=== PATIENT | female | born 1940 | race Caucasian/White ===

== ENCOUNTER 2022-03-25 07:59 | Emergency (ER) | payer OTHER, SELFPAY ==
--- NOTE | ~2022-03-25 | XR_ITS ---
EXAMINATION: XR chest 2V DATE: 03/25/2022 09:09 INDICATION: Hypertension TECHNIQUE: PA and lateral views of the chest are obtained. COMPARISON: None available FINDINGS: The lungs are free of acute opacities. No pleural effusion or pneumothorax. The cardiomedia stinal silhouette is normal. There is moderate thoracic spondylosis. IMPRESSION: 1. No acute cardiopulmonary abnormality. Reviewed, dictated and finalized at location A.
[2022-03-25 08:04] VITALS: BP 228/100; PULSE 61; RESP 18; TEMP 36.8; O2SAT 95
[2022-03-25 08:49] LABS: Basophils Absolute Auto 0.1 K/mm3 (0.0-0.1); Basophils Percent Auto 0.8 % (0.2-1.2); Eosinophils Absolute Auto 0.2 K/mm3 (0-0.3); Eosinophils Percent Auto 1.8 % (0-4.4); Hematocrit 45.3 % (37.0-47.0); Immature Granulocyte Absolute 0.02 K/mm3 (0.00-0.031); Immature Granulocyte Percent A 0.2 % (0-0.5); Lymphocytes Absolute Auto 1.31 K/mm3 (0.9-3.2); Lymphocytes Percent Auto 15.1 % (18.3-44.2); Mean Corpuscular HGB Conc 33.1 g/dl (32-36); Mean Corpuscular Hemoglobin 30.8 pg (26-34); Mean Platelet Volume 10.3 fl (7.4-10.4); Monocytes Absolute Auto 0.6 K/mm3 (0.1-0.6); Monocytes Percent Auto 6.7 % (2.6-8.5); Neutrophils Absolute Auto 6.5 K/mm3 (1.3-6.7); Neutrophils Percent Auto 75.4 % (45.5-73.1); Platelet Count Result 210 k/mm3 (150-375); Red Blood Count 4.87 M/mm3 (4.2-5.4); Red Cell Distribution Width 14.1 % (11.5-14.5); White Blood Count 8.7 K/mm3 (4.5-10.0)
[2022-03-25 09:00] LABS: INR 1.1; Prothrombin Time 13.7 Seconds (11.1-14.7)
[2022-03-25 09:01] LABS: Partial Thromboplastin Time 25.9 SECONDS (22.3-36.8)
[2022-03-25 09:12] LABS: Alanine Aminotransferase 19 U/L (6-35); Albumin Level 4.5 g/dL (3.5-5.1); Alkaline Phosphatase 89 U/L (38-126); Anion Gap 9 mmol/L (8-16); Aspartate Amino Transferase 18 U/L (14-36); Bilirubin,Total 1.5 mg/dL (0.2-1.3); Blood Urea Nitrogen 14 mg/dL (7-17); Calcium 10.1 mg/dL (8.4-10.2); Carbon Dioxide 26 mmol/L (22-30); Chloride 103 mmol/L (98-107); Estimated CRCL calculation 48 ml/min; Estimated Glomerular Filt Rate 60; Glucose 139 mg/dL (65-110); Potassium 3.8 mmol/L (3.4-5.0); Sodium 138 mmol/L (137-145)
[2022-03-25 09:24] LABS: Troponin I 0.014 ng/mL (0.000-0.034)
--- NOTE | 2022-03-25 09:27 | ED.GENADULT ---
HPI - General Adult General Chief complaint: Recheck/Abnormal Lab/Rx Stated complaint: high bp Time Seen by Provider: 03/25/22 08:17 History of Present Illness HPI narrative: Patient is an 81-year-old female who presents ER with hypertension. She had recently had her hypertensive medications modified. There is then found that her blood pressure was at in the 170s systolic at her doctor's office yesterday and then started going up in the 200s. He readjusted her medication. This morning her blood pressure was still significantly elevated so she opted to come to the ER. No fevers or chills or sweats. No chest pain or chest pressure. No abdominal discomfort. No dyspnea on exertion. Patient does report increased stress recently as both of her sisters are currently hospitalized 1 is in the ICU and 1 is having her heart evaluated. Patient reports that she is taking amlodipine and HCTZ today. She is also taking propanolol. Review of Systems Review of Systems: All systems reviewed & are unremarkable except as noted in HPI and below Constitutional: Constitutional: Denies chills and Denies fever(s) ENT: Denies nasal congestion and Denies sore throat Cardiovascular: Cardiovascular: Denies chest pain, Denies rapid heart rate and Denies radiating jaw, neck or arm pain Respiratory: Respiratory: Denies cough and Denies dyspnea Gastrointestinal: Gastrointestinal: Denies abdominal pain, Denies nausea and Denies vomiting Neurologic: Reports headache(s) (Tension, improved with Tylenol.), Denies focal weakness and Denies numbness PMFSH Past Medical History Medical History (Updated 03/25/22 @ 10:07 by Pablo Neal MD) Hypertension Resting tremor Surgical History Surgical History (Updated 03/25/22 @ 10:04 by Pablo Neal MD) No pertinent past surgical history Social History Social History (Updated 03/25/22 @ 10:04 by Pablo Neal MD) Smoking status: Never smoker Exam Narrative: GENERAL: Well-appearing, well-nourished, and in no acute distress. HEAD: Normocephalic, atraumatic. EYES: PERRL and EOMI. CHEST: Clear to auscultation. No respiratory distress. HEART: Regular rate and rhythm. Normal peripheral pulses. ABDOMEN: Soft, nontender, nondistended. EXTREMITIES: Normal range of motion. No edema. SKIN: Warm, dry, no rash. NEURO: Alert and oriented x3. PSYCH: Normal mood and affect. Course Course Emergency Course: Patient resting comfortably. Blood pressure coming down nicely on its own without intervention. She has been on the phone with her primary care doctor who called her to check up on her. Patient be discharged home. No medication modifications at this time. Vital Signs Vital signs: Vital Signs Temperature 98.3 F 03/25/22 08:04 Pulse Rate 61 03/25/22 08:04 Respiratory Rate 18 03/25/22 08:04 Blood Pressure 228/100 H 03/25/22 08:04 Pulse Oximetry 95 03/25/22 08:04 Oxygen Delivery Room Air 03/25/22 08:04 Temperature 98.3 F 03/25/22 08:04 Pulse Rate 61 03/25/22 08:04 Respiratory Rate 18 03/25/22 08:04 Blood Pressure 228/100 H 03/25/22 08:04 Pulse Oximetry 95 03/25/22 08:04 Oxygen Delivery Room Air 03/25/22 08:04 Medical Decision Making Vital Signs Vital Signs: Vital Signs Temperature 98.3 F 03/25/22 08:04 Pulse Rate 61 03/25/22 08:04 Respiratory Rate 18 03/25/22 08:04 Blood Pressure 228/100 H 03/25/22 08:04 Pulse Oximetry 95 03/25/22 08:04 Oxygen Delivery Room Air 03/25/22 08:04 Temperature 98.3 F 03/25/22 08:04 Pulse Rate 61 03/25/22 08:04 Respiratory Rate 18 03/25/22 08:04 Blood Pressure 228/100 H 03/25/22 08:04 Pulse Oximetry 95 03/25/22 08:04 Oxygen Delivery Room Air 03/25/22 08:04 Lab Data Result diagrams: 03/25/22 08:44 03/25/22 08:44 Labs: Lab Results 03/25/22 03/25/22 03/25/22 Range/Units 08:44 08:44 08:44 WBC 8.7 (4.5-10.0) K/mm3 RBC 4
[2022-03-25 10:37] VITALS: BP 171/84; PULSE 52; RESP 16
== END 2022-03-25 10:39 | disposition home or self-care (01) ==
PROVIDERS: Emergency Provider Emergency Medicine; PCP Internal Medicine
DX: I10 Essential (primary) hypertension (principal)
CPT/HCPCS: 36415; 71046; 80053; 84484; 85025; 85610; 85730; 99284

== ENCOUNTER 2022-12-11 09:51 | Inpatient (IN) | payer OTHER, SELFPAY ==
--- NOTE | ~2022-12-11 | XR_ITS ---
AP view of the pelvis and AP and lateral views of the left hip Clinical history: Pain Findings: There is a traumatic, displaced fracture through the intertrochanteric portion of the proxi mal left femur, probable comminution at the lesser trochanteric region. Bilateral hip joint spaces ar e preserved. Soft tissues are unremarkable. Impression: Traumatic, comminuted, displaced intertrochanteric fracture of the proximal left femur. Reviewed, dictated and finalized at location M. Impression: Traumatic, comminuted, displaced intertrochanteric fracture of the proximal lef t femur.
--- NOTE | ~2022-12-11 | XR_ITS ---
XR surgery orthopedic Left hip gamma nail placement TECHNIQUE: Fluoroscopy used during left hip gamma nail placement performed by [Isaac friedman MD] on 12/13/2022. 2 minutes 21 seconds of fluoroscopy time with 8 images captured. FINDINGS: Correlate with procedure note. IMPRESSION: Fluoroscopy used during left hip gamma nail placement transfixing left femoral intertroch anteric fracture.. Reviewed, dictated and finalized at location B. IMPRESSION: Fluoroscopy used during left hip gamma nail placement transfixing l eft femoral intertrochanteric fracture..
--- NOTE | ~2022-12-11 | XR_ITS ---
Portable chest x-ray Comparison: 03/25/2022 Clinical History: Preoperative evaluation, status post fall Findings: Lungs are clear, without focal consolidation or pleural effusion. Cardiomediastinal silho uette is stable. Bones and soft tissues are unremarkable. Impression: Clear lungs. Reviewed, dictated and finalized at location . Impression: Clear lungs.
[2022-12-11 09:51] VITALS: BP 156/112; PULSE 96; RESP 16; TEMP 36.2; O2SAT 96
--- NOTE | 2022-12-11 10:14 | ED.FALL ---
HPI - Fall General Chief Complaint: Fall Stated Complaint: fall - hip injury History of Present Illness HPI Narrative: 82-year-old female presenting to the ED for evaluation of left hip pain. Patient reports she was attempting to open the trunk to her car when she lost her balance and fell landing on her left hip. Patient denies striking her head denies any loss of consciousness. Patient was unable to move after the fall due to the left hip pain. Patient states he does have a prior fracture of her right ankle but denies any previous fractures of the left leg. Patient does have history of hypertension and takes a diuretic. Patient does not take any blood thinners. Related Data Home Medications Medication Instructions Recorded Confirmed naproxen sodium 220 mg PO BID 12/11/22 12/11/22 propranolol 20 mg tablet 20 mg PO BID 12/11/22 12/11/22 triamterene 37.5 37.5 tablet PO DAILY 12/11/22 12/11/22 mg-hydrochlorothiazide 25 mg tablet Allergies Allergy/AdvReac Type Severity Reaction Status Date / Time Sulfa (Sulfonamide Allergy Nausea Verified 12/11/22 09:56 Antibiotics) Review of Systems Review of Systems: All systems reviewed & are unremarkable except as noted in HPI and below PMFSH Past Medical History Medical History (Updated 12/11/22 @ 18:44 by Dwayne Smith MD) Ankle fracture, right Hypertension Intertrochanteric fracture of left hip Osteoarthritis Resting tremor Surgical History Surgical History (Updated 12/11/22 @ 16:55 by Reema Ray PA-C) History of ankle surgery (~2007) Secondary to fracture Hx of appendectomy Hx of cholecystectomy No pertinent past surgical history Family History Family History (Updated 12/11/22 @ 16:55 by Reema Ray PA-C) Father Cerebrovascular accident Essential tremor Mother AAA (abdominal aortic aneurysm) Social History Social History (Updated 12/11/22 @ 16:57 by Reema Ray PA-C) Social History: Patient lives at home independently. 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 She designates her son, Lionel, as her surrogate decision maker. Smoking packs per day: 0.5 Smoking cigarettes per day: 10.0 Years smoked: 20 Smoking pack-years: 10.00 Smoking status: Former smoker Tobacco type: cigarettes Second hand tobacco smoke exposure: No Alcohol intake: current Drinks per week: 7 Alcohol use details: One 4-6 oz glass of wine nightly Substance use: never Lack of Transportation: No Lack of Food: Never True Current Housing: I Have Housing Concerned About Future Housing: No Difficulty Paying Gas/Electric Bills: No Difficulty Paying for Meds: No Currently Unemployed: No Education: Master's Degree or Higher Difficulty w/ Childcare or Family Care: No Spiritual care concerns: No Exam Narrative: APPEARANCE: Well appearing, no pain, no distress, well-nourished. HEAD: normocephalic, atraumatic. EYES: PERRLA/EOMI, conjunctivae clear. NOSE: Normal no drainage NECK: Supple. No adenopathy, no masses. RESPIRATORY: Airway patent, respirations nonlabored. Clear to auscultation bilaterally, no rales, rhonchi, wheezing. CARDIOVASCULAR: Regular rate and rhythm without murmurs rubs or gallops. ABDOMINAL: Soft, nontender, nondistended, normal bowel sounds MUSCULOSKELETAL: Moves all extremities. Left hip tenderness to palpation. Neurovascular intact NEURO: Alert. Cranial nerves II through XII intact. Grossly intact SKIN: Warm, dry. Normal Color Course Course Emergency Course: 82-year-old female with left hip pain. Patient was provided IV medications for pain control along with p.o. Flexeril. Patient denies any other pain or injury. Patient family were updated on the plan for treatment and work-up Patient x-ray does show a fracture of her left hip. Patient is afebrile with no leukocytosis. Patient's CMP is within normal limits. Chest x-ray shows no acute cardiopulmonary abno
[2022-12-11 10:28] LABS: Basophils Absolute Auto 0.1 K/mm3 (0.0-0.1); Basophils Percent Auto 1.4 % (0.2-1.2); Eosinophils Absolute Auto 0.2 K/mm3 (0-0.3); Eosinophils Percent Auto 3.5 % (0-4.4); Hematocrit 41.3 % (37.0-47.0); Hemoglobin 13.8 g/dL (12.0-15.0); Immature Granulocyte Absolute 0.02 K/mm3 (0.00-0.031); Immature Granulocyte Percent A 0.4 % (0-0.5); Lymphocytes Absolute Auto 1.51 K/mm3 (0.9-3.2); Lymphocytes Percent Auto 29.7 % (18.3-44.2); Mean Corpuscular HGB Conc 33.4 g/dl (32-36); Mean Corpuscular Hemoglobin 31.7 pg (26-34); Mean Corpuscular Volume 94.7 fl (80-100); Monocytes Absolute Auto 0.5 K/mm3 (0.1-0.6); Monocytes Percent Auto 10.4 % (2.6-8.5); Neutrophils Absolute Auto 2.8 K/mm3 (1.3-6.7); Neutrophils Percent Auto 54.6 % (45.5-73.1); Platelet Count Result 197 k/mm3 (150-375); Red Blood Count 4.36 M/mm3 (4.2-5.4); Red Cell Distribution Width 13.8 % (11.5-14.5); White Blood Count 5.1 K/mm3 (4.5-10.0)
[2022-12-11] MEDS: fentaNYL CITRATE INJ (*CRX) 100 MCG/2 ML VIAL 25 MCG IV PUSH ×2 (10:34→14:50)
[2022-12-11] MEDS: CYCLOBENZAPRINE HCL 10 MG TABLET PO (10:36)
[2022-12-11 10:38] LABS: Partial Thromboplastin Time 22.7 SECONDS (22.3-36.8); Prothrombin Time 13.4 Seconds (11.1-14.7)
[2022-12-11 10:39] LABS: Alanine Aminotransferase 23 U/L (6-35); Albumin Level 3.9 g/dL (3.5-5.1); Alkaline Phosphatase 70 U/L (38-126); Anion Gap 6 mmol/L (8-16); Aspartate Amino Transferase 20 U/L (14-36); Bilirubin,Total 0.8 mg/dL (0.2-1.3); Blood Urea Nitrogen 21 mg/dL (7-17); Calcium 9.5 mg/dL (8.4-10.2); Carbon Dioxide 27 mmol/L (22-30); Chloride 100 mmol/L (98-107); Estimated CRCL calculation 55 ml/min; Estimated Glomerular Filt Rate > 60; Glucose 145 mg/dL (65-110); Potassium 3.6 mmol/L (3.4-5.0); Sodium 133 mmol/L (137-145)
[2022-12-11 12:00] VITALS: O2SAT 95
[2022-12-11] MEDS: fentaNYL CITRATE INJ (*CRX) 100 MCG/2 ML VIAL 50 MCG IV PUSH (12:02)
[2022-12-11 12:19] VITALS: BP 136/69; PULSE 77; O2SAT 95
[2022-12-11 12:35] VITALS: BMI 32.6
[2022-12-11 12:45] VITALS: BP 154/67; PULSE 57; RESP 18; TEMP 36.2; O2SAT 97
--- NOTE | 2022-12-11 14:03 | ADMGEN ---
This patient, Marisel Ambrocio, was admitted to [facility] Surg Room 303-01. Patient/family oriented to hospital policies and general routines including ID bracelet, bed and alarms, visiting hours, pain management, procedures, bathroom and other care routines, personal items, smoking policy, room service/diet, and visiting hours. Information on how to activate the Rapid Response Team has been discussed. Patient/Family are encouraged to report perceived risks to care and to ask questions if they do not understand what they are told or what they should do.
[2022-12-11 14:11] VITALS: BMI 32.6
--- NOTE | 2022-12-11 14:21 | ADMGEN ---
This patient, Marisel Ambrocio, was admitted to [facility] Surg Room 303-01. Patient/family oriented to hospital policies and general routines including ID bracelet, bed and alarms, visiting hours, pain management, procedures, bathroom and other care routines, personal items, smoking policy, room service/diet, and visiting hours. Information on how to activate the Rapid Response Team has been discussed. Patient/Family are encouraged to report perceived risks to care and to ask questions if they do not understand what they are told or what they should do.
[2022-12-11] MEDS: SODIUM CHLORIDE 0.9% IV 1,000 ML 100 ML IV CONT ×2 (14:51→21:47)
--- NOTE | 2022-12-11 14:52 | PM.CNOR ---
Assessment and Plan Assessment and plan (1) Intertrochanteric fracture of left hip: Qualifiers: Encounter type: initial encounter Fracture type: closed Fracture alignment: displaced Qualified Code(s): S72.142A - Displaced intertrochanteric fracture of left femur, initial encounter for closed fracture Code(s): S72.142A - Displaced intertrochanteric fracture of left femur, initial encounter for closed fracture Status: Acute Assessment and Plan: Displaced intertrochanteric fracture. I reviewed the proposed procedure. Risks, benefits, and alternatives discussed. Proceed with ORIF left hip with IM nail. Anticipate 4-6weeks of rehab. Good recovery expected. May WBAT after surgery. History of Present Illness HPI Consult date: 12/11/22 Chief complaint: Intertrochanteric Left Hip Narrative: Patient complains of acute hip pain. Fell from standing height. Admitted through the emergency room for definitive management. No previous hip pain. Comfortable at rest. No numbness, tingling, or other associated symptoms. Review of Systems Review of Systems: Denies loss of consciousness. All systems reviewed & are unremarkable except as noted in HPI and below PMFSH Past Medical History Medical History (Updated 12/11/22 @ 14:55 by Isaac Parikh MD) Hypertension Intertrochanteric fracture of left hip Resting tremor Surgical History Surgical History No pertinent past surgical history Family History Family History Father Cerebrovascular accident Mother AAA (abdominal aortic aneurysm) Social History Social History Smoking packs per day: 0.5 Smoking cigarettes per day: 10.0 Years smoked: 20 Smoking pack-years: 10.00 Smoking status: Former smoker Tobacco type: cigarettes Second hand tobacco smoke exposure: No Alcohol intake: current Drinks per week: 5 Substance use: never Lack of Transportation: No Lack of Food: Never True Current Housing: I Have Housing Concerned About Future Housing: No Difficulty Paying Gas/Electric Bills: No Difficulty Paying for Meds: No Currently Unemployed: No Education: Master's Degree or Higher Difficulty w/ Childcare or Family Care: No Spiritual care concerns: No Meds Home Medications and Allergies Home Medications Medication Instructions Recorded Confirmed Type naproxen sodium 220 mg PO BID 12/11/22 12/11/22 History propranolol 20 mg tablet 20 mg PO BID 12/11/22 12/11/22 History triamterene 37.5 37.5 tablet PO DAILY 12/11/22 12/11/22 History mg-hydrochlorothiazide 25 mg tablet Allergies Allergy/AdvReac Type Severity Reaction Status Date / Time Sulfa (Sulfonamide Allergy Nausea Verified 12/11/22 09:56 Antibiotics) Vital Signs Vital Signs - 24 hr 12/11/22 09:51 12/11/22 12:00 12/11/22 12:19 Temperature 36.2 C L Pulse Rate 96 77 Respiratory Rate 16 Blood Pressure 156/112 H 136/69 Pulse Oximetry 96 95 95 12/11/22 12:45 Temperature 36.2 C L Pulse Rate 57 L Respiratory Rate 18 Blood Pressure 154/67 H Pulse Oximetry 97 Exam Narrative: Lower extremity shortened and externally rotated. Const: General: no acute distress Eyes: General: appearance normal, both eyes and all related structures Resp: Effort & Inspection: normal respiratory effort GI: GI Palp: Yes Soft to palpation and No Guarding due to palpation present (GI) Urinary Catheter: Urinary Catheter: patent and draining and urine clear Skin: General skin exam: no rashes or lesions noted Neuro: Speech: normal speech Other: Wiggles toes well. Capillary refill brisk. Distal light touch sensation intact. Dorsalis pedis pulse palpable. Extrem: Other: No edema. Psych: Mental Status: mental status grossly normal
--- NOTE | 2022-12-11 15:34 | PM.IMHP ---
H&P: HPI History of Present Illness Date/Time: 12/11/22 15:34 Chief Complaint: Fall Narrative: Date of service: 12/11/2022 Marisel Ambrocio is an 82-year-old female with history of hypertension and resting tremor who presented to the emergency department on 12/11/2022 complaints of left hip pain after suffering a fall, landing on her left hip. The patient was carrying a package, attempting to open the trunk of her car. She waved her foot underneath the vehicle in order to open the trunk and unfortunately lost her balance and fell back onto her left hip. She did not hit her head or lose consciousness. She did not have any precipitating symptoms including dizziness or lightheadedness. She had immediate left hip pain and ?knew it was broken.? On presentation to the ED, her vital signs are stable, she was afebrile, CBC and BMP unremarkable, and hip/pelvis x-ray showed traumatic comminuted displaced intertrochanteric fracture of the proximal left femur. At the time of my evaluation, she rates her pain as 5/10. States some improvement with analgesics. She denies any urinary symptoms. Denies shortness of breath or chest pain. No nausea or vomiting. Review of Systems Review of Systems: All systems reviewed & are unremarkable except as noted in HPI and below PMFSH Past Medical History Medical History (Updated 12/11/22 @ 16:55 by Reema Ray PA-C) Ankle fracture, right Hypertension Intertrochanteric fracture of left hip Osteoarthritis Resting tremor Surgical History Surgical History (Updated 12/11/22 @ 16:55 by Reema Ray PA-C) History of ankle surgery (~2007) Secondary to fracture Hx of appendectomy Hx of cholecystectomy No pertinent past surgical history Family History Family History (Updated 12/11/22 @ 16:55 by Reema Ray PA-C) Father Cerebrovascular accident Essential tremor Mother AAA (abdominal aortic aneurysm) Social History Social History (Updated 12/11/22 @ 16:57 by Reema Ray PA-C) Social History: Patient lives at home independently. 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 She designates her son, Lionel, as her surrogate decision maker. Smoking packs per day: 0.5 Smoking cigarettes per day: 10.0 Years smoked: 20 Smoking pack-years: 10.00 Smoking status: Former smoker Tobacco type: cigarettes Second hand tobacco smoke exposure: No Alcohol intake: current Drinks per week: 7 Alcohol use details: One 4-6 oz glass of wine nightly Substance use: never Lack of Transportation: No Lack of Food: Never True Current Housing: I Have Housing Concerned About Future Housing: No Difficulty Paying Gas/Electric Bills: No Difficulty Paying for Meds: No Currently Unemployed: No Education: Master's Degree or Higher Difficulty w/ Childcare or Family Care: No Spiritual care concerns: No Meds Home Medications and Allergies Home Medications Medication Instructions Recorded Confirmed Type naproxen sodium 220 mg PO BID 12/11/22 12/11/22 History propranolol 20 mg tablet 20 mg PO BID 12/11/22 12/11/22 History triamterene 37.5 37.5 tablet PO DAILY 12/11/22 12/11/22 History mg-hydrochlorothiazide 25 mg tablet Allergies Allergy/AdvReac Type Severity Reaction Status Date / Time Sulfa (Sulfonamide Allergy Nausea Verified 12/11/22 09:56 Antibiotics) Vital Signs Vital Signs - 24 hr 12/11/22 09:51 12/11/22 12:00 12/11/22 12:19 Temperature 97.1 F L Pulse Rate 96 77 Respiratory Rate 16 Blood Pressure 156/112 H 136/69 Pulse Oximetry 96 95 95 Oxygen Delivery 12/11/22 12:45 12/11/22 15:00 Temperature 97.2 F L Pulse Rate 57 L Respiratory Rate 18 Blood Pressure 154/67 H Pulse Oximetry 97 Oxygen Delivery Room Air Exam Narrative: General: Well-nourished, well-appearing 82-year-old female, sitting up in bed, comfortable, NARD Neuro: awake, alert and oriented x4, spe
[2022-12-11] MEDS: ACETAMINOPHEN 325 MG TABLET 650 MG PO ×2 (17:55→21:44)
[2022-12-11] MEDS: PROPRANOLOL HCL 20 MG TABLET PO (18:01)
--- NOTE | 2022-12-11 18:38 | PC.NURSE ---
Pt is A&O4 female who participated and contributed in plan of care. Pt had ground level fall at home fracturing left hip. Pt has had reports of pain that was treated with medication. Pt started on IV fluids, admission done, and home medications reviewed. Pt was seen by Dr. Parikh. Surgery planned for Sunday at 0930. Will continue to monitor pt.
[2022-12-11 21:27] VITALS: BP 125/57; PULSE 65; RESP 16; TEMP 36.4; O2SAT 96
[2022-12-12 05:50] VITALS: BP 167/63; PULSE 64; RESP 14; TEMP 36.2; O2SAT 94
[2022-12-12 06:19] LABS: Hemoglobin 13.1 g/dL (12.0-15.0); Mean Corpuscular HGB Conc 32.8 g/dl (32-36); Mean Corpuscular Hemoglobin 31.3 pg (26-34); Mean Corpuscular Volume 95.7 fl (80-100); Mean Platelet Volume 10.2 fl (7.4-10.4); Platelet Count Result 157 k/mm3 (150-375); Red Blood Count 4.18 M/mm3 (4.2-5.4); Red Cell Distribution Width 13.6 % (11.5-14.5); White Blood Count 6.7 K/mm3 (4.5-10.0)
[2022-12-12 06:42] LABS: Anion Gap 4 mmol/L (8-16); Blood Urea Nitrogen 15 mg/dL (7-17); Calcium 8.7 mg/dL (8.4-10.2); Carbon Dioxide 28 mmol/L (22-30); Chloride 102 mmol/L (98-107); Estimated CRCL calculation 65 ml/min; Estimated Glomerular Filt Rate > 60; Glucose 123 mg/dL (65-110); Potassium 3.5 mmol/L (3.4-5.0); Sodium 134 mmol/L (137-145)
[2022-12-12] MEDS: ACETAMINOPHEN 325 MG TABLET 650 MG PO ×3 (09:15→20:39)
[2022-12-12 09:16] VITALS: PULSE 68
[2022-12-12] MEDS: PROPRANOLOL HCL 20 MG TABLET PO ×2 (09:16→18:15)
[2022-12-12] MEDS: TRIAMTERENE 37.5 MG/HCTZ 25 MG (MAXZIDE) TABLET 1 TAB PO (09:16)
[2022-12-12 11:35] LABS: Appearance Urine Cloudy (Clear); Bacteria Urine 4+ /hpf; Bilirubin Urine Negative (Negative); Blood Urine 3+ (Negative); Color Urine Yellow (Yellow); Glucose Urine UA Negative (Negative); Ketones Urine Negative (Negative); Leukocyte Esterase Ur Trace LEU/UL (Negative); Nitrate Urine Positive (Negative); Non Pathogenic Casts 0-2; Protein Urine 1+ mg/dL (Negative); Specific Grav Ur 1.008 (1.001-1.035); Squamous Epithelial Cell Urine Occasional /hpf (Few); Urobilinogen Urine 0.2 mg/dL (<2.0)
[2022-12-12 12:12] LABS: Add Urine Microscopic? YES
[2022-12-12 13:43] VITALS: BP 122/48; PULSE 81; RESP 21; TEMP 36.8; O2SAT 98
--- NOTE | 2022-12-12 14:06 | WPDANESEPPF ---
Anes - Initial Pre Proc Eval Procedure: Operation Date: 12/13/22 10:00 Proposed Procedures p Left Gamma Nail - Isaac Parikh MD Date/Time: 12/12/22 14:06 Surgeon: Reema Ray PA-C Pre Op Diagnosis: Intertrochanteric Hip Patient Data Age: 82 Gender: F Height: 1.73 m Weight: 97.5 kg Last Vital Signs Temp 36.2 C L 12/12/22 05:50 Pulse 68 12/12/22 09:16 Resp 14 12/12/22 05:50 BP 167/63 H 12/12/22 05:50 Pulse Ox 94 12/12/22 05:50 O2 Del Method Room Air 12/11/22 15:00 Allergies Allergy/AdvReac Type Severity Reaction Status Date / Time Sulfa (Sulfonamide Allergy Nausea Verified 12/11/22 09:56 Antibiotics) Home Medications Medication Instructions Recorded Confirmed Type naproxen sodium 220 mg PO BID 12/11/22 12/11/22 History propranolol 20 mg tablet 20 mg PO BID 12/11/22 12/11/22 History triamterene 37.5 37.5 tablet PO DAILY 12/11/22 12/11/22 History mg-hydrochlorothiazide 25 mg tablet Laboratory Tests 12/12/22 12/12/22 12/12/22 05:49 08:16 10:54 WBC 6.7 K/mm3 (4.5-10.0) RBC 4.18 L M/mm3 (4.2-5.4) Hgb 13.1 g/dL (12.0-15.0) Hct 40.0 % (37.0-47.0) MCV 95.7 fl (80-100) MCH 31.3 pg (26-34) MCHC 32.8 g/dl (32-36) RDW 13.6 % (11.5-14.5) Plt Count 157 k/mm3 (150-375) MPV 10.2 fl (7.4-10.4) Sodium 134 L mmol/L (137-145) Potassium 3.5 mmol/L (3.4-5.0) Chloride 102 mmol/L (98-107) Carbon Dioxide 28 mmol/L (22-30) Anion Gap 4 L mmol/L (8-16) BUN 15 D mg/dL (7-17) Creatinine 0.70 mg/dL (0.7-1.0) Estim Creat Clear Calc 65 ml/min Estimated GFR > 60 (59 - ) Glucose 123 H mg/dL (65-110) Calcium 8.7 mg/dL (8.4-10.2) Urine Color Yellow (Yellow) Urine Appearance Cloudy H (Clear) Urine pH 6.0 (5.0-9.0) Ur Specific Barrett 1.008 (1.001-1.035) Urine Protein 1+ H mg/dL (Negative) Urine Glucose (UA) Negative mg/dL (Negative) Urine Ketones Negative mg/dL (Negative) Ur Blood (Man) 3+ H (Negative) Urine Nitrate Positive H (Negative) Urine Bilirubin Negative (Negative) Urine Urobilinogen 0.2 mg/dL (<2.0) Leukocyte Esterase Rfl Trace H JOSE MANUEL/UL (Negative) Urine RBC 3-5 H /hpf (0-2) Urine WBC 6-10 H /hpf Ur Squamous Epith Cells Occasional /hpf (Few) Urine Bacteria 4+ H /hpf Urine Casts 0-2 Blood Type A Positive Antibody Screen Negative Patient hx anesthesia problems: none Family hx anesthesia problems: none Results Review: All pre-operative results and documents have been reviewed as part of the pre-operative evaluation. [facility] Past Medical History Medical History (Updated 12/12/22 @ 16:32 by Reema Ray PA-C) Ankle fracture, right Hypertension Intertrochanteric fracture of left hip Obesity Osteoarthritis Resting tremor Surgical History Surgical History (Updated 12/11/22 @ 16:55 by Reema Ray PA-C) History of ankle surgery (~2007) Secondary to fracture Hx of appendectomy Hx of cholecystectomy No pertinent past surgical history Family History Family History (Updated 12/11/22 @ 16:55 by Reema Ray PA-C) Father Cerebrovascular accident Essential tremor Mother AAA (abdominal aortic aneurysm) Social History Social History (Updated 12/11/22 @ 16:57 by Reema Ray PA-C) Social History: Patient lives at home independently. 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 She designates her son, Lionel, as her surrogate decision maker. Smoking packs per day: 0.5 Smoking cigarettes per day: 10.0 Years smoked: 20 Smoking pack-years:
--- NOTE | 2022-12-12 15:08 | PC.NURSE ---
Pt is A&O4 female who has participated and contributed in plan of care. Pt has had some reports of pain today, but has only required tylenol for pain control. Pt expresses no other needs at this time. Pt having surgery tomorrow. Will continue to monitor pt.
--- NOTE | 2022-12-12 16:28 | PM.IMPN ---
Progress Note: A&P Assessment and Plan (1) Intertrochanteric fracture of left hip: Code(s): S72.142A - Displaced intertrochanteric fracture of left femur, initial encounter for closed fracture Status: Acute Assessment and Plan: Secondary to mechanical fall. Appreciate orthopedic surgery consultation. Planning for surgical repair on 12/13/2022. Continue with supportive care, analgesics as needed. Will need PT/OT postoperatively. Considering [facility] versus SNF following discharge (2) Fall: Code(s): W19.XXXA - Unspecified fall, initial encounter Status: Acute Assessment and Plan: Mechanical fall. Patient did not hit her head. No loss of consciousness. Fortunately, no other injuries sustained. Implement fall precautions. (3) Hypertension: Code(s): I10 - Essential (primary) hypertension Status: Chronic Assessment and Plan: Blood pressures are stable. Continue home triamterene-hydrochlorothiazide. Monitor BP trends (4) Resting tremor: Code(s): G25.2 - Other specified forms of tremor Status: Chronic Assessment and Plan: Chronic, no acute issues. Continue home propranolol (5) Abnormal urinalysis: Code(s): R82.90 - Unspecified abnormal findings in urine Status: Acute Assessment and Plan: UA is abnormal with positive nitrates, trace leuk esterase, 6-10 WBC, and 4+ bacteria. Patient endorses dysuria and hesitancy. Will begin IV ceftriaxone while awaiting urine culture results Subjective Date/time seen: 12/12/22 16:28 Interval history: Date of admission: 12/12/2022 Marisel Ambrocio is an 82-year-old female with history of hypertension and resting tremor who is seen in follow-up for left hip fracture. She is doing well today. Left hip pain is well controlled with Tylenol and ice, currently rates it as 5/10. She does endorse urinary frequency and hesitancy. She does have some pain with getting on the bedpan but is tolerating this okay. She is tolerating her diet. She denies shortness of breath, cough, or chest pain. Review of Systems Review of Systems: All systems reviewed & are unremarkable except as noted in HPI and below Exam Narrative: General: Well-nourished, well-appearing 82-year-old female, sitting up in bed, comfortable, NARD Neuro: awake, alert and oriented x4, speech clear, no focal neuro deficits noted HEENMT: normocephalic, atraumatic, EOMI, sclerae anicteric Respiratory: clear to auscultation bilaterally, nonlabored breathing Cardio: regular rate, regular rhythm with S1-S2 Abdomen: nondistended, normoactive bowel sounds, soft, nontender to palpation Extremities: bilateral lower extremities without edema, erythema, or tenderness to palpation Skin: no rashes or lesions, warm and dry Psych: appropriate mood and affect, judgment and insight intact Objective Data Vital Signs Vital Signs: Vital Signs - 24 hr 12/11/22 21:27 12/12/22 05:50 12/12/22 09:16 Temperature 97.6 F 97.1 F L Pulse Rate 65 64 68 Respiratory Rate 16 14 Blood Pressure 125/57 L 167/63 H Pulse Oximetry 96 94 Oxygen Delivery 12/12/22 09:16 Temperature Pulse Rate Respiratory Rate Blood Pressure Pulse Oximetry Oxygen Delivery Room Air Intake/Output Intake/Output: Intake & Output 12/09/22 12/10/22 12/11/22 12/12/22 23:59 23:59 23:59 23:59 Intake Total 1490 2590 Output Total 450 900 Balance 1040 1690 Meds/Results Medications: Active Medications Generic Name Dose Route Start Last Admin Trade Name Freq PRN Reason Stop Dose Admin Acetaminophen 650 mg 12/11/22 15:31 12/12/22 14:50 Acetaminophen 325 Mg Tablet PO 650 mg Q4H PRN Administration Pain 1-3 Hydrocodone Bitart/Acetaminophen 1 tab 12/11/22 15:31 Hydrocodone/Acetaminophen (*Crx) 5-325 Mg Tablet PO Q6H PRN Pain Rated 4-6 Fentanyl Citrate 25 mcg 12/12/22 13:43 Fentanyl Citra
[2022-12-12 17:31] VITALS: O2SAT 95
[2022-12-12 18:15] VITALS: PULSE 68
[2022-12-12 19:00] VITALS: BP 152/90; PULSE 73; RESP 14; TEMP 36.9; O2SAT 95
[2022-12-13] VITALS (17 sets, daily range): BP systolic 123–178; BP diastolic 49–75; PULSE 53–68; RESP 12–18; TEMP 35.5–36.7; O2SAT 91–100
[2022-12-13] MEDS: ACETAMINOPHEN 325 MG TABLET 650 MG PO (03:52)
[2022-12-13 06:31] LABS: Hematocrit 39.4 % (37.0-47.0); Mean Corpuscular Hemoglobin 31.3 pg (26-34); Mean Corpuscular Volume 94.7 fl (80-100); Mean Platelet Volume 10.2 fl (7.4-10.4); Platelet Count Result 158 k/mm3 (150-375); Red Blood Count 4.16 M/mm3 (4.2-5.4); Red Cell Distribution Width 13.7 % (11.5-14.5); White Blood Count 8.3 K/mm3 (4.5-10.0)
[2022-12-13 06:43] LABS: Anion Gap 4 mmol/L (8-16); Blood Urea Nitrogen 11 mg/dL (7-17); Calcium 8.9 mg/dL (8.4-10.2); Carbon Dioxide 29 mmol/L (22-30); Chloride 100 mmol/L (98-107); Estimated CRCL calculation 75 ml/min; Estimated Glomerular Filt Rate > 60; Glucose 133 mg/dL (65-110); Potassium 3.7 mmol/L (3.4-5.0); Sodium 133 mmol/L (137-145)
[2022-12-13] MEDS: PROPRANOLOL HCL 20 MG TABLET PO ×2 (08:13→16:36)
--- NOTE | 2022-12-13 09:07 | ECG_ITS ---
Measurements Intervals [place] Rate: 62 P: -47 DE: 161 QRS: -25 QRSD: 88 T: 78 QT: 410 QTc: 418 Interpretive Statements SINUS OR ECTOPIC ATRIAL RHYTHM LEFT VENTRICULAR HYPERTROPHY AND ST-T CHANGE BASELINE WANDER- I, AVR, AVL, V6 BORDERLINE ECG NO PREVIOUS ECG AVAILABLE FOR COMPARISON Electronically Signed On 12-13-2022 10:28:23 CDT by Duy Sy D.O.
[2022-12-13] MEDS: TRANEXAMIC ACID 1,000MG/ISO100 1,000 MG/100 ML BAG 200 MG IVPB (09:09)
[2022-12-13] MEDS: LACTATED RINGERS 1,000 ML 30 ML IV CONT ×2 (09:09→11:57)
--- NOTE | 2022-12-13 09:16 | WPDHPUPDATE1 ---
History and Physical Update Update Date/Time: 12/13/22 09:16 History and Physical has been reviewed, including an updated exam of the patient. There are NO changes in the patient's condition. Risks, benefits, and alternatives have been discussed and questions answered. Patient agrees to proceed with procedure.
--- NOTE | 2022-12-13 09:23 | PM.IMPN ---
Progress Note: A&P Assessment and Plan (1) Intertrochanteric fracture of left hip: Qualifiers: Encounter type: initial encounter Fracture type: closed Fracture alignment: displaced Qualified Code(s): S72.142A - Displaced intertrochanteric fracture of left femur, initial encounter for closed fracture Code(s): S72.142A - Displaced intertrochanteric fracture of left femur, initial encounter for closed fracture Status: Acute Assessment and Plan: Secondary to mechanical fall. Appreciate orthopedic surgery consultation. 12/13/2022 POD0 ORIF intertrochanteric left hip fracture. EBL 100 mL. General anesthesia. Continue with supportive care, analgesics as needed. PT/OT postoperatively and weight bearing status per Ortho. Considering [facility] versus SNF following discharge (2) Fall: Qualifiers: Encounter type: initial encounter Qualified Code(s): W19.XXXA - Unspecified fall, initial encounter Code(s): W19.XXXA - Unspecified fall, initial encounter Status: Acute Assessment and Plan: Mechanical fall. No loss of consciousness. s/p left hip fracture. Implement fall precautions. PT/OT as above. (3) Hypertension: Qualifiers: Hypertension type: primary hypertension Qualified Code(s): I10 - Essential (primary) hypertension Code(s): I10 - Essential (primary) hypertension Status: Chronic Assessment and Plan: Blood pressures reviewed and are stable. Continue home triamterene-hydrochlorothiazide. (4) Resting tremor: Code(s): G25.2 - Other specified forms of tremor Status: Chronic Assessment and Plan: Chronic, no acute issues. Continue home propranolol (5) Abnormal urinalysis: Code(s): R82.90 - Unspecified abnormal findings in urine Status: Acute Assessment and Plan: UA positive nitrates, trace leuk esterase, 6-10 WBC, and 4+ bacteria. Patient endorses dysuria and hesitancy. Continue ceftriaxone 1 gram IV Q24 hours, first dose 12/12/22. Ancef IV x3 doses postop today 12/13/22, then resume Rocephin and adjust per urine culture continue antibiotics x5-7 days Plan CODE STATUS: DNR Discharge disposition: from home. She will need rehab postop. Antibiotic day: day 2 IV Rocephin Estimated LOS: discharge pending stable postop course and discharge arrangements. Time Spent With Patient Time with patient: 15 - 25 minutes Subjective Date/time seen: 12/13/22 09:23 Interval history: She c/o severe pain to her left hip. Patient just arrived to the floor following surgery. She denies chest pain, SOB, palpitations, abd pain, N/V, or paresthesia. Review of Systems Review of Systems: All systems reviewed & are unremarkable except as noted in HPI and below Exam Narrative: General: Well-nourished, non-toxic appearing. Lying in bed. Grimacing with minimal movement. No acute respiratory distress. Neuro: awake, alert and oriented x4, speech clear, no focal neuro deficits noted. Sensation intact BLE. HEENT: normocephalic, atraumatic, pupils equal and round, sclerae anicteric, mucous membranes moist. Respiratory: clear to auscultation bilaterally, nonlabored breathing Cardio: regular rate, regular rhythm with S1-S2, no murmurs, gallops or rubs. Abdomen: nondistended, normoactive bowel sounds, soft, nontender to palpation Extremities: Left hip surgical dressing x2 clean, dry and intact. Radial and dorsalis pedis pulses +2 bilaterally. Bilateral lower extremities without edema or erythema. Skin: no rashes or lesions, warm and dry. Psych: appropriate mood and affect Objective Data Vital Signs Vital Signs: Vital Signs - 24 hr 12/12/22 17:31 12/12/22 18:15 12/12/22 13:43 Temperature 98.2 F Pulse Rate 68 81 Respiratory Rate 21 H Blood Pressure 122/48 L Pulse Oximetry 95 98 Oxygen Delivery Room Air 12/12/22 19:00 12/13/22 05:01 12/13/22 08:13 Tem
[2022-12-13] MEDS: ceFAZolin 2 GM/D5W 50 ML 2 GM/50 ML BAG IVPB ×2 (09:32→16:39)
[2022-12-13] MEDS: fentaNYL CITRATE INJ (*CRX) 100 MCG/2 ML VIAL 25 MCG IV PUSH ×4 (11:32→12:03)
--- NOTE | 2022-12-13 11:34 | W.PM.PROC2 ---
Procedure Note - Detailed Date of Procedure 12/13/22 Pre-op Diagnosis Displaced intertrochanteric hip fracture, left. Post-op Diagnosis Same Procedure Performed ORIF intertrochanteric fracture, left hip (cephalomedullary nail) Surgeon Isaac Parikh MD Anesthesia General Findings Unstable comminuted fracture. Excellent bone quality. Description of Procedure The patient was given a general anesthetic, then carefully placed in fracture table. Sterile prep and drape performed in the usual fashion. Sterile curtain was used. Gentle traction was utilized to reduce the fracture. Fluoroscopy was used to confirm anatomic reduction and a proper placement of the implants. A longitudinal incision was created at the tip of the trochanter. The deep fascia was incised. The cannulated awl was used to open the proximal femur. The guidewire was placed across the fracture. The reamer was used to open the canal. The gamma nail was placed across the fracture site. A separate incision was made for placement of the cannulated guide sleeve. The guide pin was placed in the center of the femoral head. Appropriate measurement was taken. The pin was over reamed. The screw was placed with excellent purchase. The set screw was placed proximally and backed out a quater turn. [The distal locking screw was placed through the static distal jig. ]The jig was removed. The wound was irrigated. The deep fascia was closed with #1 Vicryl suture followed by 2-0 Vicryl suture and estella. Sterile dressing was applied. The patient was transferred to the recovery room in stable condition. There were no complications. Short gamma nail 11x 180, 125 degree. 100mm lag screw. 35mm distal locking screw. Estimated Blood Loss -100.0 Urine Output -400.0 Drains No Pathology None sent Complications None Condition Stable Disposition PACU [facility] Billing Surgery - Charge Forward: Surgery Billing
[2022-12-13] MEDS: MORPHINE SULFATE (*CRX) 2 MG/ML INJ IV PUSH (13:05)
[2022-12-13] MEDS: HYDROcodone/acetaminophen (*CRX) 5-325 MG TABLET 1 TAB PO (16:34)
[2022-12-13] MEDS: SENNA/DOCUSATE SODIUM TABLET 2 TAB PO (16:35)
--- NOTE | 2022-12-13 18:08 | PC.NURSE ---
Pt went for surgery today. Pt tolerated well. Pt has reported pain since returning. Pt did work with therapy and was up in the chair. Pt was able to ambulate back to bed safely and with minimal pain. Pt has pillow under knee with heels floated off bed. Pt resting now. Will continue to monitor.
[2022-12-13] MEDS: ACETAMINOPHEN 500 MG TABLET 1000 MG PO (23:45)
[2022-12-14] VITALS (8 sets, daily range): BP systolic 101–158; BP diastolic 53–65; PULSE 55–64; RESP 16–20; TEMP 35.8–36.1; O2SAT 92–94
[2022-12-14] MEDS: ceFAZolin 2 GM/D5W 50 ML 2 GM/50 ML BAG IVPB ×2 (00:39→08:37)
[2022-12-14] MEDS: ACETAMINOPHEN 500 MG TABLET 1000 MG PO ×3 (05:13→18:14)
[2022-12-14 06:28] LABS: Hematocrit 35.8 % (37.0-47.0); Hemoglobin 11.7 g/dL (12.0-15.0); Mean Corpuscular HGB Conc 32.7 g/dl (32-36); Mean Corpuscular Hemoglobin 31.5 pg (26-34); Mean Corpuscular Volume 96.2 fl (80-100); Mean Platelet Volume 10.1 fl (7.4-10.4); Platelet Count Result 158 k/mm3 (150-375); Red Blood Count 3.72 M/mm3 (4.2-5.4); Red Cell Distribution Width 13.8 % (11.5-14.5); White Blood Count 9.5 K/mm3 (4.5-10.0)
[2022-12-14 06:50] LABS: Anion Gap 2 mmol/L (8-16); Blood Urea Nitrogen 16 mg/dL (7-17); Carbon Dioxide 32 mmol/L (22-30); Chloride 98 mmol/L (98-107); Estimated CRCL calculation 58 ml/min; Estimated Glomerular Filt Rate > 60; Glucose 127 mg/dL (65-110); Sodium 132 mmol/L (137-145)
[2022-12-14] MEDS: PROPRANOLOL HCL 20 MG TABLET PO ×2 (08:33→16:12)
[2022-12-14] MEDS: TRIAMTERENE 37.5 MG/HCTZ 25 MG (MAXZIDE) TABLET 1 TAB PO (08:36)
[2022-12-14] MEDS: SENNA/DOCUSATE SODIUM TABLET 2 TAB PO ×2 (08:36→16:18)
[2022-12-14] MEDS: ENOXAPARIN 30 MG/0.3 ML SYRINGE SUB-Q (08:36)
[2022-12-14] MEDS: polyethylene glycoL 3350 17 GM POWD.PACK PO (08:50)
[2022-12-14] MEDS: HYDROcodone/acetaminophen (*CRX) 5-325 MG TABLET 1 TAB PO (09:23)
--- NOTE | 2022-12-14 09:37 | PM.IMPN ---
Progress Note: A&P Assessment and Plan (1) Intertrochanteric fracture of left hip: Qualifiers: Encounter type: initial encounter Fracture alignment: displaced Fracture type: closed Qualified Code(s): S72.142A - Displaced intertrochanteric fracture of left femur, initial encounter for closed fracture Code(s): S72.142A - Displaced intertrochanteric fracture of left femur, initial encounter for closed fracture Status: Acute Assessment and Plan: Secondary to mechanical fall. Appreciate orthopedic surgery consultation. 12/13 ORIF intertrochanteric left hip fracture. EBL 100 mL. General anesthesia. Continue with supportive care, analgesics as needed. PT/OT postoperatively and weight bearing status per Ortho. Considering [facility] versus SNF following discharge 12/14/22 POD1. Continues to have pain. patient is on scheduled acetaminophen 1000 mg Q6 hours. Will change PRN narcotic to oxycodone IR 5 mg Q6 hours to avoid acetaminophen toxicity or >4 grams/day. Possible [facility] at discharge. Care coordination assisting with arrangement. (2) Fall: Qualifiers: Encounter type: initial encounter Qualified Code(s): W19.XXXA - Unspecified fall, initial encounter Code(s): W19.XXXA - Unspecified fall, initial encounter Status: Acute Assessment and Plan: Mechanical fall. No loss of consciousness. s/p left hip fracture. Implement fall precautions. PT/OT as above. (3) Hypertension: Qualifiers: Hypertension type: primary hypertension Qualified Code(s): I10 - Essential (primary) hypertension Code(s): I10 - Essential (primary) hypertension Status: Chronic Assessment and Plan: Blood pressures reviewed and are stable. Continue home triamterene-hydrochlorothiazide. (4) Resting tremor: Code(s): G25.2 - Other specified forms of tremor Status: Chronic Assessment and Plan: Chronic, no acute issues. Continue home propranolol (5) Abnormal urinalysis: Code(s): R82.90 - Unspecified abnormal findings in urine Status: Acute Assessment and Plan: UA positive nitrates, trace leuk esterase, 6-10 WBC, and 4+ bacteria. Patient endorses dysuria and hesitancy. Continue ceftriaxone 1 gram IV Q24 hours, first dose 12/12/22. Ancef IV x3 doses postop today 12/13/22, then resume Rocephin and adjust per urine culture 12/14/22 Urine culture with mixed [place], however, patient c/o symptoms consistent with UTI. Will continue antibiotics given recent surgery. Transitioned to oral cefdinir 300 mg PO BID x5 more days, total 7-day course. rodriguez catheter removed POD1 Plan CODE STATUS: DNR Discharge disposition: from home. She will need rehab postop. Antibiotic day: IV Rocephin 12/12-12/13; cefdinir 12/14- current. Estimated LOS: discharge pending stable postop course and discharge arrangements. Time Spent With Patient Time with patient: 15 - 25 minutes Subjective Date/time seen: 12/14/22 09:37 Interval history: She c/o left hip pain that is worse after physical therapy today. Therapy today was very difficult, she states. No chest pain, SOB, abd pain, N/V/D, or paresthesia. Review of Systems Review of Systems: All systems reviewed & are unremarkable except as noted in HPI and below Exam Narrative: General: Well-nourished, non-toxic appearing. sitting up in the chair. No acute respiratory distress. Neuro: awake, alert and oriented x4, speech clear, no focal neuro deficits noted. Sensation intact BLE. HEENT: normocephalic, sclerae anicteric, mucous membranes moist. Respiratory: clear to auscultation bilaterally, nonlabored breathing Cardio: regular rate, regular rhythm with S1-S2, no murmurs, gallops or rubs. Abdomen: nondistended, normoactive bowel sounds, soft, nontender to palpation Extremities: Left hip surgical dressing not assessed. dorsalis pedis pulses +2 bilaterally. Bilateral lower extremiti
--- NOTE | 2022-12-14 10:23 | PM.PNORT ---
Progress Note: A&P Assessment and Plan (1) Intertrochanteric fracture of left hip: Qualifiers: Encounter type: initial encounter Fracture alignment: displaced Fracture type: closed Qualified Code(s): S72.142A - Displaced intertrochanteric fracture of left femur, initial encounter for closed fracture Code(s): S72.142A - Displaced intertrochanteric fracture of left femur, initial encounter for closed fracture Status: Acute Assessment and Plan: Postop day 1: ORIF intertrochanteric fracture, left hip (cephalomedullary nail) Patient tolerated procedure well. May be weight bearing as tolerated and begin physical therapy. Anticipate 4-6 weeks at a rehab or SNF facility. She is very motivated to recover and return home. She is an excellent candidate for rehab. Ortho instructions: ORIF intertrochanteric fracture left hip with cephalomedullary nail. DOS: 12/13/22 D/C to SNF/rehab Xray in 2 weeks at facility to be sent to our office for review. Follow up in office in 4-6 weeks with xrays. Please call [facility] for your next apointment. Wound Care: Remove estella at 2 weeks post op. Daily dressing changes until healed. May shower. No soaking. PT: Weight bearing as tolerated with walker. DVT prophylaxis: continue Lovenox for 30 days total. If discharged from rehab sooner then 30 days, she may be discharged on 81 mg ASA twice a day for the remainder of the 30 days. Pain medication: Tylenol. Oxycodone. Subjective Subjective Date/Time Seen: 12/14/22 10:23 Interval history: Patient sitting up in a chair at the time of my visit. Notes that she has surgical pain but overall the hip feels better than it did yesterday. She has been taking Tylenol and Oxycodone for pain control. She has been working well with formal physical therapy and is very optimistic about her recovery. She is eager to recover and get back home. Review of Systems Review of Systems: Pain left hip and leg with movement. Denied pain elsewhere. All systems reviewed & are unremarkable except as noted in HPI and below Exam Narrative: Normal weight 82 y/o Female. Resting comfortably in bed. Dressing dry and intact with no drainage. Moderate swelling. No edema. No ecchymosis. No erythema. No hematoma. Range of motion limited due to pain. Calf nontender. Thigh nontender. No varicosities. Distal pulses palpable. Objective Data Vital Signs Vital Signs: Vital Signs - 24 hr 12/13/22 11:23 12/13/22 11:35 12/13/22 11:50 Temperature 97.2 F L Pulse Rate 66 53 L 55 L Respiratory Rate 18 12 16 Blood Pressure 136/75 144/63 H 152/64 H Pulse Oximetry 98 100 100 Oxygen Delivery Simple Face Mask Simple Face Mask Simple Face Mask Oxygen Flow Rate 10 10 10 12/13/22 12:05 12/13/22 12:15 12/13/22 12:30 Temperature Pulse Rate 58 L 62 53 L Respiratory Rate 12 18 14 Blood Pressure 178/72 H 143/61 H 152/67 H Pulse Oximetry 97 98 100 Oxygen Delivery Nasal Cannula Nasal Cannula Nasal Cannula Oxygen Flow Rate 2 2 2 12/13/22 12:45 12/13/22 15:18 12/13/22 12:48 Temperature 97.6 F Pulse Rate 55 L 57 L Respiratory Rate 18 14 Blood Pressure 145/72 H 165/73 H Pulse Oximetry 100 91 Oxygen Delivery Nasal Cannula Room Air Oxygen Flow Rate 2 12/13/22 13:03 12/13/22 13:33 12/13/22 14:33 Temperature 97.7 F 96.1 F L 98.1 F Pulse Rate 57 L 57 L 62 Respiratory Rate 16 14 14 Blood Pressure 146/61 H 150/66 H 135/62 Pulse Oximetry 91 93 94 Oxygen Delivery Oxygen Flow Rate 12/13/22 16:36 12/13/22 21:00 12/13/22 20:00 Temperature 96 F L Pulse Rate 64 68 68 Respiratory Rate 18 18 Blood Pressure 123/49 L Pulse Oximetry 94 94 Oxygen Delivery Room Air Oxygen Flow Rate 12/14/22 01:25 12/14/22 05:07 12/14/22 08:00 Temperature 96.8 F L 96.5 F L 97 F L Pulse Rate 63 62 62 Respiratory Rate 20 16 18 Blood Pressure 115/55 L 142/56 H 125/57 L Pulse Oximetry 92 94 93 Oxygen Deliv
--- NOTE | 2022-12-14 10:24 | WPDANESPN ---
Anes - Prog Note Post-Op Date/Time: 12/14/22 10:24 Cardiovascular status: normal Respiratory status: normal Airway patency: baseline Mental status: baseline Post-Op hydration status: normal Vital Signs: Last Vital Signs Temp 36.1 C L 12/14/22 08:00 Pulse 61 12/14/22 08:33 Resp 18 12/14/22 08:00 BP 125/57 L 12/14/22 08:00 Pulse Ox 93 12/14/22 08:00 O2 Del Method Room Air 12/13/22 20:00 O2 Flow Rate 2 12/13/22 12:45 Pain Score (VAS): 0 till working with therapy. I/O: Intake & Output 12/13/22 12/14/22 12/14/22 23:59 07:59 15:59 Intake Total 460 600 Output Total 300 700 Balance 160 -100 Laboratory Tests 12/14/22 05:44 12/14/22 05:44 12/14/22 05:44 WBC 9.5 RBC 3.72 L Hgb 11.7 L Hct 35.8 L MCV 96.2 MCH 31.5 MCHC 32.7 RDW 13.8 Plt Count 158 MPV 10.1 Sodium 132 L Potassium 4.0 Chloride 98 Carbon Dioxide 32 H Anion Gap 2 L BUN 16 Creatinine 0.80 Estim Creat Clear Calc 58 Estimated GFR > 60 Glucose 127 H Calcium 9.0 Microbiology 12/12/22 10:54 Clean Catch Midstream Urine Culture - Final Post-procedural complaints: none Patient Feedback: Patient satisfied with anesthetic care.
[2022-12-14] MEDS: CEFDINIR 300 MG CAPSULE PO ×2 (12:18→20:45)
--- NOTE | 2022-12-14 19:06 | PC.NURSE ---
On 12/14/22, Amanda Thomas, provided care and completed [employer] documentation on this patient. I have reviewed her documentation and agree with the findings.
[2022-12-14] MEDS: oxyCODONE HCL (*CRX) 5 MG TAB IR PO (20:58)
[2022-12-15] MEDS: ACETAMINOPHEN 500 MG TABLET 1000 MG PO ×4 (00:20→17:42)
[2022-12-15 05:45] VITALS: BP 161/68; PULSE 66; RESP 18; TEMP 36.6; O2SAT 93
[2022-12-15] MEDS: oxyCODONE HCL (*CRX) 5 MG TAB IR PO ×3 (05:48→17:42)
[2022-12-15 09:18] VITALS: PULSE 68
[2022-12-15] MEDS: CEFDINIR 300 MG CAPSULE PO ×2 (09:18→20:35)
[2022-12-15] MEDS: SENNA/DOCUSATE SODIUM TABLET 2 TAB PO ×2 (09:18→16:32)
[2022-12-15] MEDS: TRIAMTERENE 37.5 MG/HCTZ 25 MG (MAXZIDE) TABLET 1 TAB PO (09:18)
[2022-12-15] MEDS: PROPRANOLOL HCL 20 MG TABLET PO ×2 (09:18→16:32)
[2022-12-15] MEDS: ENOXAPARIN 30 MG/0.3 ML SYRINGE SUB-Q (09:21)
[2022-12-15 16:00] VITALS: BP 122/46; PULSE 64; RESP 18; TEMP 36.6; O2SAT 95
[2022-12-15 16:32] VITALS: PULSE 64
--- NOTE | 2022-12-15 18:50 | PM.IMPN ---
Progress Note: A&P Assessment and Plan (1) Intertrochanteric fracture of left hip: Qualifiers: Encounter type: initial encounter Fracture type: closed Fracture alignment: displaced Qualified Code(s): S72.142A - Displaced intertrochanteric fracture of left femur, initial encounter for closed fracture Code(s): S72.142A - Displaced intertrochanteric fracture of left femur, initial encounter for closed fracture Status: Acute Assessment and Plan: Secondary to mechanical fall. Appreciate orthopedic surgery consultation. 12/13 ORIF intertrochanteric left hip fracture. EBL 100 mL. General anesthesia. Continue with supportive care, analgesics as needed. PT/OT postoperatively and weight bearing status per Ortho. Considering [facility] versus SNF following discharge 12/14/22 POD1. Continues to have pain. patient is on scheduled acetaminophen 1000 mg Q6 hours. Will change PRN narcotic to oxycodone IR 5 mg Q6 hours to avoid acetaminophen toxicity or >4 grams/day. Acute rehab at discharge. Care coordination assisting with arrangement. (2) Fall: Qualifiers: Encounter type: initial encounter Qualified Code(s): W19.XXXA - Unspecified fall, initial encounter Code(s): W19.XXXA - Unspecified fall, initial encounter Status: Acute Assessment and Plan: Mechanical fall. No loss of consciousness. s/p left hip fracture. Implement fall precautions. PT/OT as above. (3) Hypertension: Qualifiers: Hypertension type: primary hypertension Qualified Code(s): I10 - Essential (primary) hypertension Code(s): I10 - Essential (primary) hypertension Status: Chronic Assessment and Plan: Blood pressures reviewed and are stable. Continue home triamterene-hydrochlorothiazide. (4) Resting tremor: Code(s): G25.2 - Other specified forms of tremor Status: Chronic Assessment and Plan: Chronic, no acute issues. Continue home propranolol (5) Abnormal urinalysis: Code(s): R82.90 - Unspecified abnormal findings in urine Status: Acute Assessment and Plan: UA positive nitrates, trace leuk esterase, 6-10 WBC, and 4+ bacteria. Patient endorses dysuria and hesitancy. Continue ceftriaxone 1 gram IV Q24 hours, first dose 12/12/22. Ancef IV x3 doses postop today 12/13/22, then resume Rocephin and adjust per urine culture 12/14/22 Urine culture with mixed [place], however, patient c/o symptoms consistent with UTI. Will continue antibiotics given recent surgery. Transitioned to oral cefdinir 300 mg PO BID x5 more days, total 7-day course. rodriguez catheter removed POD1 Plan CODE STATUS: DNR Discharge disposition: from home. She will need rehab postop. Antibiotic day: Day 4 of 7; IV Rocephin 12/12-12/13; cefdinir 12/14- current. Estimated LOS: discharge in am if acute rehab arrangements finalized. Time Spent With Patient Time with patient: 15 - 25 minutes Subjective Date/time seen: 12/15/22 18:50 Interval history: No new complaints. Her pain is a little better today and she has been taking PRN oxycodone for pain, which seems to help. Review of Systems Review of Systems: All systems reviewed & are unremarkable except as noted in HPI and below Exam Narrative: General: Well-nourished, non-toxic appearing. sitting up in the chair. No acute respiratory distress. Neuro: awake, alert and oriented x4, speech clear, no focal neuro deficits noted. Sensation intact BLE. HEENT: normocephalic, sclerae anicteric, mucous membranes moist. Respiratory: clear to auscultation bilaterally, nonlabored breathing Cardio: regular rate, regular rhythm with S1-S2, no murmurs, gallops or rubs. Abdomen: nondistended, normoactive bowel sounds, soft, nontender to palpation Extremities: Left hip surgical dressing not assessed. dorsalis pedis pulses +2 bilaterally. Bilateral lower extremities NUSRAT hose Skin: no rashes or lesions, wa
[2022-12-15 22:00] VITALS: BP 119/58; PULSE 64; RESP 18; TEMP 36.8; O2SAT 94
[2022-12-16] MEDS: oxyCODONE HCL (*CRX) 5 MG TAB IR PO ×3 (00:04→11:28)
[2022-12-16] MEDS: ACETAMINOPHEN 500 MG TABLET 1000 MG PO ×3 (00:04→11:28)
[2022-12-16 06:00] VITALS: BP 140/68; PULSE 66; RESP 18; TEMP 37.2; O2SAT 98
[2022-12-16 08:07] VITALS: PULSE 70
[2022-12-16] MEDS: TRIAMTERENE 37.5 MG/HCTZ 25 MG (MAXZIDE) TABLET 1 TAB PO (08:07)
[2022-12-16] MEDS: PROPRANOLOL HCL 20 MG TABLET PO (08:07)
[2022-12-16] MEDS: ENOXAPARIN 30 MG/0.3 ML SYRINGE SUB-Q (08:07)
[2022-12-16] MEDS: CEFDINIR 300 MG CAPSULE PO (08:07)
[2022-12-16] MEDS: SENNA/DOCUSATE SODIUM TABLET 2 TAB PO (08:08)
--- NOTE | 2022-12-16 12:19 | PM.DS ---
DS: Admitting Diagnosis Discharge Date 12/16/2022 Admitting Diagnosis Intertrochanteric fracture of left hip Unspecified fall, initial encounter Essential (primary) hypertension DS: Discharge Diagnosis Discharge Diagnosis (1) Intertrochanteric fracture of left hip: Qualifiers: Encounter type: initial encounter Fracture alignment: displaced Fracture type: closed Qualified Code(s): S72.142A - Displaced intertrochanteric fracture of left femur, initial encounter for closed fracture Code(s): S72.142A - Displaced intertrochanteric fracture of left femur, initial encounter for closed fracture Status: Acute Assessment and Plan: Secondary to mechanical fall. Appreciate orthopedic surgery consultation. 12/13 ORIF intertrochanteric left hip fracture. EBL 100 mL. General anesthesia. Continue with supportive care, analgesics as needed. PT/OT postoperatively and weight bearing status per Ortho. Considering [facility] versus SNF following discharge 12/14/22 POD1. Continues to have pain. patient is on scheduled acetaminophen 1000 mg Q6 hours. Will change PRN narcotic to oxycodone IR 5 mg Q6 hours to avoid acetaminophen toxicity or >4 grams/day. 12/16/22 POD3 Pain improved on current medications. Continue Lovenox 30 mg SQ daily x 30 days following surgery. (2) Fall: Qualifiers: Encounter type: initial encounter Qualified Code(s): W19.XXXA - Unspecified fall, initial encounter Code(s): W19.XXXA - Unspecified fall, initial encounter Status: Acute Assessment and Plan: Mechanical fall. No loss of consciousness. s/p left hip fracture. Implement fall precautions. PT/OT as above. (3) Hypertension: Qualifiers: Hypertension type: primary hypertension Qualified Code(s): I10 - Essential (primary) hypertension Code(s): I10 - Essential (primary) hypertension Status: Chronic Assessment and Plan: Blood pressures reviewed and are stable. Continue home triamterene-hydrochlorothiazide. (4) Resting tremor: Code(s): G25.2 - Other specified forms of tremor Status: Chronic Assessment and Plan: Chronic, no acute issues. Continue home propranolol (5) Abnormal urinalysis: Code(s): R82.90 - Unspecified abnormal findings in urine Status: Acute Assessment and Plan: UA positive nitrates, trace leuk esterase, 6-10 WBC, and 4+ bacteria. Patient endorses dysuria and hesitancy. Continue ceftriaxone 1 gram IV Q24 hours, first dose 12/12/22. Ancef IV x3 doses postop today 12/13/22, then resumed Rocephin and adjust per urine culture 12/14/22 Urine culture with mixed [place], however, patient c/o symptoms consistent with UTI. Will continue antibiotics given recent surgery. 12/14/22 Transitioned to oral cefdinir 300 mg PO BID x5 more days, total 7-day course. rodriguez catheter removed POD1 12/16/22 Antibiotic day 5 DS: Summary Hospital Course Reason for hospitalization: Fall Hospital Course: Patient is an 82-year-old female with hypertension and resting tremor who presented to the emergency department on 12/11/2022 with complaint of left hip pain after suffering a fall, landing on her left hip. The patient was carrying a package, attempting to open the trunk of her car.? She waved her foot underneath the vehicle in order to open the trunk and unfortunately lost her balance and fell back onto her left hip.? She did not hit her head or lose consciousness.? She did not have any precipitating symptoms including dizziness or lightheadedness.? She had immediate left hip pain and ?knew it was broken.?? On presentation to the ED, her vital signs are stable, she was afebrile, CBC and BMP unremarkable, and hip/pelvis x-ray showed traumatic comminuted displaced intertrochanteric fracture of the proximal left femur.? The patient was admitted to the medical floor. Orthopedics was consulted and she underwent ORIF of the left
[2022-12-16 14:00] VITALS: BP 124/57; PULSE 67; RESP 16; TEMP 35.8; O2SAT 98
== END 2022-12-16 15:30 | DRG 482 ==
LOC: ANHED 10:34 → ANH3MEDSUR 12:29
PROVIDERS: Orthopaedic Surgery; Physician Assistant; Admitting Provider Family Medicine; Emergency Provider Emergency Medicine; PCP Internal Medicine; Visit Provider Nurse Practitioner Family
PROC: 0QS734Z Reposition Left Upper Femur with Internal Fixation Device, Percutaneous Approach (ICD-10-PCS; CPT 27245; principal; 2022-12-13 10:00)
DX: S72.142A Displaced intertrochanteric fracture of left femur, initial encounter for closed fracture (principal); I10 Essential (primary) hypertension; M19.90 Unspecified osteoarthritis, unspecified site; R82.90 Unspecified abnormal findings in urine; G25.2 Other specified forms of tremor; W19.XXXA Unspecified fall, initial encounter; Z87.891 Personal history of nicotine dependence
CPT/HCPCS: 36415; 71045; 73502; 80048; 80053; 81001; 85025; 85027; 85610; 85730; 86850; 86900; 86901; 87086; 87088; 93005; 96374; 97110; 97116; 97161; 97165; 97530; 97535; 99199; 99285; A9270; C1713; C1769; J0690; J0696; J1100; J1650; J2270; J2370; J2405; J2704; J3010; J7030; J7120

== ENCOUNTER 2023-02-12 10:20 | Observation (INO) | payer OTHER, SELFPAY ==
[2023-02-12] VITALS (34 sets, daily range): BP systolic 75–157; BP diastolic 46–77; PULSE 60–85; RESP 9–38; TEMP 36.1–36.6; O2SAT 91–100
--- NOTE | ~2023-02-12 | US_ITS ---
EXAMINATION: US venous doppler [facility] DATE: 02/12/2023 13:41 INDICATION: Left lower limb pain. TECHNIQUE: Grayscale ultrasound images without and with compression and Doppler ultrasound images of the left lower extremity veins were obtained. COMPARISON: None. FINDINGS: The visualized portions of left common femoral vein, profunda (deep) femoral vein, femoral vein, popl iteal vein, peroneal veins, posterior tibial veins, and greater saphenous vein outflow are patent. IMPRESSION: 1. No deep venous thrombosis. Reviewed, dictated and finalized at location A.
--- NOTE | ~2023-02-12 | CT_ITS ---
EXAMINATION: CT hip LT wo con DATE: 02/12/2023 13:04 INDICATION: Left hip pain. TECHNIQUE: Computed tomography (CT) of the left hip was performed without intravenous contrast. Autom ated exposure control and iterative reconstruction technique were employed. The dose-length product w as 366.03 mGy-cm. COMPARISON: Left hip radiographs 02/12/2023 FINDINGS: Bone alignment is normal. There is a comminuted intertrochanteric fracture of proximal left femur. Internal fixation is seen with antegrade intramedullary cherise, femoral head/neck screw, and dis donal interlocking screw. There is mild left hip osteoarthritis. There is hyperdense hematoma involving the left gluteus medius muscle, perirectal fat, and posterior compartment of left thigh. IMPRESSION: 1. Acute hematoma involving the left gluteus medius muscle, perirectal fat, and posterior compartment of left thigh. 2. Comminuted intertrochanteric fracture of proximal left femur status post open reduction internal f ixation. 3. Mild left hip osteoarthritis. Reviewed, dictated and finalized at location A. IMPRESSION: 1. Acute hematoma involving the left gluteus medius muscle, perirectal fat, and posterior compartment of left thigh. 2. Comminuted intertrochanteric fracture of proximal left femur status post ope n reduction internal fixation. 3. Mild left hip osteoarthritis.
--- NOTE | ~2023-02-12 | XR_ITS ---
XR hip LT min 3V w AP pelvis DATE: 02/12/2023 11:30 INDICATION: Left hip pain TECHNIQUE: AP pelvis. AP, lateral and crosstable lateral views of left hip. COMPARISON: 01/24/2023 left hip FINDINGS: Compression screw and nail of proximal left femur providing internal fixation for previousl y reported intertrochanteric left hip fracture, without significant interval change in position or al ignment since 01/24/2023. Normal alignment at the pubic symphysis and sacroiliac joints. No pelvic fracture or bone destruction . Normal alignment and relative preservation of joint spaces in each hip. Multilevel degenerative disc disease of the lumbar spine. IMPRESSION: Internally fixated left intertrochanteric hip fracture; distally it change in position or alignment since 01/16/2023 Reviewed, dictated and finalized at location B.
--- NOTE | 2023-02-12 10:40 | ECG_ITS ---
Measurements Intervals [place] Rate: 65 P: -58 TX: 154 QRS: -25 QRSD: 85 T: 55 QT: 416 QTc: 435 Interpretive Statements SINUS OR ECTOPIC ATRIAL RHYTHM LEFT VENTRICULAR HYPERTROPHY AND ST-T CHANGE BASELINE WANDER- I, II, V5 BORDERLINE ECG COMPARED TO ECG 12/13/2022 09:22:08 NO SIGNIFICANT CHANGES Electronically Signed On 02-12-2023 11:00:35 CDT by Duy Sy D.O.
--- NOTE | 2023-02-12 10:44 | PC.NURSE ---
Pt is wheeled into ER via EMS, pt states 2 months prior she broke her left hip and had pins applied to the left hip. Pt states that her pain had been under control until last night around 0030. Pt states the pain became very severe to the point she had trouble ambulating which is not normal for pt. Pt states that she took one of her oxycodone around 0530 hoping to relief the pain. States she does not normally take pain medication like that. Pt states around 0930 the pain was still in the left hip, but she started to become dizzy and woozy. Pt states that had a near syncopal episode. Pt states that she was able to control her fall into the floor. Pt states that she still is still in pain in her left hip.
[2023-02-12] MEDS: SODIUM CHLORIDE 0.9% IV 1,000 ML 999 ML IV CONT ×2 (11:09→14:26)
[2023-02-12 11:23] LABS: Basophils Absolute Auto 0.1 K/mm3 (0.0-0.1); Basophils Percent Auto 0.7 % (0.2-1.2); Eosinophils Absolute Auto 0.1 K/mm3 (0-0.3); Eosinophils Percent Auto 1.2 % (0-4.4); Hematocrit 37.1 % (37.0-47.0); Hemoglobin 11.9 g/dL (12.0-15.0); Immature Granulocyte Absolute 0.04 K/mm3 (0.00-0.031); Immature Granulocyte Percent A 0.5 % (0-0.5); Lymphocytes Absolute Auto 1.63 K/mm3 (0.9-3.2); Lymphocytes Percent Auto 19.8 % (18.3-44.2); Mean Corpuscular HGB Conc 32.1 g/dl (32-36); Mean Corpuscular Hemoglobin 31.1 pg (26-34); Mean Corpuscular Volume 96.9 fl (80-100); Mean Platelet Volume 10.5 fl (7.4-10.4); Monocytes Absolute Auto 0.4 K/mm3 (0.1-0.6); Monocytes Percent Auto 4.9 % (2.6-8.5); Neutrophils Percent Auto 72.9 % (45.5-73.1); Platelet Count Result 226 k/mm3 (150-375); Red Blood Count 3.83 M/mm3 (4.2-5.4); Red Cell Distribution Width 13.6 % (11.5-14.5); White Blood Count 8.2 K/mm3 (4.5-10.0)
[2023-02-12 11:26] LABS: Magnesium 1.9 mg/dL (1.6-2.3)
[2023-02-12 11:27] LABS: INR 1.1; Prothrombin Time 14.2 Seconds (11.1-14.7)
[2023-02-12 11:27] LABS: Anion Gap 5 mmol/L (8-16); Carbon Dioxide 27 mmol/L (22-30); Chloride 101 mmol/L (98-107); Potassium 4.7 mmol/L (3.4-5.0); Sodium 133 mmol/L (137-145)
[2023-02-12 11:28] LABS: Partial Thromboplastin Time 23.7 SECONDS (22.3-36.8)
[2023-02-12 11:28] LABS: Alanine Aminotransferase 19 U/L (6-35); Albumin Level 3.5 g/dL (3.5-5.1); Alkaline Phosphatase 81 U/L (38-126); Aspartate Amino Transferase 16 U/L (14-36); Bilirubin,Total 0.9 mg/dL (0.2-1.3); Blood Urea Nitrogen 33 mg/dL (7-17); Calcium 9.6 mg/dL (8.4-10.2); Estimated Glomerular Filt Rate 53; Glucose 190 mg/dL (65-110)
[2023-02-12 11:39] LABS: Troponin I < 0.012 ng/mL (0.000-0.034)
--- NOTE | 2023-02-12 11:43 | ED.DIZZY ---
HPI - Dizziness General Chief Complaint: Dizziness Stated Complaint: hip pain Time Seen by Provider: 02/12/23 10:42 Source: patient, EMS, RN notes reviewed and old records reviewed Mode of arrival: EMS Limitations: no limitations History of Present Illness HPI Narrative: This is an 82 year old female with history of left hip fracture s/p ORIF in november 2022 who presents for evaluation of dizziness and left hip pain. Patient states last night she developed left lateral hip pain. She has been get physical therapy and she states she was working hard yesterday. Yesterday she developed sharp left lateral hip pain that is worse with movement. She took hydrocodone this morning for her pain and she went to sleep. She noticed that when she woke up she was dizzy when she stood up. She reports she was able to sit herself down on the ground . She denies LOC or hitting her head. She is concerned with her left hip pain because she had been doing fine and not had to take pain medication. She denies chest pain, shortness of breath, fever, chills, vomiting or diarrhea. She had nausea at onset of dizziness. She was found to be hypotensive in triage so placed in a room. She denies any recent trauma. Related Data Home Medications Medication Instructions Recorded Confirmed propranolol 20 mg tablet 20 mg PO BID 12/11/22 02/12/23 triamterene 37.5 37.5 tablet PO DAILY 12/11/22 02/12/23 mg-hydrochlorothiazide 25 mg tablet Adult Low Dose Aspirin 80 mg PO BID 02/12/23 02/12/23 Allergies Allergy/AdvReac Type Severity Reaction Status Date / Time Sulfa (Sulfonamide Allergy Nausea Verified 01/24/23 11:28 Antibiotics) Review of Systems Constitutional: Constitutional: Denies weakness ENT: Reports dizziness Cardiovascular: Cardiovascular: Denies syncope, Denies rapid heart rate, Denies irregular heart rhythm, Denies leg edema and Denies dyspnea Respiratory: Respiratory: Denies chest congestion, Denies hemoptysis, Denies excessive phlegm production and Denies dyspnea Gastrointestinal: Gastrointestinal: Denies abdominal pain, Denies hematochezia, Denies diarrhea, Reports nausea and Denies vomiting Genitourinary: Genitourinary: Denies hematuria and Denies dysuria Musculoskeletal: Musculoskeletal: Reports arthralgias (left hip), Denies joint swelling, Denies loss of height and Denies muscle weakness Neurologic: Denies syncope, Denies focal weakness and Denies weakness PMFSH Past Medical History Medical History (Updated 02/12/23 @ 18:03 by Latasha Cazares PA-C) Ankle fracture, right (2007) Essential tremor Hypertension Intertrochanteric fracture of left hip (11/2022) Obesity Osteoarthritis Surgical History Surgical History (Updated 02/12/23 @ 18:03 by Latasha Cazares PA-C) History of appendectomy History of cholecystectomy History of orthopedic surgery Repair of ankle fracture in 2007 and left hip fracture in November 2022. Family History Family History Father Cerebrovascular accident Essential tremor Mother AAA (abdominal aortic aneurysm) Social History Social History Social History: Patient lives at home independently. 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 She designates her son, Lionel, as her surrogate decision maker. Smoking packs per day: 0.5 Smoking cigarettes per day: 10.0 Years smoked: 20 Smoking pack-years: 10.00 Smoking status: Former smoker Tobacco type: cigarettes Second hand tobacco smoke exposure: No Alcohol intake: current Drinks per week: 2 Alcohol use details: One 4-6 oz glass of wine nightly Substance use: never Other substance usage details: 4 oz glass of wine sometimes Lack of Transportation: No Lack of Food: Never True Current Housing: I Have Housing Concerned About Future Housing: No Difficulty Paying Gas/Electric Bills: No Diffic
[2023-02-12 15:34] LABS: Hematocrit 34.8 % (37.0-47.0); Hemoglobin 11.3 g/dL (12.0-15.0)
[2023-02-12] MEDS: SODIUM CHLORIDE 0.9% IV 1,000 ML 125 ML IV CONT ×2 (15:55→23:53)
--- NOTE | 2023-02-12 16:02 | ADMGEN ---
This patient, Marisel Ambrocio, was admitted to [facility] Surg Room 316-01. Patient/family oriented to hospital policies and general routines including ID bracelet, bed and alarms, visiting hours, pain management, procedures, bathroom and other care routines, personal items, smoking policy, room service/diet, and visiting hours. Information on how to activate the Rapid Response Team has been discussed. Patient/Family are encouraged to report perceived risks to care and to ask questions if they do not understand what they are told or what they should do.
--- NOTE | 2023-02-12 17:51 | PM.IMHP ---
H&P: HPI History of Present Illness Date/Time: 02/12/23 18:00 Chief Complaint: Lightheadedness, dizziness, hip pain. Narrative: This is an 82-year-old female with hypertension and resting tremor who presented to the emergency department via EMS from home for evaluation of lightheadedness, dizziness, and hip pain. The patient provides the following history. She is known to the hospitalist service from an admission on 12/11/2022 at which time she was admitted with and intertrochanteric fracture of the proximal left femur following a fall. The hip was repaired on 12/13/[address] Parikh with a cephalomedullary nail and she was discharged to [facility] on Lovenox for 30 days for DVT prophylaxis. Thereafter she completed 5 days of therapy at [facility]. She has been doing okay at home and she has been participating in therapy. She felt as though she had a plateau at therapy and she was given some new exercises to do on Sunday. She seemed to do well with that and she had not been having much discomfort in that left hip at all up until last night when she went to bed. Around midnight she got up to use the bathroom and she reports that she had a hard time getting there due to pain. When she went to sit on the toilet she slipped a little bit and reports that she landed on the toilet rather hard on her left buttock. She went back to bed and at about 05:00 she was awakened with pretty significant pain in the left hip so she took 1 hydrocodone, which she had not taken for many weeks, and she was able to fall back asleep. When she finally got up for the day she reports feeling lightheaded and dizzy upon standing and she thought as though she was going to lose consciousness. She was able to sit herself down on the ground and she phoned her sister to bring her into the hospital. She was hypotensive in triage with a blood pressure of 87/53. Labs were significant for a WBC count of 8.2, hemoglobin 11.3, sodium 133, BUN 33, creatinine 1.00. CT of the left hip showed an acute hematoma involving the left gluteus medius muscle, perirectal fat, and posterior compartment of the left thigh. She received 2 L normal saline in the ED with improvement her blood pressures. She is being admitted in this setting as she is still orthostatic and for closer monitoring of the gluteal hematoma. She is no longer on Lovenox for DVT prophylaxis after surgery but she continues to take aspirin 81 mg b.i.d.. Review of Systems Review of Systems: Twelve systems were reviewed. Near syncope as above, she never lost consciousness. No fever, chills, or sweats. She denies chest pain shortness a breath. No nausea or vomiting. She denies paresthesias of the left leg. Except as documented, all other systems were reviewed and are negative. [facility] Past Medical History Medical History (Updated 02/12/23 @ 18:03 by Latasha Cazares PA-C) Ankle fracture, right (2007) Essential tremor Hypertension Intertrochanteric fracture of left hip (11/2022) Obesity Osteoarthritis Surgical History Surgical History (Updated 02/12/23 @ 18:03 by Latasha Cazares PA-C) History of appendectomy History of cholecystectomy History of orthopedic surgery Repair of ankle fracture in 2007 and left hip fracture in November 2022. Family History Family History Father Cerebrovascular accident Essential tremor Mother AAA (abdominal aortic aneurysm) Social History Social History Social History: Patient lives at home independently. 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 She designates her son, Lionel, as her surrogate decision maker. Smoking packs per day: 0.5 Smoking cigarettes per day: 10.0 Years smoked: 20 Smoking pack-years: 10.00 Smoking status: Former smoker Tobacco type: cigarettes Second hand tobacco smoke exposure: No Alcohol intake: current D
[2023-02-12] MEDS: ACETAMINOPHEN 325 MG TABLET 650 MG PO (20:30)
[2023-02-12 21:02] LABS: Hematocrit 32.5 % (37.0-47.0); Hemoglobin 10.3 g/dL (12.0-15.0)
[2023-02-13] VITALS: PULSE 67
[2023-02-13 03:42] LABS: Hematocrit 31.2 % (37.0-47.0); Mean Corpuscular HGB Conc 32.1 g/dl (32-36); Mean Corpuscular Hemoglobin 31.4 pg (26-34); Mean Corpuscular Volume 98.1 fl (80-100); Mean Platelet Volume 10.3 fl (7.4-10.4); Platelet Count Result 161 k/mm3 (150-375); Red Blood Count 3.18 M/mm3 (4.2-5.4); Red Cell Distribution Width 13.7 % (11.5-14.5)
[2023-02-13 04:00] VITALS: PULSE 67
[2023-02-13 04:12] LABS: Anion Gap 6 mmol/L (8-16); Blood Urea Nitrogen 23 mg/dL (7-17); Carbon Dioxide 23 mmol/L (22-30); Chloride 107 mmol/L (98-107); Estimated Glomerular Filt Rate > 60; Glucose 116 mg/dL (65-110); Magnesium 1.9 mg/dL (1.6-2.3); Potassium 3.7 mmol/L (3.4-5.0); Sodium 136 mmol/L (137-145)
[2023-02-13 05:38] VITALS: BP 128/78; PULSE 75; RESP 16; TEMP 36.2; O2SAT 98
--- NOTE | 2023-02-13 05:46 | PC.NURSE ---
called MD Teran exchange [phone] for consult this am.
--- NOTE | 2023-02-13 05:50 | PC.NURSE ---
exchanged called for Md Teran [phone]
[2023-02-13 08:00] VITALS: BP 124/48; PULSE 80; PULSE 86; O2SAT 97; O2SAT 98
--- NOTE | 2023-02-13 10:10 | PM.DS ---
DS: Admitting Diagnosis Discharge Date 02/13/2023 Admitting Diagnosis Left hip pain Left gluteus hematoma DS: Discharge Diagnosis Discharge Diagnosis (1) Hematoma of left lower extremity: Qualifiers: Encounter type: initial encounter Qualified Code(s): S80.12XA - Contusion of left lower leg, initial encounter Code(s): S80.12XA - Contusion of left lower leg, initial encounter Status: Acute (2) Essential tremor: Code(s): G25.0 - Essential tremor Status: Acute DS: Summary Hospital Course Hospital Course: This is an 82-year-old female with hypertension and resting tremor who presented to the emergency department via EMS from home for evaluation of lightheadedness, dizziness, and hip pain. She is known to the hospitalist service from an admission on 12/11/2022 at which time she was admitted with and intertrochanteric fracture of the proximal left femur following a fall. She was hypotensive in triage with a blood pressure of 87/53. Labs were significant for a WBC count of 8.2, hemoglobin 11.3, sodium 133, BUN 33, creatinine 1.00. CT of the left hip showed an acute hematoma involving the left gluteus medius muscle, perirectal fat, and posterior compartment of the left thigh. She received 2 L normal saline in the ED with improvement her blood pressures. She is no longer on Lovenox for DVT prophylaxis after surgery but she continues to take aspirin 81 mg b.i.d.. Patient states she has no hip pain at this time. Hemoglobin is stable. Patient is clinically stable and is being discharged home. We will stop her aspirin. Patient also has hyponatremia. We will stop her triamterene hydrochlorothiazide. If need be patient can follow up with PCP for starting on antihypertensives Time Spent with Patient Time attestation: Total time spent providing and/or coordinating discharge services: DS: Data Data Completed and Pending Labs on day of discharge: Labs from last 24 hours 02/13/23 02/12/23 02/12/23 03:35 20:43 15:29 WBC 7.0 RBC 3.18 L Hgb 10.0 L 10.3 L 11.3 L Hct 31.2 L 32.5 L 34.8 L MCV 98.1 MCH 31.4 MCHC 32.1 RDW 13.7 Plt Count 161 MPV 10.3 Immature Gran % (Auto) Neut % (Auto) Lymph % (Auto) Bartholomew % (Auto) Eos % (Auto) Baso % (Auto) Lymph # (Auto) Bartholomew # (Auto) Eos # (Auto) Baso # (Auto) Abs Immat Gran (auto) Absolute Neuts (auto) Absolute Nucleated RBC Nucleated RBC % PT INR APTT Sodium 136 L Potassium 3.7 Chloride 107 Carbon Dioxide 23 Anion Gap 6 L BUN 23 H D Creatinine 0.70 Estim Creat Clear Calc Not Reportable Estimated GFR > 60 Glucose 116 H Calcium 9.0 Magnesium 1.9 Total Bilirubin AST ALT Alkaline Phosphatase Troponin I Total Protein Albumin 02/12/23 02/12/23 11:04 11:03 WBC 8.2 RBC 3.83 L Hgb 11.9 L Hct 37.1 MCV 96.9 MCH 31.1 MCHC 32.1 RDW 13.6 Plt Count 226 MPV 10.5 H Immature Gran % (Auto) 0.5 Neut % (Auto) 72.9 Lymph % (Auto) 19.8 Bartholomew % (Auto) 4.9 Eos % (Auto) 1.2 Baso % (Auto) 0.7 Lymph # (Auto) 1.63 Bartholomew # (Auto) 0.4 Eos # (Auto) 0.1 Baso # (Auto) 0.1 Abs Immat Gran (auto) 0.04 H Absolute Neuts (auto) 6.0 Absolute Nucleated RBC 0.0 Nucleated RBC % 0.0 PT 14.2 INR 1.1 APTT 23.7 Sodium 133 L Potassium 4.7 Chloride 101 Carbon Dioxide 27 Anion Gap 5 L BUN 33 H Creatinine 1.00 Estim Creat Clear Calc Not Reportable Estimated GFR 53 L Glucose 190 H Calcium 9.6 Magnesium 1.9 Total Bilirubin 0.9 AST 16 ALT 19 Alkaline Phosphatase 81 Troponin I < 0.012 Total Protein 6.0 L Albumin 3.5 Discharge Plan Discharge Consulting providers: Dimitri Euceda Discharging Clinician: Alonso Bauman Anticipated Discharge Date/Time: 02/13/23 10:08 Patient Disposition: Home, Self-Care Activity: no prefere
[2023-02-13 10:47] VITALS: BP 129/55; BP 130/64; PULSE 83; PULSE 86; O2SAT 100
[2023-02-13 13:30] VITALS: BP 124/49; PULSE 79; RESP 20; TEMP 36.6; O2SAT 100
== END 2023-02-13 14:09 | disposition home or self-care (01) ==
LOC: ANHED 12:00 → ANH3MEDSUR 15:22
PROVIDERS: Physician Assistant; Admitting Provider Internal Medicine; Emergency Provider General Practice; PCP Internal Medicine; Visit Provider Hospitalist
DX: I95.1 Orthostatic hypotension (principal); S80.12XA Contusion of left lower leg, initial encounter; I10 Essential (primary) hypertension; G25.0 Essential tremor; D64.9 Anemia, unspecified; E87.1 Hypo-osmolality and hyponatremia; R79.89 Other specified abnormal findings of blood chemistry; M16.12 Unilateral primary osteoarthritis, left hip; E66.9 Obesity, unspecified; Z68.30 Body mass index [BMI] 30.0-30.9, adult; F10.90 Alcohol use, unspecified, uncomplicated; Z66 Do not resuscitate; Z87.891 Personal history of nicotine dependence; Z79.82 Long term (current) use of aspirin; Z79.899 Other long term (current) drug therapy; Z98.890 Other specified postprocedural states
CPT/HCPCS: 36415; 73502; 73700; 80048; 80053; 83735; 84484; 85014; 85018; 85025; 85027; 85610; 85730; 93005; 93971; 96360; 96361; 99285; A9270; G0378; J7030

== ENCOUNTER 2024-05-27 08:55 | Emergency (ER) | payer OTHER, SELFPAY ==
--- NOTE | 2024-05-27 09:08 | ED_ITS ---
HPI - Abdominal Pain General Chief Complaint: Urogenital-Female Stated Complaint: UTI Time Seen by Provider: 05/27/24 09:09 Source: patient, RN notes reviewed and old records reviewed Mode of arrival: ambulatory Limitations: no limitations History of Present Illness HPI narrative: Patient presents with complaints of urinary frequency and burning for 2 days. She reports subjective fever yesterday, none today.. She denies any abdominal pain or back pain. She denies any jessica hematuria. She has not been taking anything for her symptoms. She voices no other concerns or complaints today. Related Data Home Medications Medication Instructions Recorded Confirmed propranolol 20 mg tablet 20 mg PO BID 12/11/22 05/27/24 triamterene 37.5 1 tablet PO DAILY 05/27/24 05/27/24 mg-hydrochlorothiazide 25 mg tablet Allergies Allergy/AdvReac Type Severity Reaction Status Date / Time Sulfa (Sulfonamide AdvReac Intermediate Nausea Verified 05/27/24 09:16 Antibiotics) Review of Systems Review of Systems: All systems reviewed & are unremarkable except as noted in HPI and below Constitutional: Constitutional: Reports no additional constitutional complaints ENT: Reports system reviewed and no additional complaints, except as documented Cardiovascular: Cardiovascular: Reports no additional cardiovascular complaints Respiratory: Respiratory: Reports no additional respiratory complaints Gastrointestinal: Gastrointestinal: Reports no additional gastrointestinal complaints Genitourinary: Genitourinary: Reports dysuria, Denies flank pain and Reports urinary urgency PMFSH Past Medical History Medical History Ankle fracture, right (2007) Essential tremor Hypertension Intertrochanteric fracture of left hip (11/2022) Obesity Osteoarthritis Surgical History Surgical History History of appendectomy History of cholecystectomy History of orthopedic surgery Repair of ankle fracture in 2007 and left hip fracture in November 2022. Family History Family History Father Cerebrovascular accident Essential tremor Mother AAA (abdominal aortic aneurysm) Social History Social History Social History: Patient lives at home independently. 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 She designates her son, Lionel, as her surrogate decision maker. Smoking packs per day: 0.5 Smoking cigarettes per day: 10.0 Years smoked: 20 Smoking pack-years: 10.00 Smoking status: Former smoker Tobacco type: cigarettes Second hand tobacco smoke exposure: No Alcohol intake: current Drinks per week: 2 Alcohol use details: One 4-6 oz glass of wine nightly Substance use: never Other substance usage details: 4 oz glass of wine sometimes Lack of Transportation: No Lack of Food: Never True Current Housing: I Have Housing Concerned About Future Housing: No Difficulty Paying Gas/Electric Bills: No Difficulty Paying for Meds: No Currently Unemployed: No Education: Decline to Answer Difficulty w/ Childcare or Family Care: No Spiritual care concerns: No Comments At the time of my signature, I reviewed and agree with the nursing past medical, surgical, social, and family history. There is no relevant family history pertinent to the patient complaint. Exam Const: General: cooperative, no acute distress, alert and awake Orientation/consciousness: oriented to person, oriented to place and oriented to time HENMT: Head: normal to inspection Resp: Effort & Inspection: normal respiratory effort and able to speak in complete sentences Auscultation: clear to auscultation bilaterally, no crackles, no rales, no rhonchi and no wheezes Cardio: Palpation: normal PMI Rate: regular rate Rhythm: regular rhythm Heart sounds: S1 normal heart sound present and S2 normal heart sound present : General: Yes bladder normal to palpation and Yes no CVA tenderness Neuro: General: oriented to person, oriented to place and oriented to time Cranial nerves: Yes CN's II-XII intact bilaterally Psych: Appearance: grossly normal Thought process: Normal thought process present Insight: Good insight present (Psych) Judgement: Good judgement present (Psych) Course Course Level of Care: Express Care Visit Vital Signs Vital signs: Reviewed MDM - Abdominal Pain MDM Narrative Medical decision making narrative: History, exam, labs consistent with UTI. Culture pending. Start Macrobid. Patient nontoxic appearing. Stable for discharge home on p.o. antibiotic therapy. Discharge instructions reviewed with patient, as well as provided in writing per nursing staff. The instructions also include specific and strict return/GO TO THE ER as well as f/u information. All questions have been answered, and the patient deny any further questions with discharge and discharge plan. Some parts of this dictation were generated by voice recognition software and may contain typographical and/or grammatical inaccuracies. Differential Diagnosis Differential diagnosis: Likely calculus of kidney and other (Pyelonephritis, cystitis) Medical Records Attestation: I reviewed the patient's medical records. Lab Data Attestation: I reviewed the patient's lab results. Discharge Plan Discharge Clinical Impression: UTI (urinary tract infection) Qualifiers: Urinary tract infection type: site unspecified Hematuria presence: with hematuria Qualified Code(s): N39.0 - Urinary tract infection, site not specified Patient Disposition: Home, Self-Care Condition: Stable Instructions: Antibiotic Form, Urinary Tract Infection in Women (DC) Additional Instructions: Take medications as prescribed. Follow-up with primary care provider. Emergency department for new or worse symptoms Patient Language: Bulgarian Prescriptions: New nitrofurantoin monohyd/m-cryst [Macrobid] 100 mg capsule 100 mg PO Q12H 5 Days Qty: 10 0RF Rx Instructions: must administer with a meal/food No Action triamterene-hydrochlorothiazid 37.5-25 mg tablet 1 tablet PO DAILY propranolol 20 mg tablet 20 mg PO BID Follow-up/Referrals: Thang,Jayna Ferraro MD [Primary Care Provider] - 2 Weeks Time of Disposition: 09:53
[2024-05-27 09:17] VITALS: BP 171/94; PULSE 71; RESP 14; TEMP 36.4; O2SAT 100
[2024-05-27 09:44] VITALS: BP 151/97
[2024-05-27 09:44] LABS: EDUAAPPEAR Clear; EDUABILI Negative (Negative); EDUABLOOD 1+ (Negative); EDUACOLOR1 Yellow; EDUAGLUCOSE Negative (Negative); EDUAKETONE Negative (Negative); EDUALEUKO 1+ (Negative); EDUANITRATE Positive (Negative); EDUAPROTEIN Trace (Negative); EDUAUROBILI 0.2
[2024-05-27 09:45] VITALS: BP 151/97
== END 2024-05-27 10:00 | disposition home or self-care (01) ==
PROVIDERS: Emergency Provider Nurse Practitioner Family; PCP Internal Medicine
DX: N39.0 Urinary tract infection, site not specified (principal); B96.20 Unspecified Escherichia coli [E. coli] as the cause of diseases classified elsewhere; I10 Essential (primary) hypertension; M19.90 Unspecified osteoarthritis, unspecified site; E66.9 Obesity, unspecified; Z68.28 Body mass index [BMI] 28.0-28.9, adult
CPT/HCPCS: 81003; 87077; 87086; 87186; 99213; G0463

== ENCOUNTER 2024-05-28 17:14 | Emergency (ER) | payer OTHER, SELFPAY ==
[2024-05-28] VITALS (7 sets, daily range): BP systolic 167–191; BP diastolic 87–102; PULSE 75–104; RESP 16–19; TEMP 36.5; O2SAT 96–100
--- NOTE | ~2024-05-28 | CT_ITS ---
EXAMINATION: CT abdomen pelvis w con DATE: 05/28/2024 22:50 INDICATION: recent UTI, abdominal pain TECHNIQUE: Computed tomography (CT) of the abdomen and pelvis was performed with 100 mL Omnipaque-350 intravenous contrast. Automated exposure control and iterative reconstruction technique were employe d. The dose-length product was 1148.50 mGy-cm. COMPARISON: None. FINDINGS: Exam limited by moderate motion artifact and beam hardening from arm down positioning and left hip ferrer rdware. Lower thorax: Mild cardiomegaly. Coronary artery calcification. Dependent atelectasis. Liver: Normal. Biliary/Gallbladder: Gallbladder is absent. Mild common bile duct dilation, likely secondary to cindy cystectomy. Pancreas: No mass or duct dilation. Spleen: Normal. Adrenals:No mass. Kidneys: Ectopic right kidney. Subcentimeter left upper pole hypodensity, too small to characterize b ut most likely represents a cyst. No hydronephrosis or suspicious mass. GI tract: No small or large bowel dilation. Appendix not confidently visualized. Diverticulosis witho ut diverticulitis. Mesentery/Peritoneum: No ascites, mass, or free air. Retroperitoneum: No mass. Atherosclerotic abdominal aortic and/or arterial calcifications. Pelvis: The urinary bladder is decompressed. Normal uterus. Bilateral ovaries not confidently identif ied. Soft Tissues: Soft tissues and body wall unremarkable. Bones: No acute osseous finding. Chronic appearing moderate compression deformity at T12. Uncomplica fabián appearing left proximal femoral hardware. IMPRESSION: No acute abdominal pelvic process detected, within the limitations noted above. Reviewed, dictated and finalized at location K.
--- NOTE | ~2024-05-28 | CT_ITS ---
EXAMINATION: CT brain wo con DATE: 05/28/2024 22:46 INDICATION: acute headache, weakness . TECHNIQUE: Computed tomography (CT) of the head was performed without intravenous contrast. The mA wa s adjusted according to patient size. Iterative reconstruction technique was employed. The dose-lengt h product was 756.67 mGy-cm. COMPARISON: None. FINDINGS: Acute hemorrhage tracking along the right side of the interhemispheric fissure measuring up to 14 mm in thickness, which tracks inferiorly along the right tentorium. Extra-axial hemorrhage adjacent to t he right frontal lobe measuring up to 7 mm in thickness.. No hydrocephalus or mass. Mild mass effect on adjacent parenchyma from the hemorrhage along the inter hemispheric fissure. No overt herniation. No acute ischemic infarct. Unremarkable dural venous sinus attenuation. No acute osseous abnormality. High posterior scalp laceration/contusion. Ethmoid mucosal thickening, opacification of the sphenoid sinuses with surrounding sclerosis, the rem aining aerated spaces are clear. Moderate atrophy and chronic white matter change. Atherosclerotic intracranial calcification. Bilater al lens replacements. Bilateral basal ganglia calcification. IMPRESSION: Moderate volume subdural hemorrhage along the interhemispheric and right tentorium. Small volume righ t frontal extra-axial hemorrhage. Chronic sphenoid sinusitis. Results reported telephonically to Dr. Mcnulty by Dr. Bahena at 10:53 PM on 05/28/2024. Reviewed, dictated and finalized at location K. IMPRESSION: Moderate volume subdural hemorrhage along the interhemispheric and right tentor ium. Small volume right frontal extra-axial hemorrhage. Chronic sphenoid sinusitis. Results reported telephonically to Dr. Mcnulty by Dr. Bahena at 10:53 PM on .
--- NOTE | 2024-05-28 19:05 | ECG_ITS ---
Test Date: 2024-05-28 21:57:14 Measurements Intervals [place] Rate: 87 P: 0 MD: 0 QRS: -19 QRSD: 89 T: 152 QT: 335 QTc: 404 Interpretive Statements ATRIAL FIBRILLATION MODERATE VOLTAGE CRITERIA FOR LVH, CONSIDER NORMAL VARIANT [MEETS CRITERIA IN ONE OF: R(aVL), S(V1), R(V5), R(V5/V6)+S(V1)] ST DEVIATION AND MODERATE T-WAVE ABNORMALITY, CONSIDER LATERAL ISCHEMIA [-0.1+ mV T WAVE IN I/aVL/V5/V6] No previous ECG available for comparison Electronically Signed On 05-29-2024 11:41:52 CDT by Gilberto Tovar M.D.
--- NOTE | 2024-05-28 19:07 | ED.WEAKNESS ---
HPI - Weakness General Chief complaint: Weakness <Portia Haley APRN - Last Filed: 05/28/24 19:10> Stated complaint: weakness <Portia Haley APRN - Last Filed: 05/28/24 19:10> Time Seen by Provider: 05/28/24 18:45 <Portia Haley APRN - Last Filed: 05/28/24 19:10> Focused HPI: Patient is a 83-year-old female who presents to the ER with generalized weakness and abdominal pain. She reports her symptoms started on Sunday. Patient called her primary care provider who ordered a UA, which patient gave on Sunday. She reports primary care provider started her on Macrobid and pt is due to take her fourth dose this evening. Upon exam patient endorses significant weakness that is presenting her from being able to stand. Patient endorses a significant headache and nausea. She denies chest pain, shortness of breath, or recent fevers. GENERAL: Well-appearing, well-nourished, and in no acute distress. HEAD: Normocephalic, atraumatic. CHEST: Clear to auscultation. ?No respiratory distress. HEART: Regular rate and rhythm.? NEURO: ?Alert and oriented x3. Patient screened in triage and initial orders placed.? ?Additional care and disposition to be based upon?diagnostic testing and treatment. <Portia Haley APRN - Last Filed: 05/28/24 19:10> History of Present Illness HPI Narrative: Patient is a 83-year-old female presents emergency department chief complaint of generalized weakness the patient states she was having the of recent urinary tract infection and today got weak to the point that she fell to the ground did bump her head but mostly lowered herself to the ground the patient reports since then she has had a headache the patient reports that nothing has improved the headache denies weakness in her arms or legs <Norman Mcnulty MD - Last Filed: 05/28/24 23:18> Related Data Home medications: Home Medications Medication Instructions Recorded Confirmed propranolol 20 mg tablet 20 mg PO BID 12/11/22 05/27/24 triamterene 37.5 1 tablet PO DAILY 05/27/24 05/27/24 mg-hydrochlorothiazide 25 mg tablet <Portia Haley APRN - Last Filed: 05/28/24 19:10> Allergies/Adverse reactions: Allergies Allergy/AdvReac Type Severity Reaction Status Date / Time Sulfa (Sulfonamide AdvReac Intermediate Nausea Verified 05/27/24 09:16 Antibiotics) <Portia Haley APRN - Last Filed: 05/28/24 19:10> Review of Systems Review of Systems: A 10 system review of systems was completed on the patient and is negative except for what is stated in the HPI. Nursing and ancillary documentation was reviewed. <Norman Mcnulty MD - Last Filed: 05/28/24 23:18> [facility] Past Medical History Medical History: Medical History Ankle fracture, right (2007) Essential tremor Hypertension Intertrochanteric fracture of left hip (11/2022) Obesity Osteoarthritis <Portia Haley APRN - Last Filed: 05/28/24 19:10> Surgical History Surgical History: Surgical History History of appendectomy History of cholecystectomy History of orthopedic surgery Repair of ankle fracture in 2007 and left hip fracture in November 2022. <Portia Haley APRN - Last Filed: 05/28/24 19:10> Family History Family History: Family History Father Cerebrovascular accident Essential tremor Mother AAA (abdominal aortic aneurysm) <Portia Haley APRN - Last Filed: 05/28/24 19:10> Social History Social History: Social History Social History: Patient lives at home independently. 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 She designates her son, Lionel, as her surrogate decision maker. Smoking packs per day: 0.5 Smoking cigarettes per day: 10.0 Years smoked: 20 Smoking pack-years: 10.00 Smoking status: Former smoker Tobacco type: cigarettes Second hand tobacco smoke exposure: No Alcohol intake: current Drinks per week: 2 Alcohol use details: One 4-6 oz glass of wine nightly Substance use: never Other substance usage details: 4 oz glass of wine sometimes Lack of Transportation: No Lack of Food: Never True Current Housing: I Have Housing Concerned About Future Housing: No Difficulty Paying Gas/Electric Bills: No Difficulty Paying for Meds: No Currently Unemployed: No Education: Decline to Answer Difficulty w/ Childcare or Family Care: No Spiritual care concerns: No <Portia Haley APRN - Last Filed: 05/28/24 19:10> Exam Narrative: GENERAL: Well-appearing, well-nourished, and in no acute distress. HEAD: Normocephalic, atraumatic. EYES: PERRLA and EOMI. ENT: Nares clear, no rhinorrhea or epistaxis. Mucous membranes moist. NECK: Supple. CHEST: Clear to auscultation. No respiratory distress. HEART: Regular rate and rhythm. No murmur heard. Normal peripheral pulses. ABDOMEN: Soft, nontender, nondistended, normal active bowel sounds. EXTREMITIES: Normal range of motion. No edema. SKIN: Warm, dry, no rash. NEURO: No focal deficits. Alert and oriented x3. PSYCH: Normal mood and affect. <Norman Mcnulty MD - Last Filed: 05/28/24 23:18> Course Vital Signs Vital signs: Vital Signs Temperature 36.5 C 05/28/24 17:19 Pulse Rate 75 05/28/24 17:19 Respiratory Rate 16 05/28/24 17:19 Blood Pressure 167/102 H 05/28/24 17:19 Pulse Oximetry 98 05/28/24 17:19 Temperature 36.5 C 05/28/24 17:19 Pulse Rate 87 05/28/24 21:47 Respiratory Rate 18 05/28/24 21:47 Blood Pressure 176/93 H 05/28/24 21:47 Pulse Oximetry 98 05/28/24 17:19 <Portia Haley APRN - Last Filed: 05/28/24 19:10> Vital Signs Temperature 36.5 C 05/28/24 17:19 Pulse Rate 75 05/28/24 17:19 Respiratory Rate 16 05/28/24 17:19 Blood Pressure 167/102 H 05/28/24 17:19 Pulse Oximetry 98 05/28/24 17:19 Temperature 36.5 C 05/28/24 17:19 Pulse Rate 87 05/28/24 21:47 Respiratory Rate 18 05/28/24 21:47 Blood Pressure 176/93 H 05/28/24 21:47 Pulse Oximetry 98 05/28/24 17:19 <Norman Mcnulty MD - Last Filed: 05/28/24 23:18> MDM - Weakness MDM Narrative Medical decision making narrative: Differential diagnosis includes head injury, intracranial hemorrhage, UTI, electrolyte abnormality CT head showed Moderate volume subdural hemorrhage along the interhemispheric and right tentorium. Small volume right frontal extra-axial hemorrhage. Chronic sphenoid sinusitis. Laboratory studies were obtained that showed white count of 7.2 electrolytes are within normal limits bilirubin was 1.7 troponin was negative urinalysis shows 21-50 white blood cells COVID flu and RSV are negative The patient is not on blood thinners. CT chest abdomen pelvis was obtained showed no acute abnormality <Norman Mcnulty MD - Last Filed: 05/28/24 23:18> Lab Data Result diagrams: 05/28/24 21:34 05/28/24 21:34 <Portia Haley APRN - Last Filed: 05/28/24 19:10> Labs: Lab Results 05/28/24 05/28/24 Range/Units 21:34 22:35 WBC 7.2 (4.5-10.0) K/mm3 RBC 4.63 (4.2-5.4) M/mm3 Hgb 14.9 D (12.0-15.0) g/dL Hct 42.5 (37.0-47.0) % MCV 91.8 (80-100) fl MCH 32.2 (26-34) pg MCHC 35.1 (32-36) g/dl RDW 14.0 (11.5-14.5) % Plt Count 224 (150-375) k/mm3 MPV 9.8 (7.4-10.4) fl Immature Gran % (Auto) 0.3 (0-0.5) % Neut % (Auto) 72.5 (45.5-73.1) % Lymph % (Auto) 18.1 L (18.3-44.2) % [place] % (Auto) 8.2 (2.6-8.5) % Eos % (Auto) 0.3 (0-4.4) % Baso % (Auto) 0.6 (0.2-1.2) % Lymph # (Auto) 1.30 (0.9-3.2) K/mm3 [place] # (Auto) 0.6 (0.1-0.6) K/mm3 Eos # (Auto) 0.0 (0-0.3) K/mm3 Baso # (Auto) 0.0 (0.0-0.1) K/mm3 Abs Immat Gran (auto) 0.02 (0.00-0.031) K/mm3 Absolute Neuts (auto) 5.2 (1.3-6.7) K/mm3 Absolute Nucleated RBC 0.000 (0.0-0.012) K/mm3 Nucleated RBC % 0.0 (0.0-0.2) % PT 13.7 (11.1-14.7) Seconds INR 1.0 APTT 25.4 (22.3-36.8) Seconds Sodium 129 L (137-145) mmol/L Potassium 4.0 (3.4-5.0) mmol/L Chloride 93 L (98-107) mmol/L Carbon Dioxide 26 (22-30) mmol/L Anion Gap 10 (4-12) mmol/L BUN 15 D (7-17) mg/dL Creatinine 0.70 (0.7-1.0) mg/dL Estim Creat Clear Calc 58 ml/min Estimated GFR > 60 (59 - ) Glucose 147 H (65-110) mg/dL Lactic Acid 1.4 (0.7-2.0) mmol/L Calcium 10.3 H (8.4-10.2) mg/dL Total Bilirubin 1.7 H (0.2-1.3) mg/dL AST 16 (14-36) U/L ALT 17 (6-35) U/L Alkaline Phosphatase 85 (38-126) U/L Troponin I < 0.012 (0.000-0.034) ng/mL Total Protein 8.0 (6.3-8.2) g/dL Albumin 4.5 (3.5-5.1) g/dL Lipase 68 (23-300) U/L Urine Color Yellow (Yellow) Urine Appearance Clear (Clear) Urine pH 6.5 (5.0-9.0) Ur Specific [place] 1.017 (1.001-1.035) Urine Protein Trace (Negative) mg/dL Urine Glucose (UA) Negative (Negative) mg/dL Urine Ketones 1+ H (Negative) mg/dL Ur Blood (Man) Negative (Negative) Urine Nitrate Negative (Negative) Urine Bilirubin Negative (Negative) Urine Urobilinogen 0.2 (<2.0) mg/dL Leukocyte Esterase Rfl 1+ H (Negative) JOSE MANUEL/UL Urine RBC 0-2 (0-2) /hpf Urine WBC 21-50 H (0-3) /hpf Ur Squamous Epith Cells None seen (Few) /hpf Urine Bacteria None seen /hpf Urine Casts 0-2 Influenza A (RT-PCR) Negative (Negative) Influenza B (RT-PCR) Negative (Negative) RSV (RT-PCR) Negative (Negative) SARS-CoV-2 RNA (RT-PCR) Negative (Negative) <Portia Haley, ALUMINUM CONTAINER TESTER - Last Filed: 05/28/24 19:10> Lab Results 05/28/24 05/28/24 Range/Units 21:34 22:35 WBC 7.2 (4.5-10.0) K/mm3 RBC 4.63 (4.2-5.4) M/mm3 Hgb 14.9 D (12.0-15.0) g/dL Hct 42.5 (37.0-47.0) % MCV 91.8 (80-100) fl MCH 32.2 (26-34) pg MCHC 35.1 (32-36) g/dl RDW 14.0 (11.5-14.5) % Plt Count 224 (150-375) k/mm3 MPV 9.8 (7.4-10.4) fl Immature Gran % (Auto) 0.3 (0-0.5) % Neut % (Auto) 72.5 (45.5-73.1) % Lymph % (Auto) 18.1 L (18.3-44.2) % [place] % (Auto) 8.2 (2.6-8.5) % Eos % (Auto) 0.3 (0-4.4) % Baso % (Auto) 0.6 (0.2-1.2) % Lymph # (Auto) 1.30 (0.9-3.2) K/mm3 [place] # (Auto) 0.6 (0.1-0.6) K/mm3 Eos # (Auto) 0.0 (0-0.3) K/mm3 Baso # (Auto) 0.0 (0.0-0.1) K/mm3 Abs Immat Gran (auto) 0.02 (0.00-0.031) K/mm3 Absolute Neuts (auto) 5.2 (1.3-6.7) K/mm3 Absolute Nucleated RBC 0.000 (0.0-0.012) K/mm3 Nucleated RBC % 0.0 (0.0-0.2) % PT 13.7 (11.1-14.7) Seconds INR 1.0 APTT 25.4 (22.3-36.8) Seconds Sodium 129 L (137-145) mmol/L Potassium 4.0 (3.4-5.0) mmol/L Chloride 93 L (98-107) mmol/L Carbon Dioxide 26 (22-30) mmol/L Anion Gap 10 (4-12) mmol/L BUN 15 D (7-17) mg/dL Creatinine 0.70 (0.7-1.0) mg/dL Estim Creat Clear Calc 58 ml/min Estimated GFR > 60 (59 - ) Glucose 147 H (65-110) mg/dL Lactic Acid 1.4 (0.7-2.0) mmol/L Calcium 10.3 H (8.4-10.2) mg/dL Total Bilirubin 1.7 H (0.2-1.3) mg/dL AST 16 (14-36) U/L ALT 17 (6-35) U/L Alkaline Phosphatase 85 (38-126) U/L Troponin I < 0.012 (0.000-0.034) ng/mL Total Protein 8.0 (6.3-8.2) g/dL Albumin 4.5 (3.5-5.1) g/dL Lipase 68 (23-300) U/L Urine Color Yellow (Yellow) Urine Appearance Clear (Clear) Urine pH 6.5 (5.0-9.0) Ur Specific [place] 1.017 (1.001-1.035) Urine Protein Trace (Negative) mg/dL Urine Glucose (UA) Negative (Negative) mg/dL Urine Ketones 1+ H (Negative) mg/dL Ur Blood (Man) Negative (Negative) Urine Nitrate Negative (Negative) Urine Bilirubin Negative (Negative) Urine Urobilinogen 0.2 (<2.0) mg/dL Leukocyte Esterase Rfl 1+ H (Negative) JOSE MANUEL/UL Urine RBC 0-2 (0-2) /hpf Urine WBC 21-50 H (0-3) /hpf Ur Squamous Epith Cells None seen (Few) /hpf Urine Bacteria None seen /hpf Urine Casts 0-2 Influenza A (RT-PCR) Negative (Negative) Influenza B (RT-PCR) Negative (Negative) RSV (RT-PCR) Negative (Negative) SARS-CoV-2 RNA (RT-PCR) Negative (Negative) <Norman Mcnulty MD - Last Filed: 05/28/24 23:18> Critical Care Time Critical Care Time Critical Care Time: Yes <Norman Mcnulty MD - Last Filed: 05/28/24 23:18> Total Critical Care Time: 75 <Norman Mcnulty MD - Last Filed: 05/28/24 23:18> Discharge Plan Discharge Clinical Impression: Subdural hemorrhage, Fall from ground level, Generalized weakness <Portia Haley APRN - Last Filed: 05/28/24 19:10> Patient Disposition: Acute Care Hospital <Portia Haley APRN - Last Filed: 05/28/24 19:10> Condition: Stable <Portia Haley APRN - Last Filed: 05/28/24 19:10> Prescriptions: No Action triamterene-hydrochlorothiazid 37.5-25 mg tablet 1 tablet PO DAILY nitrofurantoin monohyd/m-cryst [Macrobid] 100 mg capsule 100 mg PO Q12H 5 Days Qty: 10 0RF Rx Instructions: must administer with a meal/food propranolol 20 mg tablet 20 mg PO BID <Portia Haley APRN - Last Filed: 05/28/24 19:10> Follow-up/Referrals: Thang,Jayna Ferraro MD [Primary Care Provider] - <Portia Haley APRN - Last Filed: 05/28/24 19:10> Time of Disposition: 23:07 <Portia Haley APRN - Last Filed: 05/28/24 19:10> 23:07 <Norman Mcnulty MD - Last Filed: 05/28/24 23:18>
[2024-05-28] MEDS: ONDANSETRON HCL ODT 4 MG TABLET PO (21:15)
[2024-05-28] MEDS: HYDROcodone/acetaminophen (*CRX) 5-325 MG TABLET 1 TAB PO (21:15)
[2024-05-28] MEDS: SODIUM CHLORIDE 0.9% IV 1,000 ML 999 ML IV CONT (21:25)
[2024-05-28] MEDS: MORPHINE SULFATE (*CRX) 4 MG/ML INJ 2 MG IV PUSH (21:26)
[2024-05-28] MEDS: ONDANSETRON INJ 4 MG/2 ML VIAL IV PUSH (21:26)
[2024-05-28 21:48] LABS: Basophils Percent Auto 0.6 % (0.2-1.2); Eosinophils Percent Auto 0.3 % (0-4.4); Hematocrit 42.5 % (37.0-47.0); Hemoglobin 14.9 g/dL (12.0-15.0); Immature Granulocyte Absolute 0.02 K/mm3 (0.00-0.031); Immature Granulocyte Percent A 0.3 % (0-0.5); Lymphocytes Percent Auto 18.1 % (18.3-44.2); Mean Corpuscular HGB Conc 35.1 g/dl (32-36); Mean Corpuscular Hemoglobin 32.2 pg (26-34); Mean Corpuscular Volume 91.8 fl (80-100); Mean Platelet Volume 9.8 fl (7.4-10.4); Monocytes Absolute Auto 0.6 K/mm3 (0.1-0.6); Monocytes Percent Auto 8.2 % (2.6-8.5); Neutrophils Absolute Auto 5.2 K/mm3 (1.3-6.7); Neutrophils Percent Auto 72.5 % (45.5-73.1); Platelet Count Result 224 k/mm3 (150-375); Red Blood Count 4.63 M/mm3 (4.2-5.4); White Blood Count 7.2 K/mm3 (4.5-10.0)
[2024-05-28 21:58] LABS: Alanine Aminotransferase 17 U/L (6-35); Albumin Level 4.5 g/dL (3.5-5.1); Alkaline Phosphatase 85 U/L (38-126); Anion Gap 10 mmol/L (4-12); Aspartate Amino Transferase 16 U/L (14-36); Bilirubin,Total 1.7 mg/dL (0.2-1.3); Blood Urea Nitrogen 15 mg/dL (7-17); Calcium 10.3 mg/dL (8.4-10.2); Carbon Dioxide 26 mmol/L (22-30); Chloride 93 mmol/L (98-107); Estimated CRCL calculation 58 ml/min; Estimated Glomerular Filt Rate > 60; Glucose 147 mg/dL (65-110); Lipase 68 U/L (23-300); Sodium 129 mmol/L (137-145)
[2024-05-28 21:59] LABS: Lactic Acid Reflex 1.4 mmol/L (0.7-2.0)
[2024-05-28 22:00] LABS: Partial Thromboplastin Time 25.4 Seconds (22.3-36.8); Prothrombin Time 13.7 Seconds (11.1-14.7)
[2024-05-28 22:10] LABS: Troponin I < 0.012 ng/mL (0.000-0.034)
--- NOTE | 2024-05-28 22:15 | ECG_ITS ---
Test Date: 2024-05-28 22:16:10 Measurements Intervals [place] Rate: 86 P: -56 [place]: 162 QRS: -18 QRSD: 89 T: 96 QT: 342 QTc: 410 Interpretive Statements ECTOPIC ATRIAL RHYTHM LEFT VENTRICULAR HYPERTROPHY AND ST-T CHANGE [VOLTAGE CRITERIA PLUS ST/T ABNORMALITY] Compared to ECG 05/28/2024 21:57:14 Ectopic atrial rhythm now present ST (T wave) deviation now present Atrial fibrillation no longer present T-wave abnormality no longer present Possible ischemia no longer present Electronically Signed On 05-29-2024 11:42:06 CDT by Gilberto Tovar M.D.
[2024-05-28 22:25] LABS: Influenza A QL RT-PCR Negative (Negative); Influenza B QL RT-PCR Negative (Negative); RSV RNA, RT-PCR Negative (Negative); SARS-CoV-2 RNA PCR Negative (Negative)
[2024-05-28 22:46] LABS: Add Urine Microscopic? YES; Appearance Urine Clear (Clear); Bacteria Urine None Seen /hpf; Bilirubin Urine Negative (Negative); Blood Urine Negative (Negative); Color Urine Yellow (Yellow); Glucose Urine UA Negative (Negative); Ketones Urine 1+ mg/dL (Negative); Leukocyte Esterase Ur 1+ LEU/UL (Negative); Nitrate Urine Negative (Negative); Non Pathogenic Casts 0-2; Protein Urine Trace mg/dL (Negative); RBC Urine 0-2 /hpf (0-2); Specific Grav Ur 1.017 (1.001-1.035); Squamous Epithelial Cell Urine None Seen /hpf (Few); Urobilinogen Urine 0.2 mg/dL (<2.0); WBC Urine 21-50 /hpf (0-3); pH Urine 6.5 (5.0-9.0)
[2024-05-28] MEDS: niCARdipine 20 MG/200 ML 20 MG/200 ML BAG 50 MG IV CONT (23:12)
--- NOTE | 2024-05-28 23:23 | PC.NURSE ---
Per patient request patient had sister sign transfer form
[2024-05-28] MEDS: MORPHINE SULFATE (*CRX) 2 MG/ML INJ IV PUSH (23:36)
[2024-05-29 00:02] VITALS: BP 159/71; PULSE 92; RESP 18
[2024-05-29 00:03] VITALS: BP 159/71; PULSE 91
[2024-05-29 00:41] VITALS: BP 147/70; PULSE 96
[2024-05-29 01:10] VITALS: BP 146/67; PULSE 94
[2024-05-29 01:11] VITALS: BP 143/67; PULSE 94
[2024-05-29] MEDS: niCARdipine 20 MG/200 ML 20 MG/200 ML BAG 125 MG IV CONT (01:11)
[2024-05-29 01:20] VITALS: BP 144/68; PULSE 93; RESP 18; O2SAT 94
== END 2024-05-29 01:22 | disposition short-term general hospital (02) ==
PROVIDERS: Registered Nurse; Emergency Provider Emergency Medicine; PCP Internal Medicine
DX: S06.5X0A Traumatic subdural hemorrhage without loss of consciousness, initial encounter (principal); R53.1 Weakness; Z20.822 Contact with and (suspected) exposure to COVID-19; I10 Essential (primary) hypertension; E66.9 Obesity, unspecified; Z68.29 Body mass index [BMI] 29.0-29.9, adult; M19.90 Unspecified osteoarthritis, unspecified site; Z66 Do not resuscitate; Z90.49 Acquired absence of other specified parts of digestive tract; J32.3 Chronic sphenoidal sinusitis; I51.7 Cardiomegaly; W18.39XA Other fall on same level, initial encounter
CPT/HCPCS: 36415; 70450; 74177; 80053; 81001; 83605; 83690; 84484; 85025; 85610; 85730; 87086; 87637; 93005; 96361; 96365; 96366; 96375; 96376; 99291; A9270; J2270; J2404; J2405; J7030; Q9967

== ENCOUNTER 2024-11-07 12:39 | Inpatient (IN) | payer MEDICARE, SELFPAY ==
[2024-11-07] VITALS (12 sets, daily range): BP systolic 114–217; BP diastolic 68–91; PULSE 58–112; RESP 12–20; TEMP 36.4–36.7; O2SAT 89–97; BMI 29.5
--- NOTE | ~2024-11-07 | XR_ITS ---
XR hip RT min 2V Ordering provider: Isaac Parikh MD History: . POST-OP, RIGHT HIP BIPOLAR . Comparison: November 07, 2024 FINDINGS: BONES: No acute fracture or dislocation. HIP JOINT SPACES: Right hip arthroplasty. PUBIC SYMPHYSIS: Normal. SOFT TISSUES: Normal. IMPRESSION: No acute osseous abnormality pelvis and right hip. Right hip arthroplasty. Reviewed, dictated and finalized at location A.
--- NOTE | ~2024-11-07 | US_ITS ---
EXAM: US abdomen limited - 11/08/2024 11:16 CDT History: 83 years old Female with elevated bilirubin TECHNIQUE: Ultrasound of the abdomen was performed. COMPARISON: None available. FINDINGS: LIVER: Increased echogenicity, compatible with mild hepatic steatosis. The liver is normal in size. N o discrete liver masses are noted. INTRAHEPATIC BILE DUCTS: Nondilated. COMMON BILE DUCT: 5 mm. Normal caliber. GALLBLADDER: The gallbladder is surgically absent. PANCREAS: Head and tail are obscured by overlying bowel gas. The visualized portions are normal. ASCITES: None. OTHER: Patient IVC IMPRESSION: Hepatic steatosis. Cholecystectomy. Reviewed, dictated and finalized at location A.
--- NOTE | ~2024-11-07 | XR_ITS ---
XR chest 1V portable Ordering provider: Darrell Vigil MD History: 83 years Female with . Pre op . Comparison: December 11, 2022 FINDINGS: MEDIASTINUM: The cardiac silhouette is slightly enlarged. Congestive garcia. LUNGS: No effusions or pneumothorax. Bilateral interstitial changes which may indicate underlying fibrotic changes. Pneumonitis and pulmon eliza edema is not excluded. Clinical correlation advised. OTHER: No free air under the diaphragm. IMPRESSION: Highly suggestive cardiomegaly with cardiac decompensation and pulmonary edema. Pneumonitis cannot be excluded. Clinical correlation advised. Reviewed, dictated and finalized at location A.
--- NOTE | ~2024-11-07 | XR_ITS ---
AP view of the pelvis and AP and lateral views of the right hip Clinical history: Pain Findings: There is acute displaced, varus angulated subcapital fracture of the proximal right femoral neck. Prior ORIF the proximal left femur noted.. Bilateral hip and SI joint spaces are preserved. So ft tissues are unremarkable. Impression: Acute fracture in the subcapital region of the right femoral neck, as detailed above. Reviewed, dictated and finalized at location M. Impression: Acute fracture in the subcapital region of the right femoral neck, as detailed above.
--- NOTE | 2024-11-07 13:05 | ECG_ITS ---
Test Date: 2024-11-07 13:24:18 Measurements Intervals [place] Rate: 57 P: -85 RI: 162 QRS: -23 QRSD: 93 T: 66 QT: 438 QTc: 430 Interpretive Statements SINUS OR ECTOPIC ATRIAL BRADYCARDIA LEFT VENTRICULAR HYPERTROPHY AND ST-T CHANGE BASELINE ARTIFACT- I, AVR, AVL, AVF, V1-V6 ABNORMAL ECG Compared to ECG 05/28/2024 22:16:10 HEART RATE HAS DECREAED Electronically Signed On 11-07-2024 13:27:36 CDT by Duy Sy D.O.
--- OUTSIDE RECORDS SUMMARY | 2024-11-07 13:19 | XMS_ITS | Encounter Summary ---
Author Organization [facility] Address [address] [place] [address] Care Team Providers Care Furnace Charging Machine Operator Name Role Phone Milvia Terrazas MD Primary Care Provider [phone] Thao Wright RN Unavailable [phone] Clarissa Puente RN Unavailable Unavailab Kenny Kurtz MD Unavailable Encounter Details Date Type Department Care Team (Late st Contact Info) Description 03/05/2023 MyChart Message Enc [facility] Medical Group Family & Internal Medicine [facility] [id number] [place] [phone] Miliva Terrazas MD [address] [place] [address]. [address] [place] [address] [phone] Resuming PT Social History Tobacco Use Types Packs/Day Years Used Date Smoking Tobacco: Former Cigarettes 0.3 10 0 07/30/1964 - 07/30/1974 Smokeless Tobacco: Never Alcohol Use Standard Drinks/Week Comments Yes 6.7 (1 standard drink = 0.6 oz p ure alcohol) Occasionally PHQ-2 Answer Date Recorded Patient Health Questionnaire-2 Score 1 02/15/2023 Education Answer Date Recorded What is the highest level of school you have completed or the highest degree you have received? Master's degree (e.g., MA, MS, Ritesh, MEd, EDITOR SCHOOL PHOTOGRAPH, LUZ) 10/25/2018 Comments No Sex and Gender Information Value Date Recorded Sex Assigned at Female 08/24/2024 7:24 AM FAMILY PSYCHOLOGIST Legal Sex Female 10:44 PM CDT Gender Identity Not on file Sexual Orientation Not on file documented as of this encounter Progress Notes * Cher Enamorado RN - 03/05/2023 10:10 AM CDT Please advise documented in this encounter Plan of Treatment Upcoming Encounters Date Type Department Care Team (Late st Contact Info) Description 11/06/2024 11:59 PM CDT Anesthesia Event [facility] [place] [address] Betty Mac, LABOR ECONOMIST [address] [place] [address] 11/11/2024 11:00 AM CDT Office Visit [facility] Physical [facility] [address] [facility] [address] [place] [address] Lisa Fuller, FIRST COAT OPERATOR 11/14/2024 1:00 PM CDT Appointment [facility] [place] [address] Edson Garland MD Three [facility] [facility]. [address] [place] [phone] 01/16/2025 8:45 AM CDT Office Visit [facility] [phone] Binh Zacarias MD 3 [facility] [place] [address] [place] [phone] 02/04/2025 1:40 PM CDT Office Visit [facility] Medical Group Family & Internal Medicine - [place] [address] [place] [address] [place] [address] [facility]. [address] [place] [address] [phone] documented as of this encounter Visit Diagnoses Not on filedocumented in this encounter Additional Health Concerns Assessment Noted Time PHQ-9 Depression Total Score: 2 02/16/20 23 11:34 AM CDT documented as of this encounter Care Teams Furnace Charging Machine Operator Relationship Specialty [place] [address] [facility]. [address] [place] [address] [phone] PCP - General FAMILY PRACTICE 09/15/22 Thao Wright, RN [address] [place] [address] Life Enrichment Manager (Ambulatory) REGISTERED NURSE 05/30/24 Clarissa Puente RN Registered Nurse REGISTERED NURSE 07/14/24 Kenny Tai MD 3 [place] [address] Consulting Physician UROLOGY 08/25/24 08/25/25 documented as of this encounter
--- OUTSIDE RECORDS SUMMARY | 2024-11-07 13:19 | XMS_ITS | Encounter Summary ---
Author Organization [facility] Address [address] [place] [address] Care Team Providers Care Instrument Setter Name Role Phone Milvia Terrazas MD Primary Care Provider [phone] Thao Wright RN Unavailable [phone] Clarissa Puente RN Unavailable Unavailab Kenny Kurtz MD Unavailable Encounter Details Date Type Department Care Team (Late st Contact Info) Description 02/25/2023 MyChart Message Enc [facility] Medical Group Family & Internal Medicine [facility] [phone] [place] [phone] Milvia Terrazas MD [address] [place] [address]. [address] [place], [place] [phone] Diuretics Social History Tobacco Use Types Packs/Day Years [...] Master's degree (e.g., MA, MS, Ritesh, MEd, OLERICULTURIST, LUZ) 10/25/2018 Comments No Sex and Gender Information Value Date Recorded Sex Assigned at Female 08/24/2024 7:24 AM MAT WORKER Legal Sex Female 10:44 PM CDT Gender Identity Not on file Sexual Orientation Not on file documented as of this encounter Progress Notes * Evangelina Patterson RN - 02/26/2023 4:00 PM CDT Please advise documented in this encounter Plan of Treatment Upcoming Encounters Date Type Department Care Team (Late st Contact Info) Description 11/06/2024 11:59 PM CDT Anesthesia Event [facility] [place] [address] Betty Mac, HEALTHCARE ACCOUNT MANAGER [address] [place] [address] 11/11/2024 11:00 AM CDT Office [facility] Physical Therapy [address] [address] [place] [address] Lisa Fuller, FORESTRY LABORER 11/14/2024 1:[address] [facility] [place] [address] Edson Garland MD Three [facility]. [address] [place] [address] 01/16/2025 8:45 AM CDT Office Visit [facility] [phone] Binh Zacarias MD 3 [facility] [place] [address] [place] [phone] 02/04/2025 1:40 PM CDT Office Visit [facility] Medical Group Family & Internal Medicine - [place] [address] [place] [address] [place] [address] [facility]. [address] [place] [address] [phone] documented as of this encounter Visit Diagnoses Not on filedocumented in this encounter Additional Health Concerns Assessment Noted Time PHQ-9 Depression Total Score: 2 02/16/20 11:34 AM CDT documented as of this encounter Care Teams Instrument Setter Relationship Specialty Start Date [place] [id number] [place] [address]. [address] [place] [address] [phone] PCP - General FAMILY PRACTICE 09/15/22 Thao Wright, RN [address] [place] [address] Parts Counterperson (Ambulatory) REGISTERED NURSE 05/30/24 Clarissa Puente RN Registered Nurse REGISTERED NURSE 07/14/24 Kenny Tai MD 3 [place] [address] Consulting Physician UROLOGY 08/25/24 08/25/25 documented as of this encounter
--- OUTSIDE RECORDS SUMMARY | 2024-11-07 13:19 | XMS_ITS | Encounter Summary ---
Author Organization [facility] Address [address] [place] [address] Care Team Providers Care Critical Care Physician Name Role Phone Milvia Terrazas MD Primary Care Provider [phone] Thao Wright RN Unavailable [phone] Clarissa Puente RN Unavailable Unavailab Kenny Kurtz MD Unavailable Encounter Details Date Type Department Care Team (Late st Contact Info) Description 03/02/2023 MyChart Message Enc [facility] Medical Group Family & Internal Medicine [facility] [address] [place] [phone] Milvia Terrazas MD [address] [place] [address]. [address] [place], [place] [phone] Follow up Social History Tobacco Use Types Packs/Day Years [...] Master's degree (e.g., MA, MS, Ritesh, MEd, BUMPER AND PAINTER, LUZ) 10/25/2018 Comments No Sex and Gender Information Value Date Recorded Sex Assigned at Female 08/24/2024 7:24 AM REPEATER CHIEF Legal Sex Female 10:44 PM CDT Gender Identity Not on file Sexual Orientation Not on file documented as of this encounter Progress Notes * Cher Enamorado RN - 03/02/2023 10:40 AM CDT Please advise documented in this encounter Plan of Treatment Upcoming Encounters Date Type Department Care Team (Late st Contact Info) Description 11/06/2024 11:59 PM CDT Anesthesia Event [facility] [place] [address] Betty Mac, COTTON FARMER [address] [place] [address] 11/11/2024 11:00 AM CDT Office Visit [facility] Physical Therapy [address] [facility] [address] [place] [address] Lisa Fuller, OFFICE SERVICES SPECIALIST 11/14/2024 1:00 PM CDT Appointment [facility] [place] [address] Edson Garland MD Three [facility]. [address] [place] [address] [phone] 01/16/2025 8:45 AM CDT Office Visit [facility]-[address] [phone] Binh Zacarias MD 3 [facility] [place] [address] [place] [phone] 02/04/2025 1:40 PM CDT Office Visit [facility] Medical Group Family & Internal Medicine - [place] [address] [place] [address] [place] [address] [facility]. [address] [place] [address] [phone] documented as of this encounter Visit Diagnoses Not on filedocumented in this encounter Additional Health Concerns Assessment Noted Time PHQ-9 Depression Total Score: 2 02/16/20 23 11:34 AM CDT documented as of this encounter Care Teams Critical Care Physician Relationship Specialty [place] [address] [facility]. [address] [place] [address] PCP - General FAMILY PRACTICE 09/15/22 Thao Wright, RN [address] [place] [address] Asp Net Developer (Ambulatory) REGISTERED NURSE 05/30/24 Clarissa Puente RN Registered Nurse REGISTERED NURSE 07/14/24 Kenny Tai MD 3 [place] [address] Consulting Physician UROLOGY 08/25/24 08/25/25 documented as of this encounter
--- OUTSIDE RECORDS SUMMARY | 2024-11-07 13:20 | XMS_ITS | Encounter Summary ---
Author Organization [facility] Address [address] [place] [address] Care Team Providers Care Workplace Rehabilitation Officer Name Role Phone Milvia Terrazas MD Primary Care Provider [phone] Clarissa Puente RN Unavailable Unavailab Kenny Kurtz MD Unavailable Reason for Visit * Reason Onset Date Comments Called To Cancel Office Appt. 11/07/2024 Encounter Details Date Type Department Care Team (Late st Contact Info) Description 11/07/2024 Telephone [facility] Physical Therapy [address] [facility] [address] [place] [address] Lisa Fuller, MARIANA Called To Cancel Office Appt. Social History Tobacco Use Types Packs/Day Years Used Date Smoking Tobacco: Former Cigarettes 0.3 10 0 07/30/1964 - 07/30/1974 Smokeless Tobacco: Never Alcohol Use Standard Drinks/Week Comments Yes 6.7 (1 standard drink = 0.6 oz p ure alcohol) Occasionally OASIS D0700: Social Isolation Answer Da te Recorded Frequency of experiencing loneliness or isolatio n Never 10/30/2024 OASIS A1250: Transportation Answer Date Recorded Lack of Transportation (Medical) No 10/30/2024 Lack of Transportation (Non-Medical) No 10/30/2024 Patient Unable or Declines to Respond No 10/30/2024 OASIS B1300: Health Literacy Answer Baron e Recorded Frequency of needing help to read materials from doctor or pharmacy Never 10/30/2024 [facility] Utilities Answer Date Recorded In the past 12 months has th e Al[employer], gas, oil, or water company threatened to shut off services in your home? No 08/24/2024 Humiliation, Afraid, Rape, and Kick questionnair e Answer Date Recorded Within the last year, have y ou been afraid of your partner or ex-partner? No 08/24/2024 Within the last year, have y ou been humiliated or emotionally abused in other ways by your partner or ex-partner? No Within the last year, have y ou been kicked, hit, slapped, or otherwise physically hurt by your partner or ex-partner? No 08/24/2024 Within the last year, have y ou been raped or forced to have any kind of sexual activity by your partner or ex-partner? No 08/24/2024 Overall Financial Resource Strain (CARDIA) Answe r Date Recorded How hard is it for you to pa y for the very basics like food, housing, medical care, and heating? Not hard at all 08/24/2024 PHQ-2 Answer Date Recorded Patient Health Questionnaire-2 Score 0 10/13/2024 Hunger Vital Sign Answer Date Recorded Within the past 12 months, y ou worried that your food would run out before you got the money to buy more. Never true 08/24/19 25 Within the past 12 months, t he food you bought just didn't last and you didn't have money to get more. Never true 08/24/2024 PRAPARE - Transportation Answer Date Re corded In the past 12 months, has l ack of transportation kept you from medical appointments or from getting medications? No 07/31 In the past 12 months, has l ack of transportation kept you from meetings, work, or from getting things needed for daily living? No 08/24/2024 Housing Stability Vital Sign Answer Baron e Recorded In the last 12 months, was t here a time when you were not able to pay the mortgage or rent on time? No 08/24/2024 In the past 12 months, how m any times have you moved where you were living? 0 08/24/2024 At any time in the past 12 m [facility], were you homeless or living in a senior care (including now)? No 08/24/2024 Education Answer Date Recorded What is the highest level of school you have completed or the highest degree you have received? Master's degree (e.g., MA, MS, Ritesh, MEd, MEDICAL TECHNOLOGIST GENERALIST, LUZ) 10/25/2018 Comments No Sex and Gender Information Value Date Recorded Sex Assigned at Female 08/24/2024 7:24 AM DAIRY FROZEN MANAGER Legal Sex Female 10:44 PM CDT Gender Identity Not on file Sexual Orientation Not on file documented as of this encounter Functional Status * Are you deaf or do you have serious difficulty hearing Answer Date of Assessment Author Status No 08/25/2024 2:52 AM Tamara Rock RN Active * Are you blind or do you have serious difficulty seeing, even when wearing glasses? Answer Date of Assessment Author Status No 08/25/2024 2:52 AM Tamara Rock RN Active * Do you have serious difficulty walking or climbing stairs? Answer Date of Assessment Author Status Yes 08/25/2024 2:52 AM Tamara Rock RN Active * Do you have difficulty dressing or bathing? Answer Date of Assessment Author Status No 08/25/2024 2:52 AM Tamara Rock RN Active * Because of a physical, mental, or emotional condition, do you have difficulty doing errands alone such as visiting a doctor's office or shopping? Answer Date of Assessment Author Status No 08/25/2024 2:52 AM aTmara Rock RN Active documented as of this encounter Mental Status * Because of a physical, mental, or emotional condition, do you have serious difficulty concentrating, remembering, or making decisions? Answer Entry Date Author Status No 08/25/2024 2:52 AM Tamara Rock RN Active documented in this encounter Plan of Treatment Upcoming Encounters Date Type Department Care Team (Late st Contact Info) Description 11/06/2024 11:59 PM CDT Anesthesia Event [facility] [place] [address] Betty Mac, FIXING MACHINE OPERATOR [address] [place] [address] 11/11/2024 11:00 AM CDT Office Visit [facility] Physical Therapy [address] [place] [address] Lisa Fuller, WILDLIFE AND GAME PROTECTOR 11/14/2024 1:00 PM CDT Appointment [facility] [place] [address] Edson Garland MD Three [facility]. [place] [place] [address] 01/16/2025 8:45 AM CDT Office Visit [facility]-[address] [phone] Binh Zacarias MD 3 [facility] [place] [address] [place] [phone] 02/04/2025 1:40 PM CDT Office Visit [facility] Medical Group Family & Internal Medicine - [address] [address] Milvia Terrazas MD [address] [place] [address]. [address] [place] [address] [phone] documented as of this encounter Goals Goal Patient Goal Type Associated Problems Recent Progress Patient-Stated? Author Therapy - wears compression stockings Lifestyle Not on track(2023 9:01 AM DAIRY FROZEN MANAGER) Yes Clarissa Puente, RN Note: Patient reports that she is experiencing some edema in both legs and is needing PT to fit her for compression stockings. She will ask when PT is at her home on 07/09/24. Health - patient able to perform ADLs independently Lifestyle No Jackie Avila, RN documented as of this encounter Visit Diagnoses Not on filedocumented in this encounter Additional Health Concerns Assessment Noted Time PHQ-9 Depression Total Score: 0 10/14/19 25 9:15 AM CDT documented as of this encounter Care Teams Workplace Rehabilitation Officer Relationship Specialty [place] [address] [address] [place] [address] PCP - General FAMILY PRACTICE 09/15/22 Clarissa Puente RN Registered Nurse REGISTERED NURSE 07/14/24 Kenny Tai MD 3 [place] [address] Consulting Physician UROLOGY 08/25/24 08/25/25 documented as of this encounter
--- OUTSIDE RECORDS SUMMARY | 2024-11-07 13:20 | XMS_ITS | Encounter Summary ---
Author Organization [facility] Address [address] [place] [address] Care Team Providers Care Film Projector Operator Name Role Phone Murray Granger MD Primary Care Provider Milvia Rodríguez MD Primary Care Provider [phone] Thao Wright RN Unavailable [phone] Clarissa Puente RN Unavailable Unavailab Kenny Kurtz MD Unavailable Encounter Details Date Type Department Care Team (Late st Contact Info) Description 09/13/2022 MyChart Message Enc [facility] Medical Group Family & Internal Medicine [address] [address] Murray Granger MD Orthopedic Physician referral Social History Tobacco Use Types Packs/Day Years Used Date Smoking Tobacco: Former Cigarettes 0.3 10 0 07/30/1964 - 07/30/1974 Smokeless Tobacco: Never Alcohol Use Standard Drinks/Week Comments Yes 6.7 (1 standard drink = 0.6 oz p ure alcohol) Occasionally PHQ-2 Answer Date Recorded PHQ-2 Score - If the patient scores above 3, please move on to questions 3-9 1 03/24/2022 Education Answer Date Recorded What is the highest level of school you have completed or the highest degree you have received? Master's degree (e.g., [employer] MS, Ritesh, MEd, BARGAIN TABLE CLERK, LUZ) 10/25/2018 Comments No Sex and Gender Information Value Date Recorded Sex Assigned at Female 08/24/2024 7:24 AM DANCE STUDIO MANAGER Legal Sex Female 10:44 PM CDT Gender Identity Not on file Sexual Orientation Not on file COVID-19 Exposure Response Date Recorded In the last 10 days, have yo u been in contact with someone who was confirmed or suspected to have Coronavirus/COVID-19? No / Unsure 08/18/2022 7:45 AM DANCE STUDIO MANAGER documented as of this encounter Progress Notes * Evangelina Patterson RN - 09/14/2022 9:55 AM CST Please advise. E STUDIO MANAGER documented in this encounter Plan of Treatment Upcoming Encounters Date Type Department Care Team (Late st Contact Info) Description 11/06/2024 11:59 PM CDT Anesthesia Event [facility] [place] [address] Betty Mac, CHAINSTITCH HEMMER [address] [place] [address] 11/11/2024 11:00 AM CDT Office Visit [facility] Physical Therapy [address] [place] [address] Lisa Fuller PTA 11/14/2024 1:00 PM CDT Appointment [facility] [place] [address] Edson Garland MD Three [facility]. [address] [place] [place] [address] 01/16/2025 8:45 AM CDT Office Visit [facility] [phone] Binh Zacarias MD 3 [facility] [address] [place] [phone] 02/04/2025 1:40 PM CDT Office Visit [facility] Medical Group Family & Internal Medicine - [place] [address] [place] [phone] [place] [address] [facility] [place] [address] documented as of this encounter Visit Diagnoses Not on filedocumented in this encounter Additional Health Concerns Assessment Noted Time PHQ-9 Depression Total Score: 0 02/02/20 20 11:18 AM CDT documented as of this encounter Care Teams Film Projector Operator Relationship Specialty Start Date End Date Murray Granger MD PCP - General INTERNAL MEDICINE 10/28/18 09/14/22 [place] [address] [facility]. [address] [place] [address] PCP - General FAMILY PRACTICE 09/15/22 Thao Wright, RN [address] [place] [address] Deep Submergence Vehicle Operator (Ambulatory) REGISTERED NURSE 05/30/24 07/16/24 Clarissa Puente RN Registered Nurse REGISTERED NURSE 07/14/24 Kenny Tai MD 3 [place] [address] Consulting Physician UROLOGY 08/25/24 08/25/25 documented as of this encounter
--- OUTSIDE RECORDS SUMMARY | 2024-11-07 13:20 | XMS_ITS | Encounter Summary ---
Author Organization [facility] Address [address] [place] [address] Care Team Providers Care Middle [employer] Director Name Role Phone Milvia Terrazas MD Primary Care Provider [phone] Thao Wright RN Unavailable [phone] Clarissa Puente RN Unavailable Unavailab Kenny Kurtz MD Unavailable Encounter Details Date Type Department Care Team (Late st Contact Info) Description 01/21/2024 MyChart Message Enc [facility] Family & Internal Medicine [facility] [id number] [place] [phone] Milvia Terrazas MD [address] [place] [address]. [address] [place], [place] [phone] Follow up about treatment. Social History Tobacco Use Types Packs/Day Years Used Date Smoking Tobacco: Former Cigarettes 0.3 10 0 07/30/1964 - 07/30/1974 Smokeless Tobacco: Never Alcohol Use Standard Drinks/Week Comments Yes 6.7 (1 standard drink = 0.6 oz p ure alcohol) Occasionally PHQ-2 Answer Date Recorded Patient Health Questionnaire-2 Score 0 01/17/2024 Education Answer Date Recorded What is the highest level of school you have completed or the highest degree you have received? Master's degree (e.g., KALE, MS, Ritesh, MEd, METER INSTALLER, LUZ) 10/25/2018 Comments No Sex and Gender Information Value Date Recorded Sex Assigned at Female 08/24/2024 7:24 AM WOOD PRODUCTS MANUFACTURER Legal Sex Female 10:44 PM CDT Gender Identity Not on file Sexual Orientation Not on file documented as of this encounter Progress Notes * Portia Clements MA - 01/21/2024 8:33 AM CDT A good FYI! documented in this encounter Plan of Treatment Upcoming Encounters Date Type Department Care Team (Late st Contact Info) Description 11/06/2024 11:59 PM CDT Anesthesia Event [facility] [place] [address] Betty Mac, [employer] HEL[employer]TER [employer] [place] [address] 11/11/2024 11:00 AM CDT Office Visit [facility] [address] [place] [address] Lisa Fuller, PANEL BUILDER 11/14/2024 1:00 PM CDT Appointment [facility] [place] [address] Edson Garland MD Three [facility]. [place] [address] [place] [phone] 01/16/2025 8:45 AM CDT Office Visit [facility] [phone] Binh Zacarias MD 3 [facility] [place] [address] [place] [phone] 02/04/2025 1:40 PM CDT Office Visit [facility] Family & Internal Medicine - [place] [address] [place] [phone] [place] [address] [facility]. [address] [place] [address] documented as of this encounter Visit Diagnoses Not on filedocumented in this encounter Additional Health Concerns Assessment Noted Time PHQ-9 Depression Total Score: 2 02/16/20 23 11:34 AM CDT documented as of this encounter Care Teams Middle School Director Relationship Specialty Start [place] [address] [facility]. [address] [place] [address] PCP - General FAMILY PRACTICE 09/15/22 Thao Wright, RN [address] [place] [address] Wall Scraper (Ambulatory) REGISTERED NURSE 05/30/24 Clarissa Puente RN Registered Nurse REGISTERED NURSE 07/14/24 Kenny Tai MD [address] [place] [address] Consulting Physician UROLOGY 08/25/24 08/25/25 documented as of this encounter
--- OUTSIDE RECORDS SUMMARY | 2024-11-07 13:20 | XMS_ITS | Data Portability ---
Author Organization [place] [facility], Main Office Address [address] [place] [address] Assessment Encounter Date Assessment Date Assessment LastModified by Organization Details LastModified Time 09/29/2022 09/29/2022 HPI: 81-year-old female came in today for evaluation of her right knee pain. She has been having pain on and off for over year. In the last couple months has got little bit worse. She has pain with going up and down stairs. She will have pain by the end of the day. She does take Aleve 2 in the morning 2 at night. This does give her some improvement of her symptoms. Most the pain she feels is over the lateral aspect of the knee. She has more pain with stairs or getting up from a seated position. She is a very active 81-year-old female. She is traveling quite a bit. She has a trip planned for [facility] in November and she was concerned about the knee with regard to the trip. She has had no prior injuries trauma or surgeries to the knee. Physical exam: 81-year-old female very alert pleasant. She is 5 ft 6 192 lb. She has mild effusion right knee. Mild valgus alignment in the supine position. Hip range of motion is full without discomfort. Range of motion is from 5-140 degrees. She has rljw-im-whdlklyg tenderness over the lateral joint line to palpation. Mild tenderness over the medial joint line to palpation. Mild pain patellofemoral grind. Has no increased swelling in either lower extremity. 2+ dorsalis pedis pulse. After ChloraPrep was used on the skin 20 mg Kenalog and 3 cc of 0.5% ropivacaine was injected into the right knee. Risk of infection discussed. Impression: 81-year-old female has severe lateral compartment osteoarthritis in the right knee on the PA flexion view and moderately severe on the AP view. I discussed x-ray findings with her. I discussed treatment options which would include anti-inflammatori es, injections and lastly would be total knee arthroplasty. She wishes to avoid surgery If at all possible. We talked about cortisone injection which she would like to try to. She can repeat these every 3 months. She would like to come back in little more than 3 months which would be a week before her trip to [facility] for injection in the knee. If she is doing very well at that point then she can call and cancel. She does have this same pattern osteoarthritis in the left knee, but this 1 at this point is asymptomatic. Certainly we can always give her injections in both knees depending on her symptoms. Modification of activities was also discussed as well as this can help with her symptoms. 30 minutes was spent in treatment patient with more than half of this in [id number] conversation. [email or web address] Not available 09/29/2022 11:57:49 Plan of Treatment Reminders Order Date Submit Date Provider Last Modified By Organization Details Last Modified Time Details Appointments None recorded. Lab None recorded. Referral None recorded. Procedures injection/a spiration joint/bursa (PROC) - in office procedure, administere d by provider 2022 023 [email or web address] Not available 10:49:07 Surgeries None recorded. Imaging XR, knee [address] [place], [facility] [address], [place], [address], 3 16:32:10 Medication Orders Kenalog 10 mg/mL suspension for injection [id number], [address] [place], [address], 3 16:32:10 ropivacaine (PF) 5 mg/mL (0.5 %) injection solution [id number], [address] [place], [address], 3 16:32:10 Patient TargetsNo targets recorded. Patient InstructionsNo instructions recorded. Reason for Referral None Reported. Results Created Date Observation Date Name Description Value Unit Range Abnormal Flag Note LastModifiedBy Organization Detail LastModifiedTime 09/30/19 23 XR, knee No observ ation record ed. [email or web address] [facility] [place] [address], [place], [address], 09/29/2022 11:10:50 Result Notes None recorded. Problems Name Problem SNOMED Code Status Onset Date Resolution Date Notes Provider Name and Address Organization Details Recorded Time Pain of right knee joint [id number] Active 2022 ABBEY Natarajan [place] - [facility] 10:07:35 Problem Notes None recorded. Procedures Surgical History Date Name Laterality Status Provider Name and Address Organization Details Recorded Time Ankle completed ABBEY Natarajan [place] [facility] 09/29/2022 10:06:49 Cholecystectomy completed Ailyn saez Alfie [facility] 09/29/2022 10:06:56 Appendectomy completed Ailyn Dick Alfie [place] - [facility] 09/29/2022 10:07:02 Imaging Results Imaging Date Name Status LastModified by Organiz ation Details LastModified Time 09/29/2022 XR, knee completed [email or web address] [facility] [place] [address], [place], [address], 09/29/2022 11:10:50 Procedure Notes None recorded. Medical Equipment None Reported. Medications Name Sig Start Date Stop Date Status Note LastModified by Organization Details LastModified Time tizanidine 2 mg tablet TAKE 1 TABLET BY MOUTH EVERY 6 HOURS NEEDED. 09/29 completed Not Available Not Available Not Available acetazolami de 125 mg tablet TAKE 1 TABLET BY MOUTH 2 TIMES DAILY. 09/29 completed Not Available Not Available Not Available amlodipine 2.5 mg tablet TAKE 1 TABLET BY MOUTH EVERY EVENING. active Not Available Not Available No t Available amlodipine 5 mg tablet TAKE 1 TABLET (5 MG TOTAL) BY MOUTH DAILY. 09/29 completed Not Available Not Available Not Available Kenalog 10 mg/mL suspension for injection In office injection administe red by the provider 2022 active [facility]: 0003- 0494- 20 Not Available Not Available Not Available triamterene 37.5 mg-hydrochl orothiazide 25 mg tablet TAKE 1 TABLET BY MOUTH EVERY DAY active Not Available Not Available No t Available propranolol 20 mg tablet TAKE 1 TABLET BY MOUTH TWICE A DAY active Not Available Not Available No t Available Hctz/Reserp ine/Hydrala zine active Not Available Not Available Not Available ropivacaine (PF) 5 mg/mL (0.5 %) injection solution In office injection administe red by the provider 2022 active [facility] [address]55 -064- 01 Not Available Not Available Not Available ID NOW COVID-19 Test Kit TEST DIRECTED TODAY 09/29 completed Not Available Not Available Not Available Vitals Date Recorded Body height Body mass index (BMI) Body weight Provider Name and Address Organization Details Last Updated DateTime 09/29/2022 167.64 cm 31 kg/m2 12757.74 g ABBEY Natarajan [employer] 09/29/2022 10:13:45 Social History Question Answer Notes LastModified by Organizat ion Details LastModified Time Tobacco Smoking Status Never Smoker ABBEY Natarajan [facility] [employer] 09/29/2022 10:06:29 What Is Your Level Of Alcohol Consumption? None [email or web address] Information not available 09/29/2022 Sex: Unknown Functional Status None recorded. Mental Status None recorded. Family History Relationship Description Onset Age of this Age Resolved Age Notes LastModified by Organization Details LastModified Time Mother Heart disease [email or web address] Not available 2022 10:05:11 Mother Hypertensive disorder [email or web address] Not available 2022 10:06:17 Father Family history of stroke [email or web address] Not available 2022 10:06:06 Father Hypertensive disorder [email or web address] Not available 2022 10:06:17 Medical History Condition Response ARTHRITIS Y HYPERTENSION Y Gynecological HistoryNo gynecological history recorded. Obstetrics History GPAL:G 0 P 0 0 0 0 Past Encounters Encounter ID Performer Location Encounter Start Date Encounter Closed Date Diagnosis/Indication Diagnosis SNOMED-CT Code Diagnosis ICD10 Code Diagnosis Note [id number] RAMESH Haq [facility] [place] [address] [place] [address] 09/29/2022 09:32:08 09/29/2022 12:05:02 Pain of right knee joint 3282446917 11712 M25.561 Health Concerns Section Related Observation LastModified by Organization Detai ls LastModified Time None Recorded Concern Status LastModified by Organization Details LastModified Time None Recorded Advance Directives Directive None Recorded Payers Encounter Date Sequence Insurance Name Policy Number Policy Godwin Covered Member ID Godwin Member ID Guarantor Name 09/29/2022 1 [facility] (MEDICARE REPLACEMENT/A DVANTAGE - PPO) [id number] Marisel Lopez Scovitch [id number] Marisel Mooreovicaryl OBGyn Episode No OBEpisode recorded.
--- OUTSIDE RECORDS SUMMARY | 2024-11-07 13:20 | XMS_ITS | Clinical Summary ---
Author Organization [facility] Address [address] [place] [address] Phone Care Team Providers Care Drilling Field Operator Name Role Phone Murray Granger MD Primary Care Provider [phone] Allergies Active Allergy Reactions Criticality Noted Date Comments Sulfa Antibiotics 03/19/2019 Medications naproxen sodium (ALEVE) 220 MG tablet One tab two times daily 0 03/27/2017 Active triamterene-hydr oCHLOROthiazide (DYAZIDE) 37.5-25 MG per capsule One tab daily 0 03/27/2017 Active amLODIPine (NORVASC) 5 MG tablet One tab daily 0 03/27/2017 Active Active Problems Problem Noted Date Diagnosed Date 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 kidney 07/13/2017 Family History Medical History Relation Comments Family history unknown Unknown Relation Status Comments Unknown Social History Tobacco Use Types Packs/Day Years Used Date Smoking Tobacco: Never Smokeless Tobacco: Never Alcohol Use Standard Drinks/Week Comments Yes 0 (1 standard drink = 0.6 oz pur e alcohol) social drinker AUDIT-C Answer Date Recorded Frequency of Alcohol Consumption Never 03/19/2019 Average Number of Drinks Not on file 019 Frequency of Binge Drinking Not on file 02/28 Comments Unknown Sex and Gender Information Value Date Recorded Sex Assigned at Not on file Legal Sex Female 7:50 AM MST Gender Identity Not on file Sexual Orientation Not on file Last Filed Vital Signs Vital Sign Reading Time Taken Comments Blood Pressure 130/73 03/26/2019 3:33 PM CDT Pulse 82 03/26/2019 3:33 PM CDT Temperature - - Respiratory Rate - - Oxygen Saturation - - Inhaled Oxygen Concentration - - Weight 88.5 kg (195 lb) 03/26/2019 3:33 PM CDT Height 172.7 cm (5' 8 ) 03/26/2019 3:33 PM CDT Body Mass Index 29.65 03/26/2019 3:33 PM CDT Plan of Treatment Health Maintenance Due Date Last Done Comments Pneumococcal PPSV23/PCV13 65 + Years / Low and Medium Risk (1 of 4 - PCV) 2005 Influenza Vaccine (Season Ended) 2025 Insurance PM [address] INS[address]ANCE [address] [place] [address] Care Teams Drilling Field Operator Relationship Specialty Start Date End Date Murray Granger MD [address] [place] [address] PCP - General 01/09/19
--- OUTSIDE RECORDS SUMMARY | 2024-11-07 13:20 | XMS_ITS | Encounter Summary ---
Author Organization [facility] Address [address] [place] [address] Care Team Providers Care Licensed Chemical Spray Technician Name Role Phone Milvia Terrazas MD Primary Care Provider Clarissa Puente RN Unavailable Unavailab Kenny Kurtz MD Unavailable Encounter Details Date Type Department Care Team (Late st Contact Info) Description 11/06/2024 Pre-Procedure Call [facility] Pre-Admission Testing [address] [place], [place] [id number] Edson Garland MD Three [facility]. [address] [place], [place] [phone] Anesthesia Record Procedure Summary Procedure Name Responsible Anesthesiologist Anesthesia Start Time Anesthesia Stop Time XA A-FIB ABLATION/LEFT ATRIAL APPENDAGE CLOSURE Events No events on file. Meds * Agents No agents on file. * Blood No blood administrations on file. Lines, Drains, and Airways No LDAs on file. documented in this encounter Social History Tobacco Use Types Packs/Day Years [...] materials from doctor or pharmacy Never 10/30/2024 [facility] Utilities Answer Date Recorded In the past 12 months has th e [employer], oil, or water [place] threatened to shut off services in your [...] any time in the past 12 m onths, were you homeless or living in a long term (including now)? No 08/24/2024 Education Answer Date Recorded What is the highest level of school you have completed or the highest degree you have received? Master's degree (e.g., MA, MS, Ritesh, MEd, SUPERVISOR COIL WINDING, LUZ) 10/25/2018 Comments No Sex and Gender Information Value Date Recorded Sex Assigned at Female 08/24/2024 7:24 AM ADMINISTRATIVE SUPPORT TECHNICIAN Legal Sex Female 10:44 PM CDT Gender Identity Not on file Sexual Orientation Not on file documented as of this encounter Last Filed Vital Signs Vital Sign Reading Time Taken Comments Blood Pressure - - Pulse - - Temperature - - Respiratory Rate - - Oxygen Saturation - - Inhaled Oxygen Concentration - - Weight 81.2 kg (179 lb) 11/06/2024 3:31 PM CDT Height 170.2 cm (5' 7 ) 11/06/2024 3:31 PM CDT Body Mass Index 28.04 11/06/2024 3:31 PM CDT documented in this encounter Functional Status * Are you [...] 2:52 AM Tamara Rock RN Active documented as of this encounter Mental Status * Because of a physical, mental, or emotional condition, do you have serious difficulty concentrating, remembering, or making decisions? Answer Entry Date Author Status No 08/25/2024 2:52 AM Tamara Rock RN Active documented in this encounter Progress Notes * Morelia Peñaloza RN - 11/06/2024 3:25 PM CDT Can you climb 2 flights of stairs without CP or extreme SOB? Denies CP but couldn't do the stairs 2/2 arthritis. Are you physically able to do the same things today that you could 6 months ago? Yes, not as stable(core is not as strong). Uses a cane now. Going to PT 2x/week now What is your average blood pressure? Usually runs 120/70 Any recent heart testing? (EKG, stress test, Echo?) 10/17/24 Do you see a director it? Who is it? Deann Arrival 11, sister will drive the patient home. Sister lives next door and will be available. NPO after midnight Christofer discussed/will obtain documented in this encounter OR Notes * OR PreOp - BORIS Andres - 11/07/2024 10:50 AM CDT Chart reviewed. Per phone interview, patient states she couldn't climb stairs 2/2 arthritis but denies any CP. No SOB noted. Denies recent changes to activity tolerance in past 6 months but does use a cane now. Patient sees director it Dr. Zacarias and previous cardiac testing copied. Preop orders to be ordered per surgeon. EKG 10/17/24 ECTOPIC ATRIAL BRADYCARDIA LEFT VENTRICULAR HYPERTROPHY AND ST-T CHANGE Rate 59 Echo 08/24/24 The left ventricular size is normal. The left ventricular systolic function is normal. Mild left ventricular hypertrophy. Left ventricular diastolic function is abnormal (grade 1 - impaired relaxation) with normal LAP. The left ventricular outflow tract size is normal. The right ventricular size is normal. Right ventricular systolic function is normal. No evidence of pericardial effusion. Aortic root is mildly dilated. Inferior vena cava is mildly enlarged at 2.5cm. Inferior vena cava shows >50% collapse with respiration consistent with normal right atrial pressure. Mild aortic regurgitation. Mild mitral regurgitation. Right ventricular systolic pressure is 48 mmHg. EKG 08/24/24 SINUS RHYTHM LEFT VENTRICULAR HYPERTROPHY AND ST-T CHANGE [VOLTAGE CRITERIA PLUS ST/T ABNORMALITY] POSSIBLE SEPTAL MYOCARDIAL INFARCTION [30 ms Q WAVE IN V1/V2], PROBABLY OLD Compared to ECG 08/24/2024 07:18:35 Myocardial infarct finding now present Ectopic atrial rhythm no longer present Left-axis deviation no longer present ST (T wave) deviation still present Rate 64 Echo 06/09/24 SUMMARY: LV size is normal. LVEf 64%. Normal RV size and systolic function. Normal LA. No significant valve disease. Unable to estimate PASP due to lack of adequate TR jet. IVC is not well visualized. Carotid Duplex 06/09/24 CONCLUSIONS: 1. Normal right internal carotid artery, no evidence of significant plaque. 2. Normal left internal carotid artery, no evidence of significant plaque. 3. Normal, antegrade flow is noted in bilateral vertebral arteries. Stress Test 05/18/22 Stress conclusion: 1. Clinically negative. 2. Electrocardiographically negative treadmill test for ischemia. 3. Adequate exercise capacity. 4. Jones Treadmill Score is 5, which indicates low risk. 5. Blood pressure response was normal. 6. Scintigraphic images to follow. Perfusion conclusion: 1. Good study quality. No motion correction was applied to images. Breast attenuation is noted. Prone imaging was performed. 2. Normal myocardial perfusion SPECT imaging. Images show a small area of reversibility present in the inferolateral wall(s).This defect resolved on stress prone image, c/w breast attenuation artifact. No ischemia or infarct. 3. Normal wall motion with an ejection fraction of 77%. 4. Stress test with myocardial perfusion imaging shows overall low risk for a cardiac event. Echo 05/18/22 The left ventricular systolic function is normal. Estimated left ventricular ejection fraction is 65-70%. There is no left ventricular hypertrophy. Left ventricular diastolic function is normal. Wall motion appears normal in all segments. The right ventricular size is normal. The left atrial size is normal. Aortic root is mildly dilated. Ascending aorta is mildly dilated. The sinus of Valsalva measures 3.8cm. The proximal ascending aorta measures 4.1cm. No evidence of aortic valve stenosis. Mild aortic regurgitation. Trace mitral regurgitation. Mildly calcified posterior mitral annulus. A trace of tricuspid regurgitation. Unable to reliably quantitate pulmonary systolic pressure. documented in this encounter Plan of Treatment Upcoming Encounters Date Type Department Care Team (Late st Contact Info) Description 11/06/2024 11:59 PM CDT Anesthesia Event [facility] Recreation [place] [address] Betty Mac, AUTOMATIC QUILLING MACHINE OPERATOR [address] [place] [address] 11/11/2024 11:00 AM CDT Office Visit [facility] Therapy [address] [facility] [address] [place] [address] Lisa Fuller, MARIANA 11/14/2024 1:00 PM CDT Appointment [facility] Recreation [place] [address] Edson Garland MD Three [facility]. [place] [address] [place] [address] 01/16/2025 8:45 AM CDT Office Visit [facility] [phone] Binh Zacarias MD 3 [facility] [place] [address] [place] [phone] 02/04/2025 1:40 PM CDT Office Visit [facility] Family & Internal Medicine - [place] [address] [place] [address] [place] [address] [facility]. [address] [place] [address] documented as of this encounter Goals Goal Patient Goal Type Associated Problems Recent Progress Patient-Stated? Author Therapy - wears compression stockings Lifestyle Not on track(2023 9:01 AM ADMINISTRATIVE SUPPORT TECHNICIAN) Yes Clarissa Puente RN Note: Patient reports that she is experiencing some edema in both legs and is needing PT to fit her for compression stockings. She will ask when PT is at her home on 07/09/24. Health - patient able to perform ADLs independently Lifestyle No Jackie Avila RN documented as of this encounter Visit Diagnoses Not on filedocumented in this encounter Additional Health Concerns Assessment Noted Time PHQ-9 Depression Total Score: 0 10/14/19 25 9:15 AM CDT documented as of this encounter Care Teams Licensed Chemical Spray Technician Relationship Specialty Start [place] [address] [facility]. [address] [place] [address] PCP - General FAMILY PRACTICE 09/15/22 Clarissa Puente RN Registered Nurse REGISTERED NURSE 07/14/24 Kenny Tai MD [address] [place] [address] Consulting Physician UROLOGY 08/25/24 08/25/25 documented as of this encounter
--- OUTSIDE RECORDS SUMMARY | 2024-11-07 13:20 | XMS_ITS | Encounter Summary ---
Author Organization [facility] Address Formerly [facility], later [facility] [place] [address] Care Team Providers Care Service Center Technician Name Role Phone Murray Granger MD Primary Care Provider Milvia Rodríguez MD Primary Care Provider [phone] Thao Wright RN Unavailable [phone] Clarissa Puente RN Unavailable Unavailab Kenny Kurtz MD Unavailable Encounter Details Date Type Department Care Team (Late st Contact Info) Description 01/04/2019 Abstract [facility] CONVERSION [address] [place], [place] [id number] , Jordan Azar MD Social History Tobacco Use Types Packs/Day Years Used Date Smoking Tobacco: Former Cigarettes 0.5 15 1 960 - 1975 Smokeless Tobacco: Never Alcohol Use Standard Drinks/Week Comments Yes 0 (1 standard drink = 0.6 oz pur e alcohol) social Education Answer Date Recorded What is the highest level of school you have completed or the highest degree you have received? Master's degree (e.g., MA, MS, Ritesh, MEd, SEISMIC OBSERVER, ULZ) 10/25/2018 Comments No Sex and Gender Information Value Date Recorded Sex Assigned at Female 08/24/2024 7:24 AM FAST FOOD SERVER Legal Sex Female 10:44 PM CDT Gender Identity Not on file Sexual Orientation Not on file documented as of this encounter Plan of Treatment Upcoming Encounters Date Type Department Care Team (Late st Contact Info) Description 11/06/2024 11:59 PM CDT Anesthesia Event [facility] [place] [address] Betty Mac, NURSERY MANAGER [address] [place] [address] 11/11/2024 11:00 AM CDT Office Visit [facility] Physical Therapy [address] [facility] [address] [place] [address] Lisa Fuller, SHOE REPAIR SUPERVISOR 11/14/2024 1:00 PM CDT Appointment [facility] [place] [address] Edson Garland MD Three [facility]. [address] [place] [address] 01/16/2025 8:45 AM CDT Office Visit [facility] [phone] Binh Zacarias MD [address] [facility] [address] [place] [phone] 02/04/2025 1:40 PM CDT Office Visit [facility] Family & Internal Medicine - [place] [address] [place] [address] [place] [address] [facility]. [address] [place] [address] documented as of this encounter Visit Diagnoses Not on filedocumented in this encounter Care Teams Service Center Technician Relationship Specialty Start Date End Date Murray Granger MD PCP - General INTERNAL MEDICINE 10/28/18 09/14/22 [place] [address] [address] [place] [address] PCP - General FAMILY PRACTICE 09/15/22 Thao Wright, RN [address] [place], [place] [phone] Wire Inserter (Ambulatory) REGISTERED NURSE 05/30/24 07/16/24 Clarissa Puente RN Registered Nurse REGISTERED NURSE 07/14/24 Kenny Tai MD 3 [place], [place] [id number] Consulting Physician UROLOGY 08/25/24 08/25/25 documented as of this encounter
--- OUTSIDE RECORDS SUMMARY | 2024-11-07 13:20 | XMS_ITS | Encounter Summary ---
Author Organization [facility] Address [address] [place] [address] Care Team Providers Care Greaser Operator Name Role Phone Murray Granger MD Primary Care Provider Milvia Rodríguez MD Primary Care Provider [phone] Thao Wright RN Unavailable [phone] Clarissa Puente RN Unavailable Unavailab Kenny Kurtz MD Unavailable Encounter Details Date Type Department Care Team (Late st Contact Info) Description 04/18/2022 Bimb[employer] Message Enc [facility] THREE [facility], [address] [address] [place], [facility] Provider Lab results Social History Tobacco Use Types Packs/Day Years [...] Master's degree (e.g., MA, MS, Ritesh, MEd, BUSINESS EMPLOYMENT SPECIALIST, LUZ) 10/25/2018 Comments No Sex and Gender Information Value Date Recorded Sex Assigned at Female 08/24/2024 7:24 AM MANAGER BUSINESS PLANNING Legal Sex Female 10:44 PM CDT Gender Identity Not on file Sexual Orientation Not on file COVID-19 Exposure Response Date Recorded In the last 10 days, have yo u been in contact with someone who was confirmed or suspected to have Coronavirus/COVID-19? No / Unsure 04/17/2022 10:12 AM CDT documented as of this encounter Plan of Treatment Upcoming Encounters Date Type Department Care Team (Late st Contact Info) Description 11/06/2024 11:59 PM CDT Anesthesia Event [facility] [place] [address] Betty Mac, STATISTICAL GENETICIST [address] [place] [address] 11/11/2024 11:00 AM CDT Office Visit [facility] Physical Therapy [address] [facility] [address] [place] [address] Lisa Fuller, MARIANA 11/14/2024 1:00 PM CDT Appointment [facility] [place] [address] Edson Garland MD Three [facility]. [address] [place] [address] 01/16/2025 8:45 AM CDT Office Visit [facility]-[address] [phone] Binh Zacarias MD 3 [facility] [place] [address] [place] [phone] 02/04/2025 1:40 PM CDT Office Visit [facility] Family & Internal Medicine [facility] [address] [place] [address] [place] [address] [facility]. [address] [place] [address] documented as of this encounter Visit Diagnoses Not on filedocumented in this encounter Additional Health Concerns Assessment Noted Time PHQ-9 Depression Total Score: 0 02/02/20 20 11:18 AM CDT documented as of this encounter Care Teams Greaser Operator Relationship Specialty Start Date End Date Murray Granger MD PCP - General INTERNAL MEDICINE 10/28/18 09/14/22 [place] [address] [facility]. [address] [place] [address] PCP - General FAMILY PRACTICE 09/15/22 Thao Wright, RN [address] [place] [address] Machinist Helper (Ambulatory) REGISTERED NURSE 05/30/24 07/16/24 Clarissa Puente RN Registered Nurse REGISTERED NURSE 07/14/24 Kenny Tai MD 3 [place] [address] Consulting Physician UROLOGY 08/25/24 08/25/25 documented as of this encounter
--- OUTSIDE RECORDS SUMMARY | 2024-11-07 13:20 | XMS_ITS | Encounter Summary ---
Author Organization [facility] Address [facility] [place] [address] Care Team Providers Care Car Deliverer Name Role Phone Murray Granger MD Primary Care Provider Milvia Rodríguez MD Primary Care Provider [phone] Thao Wright RN Unavailable [phone] Clarissa Puente RN Unavailable Unavailab Kenny Kurtz MD Unavailable Encounter Details Date Type Department Care Team (Late st Contact Info) Description 05/14/2019 [place] [employer] Message Enc [facility] Family & Internal Medicine [address] [address] Murray Granger MD RE: Referral Request Social History Tobacco Use Types Packs/Day Years [...] Master's degree (e.g., MA, MS, Ritesh, MEd, INOCULATOR, LUZ) 10/25/2018 Comments No Sex and Gender Information Value Date Recorded Sex Assigned at Female 08/24/2024 7:24 AM ABLE BODIED WATCHMAN Legal Sex Female 10:44 PM CDT Gender Identity Not on file Sexual Orientation Not on file documented as of this encounter Plan of Treatment Upcoming Encounters Date Type Department Care Team (Late st Contact Info) Description 11/06/2024 11:59 PM CDT Anesthesia Event [facility] [place] [address] Betty Mac, SERIALS LIBRARIAN [address] [place] [address] 11/11/2024 11:00 AM CDT Office Visit [facility] Physical Therapy [address] [facility] [facility] [address] [place] [address] Lisa Fuller, MARIANA 11/14/2024 1:00 PM CDT Appointment [facility] [place] [address] Edson Garland MD Three [facility]. [address] [place] [phone] 01/16/2025 8:45 AM CDT Office Visit [facility]-[address] [phone] Binh Zacarias MD 3 [facility] [address] [place] [phone] 02/04/2025 1:40 PM CDT Office Visit [facility] Family & Internal Medicine - [address] [address] Milvia Terrazas MD [address] [place] [address]. [address] [place] [address] documented as of this encounter Visit Diagnoses Not on filedocumented in this encounter Care Teams Car Deliverer Relationship Specialty Start Date End Date Murray Granger MD PCP - General INTERNAL MEDICINE 10/28/18 09/14/22 [place] [address] [address] [place] [address] PCP - General FAMILY PRACTICE 09/15/22 Thao Wright, RN [address] [place], [place] [phone] Guest Request Runner (Ambulatory) REGISTERED NURSE 05/30/24 07/16/24 Clarissa Puente RN Registered Nurse REGISTERED NURSE 07/14/24 Kenny Tai MD 3 [place] [address] Consulting Physician UROLOGY 08/25/24 08/25/25 documented as of this encounter
--- OUTSIDE RECORDS SUMMARY | 2024-11-07 13:20 | XMS_ITS | Clinical Summary ---
Author Organization [facility] Address [address] [place] [address] Care Team Providers Care Territory Sales Manager Name Role Phone Milvia Hairston MD Primary Care Provider [phone] Clarissa Puente RN Unavailable Unavailab Kenny Kurtz MD Unavailable Allergies Active Allergy Reactions Criticality Noted Date Comments Lisinopril Cough 06/30/2024 Sulfa Antibiotics Hives 05/23/2013 Wasp Venom Protein Hives 05/23/2013 Medications propranolol (INDERAL) 20 MG tabletIndicatio ns:Hypertension Take 1 tablet (20 mg total) by mouth 2 (two) times daily. Indications: High Blood Pressure Active furosemide (LASIX) 40 MG tabletIndicatio ns:Diuresis Take 1 tablet (40 mg total) by mouth 3 (three) times a week. Mondays//Fridays 39 tablet 3 024 Active meclizine (ANTIVERT) 25 MG tabletIndicatio ns:Vertigo Take 1 tablet (25 mg total) by mouth 3 (three) times daily as needed for Dizziness (vertigo). 30 tablet 2 025 Active escitalopram (LEXAPRO) 10 MG tabletIndicatio ns:Depression Take 1 tablet (10 mg total) by mouth daily. 30 tablet 11 03/17/2 025 Active hydrALAZINE (APRESOLINE) 25 MG tabletIndicatio ns:Hypertension Take 1 tablet (25 mg total) by mouth 2 (two) times a day. 60 tablet 5 025 Active apixaban (ELIQUIS) 5 MG tabletIndicatio ns:Atrial Fibrillation Take 1 tablet (5 mg total) by mouth 2 (two) times daily. Indications: Atrial Fibrillation 60 tablet 11 025 Active estradiol (ESTRACE) 0.1 MG/GM vaginal creamIndication s:Prophylaxis 1 (ONE) GRAM USE FINGERTIP AMOUNT IN VAGINA 2 NIGHTS PER WEEK 025 Active melatonin 5 MG tablet Take 1 tablet (5 mg total) by mouth nightly as needed. Active calcium carb-cholecalci ferol (CALTRATE 600+D) 600-20 MG-MCG tablet Take 1 tablet by mouth every evening. 2024 Discontinued Vitamin D3 (CHOLECALCIFERO L) 50 mcg tablet Take 1 tablet (50 mcg total) by mouth daily. 2024 Discontinued(T herapy completed) naproxen sodium (ALEVE) 220 MG tablet Take 1 tablet (220 mg total) by mouth 2 (two) times daily with meals. 2024 Discontinued(E rror) escitalopram (LEXAPRO) 10 MG tablet Take 1 tablet (10 mg total) by mouth daily. 30 tablet 025 2024 Discontinued(R eorder) amLODIPine (NORVASC) 10 MG tablet Take 1 tablet (10 mg total) by mouth daily. 30 tablet 025 2024 Discontinued(T herapy completed) hydrALAZINE (APRESOLINE) 25 MG tablet Take 1 tablet (25 mg total) by mouth 3 (three) times daily. 025 2024 Discontinued(R eorder) Active Problems Problem Noted Date Diagnosed Date Paroxysmal atrial fibrillation ([facility]) 10/17/2024 Chronic heart failure with p reserved ejection fraction ([facility]) 10/17/2024 Diastolic dysfunction 09/17/2024 History of subdural hematoma 09/17/2024 Depression, unspecified depression type 09/17/19 25 Orthostatic hypotension 07/04/2024 Weakness 06/09/2024 Retention of urine 06/09/2024 Fall 06/09/2024 Head injury, initial encounter 06/08/2024 Recurrent UTI 05/29/2024 Subdural hemorrhage ([facility]) 05/29/2024 Age-related osteoporosis wit hout current pathological fracture 12/07/2023 Bilateral primary osteoarthritis of knee 023 At risk for complication associated with hypoten manju 07/16/2023 Arthralgia of right knee 09/28/2022 Infrarenal abdominal aortic aneurysm (AAA) witho ut rupture 05/22/2022 Ascending aorta dilatation 05/22/2022 Uncontrolled hypertension 04/13/2022 Altitude sickness prophylaxis 03/09/2022 Coarse tremors 02/14/2022 Left hip pain 03/24/2021 Generalized osteoarthritis 02/03/2020 BMI 29.0-29.9,adult 05/01/2019 Edema of both legs 10/28/2018 Adrenal nodule ([facility]) 05/29/2018 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 [place] [address] Lisa Fuller PTA Called To Cancel Office Appt. 11/06/2024 Travel 11/06/2024 Pre-Procedure Call [facility] Pre-Admission Testing [address] [facility] [place] [address] Edson Garland MD 11/04/2024 12:45 PM CDT Office Visit [facility] Physical Therapy [address] [place] [address] Milvia Hairston MD Meyer, Debra S, OVEREDGER Balance Problem 11/04/2024 Travel 10/31/2024 2:45 PM CDT Office Visit [facility] Physical Therapy [address] [place] [address] Milvia Hairston MD Tolle, Lisa C, PT Balance Problem 10/31/2024 Travel 10/30/2024 9:00 AM CDT Home Care Visit [address] [place] [address] [place] [address] Marcie Hodges RN SN OASIS DISCHARGE/ASSESSMENT 10/30/2024 Home Care Visit [address] [place] [address] [place] [address] Marcie Hodges RN [facility] 10/30/[address] [facility] [place] [address] Edson Garland MD 10/29/2024 Telephone [facility] [place] [address] Pham Mathew RN Schedule Procedure (LAAO/Watchman concomitant w/Dada ) 10/28/2024 2:00 PM CDT Office Visit [facility] [address] [place] [address] Edson Garland MD Atrial Fibrillation (CONSULT) 10/28/2024 Travel 10/24/2024 8:30 AM CDT Home Care Visit [address] [place], [place] [phone] Swati Banks, PT PT INITIAL EVALUATION 10/24/2024 Telephone [facility] Family & Internal Medicine [address] [phone] Milvia Hairston MD Other ([facility] ) 10/21/2024 11:00 AM CDT Home Care Visit [address] [place] [address] [place] [address] Lorrie Ford, OT OT INITIAL EVALUATION 10/20/2024 9:00 AM CDT Home Care Visit [address] [place] [address] Marcie Hodges, RN SN OASIS START OF CARE 10/20/2024 Plan of Care Documentation [address] [address] 10/17/2024 10:45 AM CDT Office Visit [facility] [phone] Patty Oquendo MD Hypertension (2-3mo) 10/17/2024 Travel 10/13/2024 12:12 PM CDT - 10/13/2024 11:59 PM CDT Hospital Encounter [facility] Laboratory [address] [place] [address] Milvia Hairston MD Discharge Disposition: Home or Self Care (Routine Discharge) 10/13/2024 9:30 AM CDT - 10/13/2024 12:11 PM CDT Hospital Encounter [facility] Cardiopulmonary Services [address] [place] [address] Milvia Hairston MD Discharge Disposition: Home or Self Care (Routine Discharge) 10/13/2024 9:10 AM CDT Laboratory Only [facility] Family & Internal Medicine [address] [phone] Milvia Hairston MD 10/13/2024 8:20 AM CDT Office Visit [facility] Family & Internal Medicine [address] [phone] Milvia Hairston MD Follow Up 10/13/[address] [place] [place] [address] [place] [address] Milvia Hairston MD Advise 10/13/2024 Travel 10/10/2024 Telephone [facility] Family & Internal [address] [phone] Milvia Hairston MD Dizziness 10/05/2024 Scan [facility] Scanned, [facility] 09/24/2024 Scan [facility] Scanned, [facility] 09/18/2024 Orders Only [facility] Family Internal [address] [phone] Milvia Hairston MD 09/17/2024 4:00 PM ENVIRONMENTAL QUALITY ANALYST Telemedicine [facility] Family & Internal [address] [phone] Milvia Hairston MD Follow Up 09/17/2024 Scan [facility] Scanned, [facility] 09/17/2024 Travel 09/15/2024 Scan [facility] Scanned, [facility] 09/14/2024 Scan [facility] Scanned, [facility] Lab (SCAN) 09/11/2024 Scan [facility] Scanned, [facility] 09/10/2024 Telephone [facility] Family & Internal [address] [phone] Milvia Hairston MD Medication 09/09/2024 Telephone [facility] Internal [address] [phone] Milvia Hairston MD Record Request 09/08/2024 Telephone [facility] Family & Internal [address] [phone] Milvia Hairston MD Information 08/25/2024 Scan [facility] Scanned, [facility] 08/24/2024 7:01 AM ENVIRONMENTAL QUALITY ANALYST - 08/27/2024 1:27 PM ENVIRONMENTAL QUALITY ANALYST Hospital Encounter [facility] [place] [address] Charlotte Moreno MD Simpson, Stephanie L, DO Doan, Melissa K, PA Conti, John R, [place] Fall; Generalized Weakness Discharge Disposition: Inpatient Rehab Facility 08/24/2024 Travel 08/18/2024 Scan [facility] Scanned, [facility] 08/12/2024 Scan [facility] Scanned, [facility] 08/12/2024 Telephone [facility] Family [facility] Internal Medicine [address] [phone] Milvia Hairston MD Orders; Blood Pressure from Last 3 Months Immunizations Name Administration Dates Next Due FLUAD (IIV, Trivalent, 0.5 M L Pre-filled Syringe) 05/19/2024 Fluad influenza vaccine, Manolo drivalent (aIIV4), Inactivated, adjuvanted, preservative free, 0.5 mL,IM use 05/31/2022 Fluzone High Dose - >Age 65 (Prefilled Syringe) 05/28/2023,05/23/2021,05/14/2020,2018,04/29/2018,04/29/2017 Hepatitis A 07/19/2005,12/02/2004 Hepatitis A (Generic) 07/19/2005,12/02/2004 Hepatitis B (Generic: Adult) 12/30/1991 Influenza (Generic) 05/19/2024, 6,05/10/2015,2012 Influenza Adult (Generic) 04/29/2018,07/2016,05/01/2016,2014 MODERNA COVID-19 (12+) MRNA, LNP-S, PF, 100 MCG/ 0.5 ML DOSE 08/24/2020,07/27/2020 MODERNA COVID-19 ([employer]ATE[employer] COMMUNICATIONS OPERATOR DAREN SAUL), MRNA, LNP-S, PF, 50 MCG/ 0.25 ML DOSE 01/01/2022,05/23/2021 Pneumococcal (Pneumovax 23) 03/08/2011 Pneumococcal (Prevnar 13) 05/01/2019 Td 12/02/2004 Td (Tenivac) preservative free 09/16/2021 Td, Adsorbed, Preservative F ree, Adult Use, Lf Unspecified 09/16/2021 Tdap (Adacel) 03/08/2011 Tdap (Generic) 03/08/2011 Tetanus/Diptheria 12/02/2004 Zoster (Zostavax) [address] Unt/0.65Ml 12/11/2012, Family History Medical History Relation Comments Stroke Father CVA 2000 Aneurysm Mother Aortic aneurysm Mother Heart Attack Mother Heart Disease Mother Posterior ID Alcohol/Drug Son Stroke Son CVA 2023 Breast Cancer Neg Hx Relation Status Comments Father (Age 89) Mother (Age 83) Sister Son Social History Tobacco Use Types Packs/Day Years Used Date Smoking Tobacco: Former Cigarettes 0.3 10 0 07/30/1964 - 07/30/1974 Smokeless Tobacco: Never Tobacco Cessation:Counseling Given: Not Answered Alcohol Use Standard Drinks/Week Comments Yes 6.7 [...] materials from doctor or pharmacy Never 10/30/2024 [facility] Utilities Answer Date Recorded In the past 12 months has th e [employer], gas, oil, or water Medic [employer] threatened to shut off services in your [...] any time in the past 12 m [facility], were you homeless or living in a prison (including now)? No 08/24/2024 Education Answer Date Recorded What is the highest level of school you have completed or the highest degree you have received? Master's degree (e.g., MA, MS, Ritesh, MEd, ENVIRONMENTAL SERVICES LEAD, LUZ) 10/25/2018 Comments No Sex and Gender Information Value Date Recorded Sex Assigned at Female 08/24/2024 7:24 AM ENVIRONMENTAL QUALITY ANALYST Legal Sex Female 10:44 PM CDT Gender Identity Not on file Sexual Orientation Not on file Last Filed Vital Signs Vital Sign Reading Time Taken Comments Blood Pressure 142/58 10/30/2024 9:18 AM CDT Pulse 78 10/30/2024 9:18 AM CDT Temperature 36.1 C (97 F) 10/24/2024 8:58 AM CDT Respiratory Rate 18 10/30/2024 9:18 AM CDT Oxygen Saturation 94% 10/30/2024 9:18 AM CDT Inhaled Oxygen Concentration - - Weight 81.2 kg (179 lb) 11/06/2024 3:31 PM CDT Height 170.2 cm (5' 7 ) 11/06/2024 3:31 PM CDT Body Mass Index 28.04 11/06/2024 3:31 PM CDT Plan of Treatment Upcoming Encounters Date Type Department Care Team (Late st Contact Info) Description 11/06/2024 11:59 PM CDT Anesthesia Event [facility] [place] [address] Betty Mac, SENIOR INTEGRATION DEVELOPER [address] [place] [address] 11/11/2024 11:00 AM CDT Office Visit [facility] Physical Therapy [address] [place] [address] Lisa Fuller, MARIANA 11/14/2024 1:[address] [facility] [place] [address] Edson Garland MD [address] [place]. [address] [place] [address] 01/16/2025 8:45 AM CDT Office Visit [facility] [phone] Patty Oquendo MD [address] [facility] [place] [address] [place] [phone] 02/04/2025 1:40 PM CDT Office Visit [facility] Family & Internal Medicine [facility] [address] [place] [phone] [place] [address] [facility] [place] [address] Health Maintenance Due Date Last Done Comments Annual Medicare Wellness Visit 2005 Zoster Vaccines (2 of 3) 02/05/2013 12/11/2012, 09/27 RSV Immunization or 60+ Years (1 - 1-dose 75+ series) 11/23/2015 COVID-19 Vaccine ( season) 2024 05/19/2024, 05/28/2023, 05/31/2022, Additional history exists DTaP, Tdap and Td Vaccines (5 - Td or Tdap) 09/16/2031 09/16/2021, 09/16/2021, 03/08/2011, Additional history exists Pneumococcal Vaccine: 65+ Years Completed 05/01/2019, 03/08/2011 Dexa Scan (General) Completed 08/09/2023, 8 PHQ-2 (Physician Wilson) Completed 10/13/2024 Meningococcal B Vaccine Aged Out No l onger eligible based on patient's age to complete this topic Meningococcal Vaccine Aged Out No verna araceli eligible based on patient's age to complete this topic RSV Immunizations Under 20 Months Aged Out No longer eligible based on patient's age to complete this topic Goals Goal Patient Goal Type Associated Problems Recent Progress Patient-Stated? Author Therapy - wears compression stockings Lifestyle Not on track(2023 9:01 AM ENVIRONMENTAL QUALITY ANALYST) Yes Clarissa Puente RN Note: Patient reports that she is experiencing some edema in both legs and is needing PT to fit her for compression stockings. She will ask when PT is at her home on 07/09/24. Health - patient able to perform ADLs independently Lifestyle No Jackie Avila director industrial nursing Procedure Name Priority Date/Time Associated Diagnosis Comments ELECTROCARDIOGRAM (NON MIDMARK ACQUIRED) Routine 10/17/2024 10:57 AM CDT Orthostatic hypotension ECG 12-LEAD Routine 10/13/2024 9:48 AM CDT Irregular heart beat COLLECTION VENOUS BLOOD VENIPUNCTURE Routine 10/13/2024 9:10 AM CDT Vertigo CBC W/DIFF AUTOMATED Routine 10/13/2024 9:09 AM CDT Vertigo COMPREHENSIVE METABOLIC PANEL Routine 10/13/2024 9:09 AM CDT Vertigo OUTSIDE LAB (SCAN ORDER) 09/14/2024 CBC W/DIFF AUTOMATED Routine 08/27/2024 7:13 AM ENVIRONMENTAL QUALITY ANALYST BASIC METABOLIC PANEL Routine 08/27/2024 7:13 AM ENVIRONMENTAL QUALITY ANALYST BASIC METABOLIC PANEL Routine 08/26/2024 6:25 AM ENVIRONMENTAL QUALITY ANALYST CBC W/DIFF AUTOMATED Routine 08/26/2024 6:25 AM ENVIRONMENTAL QUALITY ANALYST MAGNESIUM Routine 08/25/2024 6:14 AM ENVIRONMENTAL QUALITY ANALYST BASIC METABOLIC PANEL STAT 08/25/2024 6:14 AM ENVIRONMENTAL QUALITY ANALYST CBC W/DIFF AUTOMATED STAT 08/25/2024 6:14 AM ENVIRONMENTAL QUALITY ANALYST USE ECHOCARDIOGRAM W CON STAT 025 12:54 PM ENVIRONMENTAL QUALITY ANALYST TROPONIN, QUANT STAT 08/24/2024 10:44 AM ENVIRONMENTAL QUALITY ANALYST ECG 12-LEAD Routine 08/24/2024 10:37 [address]IRONMENTAL QUALITY ANALY[address] CT HEAD WO CON STAT 08/24/2024 9:50 AM ENVIRONMENTAL QUALITY ANALYST URINE BACTERIA CULTURE STAT 9:03 AM ENVIRONMENTAL QUALITY ANALYST HC URINALYSIS AUTO W/O MICRO STAT 08/24/2024 9:03 AM ENVIRONMENTAL QUALITY ANALYST XR CHEST PORTABLE STAT 08/24/2024 7:5 5 AM ENVIRONMENTAL QUALITY ANALYST THYROXINE, FREE (FT4) STAT 08/24/2024 7:21 AM ENVIRONMENTAL QUALITY ANALYST THYROID STIM HORMONE TSH STAT 025 7:21 AM ENVIRONMENTAL QUALITY ANALYST TROPONIN, QUANT STAT 08/24/2024 7:21 AM ENVIRONMENTAL QUALITY ANALYST MAGNESIUM STAT 08/24/2024 7:21 AM ENVIRONMENTAL QUALITY ANALYST COMPREHENSIVE METABOLIC PANEL STAT 08/24/2024 7:21 AM ENVIRONMENTAL QUALITY ANALYST CBC W/DIFF AUTOMATED STAT 08/24/2024 7:21 AM ENVIRONMENTAL QUALITY ANALYST ECG 12-LEAD STAT 08/24/2024 7:18 AM ENVIRONMENTAL QUALITY ANALYST BONE DENSITY/DEXA Routine 08/09/2023 2:1 5 PM ENVIRONMENTAL QUALITY ANALYST Osteopenia, unspecified location Screening for osteoporosis Asymptomatic menopausal state from Last 3 Months or Most Recently Relevant to Health Maintenance Results * ELECTROCARDIOGRAM (10/17/2024 10:57 AM CDT) 10/17/2024 10:5 7 AM CDT [facility] CARDIOVASCULAR - 10/20/2024 4:10 PM CDT [address] [address] Test Date: 2024-10-17 Pat Name: FLEXAbdias AMBROCIO Department: 177 Room: Gender: Female Water Quality Technician: freddy : 1940 Requested By: PATTY OQUENDO Order Number: [id number] Reading MD: Patty Oquendo Measurements Intervals [place] Rate: 59 P: -70 TX: 168 QRS: -17 QRSD: 92 T: 64 QT: 426 QTc: 423 Interpretive Statements ECTOPIC ATRIAL BRADYCARDIA LEFT VENTRICULAR HYPERTROPHY AND ST-T CHANGE Procedure Note Patty Oquendo MD - 10/20/[address] [address] Test Date: 2024-10-17 Pat Name: FLEX AMBROCIO Department: 177 Room: Gender: Female Water Quality Technician: ag : 1940 Requested By: PATTY OQUENDO Order Number: [id number] Reading MD: Patty Oquendo Measurements Intervals [place] Rate: 59 P: -70 TX: 168 QRS: -17 QRSD: 92 T: 64 QT: 426 QTc: 423 Interpretive Statements ECTOPIC ATRIAL BRADYCARDIA LEFT VENTRICULAR HYPERTROPHY AND ST-T CHANGE Patty Oquendo MD PROCEDURES-ORDERABLE NO CHARG E Final Result [facility] * ECG 12 lead (Hosp Performed) (10/13/2024 9:48 AM CDT) Only the most recent of3 resultswithin the time period is included. 10/13/2024 9:48 AM CDT Narrative [facility] RAD - 10/16/2024 6:40 PM CDT [facility] Test Date: 2024-10-13 Pat Name: FLEX AMBROCIO Department: 85 Room: Gender: Female Water Quality Technician: : 1940 Requested By: MILVIA HAIRSTON Order Number: [id number] Reading MD: Dawson Cruz Measurements Intervals [place] Rate: 86 P: 0 TX: 0 QRS: -14 QRSD: 87 T: 103 QT: 380 QTc: 457 Interpretive Statements ATRIAL FIBRILLATION MODERATE VOLTAGE CRITERIA FOR LVH, CONSIDER NORMAL VARIANT [MEETS CRITERIA IN ONE OF: R(aVL), S(V1), R(V5), R(V5/V6)+S(V1)] NONSPECIFIC ST & T-WAVE ABNORMALITY Compared to ECG 08/24/2024 10:37:21 T-wave abnormality now present Sinus rhythm no longer present ST (T wave) deviation no longer present Myocardial infarct finding no longer present Procedure Note Dawson Cruz MD - 10/16/2024 [facility] Test Date: 2024-10-13 Pat Name: FLEX AMBROCIO Department: 85 Room: Gender: Female Water Quality Technician: : 1940 Requested By: MILVIA HAIRSTON Order Number: [id number] Reading MD: Dawson Cruz Measurements Intervals [place] Rate: 86 P: 0 TX: 0 QRS: -14 QRSD: 87 T: 103 QT: 380 QTc: 457 Interpretive Statements ATRIAL FIBRILLATION MODERATE VOLTAGE CRITERIA FOR LVH, CONSIDER NORMAL VARIANT [MEETSCRITERIA IN ONE OF: R(aVL), S(V1), R(V5), R(V5/V6)+S(V1)] NONSPECIFIC ST & T-WAVE ABNORMALITY Compared to ECG 08/24/2024 10:37:21 T-wave abnormality now present Sinus rhythm no longer present ST (T wave) deviation no longer present Myocardial infarct finding no longer present us Milvia Hairston MD ECG ORDERABLES Final Result [facility] ([facility]) RAD * (ABNORMAL) COMPREHENSIVE METABOLIC PANEL (10/13/2024 9:09 AM CDT) Only the most recent of2 resultswithin the time period is included. [facility] GLUCOSE 106(H) 70 - 99 MG/DL 10/13/2024 12:51 PM CDT [facility] BUN 18 7 - 18 MG/DL 10/13/2024 12:51 PM CDT [facility] CREATININE S/P/B 0.86 0.55 - 1.02 MG/DL 10/13/2024 12:51 PM T [facility] SODIUM S/P/B 140 136 - 145 MMOL/L 10/13/2024 12:51 PM [facility] POTASSIUM S/P/B 4.2 3.5 - 5.1 MMOL/L 10/13/2024 12:51 PM T [facility] CHLORIDE S/P/B 103 100 - 108 MMOL/L 10/13/2024 12:51 PM [facility] CO2 28.6 21 - 32 MMOL/L 10/13/2024 12:51 PM [facility] CALCIUM S/P/B 10.7(H) 8.5 - 10.1 MG/DL 10/13/2024 12:51 PM [facility] BILIRUBIN TOTAL S/P/B 1.0 0.2 - 1.2 MG/DL 10/13/2024 12:51 PM [facility] TOTAL PROTEIN S/P/B 7.3 6.4 - 8.2 G/DL 10/13/2024 12:51 PM [facility] ALBUMIN S/P/B 4.1 3.4 - 5.0 G/DL 10/13/2024 12:51 PM [facility] AST 10(L) 15 - 37 U/L 10/13/2024 12:51 PM [facility] ALT 22 14 - 55 U/L 10/13/2024 12:51 PM [facility] ALKALINE PHOSPHATASE S/P/B 104 50 - 136 U/L 10/13/2024 12:51 PM [facility] ANION GAP 8.4 5 - 15 MMOL/L 10/13/2024 12:51 PM T [facility] BUN CREATININE RATIO 20.9 6 - 26 10/13/2024 12:51 PM CDT [facility] A/G RATIO 1.3 1.0 - 2.0 RATIO 10/13/2024 12:51 PM CDT [facility] GFR ESTIMATE 67(L) >90 ML/MIN/1.7 3 M2 10/13/2024 12:51 PM CDT [facility] Comment: NOTE: eGFR is not calculated for patients <18 years of age. This is an estimated GFR calculation using the new CKD EPI creatinine equation without race and so does not require a correction factor for race. This estimated GFR should not be used for calculating drug doses. 10/13/2024 9:09 AM CDT Milvia Hairston MD LABORATORY Final Result [facility] [address] [place] [address], * (ABNORMAL) CBC W/DIFF AUTOMATED (10/13/2024 9:09 AM CDT) Only the most recent of5 resultswithin the time period is included. WBC 6.44 4.4 - 11.0 x10'3/uL 10/13/2024 12:48 PM CDT [facility] RBC 4.25(L) 4.50 - 5.10 x10'6/uL 10/13/2024 12:48 PM CDT [facility] HGB 13.3 12.3 - 15.3 G/DL 10/13/2024 12:48 PM CDT [facility] HCT 42.0 35.9 - 44.6 % 10/13/2024 12:48 PM CDT [facility] MCV 98.8(H) 80.0 - 96.0 FL 10/13/2024 12:48 PM CDT [facility] MCH 31.3(H) 25.3 - 30.9 PG 10/13/2024 12:48 PM CDT [facility] MCHC 31.7 31.0 - 34.1 G/DL 10/13/2024 12:48 PM CDT [facility] RDW 14.7 12.4 - 15.1 % 10/13/2024 12:48 PM CDT [facility] PLT 241 151 - 353 x10'3/uL 10/13/2024 12:48 PM CDT [facility] MPV 10.4 9.6 - 12.0 FL 10/13/2024 12:48 PM CDT [facility] RBC MORPHOLOGY NORMAL 10/13/2024 12:48 PM CDT [facility] PLT MORPH. NORMAL 10/13/2024 12:48 PM CDT [facility] WBC MORPHOLOGY NORMAL 10/13/2024 12:48 PM CDT [facility] LYMPHOCYTES % 23.9 15.8 - 45.0 % 10/13/2024 12:48 PM CDT [facility] NEUTROPHILS % 61.0 42.1 - 71.9 % 10/13/2024 12:48 PM CDT [facility] MONOCYTES % 9.9 5.7 - 12.5 % 10/13/2024 12:48 PM CDT [facility] EOSINOPHILS 3.7 0.0 - 5.6 % 10/13/2024 12:48 PM CDT [facility] BASOPHILS 1.2 0.0 - 1.3 % 10/13/2024 12:48 PM CDT [facility] ABS. NEUTROPHILS 3.92 1.40 - 6.00 x10'3/uL 10/13/2024 12:48 PM CDT [facility] IMMATURE GRANS % 0.3 0.0 - 0.5 % 10/13/2024 12:48 PM CDT [facility] ABS. LYMPHOCYTES 1.54 0.80 - 4.70 x10'3/uL 10/13/2024 12:48 PM CDT [facility] [facility] 10/13/2024 9:09 AM CDT Milvia Hairston MD LABORATORY Final Result [facility] [address] [place] [address], [place] [phone] * OUTSIDE LAB (SCAN ORDER) (09/14/2024) 09/14/2024 [facility] Scanned SCANNING Final Resu lt * (ABNORMAL) BASIC METABOLIC PANEL (08/27/2024 7:13 AM ENVIRONMENTAL QUALITY ANALYST) Only the most recent of3 resultswithin the time period is included. GLUCOSE 110(H) 70 - 99 MG/DL 08/27/2024 8:08 AM [facility] BUN 20(H) 7 - 18 MG/DL 08/27/2024 8:08 AM [facility] CREATININE S/P/B 0.76 0.55 - 1.02 MG/DL 08/27/2024 8:08 AM [facility] SODIUM S/P/B 137 136 - 145 MMOL/L 08/27/2024 8:08 AM [facility] POTASSIUM S/P/B 4.3 3.5 - 5.1 MMOL/L 08/27/2024 8:08 AM [facility] Comment:SLIGHT HEMOLYSIS, RE SULT MAY BE AFFECTED. CHLORIDE S/P/B 110 97 - 115 MMOL/L 08/27/2024 8:08 AM [facility] CO2 24.0 21 - 32 MMOL/L 08/27/2024 8:08 AM [facility] CALCIUM S/P/B 9.7 8.5 - 10.1 MG/DL 08/27/2024 8:08 AM [facility] ANION GAP 3.0 2 - 10 MMOL/L 08/27/2024 8:08 AM [facility] BUN CREATININE RATIO 26.2(H) 6 - 26 08/27/2024 8:08 AM [facility] GFR ESTIMATE 78(L) >90 ML/MIN/1.7 3 M2 08/27/2024 8:08 AM [facility] Comment: NOTE: eGFR is not calculated for patients <18 years of age or gender unknown. This is an estimated GFR calculation using the new CKD EPI creatinine equation without race and so does not require a correction factor for race. This estimated GFR should not be used for calculating drug doses. 08/27/2024 7:13 AM ENVIRONMENTAL QUALITY ANALYST Reji Villegas PA-C LABORATORY Final Result Performing Organization Address [facility] de Phone Number [facility] [address] [place] [address], [place] [phone] * MAGNESIUM (08/25/2024 6:14 AM ENVIRONMENTAL QUALITY ANALYST) Only the most recent of2 resultswithin the time period is included. MAGNESIUM 2.3 1.8 - 2.4 MG/DL 08/25/2024 9:07 AM ENVIRONMENTAL QUALITY ANALYST [facility] 08/25/2024 6:14 AM ENVIRONMENTAL QUALITY ANALYST Joan CHANDLER LABORATORY Final Result [facility] [address] [place] [address], * USE ECHOCARDIOGRAM W CON (08/24/2024 12:54 PM ENVIRONMENTAL QUALITY ANALYST) Anatomical Region Laterality Modality NA Echocardiogram 08/24/2024 12:0 1 PM ENVIRONMENTAL QUALITY ANALYST Narrative 08/24/2024 4:07 PM ENVIRONMENTAL QUALITY ANALYST Echocardiography Report Pat.Name: FLEX AMBROCIO Pat.ID: [id number] .Date: 08/24/2024 Exam Time: 12:01:00 PM Study Type:ECHO WITH CARDIAC DOPPLER COMP Height: 67 in Weight: 177 lb BSA: 1.92 m2 Age: 4 1940,83Y Sex: F BP: 203/106 Sonogrphr: Elisha Kolb RDCS Pat. Stat.:Inpatient Room: ER8 Reason for Study:Elevated trop History / Clinical:Hypertension, Family history CAD, Ex-Smoker Procedures: 2D, M-mode, Doppler, Color Flow, Definity was used to enhance endocardial definition. Portable Race: W ++++++++++++++++++++++++++++++++++++ SUMMARY: ++++++++++++++++++++++++++++++++++++ The left ventricular size is normal. The [...] Right ventricular systolic pressure is 48 mmHg. ++++++++++++++++++++++++++++++++++++ FINDINGS: ++++++++++++++++++++++++++++++++++++ LV: The left ventricular size is normal. The left ventricular systolic function is normal. Mild left ventricular hypertrophy. Left ventricular diastolic function is abnormal (grade 1 - impaired relaxation) with normal LAP. LVOT: The left ventricular outflow tract size is normal. RV: The right ventricular size is normal. Right ventricular systolic function is normal. IVS: Intraventricular septum is normal. LA: The left atrial size is mildly enlarged. RA: Right atrial size is mildly enlarged. IAS: Atrial septum appears intact. SABA: No evidence of pericardial effusion. AO: Aortic root is mildly dilated. SVn: Inferior vena cava is mildly enlarged at 2.5cm. Inferior vena cava shows >50% collapse with respiration consistent with normal right atrial pressure. AV: No evidence of aortic valve stenosis. Mild aortic regurgitation. The aortic valve not well visualized. MV: Structurally normal mitral valve. Mild mitral regurgitation. No evidence of mitral stenosis. PV: No evidence of pulmonic valve stenosis. No evidence of pulmonic regurgitation. Pulmonic valve not well visualized. TV: Structurally normal tricuspid valve. Right ventricular systolic pressure is 48 mmHg. Right ventricular systolic pressure is 40-50 mmHg suggestive of moderate pulmonary hypertension. No evidence of tricuspid valve stenosis. ++++++++++++++++++++++++++++++++++++ MEASUREMENTS: ++++++++++++++++++++++++++++++++++++ DOPPLER LVOT LVOTpkPG 6 mmHg LVOTmnPG 3 mmHg LVOTpkVel 126 cm/s (70-110)* LVOT SV 94 ml LVOT TVI 30 cm AV Forward Flow AV TVI 37.9 cm AV pkPG 13 mmHg AV pkVel 183 cm/s (100-170)* Area (TVI) 2.49 cm2 (3-5)* AV mnPG 7 mmHg Area (Giovanni) 2.16 cm2 (3-5)* MV Forward Flow MV DeTm 525 msec MV pkPG 6 mmHg MVA P1/2t 1.43 cm2 (4-6)* MV E/A 0.7 MV P1/2t 154 msec (30-60)+* MV pkE 76 cm/s (60-130) MV mnPG 2 mmHg MV pkA 106 cm/s PV Forward Flow PV TVI 23.6 cm PV mnVel 82.4 cm/s PV pkVel 118 cm/s (60-90)+* PV mnPG 3 mmHg PV pkPG 6 mmHg PV AC 79 msec TV Forward Flow TV pkPG 45 mmHg TV pkE 66.1 cm/s Lat E' Lat e 4.97 cm/s Lat E/E' Lat E/e 15.3 Med E' Med e 4.47 cm/s Med E/E' Med E/e 17 Aortic Valve Aortic Valve Ar 1.3 Aortic Valve Ve 0.69 Lat MA LV Peak Castillo Ti 10.9 cm/s Left Ventricle 0.5 LV Pk Sys Tissu 11 cm/s Med MA LV Peak Castillo Ti 7.1 cm/s Left Ventricle 0.6 LV Pk Sys Tissu 7.8 cm/s PV Antegrade Flow Acceleration Sl 1138 cm/s2 TV Antegrade Flow Peak Velocity 337 cm/s 2D Left Ventricle LVIDd 4.4 cm (3.6-5.2) LV ESV 14.2 ml LVIDs 3.1 cm (2.3-3.9) LV ESV 26.7 ml LngAxd 7.06 cm LVESV BP 21.5 ml LngAxd 7.5 cm LV EF 77.3 % LV EDV 62.6 ml LV EF 71.7 % LV EDV 94.4 ml LV EF BP 72.7 % LVEDV BP 78.7 ml LV SV 48.4 ml LngAxs 5.05 cm LV SV 67.8 ml LngAxs 6.22 cm LV SV BP 57.2 ml LVPW LVPWd 1.1 cm Right Ventricle RVIDd 2.9 cm (2.6-4.3) Right Ventricle 34 mm Right Ventricle 33 mm Right and Left 0.659 Major [place] 61 mm Ventricular Septum IVSd 1.3 cm Left Atrium LA a-p 4.6 cm (2.8-3.4)* LA VOLBP 80.9 ml Aorta Ao Rtd 3.6 cm LVOT LVOT 2 cm LVOTArea 3.14 cm2 Ratios IVS LA Biplane LAVol I BP 42.1 ml/m2 Right Atrium Major [place] 54 mm Minor [place] 39 mm MMODE Aortic Valve AV sep 1.7 cm (1.5-2.6) TA Tricuspid Annul 20.8 mm <Electronic Signature> 08/24/2024 04:07 PM Reji Sutton M.D. Procedure Note Reji Sutton MD - 08/24/2024 Echocardiography Report Pat.Name: FLEX AMBROCIO Pat.ID: [id number] .Date: 08/24/2024 Exam Time: 12:01:00 PM Study Type:ECHO WITH CARDIAC DOPPLER COMP Height: 67 in Weight: 177 lb BSA: 1.92 m2 Age: 4 1940,83Y Sex: F BP: 203/106 Sonogrphr: Elisha Kolb RDCS Pat. Stat.:Inpatient Room: ER8 Reason for Study:Elevated trop History / Clinical:Hypertension, Family history CAD, Ex-Smoker Procedures: 2D, M-mode, Doppler, Color Flow, Definity was used to enhance endocardial definition. Portable Race: W ++++++++++++++++++++++++++++++++++++ SUMMARY: ++++++++++++++++++++++++++++++++++++ The left ventricular size is normal. The [...] Right ventricular systolic pressure is 48 mmHg. ++++++++++++++++++++++++++++++++++++ FINDINGS: ++++++++++++++++++++++++++++++++++++ LV: The left ventricular size is normal. The left ventricular systolic function is normal. Mild left ventricular hypertrophy. Left ventricular diastolic function is abnormal (grade 1 - impaired relaxation) with normal LAP. LVOT: The left ventricular outflow tract size is normal. RV: The right ventricular size is normal. Right ventricular systolic function is normal. IVS: Intraventricular septum is normal. LA: The left atrial size is mildly enlarged. RA: Right atrial size is mildly enlarged. IAS: Atrial septum appears intact. SABA: No evidence of pericardial effusion. AO: Aortic root is mildly dilated. SVn: Inferior vena cava is mildly enlarged at 2.5cm. Inferior vena cava shows >50% collapse with respiration consistent with normal right atrial pressure. AV: No evidence of aortic valve stenosis. Mild aortic regurgitation. The aortic valve not well visualized. MV: Structurally normal mitral valve. Mild mitral regurgitation. No evidence of mitral stenosis. PV: No evidence of pulmonic valve stenosis. No evidence of pulmonic regurgitation. Pulmonic valve not well visualized. TV: Structurally normal tricuspid valve. Right ventricular systolic pressure is 48 mmHg. Right ventricular systolic pressure is 40-50 mmHg suggestive of moderate pulmonary hypertension. No evidence of tricuspid valve stenosis. ++++++++++++++++++++++++++++++++++++ MEASUREMENTS: ++++++++++++++++++++++++++++++++++++ DOPPLER LVOT LVOTpkPG 6 mmHg LVOTmnPG 3 mmHg LVOTpkVel 126 cm/s (70-110)* LVOT SV 94 ml LVOT TVI 30 cm AV Forward Flow AV TVI 37.9 cm AV pkPG 13 mmHg AV pkVel 183 cm/s (100-170)* Area (TVI) 2.49 cm2 (3-5)* AV mnPG 7 mmHg Area (Giovanni) 2.16 cm2 (3-5)* MV Forward Flow MV DeTm 525 msec MV pkPG 6 mmHg MVA P1/2t 1.43 cm2 (4-6)* MV E/A 0.7 MV P1/2t 154 msec (30-60)+* MV pkE 76 cm/s (60-130) MV mnPG 2 mmHg MV pkA 106 cm/s PV Forward Flow PV TVI 23.6 cm PV mnVel 82.4 cm/s PV pkVel 118 cm/s (60-90)+* PV mnPG 3 mmHg PV pkPG 6 mmHg PV AC 79 msec TV Forward Flow TV pkPG 45 mmHg TV pkE 66.1 cm/s Lat E' Lat e 4.97 cm/s Lat E/E' Lat E/e 15.3 Med E' Med e 4.47 cm/s Med E/E' Med E/e 17 Aortic Valve Aortic Valve Ar 1.3 Aortic Valve Ve 0.69 Lat MA LV Peak Castillo Ti 10.9 cm/s Left Ventricle 0.5 LV Pk Sys Tissu 11 cm/s Med MA LV Peak Castillo Ti 7.1 cm/s Left Ventricle 0.6 LV Pk Sys Tissu 7.8 cm/s PV Antegrade Flow Acceleration Sl 1138 cm/s2 TV Antegrade Flow Peak Velocity 337 cm/s 2D Left Ventricle LVIDd 4.4 cm (3.6-5.2) LV ESV 14.2 ml LVIDs 3.1 cm (2.3-3.9) LV ESV 26.7 ml LngAxd 7.06 cm LVESV BP 21.5 ml LngAxd 7.5 cm LV EF 77.3 % LV EDV 62.6 ml LV EF 71.7 % LV EDV 94.4 ml LV EF BP 72.7 % LVEDV BP 78.7 ml LV SV 48.4 ml LngAxs 5.05 cm LV SV 67.8 ml LngAxs 6.22 cm LV SV BP 57.2 ml LVPW LVPWd 1.1 cm Right Ventricle RVIDd 2.9 cm (2.6-4.3) Right Ventricle 34 mm Right Ventricle 33 mm Right and Left 0.659 Major [place] 61 mm Ventricular Septum IVSd 1.3 cm Left Atrium LA a-p 4.6 cm (2.8-3.4)* LA VOLBP 80.9 ml Aorta Ao Rtd 3.6 cm LVOT LVOT 2 cm LVOTArea 3.14 cm2 Ratios IVS LA Biplane LAVol I BP 42.1 ml/m2 Right Atrium Major [place] 54 mm Minor [place] 39 mm MMODE Aortic Valve AV sep 1.7 cm (1.5-2.6) TA Tricuspid Annul 20.8 mm <Electronic Signature> 08/24/2024 04:07 PM Reji Sutton M.D. Reji Sutton MD ECHO Final Result * (ABNORMAL) TROPONIN, QUANT (08/24/2024 10:44 AM ENVIRONMENTAL QUALITY ANALYST) Only the most recent of2 resultswithin the time period is included. TROPONIN I HIGH SENSITIVITY 187(HH) <54 ng/L 08/24/2024 11:33 AM ENVIRONMENTAL QUALITY ANALYST [facility] Comment: NOT CALLED PER CRITICAL VALUE POLICY HIGH DOSES OF BIOTIN, TROPONIN-SPECIFIC AUTOANTIBODIES, AND ANTIBODY THERAPY CONTAINING HAMA MAY INTERFERE WITH THIS TEST RESULT. CORRELATION TO CLINICAL HISTORY AND PRESENTATION RECOMMENDED. 08/24/2024 10:4 4 AM ENVIRONMENTAL QUALITY ANALYST Charlotte Moreno MD LABORATORY Final Result [facility] [address] [place] [address], [place] [phone] * CT HEAD WO CON (08/24/2024 9:50 AM ENVIRONMENTAL QUALITY ANALYST) Anatomical Region Laterality Modality Head Computed Tomogra phy 08/24/2024 9:54 AM ENVIRONMENTAL QUALITY ANALYST Impressions 08/24/2024 9:55 AM ENVIRONMENTAL QUALITY ANALYST IMPRESSION: 1. No CT evidence of an acute intracranial abnormality. 2. Mild to moderate global cerebral volume loss. 3. Moderate mucosal thickening involving the left sphenoid sinus. Referred By: Interpreted By: Baldo Henning MD, 08/24/2024 9:54 AM Narrative 08/24/2024 9:55 AM ENVIRONMENTAL QUALITY ANALYST [facility] [address] [place], [place] [address] EXAMINATION: CT HEAD WO CON, 08/24/2024 9:54 AM TECHNIQUE: Computed tomographic images of the head were obtained without intravenous contrast. Additional coronal and sagittal reformatted images were generated. A dose lowering technique was used for this procedure, which may include, but is not limited to, dose reduction technique, automated exposure control, the use of iterative reconstruction, and ALARA (As Low As Reasonably Achievable) / Image Gently techniques. HISTORY: Generalized weakness, 3 falls COMPARISON: CT head 07/22/2024 FINDINGS: There is no acute intracranial hemorrhage. There is no extra-axial fluid collection. Mild to moderate global cerebral volume loss with ex vacuo dilatation of ventricles and cerebral sulci. The basal cisterns appear normal. Moderate arteriosclerotic calcification or cavernous segments of the internal carotid arteries bilaterally. Prior bilateral ocular lens extractions with prosthetic lens implantation. Large mucosal thickening involving the left sphenoid sinus. Paranasal sinuses and mastoid air cells are well-aerated. No acute fracture nor destructive process of the visualized osseous structures. Procedure Note Baldo Henning MD - 08/24/[address] [address] EXAMINATION: CT HEAD WO [facility], 08/24/2024 9:54 AM TECHNIQUE: Computed tomographic images of the head were obtained withoutintravenous contrast. Additional coronal and sagittal reformatted imageswere generated. A dose lowering technique was used for this procedure,which may include, but is not limited to, dose reduction technique,automated exposure control, the use of iterative reconstruction, and ALARA(As Low As Reasonably Achievable) / Image Gently techniques. HISTORY: Generalized weakness, 3 falls COMPARISON: CT head 07/22/2024 FINDINGS: There is no acute intracranial hemorrhage. There is noextra-axial fluid collection. Mild to moderate global cerebral volumeloss with ex vacuo dilatation of ventricles and cerebral sulci. The basalcisterns appear normal. Moderate arteriosclerotic calcification orcavernous segments of the internal carotid arteries bilaterally. Priorbilateral ocular lens extractions with prosthetic lens implantation.Large mucosal thickening involving the left sphenoid sinus. Paranasalsinuses and mastoid air cells are well-aerated. No acute fracture nordestructive process of the visualized osseous structures. IMPRESSION: 1. No CT evidence of an acute intracranial abnormality. 2. Mild to moderate global cerebral volume loss. 3. Moderate mucosal thickening involving the left sphenoid sinus. Referred By: Interpreted By: Baldo Henning MD, 08/24/2024 9:54 AM Charlotte Moreno MD CT Final Result * (ABNORMAL) URINALYSIS (08/24/2024 9:03 AM ENVIRONMENTAL QUALITY ANALYST) SPECIMEN TYPE URINE CLEAN CATCH 08/24/2024 9:03 AM ENVIRONMENTAL QUALITY ANALYST [facility] COLOR (U) YELLOW 08/24/2024 9:44 AM [facility] TRANSPARENCY TURBID 08/24/2024 9:44 AM [facility] SPECIFIC GRAVITY (U) 1.015 1.001 - 1.030 08/24/2024 9:44 AM [facility] U PH 6.5 5.0 - 9.0 08/24/2024 9:44 AM [facility] LEUKOCYTES (U) 500(A) NEGATIVE 08/24/2024 9:44 AM [facility] NITRITES 2+(A) NEGATIVE 08/24/2024 9:44 AM [facility] PROTEIN RANDOM (U) 20 <30 MG/DL 08/24/2024 9:44 AM [facility] GLUCOSE (U) NORMAL NORMAL MG/DL 08/24/2024 9:44 AM [facility] KETONES MG/DL (U) NEGATIVE NEGATIVE MG/DL 08/24/2024 9:44 AM [facility] UROBILINOGEN NORMAL NORMAL MG/DL 08/24/2024 9:44 AM [facility] BILIRUBIN (U) NEGATIVE NEGATIVE MG/DL 08/24/2024 9:44 AM [facility] BLOOD (U) 1+(A) NEGATIVE 08/24/2024 9:44 AM ENVIRONMENTAL QUALITY ANALYST [facility] MUCUS RARE /LPF 08/24/2024 9:44 AM ENVIRONMENTAL QUALITY ANALYST [facility] WBC/HPF >100(H) <6 /HPF 08/24/2024 9:44 AM ENVIRONMENTAL QUALITY ANALYST [facility] RBC/HPF 16(H) <6 /HPF 08/24/2024 9:44 AM ENVIRONMENTAL QUALITY ANALYST [facility] BUDDING YEAST MANY(A) NONE /HPF 08/24/2024 9:44 AM ENVIRONMENTAL QUALITY ANALYST [facility] SQUAMOUS EPITHELIALS FEW /HPF 08/24/2024 9:44 AM [facility] URINE SPECIMEN OBTAINED BY CLEAN CATCH PROCEDURE / Unknown 08/24/2024 9:03 AM ENVIRONMENTAL QUALITY ANALYST Ebenezer Thomas MD,PHD URINE ORDERABLES Final Res ult [facility] [address] [place] [address], * (ABNORMAL) CULTURE URINE (08/24/2024 9:03 AM ENVIRONMENTAL QUALITY ANALYST) SPEC DESCRIPTION URINE CLEAN CATCH 08/24/2024 10:03 AM [facility] SPECIAL REQUESTS NO SPECIAL REQUEST 08/24/2024 10:03 AM [facility] CULTURE RESULT >100,000 COL/ML ESCHERICHIA COLI (A) 08/26/2024 8:19 AM ENVIRONMENTAL QUALITY ANALYST [facility] URINE SPECIMEN OBTAINED BY CLEAN CATCH PROCEDURE / Unknown 08/24/2024 9:03 AM ENVIRONMENTAL QUALITY ANALYST 08/24/2024 10:38 AM ENVIRONMENTAL QUALITY ANALYST Narrative Organism Antibiotic Method Susceptibility Escherichia coli AMPICILLIN KENDY (VITEK) 4: Sensitive Escherichia coli AMPICILLIN/SULBACTAM KENDY (VITEK) <=2: Sensitive Escherichia coli CEFTRIAXONE KENDY (VITEK) <=1: Sensitive Escherichia coli CEFTAZIDIME KENDY (VITEK) <=1: Sensitive Escherichia coli CEFAZOLIN KENDY (VITEK) <=4: Sensitive Escherichia coli ESBL KENDY (VITEK) NEG: Sensitive Escherichia coli NITROFURANTOIN KENDY (VITEK) <=16: Sensitive Escherichia coli GENTAMICIN KENDY (VITEK) <=1: Sensitive Escherichia coli LEVOFLOXACIN KENDY (VITEK) <=0.12: Sensitive Escherichia coli PIPRACIL/TAZO KENDY (VITEK) <=4: Sensitive Escherichia coli TRIMETH-SULFAMETH. KENDY (VITEK) <=20: Sensitive us Basenaeem Moreno MD MICROBIOLOGY - GENERAL ORDERABL ES Final Result [facility] [address] [place] [address], * XR CHEST PORTABLE (08/24/2024 7:55 AM ENVIRONMENTAL QUALITY ANALYST) Anatomical Region Laterality Modality Chest Radiographic Olivia ging 08/24/2024 7:59 AM ENVIRONMENTAL QUALITY ANALYST Impressions 08/24/2024 8:01 AM ENVIRONMENTAL QUALITY ANALYST IMPRESSION: No acute cardiopulmonary process. Referred By: Interpreted By: Pj Osborn MD, 08/24/2024 7:59 AM Narrative 08/24/2024 8:01 AM ENVIRONMENTAL QUALITY ANALYST [address] [address] EXAM: AP CHEST CLINICAL STATEMENT: To ED via [facility] from home for c/o generalized weakness causing 3 falls since last night. Reports she was walking with her walker when her right knee gave out. Denies hitting head, LOC, blood thinners, or any injuries from the falls. Endorses concern for UTI; reports dark orange urine since yesterday. A&Ox4 BP 225/97 in triage COMPARISON: 05/26/2024. TIME:08/24/2024 7:48 AM FINDINGS: One upright portable AP view of the chest. There are no focal pulmonary opacities, pneumothoraces or pleural effusions. Ectatic tortuous aorta, and vascular calcifications. Mild cardiomegaly. Degenerative changes in the bony structures. No acute fracture. Procedure Note Pj Osborn MD - 08/24/2024 [facility] [address] [place], [place] [address] EXAM: AP CHEST CLINICAL STATEMENT: To ED via [facility] from home for c/ogeneralized weakness causing 3 falls since last night. Reports she waswalking with her walker when her right knee gave out. Denies hitting head,LOC, blood thinners, or any injuries from the falls. Endorses concern forUTI; reports dark orange urine since yesterday. A&Ox4 BP 225/97 intriage COMPARISON: 05/26/2024. TIME:08/24/2024 7:48 AM FINDINGS: One upright portable AP view of the chest. There are no focal pulmonary opacities, pneumothoraces or pleuraleffusions. Ectatic tortuous aorta, and vascular calcifications. Mild cardiomegaly. Degenerative changes in the bony structures. No acute fracture. IMPRESSION: No acute cardiopulmonary process. Referred By: Interpreted By: Pj Osborn MD, 08/24/2024 7:59 AM Charlotte Moreno MD GENERAL IMAGING Final Result * (ABNORMAL) THYROXINE, FREE (FT4) (08/24/2024 7:21 AM ENVIRONMENTAL QUALITY ANALYST) FREE T4 1.49(H) 0.76 - 1.46 NG/DL 08/24/2024 9:11 AM ENVIRONMENTAL QUALITY ANALYST [facility] 08/24/2024 7:21 AM ENVIRONMENTAL QUALITY ANALYST us Charlotte Moreno MD LABORATORY Final Result [facility] [address] [place] [address], * THYROID STIM HORMONE TSH (08/24/2024 7:21 AM ENVIRONMENTAL QUALITY ANALYST) TSH 1.460 0.358 - 3.74 uIU/ML 08/24/2024 9:11 AM ENVIRONMENTAL QUALITY ANALYST [facility] Comment: HIGH DOSES OF BIOTIN MAY INTERFERE WITH THIS TEST RESULT. CORRELATION TO CLINICAL HISTORY AND PRESENTATION RECOMMENDED. 08/24/2024 7:21 AM ENVIRONMENTAL QUALITY ANALYST Charlotte Moreno MD LABORATORY Final Result Performing Organization Address City/State/[facility] Co de Phone Number [facility] [address] [place] [address], * BONE DENSITY/DEXA (08/09/2023 2:15 PM ENVIRONMENTAL QUALITY ANALYST) Anatomical Region Laterality Modality Bone Bone Density 08/10/2023 5:28 AM ENVIRONMENTAL QUALITY ANALYST Impressions 08/10/2023 5:29 AM ENVIRONMENTAL QUALITY ANALYST IMPRESSION: WHO Classification: osteoporosis. FRAX: No score calculated as one or more T scores are at or below -2.5.. Referred By: MILVIA HAIRSTON Interpreted By: Jeremy Van MD, 08/10/2023 5:28 AM Narrative 08/10/2023 5:29 AM ENVIRONMENTAL QUALITY ANALYST Examination: Bone Density Axial Exam Date/Time: 08/09/2023 1:48 PM Reason For Exam: Osteopenia, unspecified location. Asymptomatic menopausal state Comparison: None Findings: DEXA bone densitometry The bone mineral density (BMD) was determined by dual-energy x-ray absorptiometry, the results are as follows: AP Lumbar Spine L1 through L4 BMD Patient (GM/SQCM): 0.919 T-Score (Standard deviations from young adult peak bone density): -1.2 Right femoral neck: BMD Patient (GM/SQCM): 0.292 T-Score (Standard deviations from young adult peak bone density): -5.0 distal third Left forearm: BMD Patient (GM/SQCM): 0.543 T-Score (Standard deviations from young adult peak bone density): -2.4 Recommendations: All patients should ensure an adequate intake of dietary calcium and vitamin D. The NOF recommend adults under the age of 50 need 1000 mg of calcium and 400-800 IU of vitamin D daily. Effective therapy for the prevention and treatment of osteoporosis include biphosphonates. Follow-up: People with diagnosed cases of osteoporosis or at high risk for fracture should have regular bone mineral density test. For patients eligible for Medicare, routine testing is allowed once every 2 years. Testing frequency can be increased to one year for patients who have rapidly progressing disease, those who are receiving or discontinuing medical therapy to restore bone mass, or have additional risk factors. Procedure Note Jeremy Van MD - 08/10/2023 Examination: Bone Density Axial Exam Date/Time: 08/09/2023 1:48 PM Reason For Exam: Osteopenia, unspecified location. Asymptomatic menopausal state Comparison: None Findings: DEXA bone densitometry The bone mineral density (BMD) was determined bydual-energy x-ray absorptiometry, the results are as follows: AP Lumbar Spine L1 through L4 BMD Patient (GM/SQCM): 0.919 T-Score (Standard deviations from young adult peak bonedensity): -1.2 Right femoral neck: BMD Patient (GM/SQCM): 0.292 T-Score (Standard deviations from young adult peak bonedensity): -5.0 distal third Left forearm: BMD Patient (GM/SQCM): 0.543 T-Score (Standard deviations from young adult peak bonedensity): -2.4 Recommendations: All patients should ensure an adequate intake of dietary calcium andvitamin D. The NOF recommend adults under the age of 50 need 1000 mg ofcalcium and 400-800 IU of vitamin D daily. Effective therapy for theprevention and treatment of osteoporosis include biphosphonates. Follow-up: People with diagnosed cases of osteoporosis or at high risk for fractureshould have regular bone mineral density test. For patients eligible forMedicare, routine testing is allowed once every 2 years. Testing frequencycan be increased to one year for patients who have rapidly progressingdisease, those who are receiving or discontinuing medical therapy torestore bone mass, or have additional risk factors. IMPRESSION: WHO Classification: osteoporosis. FRAX: No score calculated as one or more T scores are at or below -2.5.. Referred By: MILVIA HAIRSTON Interpreted By: Jeremy Van MD, 08/10/2023 5:28 AM Milvia Hairston MD DEXA Final Result from Last 3 Months or Most Recently Relevant to Health Maintenance Insurance MEDICARE [facility] Advance Directives * DNR (Latest Code Status on File) Date Activated Date Inactivated Comments 10/20/2024 1:32 PM * DNR Date Activated Date Inactivated Comments 08/24/2024 2:39 PM 08/27/2024 3:32 PM Care Teams Territory Sales Manager Relationship Specialty Start [place] [address] [facility] [address] [place] [address] [phone] PCP - General FAMILY PRACTICE 09/15/22 Clarissa Puente RN Registered Nurse REGISTERED NURSE 07/14/24 Kenny Tai MD [address] [place] [address] Consulting Physician UROLOGY 08/25/24 08/25/25
--- OUTSIDE RECORDS SUMMARY | 2024-11-07 13:20 | XMS_ITS | Patient Health Record ---
Author Organization [facility] Address [address] [place], [place] [id number] Care Team Providers Care Hand Roller Engraver Name Role Phone Murray Granger Unavailable Unavailable Reason For Referral No Information Plan Of Treatment No Information Insurance Providers Payer Name Payer Address Payer Phone Subscriber Number Group Number Insured Name Patient Relationship to Insured Coverage Start Date Coverage End Date [employer] [address] [place] [address] [id number] FLEX BLACKWOOD Self - patient is the insured
--- OUTSIDE RECORDS SUMMARY | 2024-11-07 13:20 | XMS_ITS | Clinical Summary ---
Author Organization [facility] Care Team Providers Care Professional Builder Name Role Phone Unavailable Primary Care Provider Unavailabl e Social History Tobacco Use Types Packs/Day Years Used Date Smoking Tobacco: Never Assessed Comments Unknown Sex and Gender Information Value Date Recorded Sex Assigned at Not on file Legal Sex Female 10:08 AM CDT Gender Identity Not on file Sexual Orientation Not on file Plan of Treatment Health Maintenance Due Date Last Done Comments DEXA Bone Density 1940 Hepatitis C Virus (HCV) Screening 1940 Zoster Immunization (2 of 3) 02/05/2013 12/11/2012 Respiratory Syncytial Virus (RSV) Immunization (Adult) (1 - 1-dose 75+ series) 11/23/2015 Influenza Immunization (#1) 03/30/202404/30, 05/14/2020, 05/01/2019, Additional history exists SARS-COV-2 Immunization ( season) 2024 05/23/2021, 08/24/2020, 07/27/2020 DTaP/Tdap/Td Immunization Discontinued 03/08/2011, 12/2004 TdaP Immunization Completed 03/08/2011 Pneumococcal Immunization (50+ years) Completed 05/01/2019, 03/08/2011 Hepatitis B Immunization Aged Out No longer eligible based on patient's age to complete this topic Meningococcal Immunization (ACWY) Aged Out No longer eligible based on patient's age to complete this topic Rotavirus Immunization Aged Out No lo nger eligible based on patient's age to complete this topic
--- OUTSIDE RECORDS SUMMARY | 2024-11-07 13:20 | XMS_ITS | Referral Summary ---
Author Organization [facility] Address [address] [place] [address] Care Team Providers Care Retail Team Leader Name Role Phone Milvia Terrazas MD Primary Care Provider [phone] Encounters Date Type Department Care Team Description 10/17/2024 Orders Only [facility] [address] [place] [address] Kyle Paredes MD PhD Polyneuropathy 10/16/2024 2:50 PM CDT Lab [facility] Advanced Medicine (CAM) [address] [place] [address] 10/16/2024 1:00 PM CDT Office Visit [facility] Neuro Muscle [address] [facility] Medicine 6th [place] [address] [place] [address] Lisa Diaz PA Polyneuropathy (Primary Dx) from Last 3 Months Allergies Active Allergy Reactions Criticality Noted Date Comments Sulfa (Sulfonamide Antibiotics) Unknown 05/01 Medications cholecalciferol 400 unit capsule Take 10 mcg by mouth daily Active senna-docusate (PERICOLACE) 8.6-50 mg Take 1 tablet by mouth 2 (two) times a day for 10 days 20 tablet Active propranoloL (INDERAL) 10 mg tablet Take 1 tablet (10 mg total) by mouth 2 (two) times a day 60 tablet 4 Active acetaminophen (TYLENOL) 325 mg tablet Take 2 tablets (650 mg total) by mouth every 6 (six) hours 4 Active Additional Information Patient not taking.Reported on 10/16/2024 levETIRAcetam (KEPPRA) 1,000 mg tablet Take 1 tablet (1,000 mg total) by mouth 2 (two) times a day for 9 doses 4 Active hydrALAZINE (APRESOLINE) 25 mg tablet Take 1 tablet (25 mg total) by mouth 3 (three) times a day as needed 4 Active furosemide (LASIX) 40 mg tablet Take 1 tablet (40 mg total) by mouth 3 (three) times a week 4 Active lisinopriL (PRINIVIL,ZESTR IL) 20 mg tablet Take 1 tablet (20 mg total) by mouth 4 Active triamterene-hyd roCHLOROthiazid e 37.5-25 mg per tablet 4 Active escitalopram (LEXAPRO) 10 mg tablet Take 1 tablet (10 mg total) by mouth daily 5 Active meclizine (ANTIVERT) 25 mg tablet Take 1 tablet (25 mg total) by mouth 3 (three) times a day as needed 5 Active Active Problems Problem Noted Date Diagnosed Date Weakness 06/09/2024 Assessment & Plan (06/12/2024 7:52 AM OUTSIDE EVENT SALES SPECIALIST): Patient reports increased frequency of falls since hospital discharge 05/31, denies prodrome, reports L-sided weakness contributing - discussed with NSGY, suspect SDH non-contributory - syncopal workup ordered --- echo: LV size is normal. LVEf 64%. Normal RV size and systolic function. Normal LA. No significant valve disease. Unable to estimate PASP due to lack of adequate TR jet. IVC is not well visualized. --- carotid duplex: 06/09 negative --- EK/10 NSR --- orthostatic BPs: 06/09 negative --- neurology consulted: 06/10 neuropathy screening labs (HIV, RPR, Gammopathy testing: Serum immunofixation, urine immunofixation, serum free light chain ratios, B12, MMA, ESR, CRP, B6, Copper, Vitamin E, Hepatitis panel) --> all sent Follow up orthostatic vitals to rule out syncopal etiology - goal SBP <140 with gradual decrease to normotension to minimize risk of SDH expansion - neuro checks q4h with sleep hygiene - recommend repeat CTH prior to discharge to ensure SDH stability - please send - EMG/NCS outpatient (referral sent) - outpatient follow up with neuromusculular clinic at [facility] 06/10 Medicine called for consult or tx of service --they will follow as consult for medication recs and state she is stable for dc. 06/11 appreciate Neurology and medicine recommendations : -Hypertension - H/o leg swelling with amlodipine. H/o hypotension/hyponatremia with HCTZ. I would recommend stopping hypertension treatment and allowing permissive hypertension. When ready to start an agent, I would start lisinopril 10mg qdaily. -Tremors - ok for reduced doses of propranolol 10mg bid - Prevention of polypharmacy - given urinary retention, I would not prescribe oxycodone or anticholinergics (benadryl for sleep or allergy medicines) - Pain - would use acetaminophen only Encounter for medication review 06/09/2024 Assessment & Plan (06/09/2024 12:58 PM OUTSIDE EVENT SALES SPECIALIST): 06/09 medication report reviewed and updated in ADMISSIONS tab Fall 06/09/2024 Assessment & Plan (06/10/2024 11:56 AM OUTSIDE EVENT SALES SPECIALIST): Suspect repeat mechanical fall iso L sided weakness, however will obtain syncopal workup given frequency and severity Recent admission for GLMF 05/29-05/31 06/09 f/u echo: LV size is normal. LVEf 64%. Normal RV size and systolic function. Normal LA. No significant valve disease. Unable to estimate PASP due to lack of adequate TR jet. IVC is not well visualized. -06/09 carotid duplex 1. Normal right internal carotid artery, no evidence of significant plaque. 2. Normal left internal carotid artery, no evidence of significant plaque. - 06/09 orthostatics negative Urinary retention 06/09/2024 Assessment & Plan (06/09/2024 1:07 PM OUTSIDE EVENT SALES SPECIALIST): 06/09 PVR 450cc, rodriguez inserted, re-attempt when mobility improves and after bowel function Abnormal finding of diagnostic imaging Assessment & Plan (06/10/2024 11:37 AM OUTSIDE EVENT SALES SPECIALIST): Thyroid and pulmonary nodules noted on CT imagin mm pulmonary nodule in the right upper lobe. Recommend follow up of the Incidental lung nodule. Additional Imaging In [address] chest, per Fleischner's criteria is recommended. --- will discuss with patient and plan for Follow Up with PCP Head injury, initial encounter 06/08/2024 Acute traumatic pain 05/30/2024 Assessment & Plan (05/30/2024 3:07 PM CDT): - Tylenol 1g q6h PRN Discharge planning issues 05/30/2024 Assessment & Plan (06/10/2024 11:57 AM OUTSIDE EVENT SALES SPECIALIST): 06/09 will require placement iso frequent falls, patient aware, CM to make referrals pending PT/OT evaluation findings; barrier to discharge - neurology evaluation and syncopal workup, ADD end of week 06/10 Neurology work up Patient is medically stable for discharge, SW/CM updated. Discharge pending facility bed availability Treatment note done Assessment & Plan (05/30/2024 3:10 PM CDT): - 05/30: awaiting BI consult Subdural hemorrhage 05/29/2024 Assessment & Plan (06/11/2024 11:27 AM OUTSIDE EVENT SALES SPECIALIST): Multiple frequent falls, recent h/o SLMF with GTS admission 05/29-05/31 05/29 CT: Subdural blood products along the hemispheric falx, right tentorial leaflet, and the right frontal convexity NSGY consulted last admission, discharged home to complete 7d keppra 06/08 1730 HCT: Redemonstrated subdural blood products noted along the right falx and right cerebral convexity, now mixed density. There is minimal interval in increase in the degree of blood products noted along the right frontal cerebral convexity and slight interval decrease in the size of blood products noted along the right falx. There is interval resolution of the subdural blood products seen extending over the right tentorial leaflet 06/09 HCT 0015: Possible slight interval increase in the size of the mixed density right frontoparietal convexity subdural hematoma which is now more conspicuous and measuring 6-7 mm, previously 5 mm. Unchanged mixed density subdural hematoma noted along the posterior falx. 06/[address] repeated yesterday per NSGY recs, keppra continued, TTF from SICU yesterday, NSGY reviewed head CT today suspect not much change in size and rec neurology consult for evaluation of weakness Get CTH prior to DC- per Neurology-->06/11 Assessment & Plan (05/30/2024 3:09 PM CDT): - Neurosurgery consult - 500 Keppra BID x7d - Repeat CT head (103): subdural blood products along the hemispheric falx, right tentorial leaflet, and the right frontal convexity are grossly unchanged without worsening midline shift, indeterminate hyperdensity within the foramen of Monro, possibly focal hemorrhage, with unchanged mildly prominent ventricles, most predominantly the left lateral ventricle. - Replete to Na goal of 135 - Liberalized to q2h neurochecks yesterday and then q4h overnight - BI consult - PM&R consult - Na (05/30): 133mmol/L UTI (urinary tract infection) 05/29/2024 Assessment & Plan (06/11/2024 6:31 AM OUTSIDE EVENT SALES SPECIALIST): 05/29 UA+, no culture sent, discharged with macrobid 06/08 UA+, reflex to culture in process, macrobid resumed on admission, f/u culture and sensitivities, wbc 7 and afebrile, exam unclear for LUTS 06/11: IV ceftriaxone today and tomorrow 06/11, and then completing a total 7 day course with cefdinir 300mg bid (06/12-). Assessment & Plan (05/29/2024 8:28 AM CDT): - recently diagnosed with UTI outpatient and prescribed macrobid - Admission UA with 11-20 WBC, white count normal - Continue nitrofurantoin x5d (05/27 - 06/01) Hypertension 05/29/2024 Assessment & Plan (06/12/2024 7:52 AM OUTSIDE EVENT SALES SPECIALIST): Home regimen: triamterene/hctz resumed 06/10, propranolol iso tremors (continued) 06/11 Allowing permissive hypertension. When ready to start an agent, I would start lisinopril 10mg qdaily. Follow up with PCP Assessment & Plan (05/29/2024 8:32 AM CDT): Home med: triamterene/HCTZ 37.5/25mg per dispense report - Restart as able Tremor 05/29/2024 Assessment & Plan (06/09/2024 1:00 PM OUTSIDE EVENT SALES SPECIALIST): Home regimen: propranolol (continued) Assessment & Plan (05/29/2024 8:34 AM CDT): Home med: propranolol 10mg BID - restarted with hold parameters Immunizations Immunization Administration Dates Next Due COVID-19 mRNA ([employer]) 0.3 m L (30 mcg) vaccine (12 years and up) 05/19/2024 Influenza, Unspecified 05/19/2024 Social History Tobacco Use Types Packs/Day Years Used Date Smoking Tobacco: Former Cigarettes 0.2 40 1 960 - 2000 Smokeless Tobacco: Never Tobacco Cessation:Counseling Given: Not Answered [facility] Utilities Answer Date Recorded In the past 12 months has [facility] [employer], [employer], oil, or water [employer] threatened to shut off services in your home? No 06/09/2024 Humiliation, Afraid, Rape, and Kick questionnair e Answer Date Recorded Within the last year, have y ou been afraid of your partner or ex-partner? No 06/08/2024 Within the last year, have y ou been humiliated or emotionally abused in other ways by your partner or ex-partner? No Within the last year, have y ou been kicked, hit, slapped, or otherwise physically hurt by your partner or ex-partner? No 06/08/2024 Within the last year, have y ou been raped or forced to have any kind of sexual activity by your partner or ex-partner? No 06/08/2024 Social Connection and Isolat ion Panel [NHANES] Answer Date Recorded In a typical week, how many times do you talk on the phone with family, friends, or neighbors? Twice a week 06/09/2024 How often do you get togethe r with friends or relatives? Twice a week 06/09/2024 How often do you attend chur ch or baptism services? Never 06/09/2024 Do you belong to any clubs o r organizations such as zoroastrian groups, unions, fraternal or athletic groups, or school groups? Yes 06/09/2024 How often do you attend meet ings of the clubs or organizations you belong to? More than 4 times per year 06/09/2024 Are you , , di vorced, , never , or living with a partner? 06/09/2024 AUDIT-C Answer Date Recorded Q1: How often do you have a drink containing alc ohol? 2-4 times a month 06/08/2024 Q2: How many drinks containi ng alcohol do you have on a typical day when you are drinking? 1 or 2 06/08/2024 Q3: How often do you have si x or more drinks on one occasion? Less than monthly 06/08/2024 Overall Financial Resource Strain (CARDIA) Answe r Date Recorded How hard is it for you to pa y for the very basics like food, housing, medical care, and heating? Not hard at all 06/09/2024 PHQ-2 Answer Date Recorded PHQ-2 Total Score 0 06/09/2024 [facility]ational Stress Questionnaire Answer Date Recorded Do you feel stress - tense, restless, nervous, or anxious, or unable to sleep at night because your mind is troubled all the time - these days? Only a little 06/08/2024 Exercise Vital Sign Answer Date Recorde d On average, how many days pe r week do you engage in moderate to strenuous exercise (like a brisk walk)? 6 days 06/08/2024 On average, how many minutes do you engage in exercise at this level? 30 min 06/08/2024 Hunger Vital Sign Answer Date Recorded Within the past 12 months, y ou worried that your food would run out before you got the money to buy more. Never true 06/09/20 24 Within the past 12 months, t he food you bought just didn't last and you didn't have money to get more. Never true 06/09/2024 PRAPARE - Transportation Answer Date Re corded In the past 12 months, has l ack of transportation kept you from medical appointments or from getting medications? Yes 05/30 In the past 12 months, has l ack of transportation kept you from meetings, work, or from getting things needed for daily living? No 06/09/2024 Housing Stability Vital Sign Answer Baron e Recorded In the last 12 months, was t here a time when you were not able to pay the mortgage or rent on time? No 06/09/2024 In the past 12 months, how m any times have you moved where you were living? 0 06/09/2024 At any time in the past 12 m [facility], were you homeless or living in a jail (including now)? No 06/09/2024 Personal Safety Answer Date Recorded Have you ever been in or are you currently in a harmful physical or emotional relationship or is someone making you feel afraid or unsafe? Denies 06/08/2024 Comments Unknown Sex and Gender Information Value Date Recorded Sex Assigned at Not on file Legal Sex Female 11:08 PM CDT Gender Identity Not on file Sexual Orientation Not on file Last Filed Vital Signs Vital Sign Reading Time Taken Comments Blood Pressure 160/72 10/16/2024 12:54 PM CDT manual reading Pulse 59 10/16/2024 12:48 PM CDT Temperature 36.9 C (98.4 F) 06/12/2024 5:00 AM OUTSIDE EVENT SALES SPECIALIST Respiratory Rate 18 07/01/2024 11:2 5 AM OUTSIDE EVENT SALES SPECIALIST Oxygen Saturation 97% 07/01/2024 11: 25 AM OUTSIDE EVENT SALES SPECIALIST Inhaled Oxygen Concentration - - Weight 82.1 kg (181 lb) 10/16/2024 12:3 9 PM CDT Height 170.2 cm (5' 7 ) 10/16/2024 12:3 9 PM CDT Body Mass Index 28.35 10/16/2024 12:39 PM CDT Plan of Treatment Not on file Procedures Procedure Name Priority Date/Time Associated Diagnosis Comments NEUROMUSCULAR TESTING Routine 10/16/2024 12:00 AM CDT Polyneuropathy from Last 3 Months Results * Neuromuscular Testing Blood (10/16/2024 12:00 AM CDT) Blood (Serum) 10/16/2024 10/17/2024 10:29 AM CDT Narrative NEUROMUSCULAR CLINICAL LABORATORY - 10/26/2024 3:19 PM CDT Please click on the PDF link to view the report containing this result us Kyle Paredes MD PhD LAB PATHOLOGY ORDERABLES Agatha leone Result NEUROMUSCULAR CLINICAL LABORATORY Room [address] [place] [address] from Last 3 Months Insurance MEDICARE MEDICARE [facility] MEDICARE SUPPLEMENT Advance Directives For more information, please contact: [phone] * Full Code (Latest Code Status on File) Date Activated Date Inactivated Comments 06/08/2024 11:09 PM 06/12/2024 3:49 PM * Full Code Date Activated Date Inactivated Comments 05/29/2024 5:33 AM 05/31/2024 10:16 PM Care Teams Retail Team Leader Relationship Specialty Start [place] [address] [facility] [address] [place] [id number] PCP - General Family Medicine 05/29/24
--- OUTSIDE RECORDS SUMMARY | 2024-11-07 13:20 | XMS_ITS | Encounter Summary ---
Author Organization [facility] Address [address] [place] [address] Care Team Providers Care Bandsaw Operator Name Role Phone Murray Granger MD Primary Care Provider Milvia Rodríguez MD Primary Care Provider [phone] Thao Wright RN Unavailable [phone] Clarissa Puente RN Unavailable Unavailab Kenny Kurtz MD Unavailable Encounter Details Date Type Department Care Team (Late st Contact Info) Description 11/29/2020 [facility] Patient Accounts [address] [place] [address] Pablo [facility] Provider RE:Date of Service 09/30/20 Social History Tobacco Use Types Packs/Day Years Used Date Smoking Tobacco: Former Cigarettes 0.5 15 1 960 - 1974 Smokeless Tobacco: Never Alcohol Use Standard Drinks/Week Comments Yes 0 (1 standard drink = 0.6 oz pur e alcohol) social PHQ-2 Answer Date Recorded PHQ-2 Score - If the patient scores above 3, please move on to questions 3-9 0 09/30/2020 Education Answer Date Recorded What is the highest level of school you have completed or the highest degree you have received? 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 Legal Sex Female 10:44 PM CDT Gender Identity Not on file Sexual Orientation Not on file documented as of this encounter Plan of Treatment Upcoming Encounters Date Type Department Care Team (Late st Contact Info) Description 11/06/2024 11:59 PM CDT Anesthesia Event [facility] [place] [address] [place] [address] Betty Mac, TRACTOR TRAILER TRUCK DRIVER [address] [place] [address] 11/11/2024 11:00 AM CDT Office Visit [facility] [address] [facility] [address] [place] [address] Lisa Fuller, CHIMNEY BUILDER HELPER 11/14/2024 1:00 PM CDT Appointment [facility] [address] [place], [place] [address] Edson Garland MD [address] [facility]. [address] [place] [phone] 01/16/2025 8:45 AM CDT Office Visit [facility] [phone] Binh Zacarias MD [address] [facility] [address] [place] [phone] 02/04/2025 1:40 PM CDT Office Visit [facility] Medical Group Family & Internal Medicine [address] [address] Milvia Terrazas MD [address] [place] [address]. [address] [place] [phone] documented as of this encounter Visit Diagnoses Not on filedocumented in this encounter Additional Health Concerns Assessment Noted Time PHQ-9 Depression Total Score: 0 02/02/20 20 11:18 AM CDT documented as of this encounter Care Teams Bandsaw Operator Relationship Specialty Start Date End Date Murray Granger MD PCP - General INTERNAL MEDICINE 10/28/18 09/14/22 [place] [address] [place] [address] PCP - General FAMILY PRACTICE 09/15/22 Thao Wright, RN [address] [place], [place] [phone] Carbon Lamp Cleaner (Ambulatory) REGISTERED NURSE 05/30/24 07/16/24 Clarissa Puente RN Registered Nurse REGISTERED NURSE 07/14/24 Kenny Tai MD [address] [place], [place] [phone] Consulting Physician UROLOGY 08/25/24 08/25/25 documented as of this encounter
--- OUTSIDE RECORDS SUMMARY | 2024-11-07 13:20 | XMS_ITS | Clinical Summary ---
Author Organization [facility] Address [address] [place] [address] Care Team Providers Care Assembler Hydraulic Backhoe Name Role Phone Milvia Terrazas MD Primary Care Provider [phone] Allergies Active Allergy Reactions Criticality Noted Date Comments Sulfa (Sulfonamide Antibiotics) Unknown 05/01 Medications cholecalciferol 400 unit capsule Take 10 mcg by mouth daily Active senna-docusate (PERICOLACE) 8.6-50 mg Take 1 tablet by mouth 2 (two) times a day for 10 days 20 tablet 4 Active propranoloL (INDERAL) 10 mg tablet Take [...] 06/09/2024 Assessment & Plan (06/12/2024 7:52 AM EMS EDUCATOR): Patient reports increased frequency of falls since [...] outpatient follow up with neuromusculular clinic at [facility] 06/10 Medicine called for consult or [...] 06/09/2024 Assessment & Plan (06/09/2024 12:58 PM EMS EDUCATOR): 06/09 medication report reviewed and updated in ADMISSIONS tab Fall 06/09/2024 Assessment & Plan (06/10/2024 11:56 AM EMS EDUCATOR): Suspect repeat mechanical fall iso L sided [...] 06/09/2024 Assessment & Plan (06/09/2024 1:07 PM EMS EDUCATOR): 06/09 PVR 450cc, rodriguez inserted, re-attempt when mobility improves and after bowel function Abnormal finding of diagnostic imaging Assessment & Plan (06/10/2024 11:37 AM EMS EDUCATOR): Thyroid and pulmonary nodules noted on CT [...] 05/30/2024 Assessment & Plan (06/10/2024 11:57 AM EMS EDUCATOR): 06/09 will require placement iso frequent falls, [...] 05/29/2024 Assessment & Plan (06/11/2024 11:27 AM EMS EDUCATOR): Multiple frequent falls, recent h/o SLMF with [...] head CT repeated yesterday per NSGY recs, katy continued, TTF from SICU yesterday, NSGY reviewed head CT today suspect not much change in size and rec neurology consult for evaluation of weakness Get CTH prior to DC- per Neurology-->06/11 Assessment & Plan (05/30/2024 3:09 PM CDT): - Neurosurgery consult - 500 Keppra BID x7d - Repeat CT head (1030): subdural blood products along the hemispheric falx, [...] 05/29/2024 Assessment & Plan (06/11/2024 6:31 AM EMS EDUCATOR): 05/29 UA+, no culture sent, discharged with [...] 05/29/2024 Assessment & Plan (06/12/2024 7:52 AM EMS EDUCATOR): Home regimen: triamterene/hctz resumed 06/10, propranolol iso tremors (continued) 06/11 Allowing permissive hypertension. When ready to start an agent, I would start lisinopril 10mg qdaily. Follow up with PCP Assessment & Plan (05/29/2024 8:32 AM CDT): Home med: triamterene/HCTZ 37.5/25mg per dispense report - Restart as able Tremor 05/29/2024 Assessment & Plan (06/09/2024 1:00 PM EMS EDUCATOR): Home regimen: propranolol (continued) Assessment & Plan (05/29/2024 8:34 AM CDT): Home med: propranolol 10mg BID - restarted with hold parameters Encounters Date Type Department Care Team Description 10/17/2024 Orders Only [facility] [address] [place] [address] Kyle Paredes MD PhD Polyneuropathy 10/16/2024 2:50 PM CDT Lab [facility] Advanced [facility] Advanced Medicine ([facility]) [address] [place] [address] 10/16/2024 1:00 PM CDT Office Visit [facility] Neuro Muscle [address] [facility] 6th [place] [address] [place] [address] Lisa Diaz PA Polyneuropathy (Primary Dx) from Last 3 Months Immunizations Immunization Administration Dates Next Due COVID-19 mRNA (T[employer]iance) 0.3 m L (30 mcg) vaccine (12 years and up) 05/19/2024 Influenza, Unspecified 05/19/2024 Social History Tobacco Use Types Packs/Day Years Used Date Smoking Tobacco: Former Cigarettes 0.2 40 1 960 - 2000 Smokeless Tobacco: Never Tobacco Cessation:Counseling Given: Not Answered [facility] Utilities Answer Date Recorded In the past 12 months has [facility] [employer], gas, oil, or water We threatened to shut off services in your [...] often do you attend chur ch or sabianism services? Never 06/09/2024 Do you belong to any clubs o r organizations such as taoist groups, unions, fraternal or athletic groups, or [...] Date Recorded PHQ-2 Total Score 0 06/09/2024 [facility] Questionnaire Answer Date [...] any time in the past 12 m [facility], were you homeless or living in a fci (including now)? No 06/09/2024 Personal Safety Answer [...] on file Sexual Orientation Not on file Obstetrics History Last Filed Vital Signs Vital Sign Reading Time Taken Comments Blood Pressure 160/72 10/16/2024 12:54 PM CDT manual reading Pulse 59 10/16/2024 12:48 PM CDT Temperature 36.9 C (98.4 F) 06/12/2024 5:00 AM EMS EDUCATOR Respiratory Rate 18 07/01/2024 11:2 5 AM EMS EDUCATOR Oxygen Saturation 97% 07/01/2024 11: 25 AM EMS EDUCATOR Inhaled Oxygen Concentration - - Weight 82.1 kg (181 lb) 10/16/2024 12:3 9 PM CDT Height 170.2 cm (5' 7 ) 10/16/2024 12:3 9 PM CDT Body Mass Index 28.35 10/16/2024 12:39 PM CDT Plan of Treatment Health Maintenance Due Date Last Done Comments Well Visit 65+ 2005 Zoster Vaccine (2 of 3) 02/05/2013 12/11/2012, 10/11 Covid-19 Vaccine (8 2023-2 5 season) 2024 05/19/2024, 05/19/2024, 05/19/2024, Additional history exists Depression Screening 06/08/2025 06/08/2024 Fall Risk Assessment 06/12/2025 06/12/2024 Osteoporosis Screening-Bone Density Scan 08/09/2025 08/09/2023 DTaP/Tdap/Td Vaccine (3 - Td or Tdap) 09/16/2031 09/16/2021, 03/08/2011, 12/02/2004 Hepatitis B Screening Completed 12/30/1991 Pneumococcal vaccine 65+ Completed 023, 05/01/2019, 03/08/2011 Influenza Vaccine Completed 05/19/2024, , 05/28/2023, Additional history exists Procedures Procedure Name Priority Date/Time Associated Diagnosis [...] Agatha leone Result NEUROMUSCULAR CLINICAL LABORATORY Room [address] [place] [address] from Last 3 Months Insurance MEDICARE MEDICARE BLUE CROSS MEDICARE SUPPLEMENT Advance Directives For more information, please contact: [phone] * Full Code (Latest Code Status on File) Date Activated Date Inactivated Comments 06/08/2024 11:09 PM 06/12/2024 3:49 PM * Full Code Date Activated Date Inactivated Comments 05/29/2024 5:33 AM 05/31/2024 10:16 PM Care Teams Assembler Hydraulic Backhoe Relationship Specialty [place] [address] [address] [place] [address] PCP - General Family Medicine 05/29/24
--- OUTSIDE RECORDS SUMMARY | 2024-11-07 13:20 | XMS_ITS | Encounter Summary ---
Author Organization [facility] Address [facility] [place] [address] Care Team Providers Care Stem Roller Or Crusher Operator Name Role Phone Murray Granger MD Primary Care Provider Milvia Rodríguez MD Primary Care Provider [phone] Thao Wright RN Unavailable [phone] Clarissa Puente RN Unavailable Unavailab Kenny Kurtz MD Unavailable Encounter Details Date Type Department Care Team (Late st Contact Info) Description 08/03/2021 MyChart Message Enc [facility] Medical Group Family & Internal Medicine [address] [address] Murray Granger MD Cancel appointment Social History Tobacco Use Types Packs/Day Years Used Date Smoking Tobacco: Former Cigarettes 0.5 15 1 960 - 1974 Smokeless Tobacco: Never Alcohol Use Standard Drinks/Week Comments Yes 1.7 (1 standard drink = 0.6 oz p ure alcohol) Occasionally PHQ-2 Answer Date Recorded PHQ-2 Score - If the patient scores above 3, please move on to questions 3-9 0 09/30/2020 Education Answer Date Recorded What is the highest level of school you have completed or the highest degree you have received? Master's degree (e.g., MA, MS, Ritesh, MEd, PLAIN CLOTHES POLICE OFFICER, LUZ) 10/25/2018 Comments No Sex and Gender Information Value Date Recorded Sex Assigned at Female 08/24/2024 7:24 AM NURSING SPECIALIST Legal Sex Female 10:44 PM CDT Gender Identity Not on file Sexual Orientation Not on file COVID-19 Exposure Response Date Recorded In the last month, have you been in contact with someone who was confirmed or suspected to have Coronavirus / COVID-19? No / Unsure 07/31/2021 8:18 AM NURSING SPECIALIST documented as of this encounter Plan of Treatment Upcoming Encounters Date Type Department Care Team (Late st Contact Info) Description 11/06/2024 11:59 PM CDT Anesthesia Event [facility] [place] [address] Betty Mac, CIVIL TRANSPORTATION ENGINEER [address] [place] [address] 11/11/2024 11:00 AM CDT Office Visit [facility] Physical Therapy [address] [place], [place] [phone] Lisa Fuller, MARIANA 11/14/2024 1:00 PM CDT Appointment [facility] [place] [address] Edson Garland MD Three [facility] Ch[address] [place] [address] 01/16/2025 8:45 AM CDT Office Visit [facility] [phone] Binh Zacarias MD 3 [facility] [place] [address] [place] [phone] 02/04/2025 1:40 PM CDT Office Visit [facility] Medical Group Family & Internal Medicine - [place] [address] [place] [phone] [place] [address] [facility] [place] [address] documented as of this encounter Visit Diagnoses Not on filedocumented in this encounter Additional Health Concerns Assessment Noted Time PHQ-9 Depression Total Score: 0 02/02/20 20 11:18 AM CDT documented as of this encounter Care Teams Stem Roller Or Crusher Operator Relationship Specialty Start Date End Date Murray Gragner MD PCP - General INTERNAL MEDICINE 10/28/18 09/14/22 [place] [address] [facility]. [address] [place] [address] PCP - General FAMILY PRACTICE 09/15/22 Thao Wright, RN [address] [place] [address] Grocery Bagger (Ambulatory) REGISTERED NURSE 05/30/24 07/16/24 Clarissa Puente RN Registered Nurse REGISTERED NURSE 07/14/24 Kenny Tai MD [address] [place], [place] [phone] Consulting Physician UROLOGY 08/25/24 08/25/25 documented as of this encounter
--- OUTSIDE RECORDS SUMMARY | 2024-11-07 13:20 | XMS_ITS | Encounter Summary ---
Author Organization [facility] Address [address] [place] [address] Care Team Providers Care Iron Carrier Name Role Phone Murray Granger MD Primary Care Provider Milvia Rodríguez MD Primary Care Provider [phone] Thao Wright RN Unavailable [phone] Clarissa Puente RN Unavailable Unavailab Kenny Kurtz MD Unavailable Encounter Details Date Type Department Care Team (Late st Contact Info) Description 06/28/2017 Abstract [facility] CONVERSION [address] [place], [place] [phone] , Jordan Azar MD Social History Tobacco Use Types Packs/Day Years Used Date Smoking Tobacco: Never Assessed Comments Unknown Sex and Gender Information Value Date Recorded Sex Assigned at Female 08/24/2024 7:24 AM RETAIL SEASONAL SPECIALIST Legal Sex Female 10:44 PM CDT Gender Identity Not on file Sexual Orientation Not on file documented as of this encounter Plan of Treatment Upcoming Encounters Date Type Department Care Team (Late st Contact Info) Description 11/06/2024 11:59 PM CDT Anesthesia Event [facility] Oil Distributor Tender [address] [place] [address] Betty Mac, GRAB JACK WORKER [address] [place] [address] 11/11/2024 11:00 AM CDT Office Visit [facility] Physical Therapy [address] [place] [address] Lisa Fuller PTA 11/14/2024 1:00 PM CDT Appointment [facility] Oil [place] [address] Edson Garland MD Three [facility]. [address] [place] [address] 01/16/2025 8:45 AM CDT Office Visit [facility] [phone] Binh Zacarias MD 3 [facility] [place] [address] [place] [phone] 02/04/2025 1:40 PM CDT Office Visit [facility] Medical Group Family & Internal Medicine - [address] [address] Milvia Terrazas MD [address] [place], [place] [address]. [address] [place] [phone] documented as of this encounter Visit Diagnoses Not on filedocumented in this encounter Care Teams Iron Carrier Relationship Specialty Start Date End Date Murray Granger MD PCP - General INTERNAL MEDICINE 10/28/18 09/14/22 Milvia Terrazas MD [address] [place], [place] [address]. [address] [place] [phone] PCP - General FAMILY PRACTICE 09/15/22 Thao Wright, RN [address] [place] [address] Press Operator Printing (Ambulatory) REGISTERED NURSE 05/30/24 07/16/24 Clarissa Puente RN Registered Nurse REGISTERED NURSE 07/14/24 Kenny Tai MD [address] [place] [address] Consulting Physician UROLOGY 08/25/24 08/25/25 documented as of this encounter
--- OUTSIDE RECORDS SUMMARY | 2024-11-07 13:20 | XMS_ITS | Encounter Summary ---
Author Organization [facility] Address [facility] [place] [address] Care Team Providers Care Manager Part Name Role Phone Milvia Terrazas MD Primary Care Provider [phone] Clarissa Puente RN Unavailable Unavailab Kenny Kurtz MD Unavailable Encounter Details Date Type Department Care Team (Latest Contact Info) Description 11/06/2024 Travel Social History Tobacco Use Types Packs/Day Years [...] materials from doctor or pharmacy Never 10/30/2024 [facility] Utilities Answer Date Recorded In the past 12 months has e electric, gas, oil, or water company threatened to [...] any time in the past 12 m [facility], were you homeless or living in a long-term (including now)? No 08/24/2024 Education Answer Date Recorded What is the highest level of school you have completed or the highest degree you have received? Master's degree (e.g., MA, MS, Ritesh, MEd, EMBOSSING CALENDER OPERATOR, LUZ) 10/25/2018 Comments No Sex and Gender Information Value Date Recorded Sex Assigned at Female 08/24/2024 7:24 AM REMNANT SORTER Legal Sex Female 10:44 PM CDT Gender [...] Description 11/06/2024 11:59 PM CDT Anesthesia Event [facility] [place] [address] Betty Mac CNP [address] [place] [address] 11/11/2024 11:00 AM CDT Office Visit [facility] Physical Therapy [address] [facility] [address] [place] [address] Jonny Lisa Niraj, MARIANA 11/14/2024 1:00 PM CDT Appointment [facility] Stator Connector [address] [facility] [place] [address] Edson Garland MD Three [facility]. [address] [place] [address] 01/16/2025 8:45 AM CDT Office Visit [facility] [phone] Binh Zacarias MD 3 [facility] [place] [address] [place] [phone] 02/04/2025 1:40 PM CDT Office Visit [facility] Medical Group Family & Internal Medicine - [place] [id number] [place] [phone] [place] [address] [facility] [place] [address] documented as of this encounter Goals Goal Patient Goal Type Associated Problems Recent Progress Patient-Stated? Author Therapy - wears compression stockings Lifestyle Not on track(2023 9:01 AM REMNANT SORTER) Yes Clarissa Puente RN Note: Patient reports [...] documented as of this encounter Care Teams Manager Part Relationship Specialty [place] [address] [address] [place] [address] PCP - General FAMILY PRACTICE 09/15/22 Clarissa Puente RN Registered Nurse REGISTERED NURSE 07/14/24 Kenny Tai MD [address] [place] [address] Consulting Physician UROLOGY 08/25/24 08/25/25 documented as of this encounter
--- OUTSIDE RECORDS SUMMARY | 2024-11-07 13:21 | XMS_ITS | Encounter Summary ---
Author Organization [facility] Address [address] [place] [address] Care Team Providers Care Surveying Technician Name Role Phone Milvia Terrazas MD Primary Care Provider [phone] Thao Wright RN Unavailable [phone] Clarissa Puente RN Unavailable Unavailab Kenny Kurtz MD Unavailable Encounter Details Date Type Department Care Team (Late st Contact Info) Description 03/05/2024 MyChart Message Enc [facility] Medical Group Family & Internal Medicine [facility] [id number] [place] [phone] Milvia Terrazas MD [address] [place] [address]. [address] [place] [phone] Elevated glucose level Social History Tobacco Use Types Packs/Day Years [...] Master's degree (e.g., MA, MS, Ritesh, MEd, HANG GLIDING INSTRUCTOR, LUZ) 10/25/2018 Comments No Sex and Gender Information Value Date Recorded Sex Assigned at Female 08/24/2024 7:24 AM SURVEYING TECHNICIAN Legal Sex Female 10:44 PM CDT Gender Identity Not on file Sexual Orientation Not on file documented as of this encounter Plan of Treatment Upcoming Encounters Date Type Department Care Team (Late st Contact Info) Description 11/06/2024 11:59 PM CDT Anesthesia Event [facility] [place] [address] Betty Mac, WATCH GUARD GATE [address] [place] [address] 11/11/2024 11:00 AM CDT Office Visit [facility] Physical Therapy [address] [place] [address] [address] [place] [address] Lisa Fuller, MARIANA 11/14/2024 1:00 PM CDT Appointment [facility] [address] [place], [place] [phone] Edson Garland MD Three [facility]. [address] [place] [phone] 01/16/2025 8:45 AM CDT Office Visit [facility]-[address] [phone] Binh Zacarias MD 3 [facility] [place] [address] [place] [phone] 02/04/2025 1:40 PM CDT Office Visit [facility] Medical Group Family & Internal Medicine [address] [phone] [place] [address] [place] [address] documented as of this encounter Visit Diagnoses Not on filedocumented in this encounter Additional Health Concerns Assessment Noted Time PHQ-9 Depression Total Score: 2 02/16/20 23 11:34 AM CDT documented as of this encounter Care Teams Surveying Technician Relationship Specialty Start [place] [address] [place] [address] PCP - General FAMILY PRACTICE 09/15/22 Thao Wright, RN [facility] [place] [address] It Professional (Ambulatory) REGISTERED NURSE 05/30/24 Clarissa Puente RN Registered Nurse REGISTERED NURSE 07/14/24 Kenny Tai MD [address] [place], [place] [phone] Consulting Physician UROLOGY 08/25/24 08/25/25 documented as of this encounter
[2024-11-07] MEDS: HYDROmorphone HCL INJ (*CRX) 1 MG/ML SYR 0.5 MG IV PUSH ×2 (13:32→15:03)
[2024-11-07 14:23] LABS: Add Urine Microscopic? NO; Appearance Urine Clear (Clear); Bilirubin Urine Negative (Negative); Blood Urine Negative (Negative); Color Urine Yellow (Yellow); Glucose Urine UA Negative (Negative); Ketones Urine Negative (Negative); Leukocyte Esterase Ur Negative LEU/UL (Negative); Nitrate Urine Negative (Negative); Protein Urine Negative (Negative); Specific Grav Ur 1.006 (1.001-1.035); Urobilinogen Urine 0.2 mg/dL (<2.0)
[2024-11-07 14:41] LABS: Basophils Percent Auto 0.4 % (0.2-1.2); Eosinophils Absolute Auto 0.1 K/mm3 (0-0.3); Eosinophils Percent Auto 0.8 % (0-4.4); Hemoglobin 13.1 g/dL (12.0-15.0); Immature Granulocyte Absolute 0.04 K/mm3 (0.00-0.031); Immature Granulocyte Percent A 0.5 % (0-0.5); Lymphocytes Absolute Auto 0.92 K/mm3 (0.9-3.2); Lymphocytes Percent Auto 11.6 % (18.3-44.2); Mean Corpuscular Hemoglobin 31.3 pg (26-34); Mean Corpuscular Volume 97.9 fl (80-100); Monocytes Absolute Auto 0.5 K/mm3 (0.1-0.6); Monocytes Percent Auto 6.5 % (2.6-8.5); Neutrophils Absolute Auto 6.4 K/mm3 (1.3-6.7); Neutrophils Percent Auto 80.2 % (45.5-73.1); Platelet Count Result 195 k/mm3 (150-375); Red Blood Count 4.19 M/mm3 (4.2-5.4); Red Cell Distribution Width 15.2 % (11.5-14.5)
[2024-11-07 14:51] LABS: Alanine Aminotransferase 20 U/L (6-35); Albumin Level 4.1 g/dL (3.5-5.1); Alkaline Phosphatase 89 U/L (38-126); Anion Gap 6 mmol/L (4-12); Aspartate Amino Transferase 22 U/L (14-36); Bilirubin,Total 1.4 mg/dL (0.2-1.3); Blood Urea Nitrogen 15 mg/dL (7-17); Calcium 9.7 mg/dL (8.4-10.2); Carbon Dioxide 30 mmol/L (22-30); Chloride 100 mmol/L (98-107); Estimated CRCL calculation 47 ml/min; Estimated Glomerular Filt Rate > 60; Glucose 113 mg/dL (65-110); Potassium 3.7 mmol/L (3.4-5.0); Sodium 136 mmol/L (137-145)
[2024-11-07 14:56] LABS: INR 1.2
[2024-11-07 14:57] LABS: Partial Thromboplastin Time 29.8 Seconds (22.3-36.8)
[2024-11-07] MEDS: hydrALAZINE HCL 20 MG/ML VIAL 10 MG IV PUSH (15:01)
--- NOTE | 2024-11-07 16:21 | ED_ITS ---
HPI - General Adult General Chief complaint: Fall Stated complaint: glf, RLE pain Time Seen by Provider: 11/07/24 12:55 History of Present Illness HPI narrative: This is an 83-year-old female presenting after mechanical fall. She tripped over the carpet and landed on her right hip. She was unable to bear weight after that. She was then brought to the hospital for evaluation. Related Data Home Medications ?Medication ?Instructions ?Recorded ?Confirmed ?Last Taken ?Type calcium 600 mg (as carbonate)-vit 1 tablet PO HS 08/27/24 08/27/24 Unknown History D3 20 mcg (800 unit) chewable tablet cholecalciferol (vitamin D3) 50 50 mcg PO DAILY 08/27/24 08/27/24 Unknown History mcg (2,000 unit) tablet naproxen sodium 220 mg tablet 220 mg PO BIDWMEAL 08/27/24 08/27/24 Unknown History (Aleve) Allergies Allergy/AdvReac Type Severity Reaction Status Date / Time Sulfa (Sulfonamide AdvReac Intermediate Nausea Verified 11/07/24 13:15 Antibiotics) lisinopril AdvReac Cough Verified 11/07/24 13:15 PMFSH Past Medical History Medical History Diastolic dysfunction Memory deficit Depressed Recurrent UTI Recurrent falls Impairment of balance Bilateral primary osteoarthritis of knee Essential tremor Obesity Osteoarthritis Ankle fracture, right (2007) Intertrochanteric fracture of left hip (11/2022) SP cephalomedullary nailing dr ramirez Hypertension Surgical History Surgical History History of orthopedic surgery Repair of ankle fracture in 2007 and left hip fracture in November 2022. History of cholecystectomy History of appendectomy Family History Family History Father Cerebrovascular accident Essential tremor Mother AAA (abdominal aortic aneurysm) Social History Social History Social History: Patient lives at home independently. 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 She designates her son, Lionel, as her surrogate decision maker. Smoking packs per day: 1 Smoking cigarettes per day: 20.0 Years smoked: 10 Smoking pack-years: 10.00 Smoking status: Former smoker Tobacco type: cigarettes Second hand tobacco smoke exposure: No Smoking end date: 03/30/79 Alcohol intake: current Drinks per week: 4 Alcohol use details: One 4-6 oz glass of wine nightly Substance use: never Substance use type: does not use Other substance usage details: 4 oz glass of wine sometimes Do You Feel Safe in your Home?: Yes Lack of Transportation: No Lack of Food: Never True Current Housing: I Have Housing Concerned About Future Housing: No Difficulty Paying Gas/Electric Bills: No Difficulty Paying for Meds: No Currently Unemployed: No Education: Master's Degree or Higher Difficulty w/ Childcare or Family Care: No Gender identity (if verbalized by the patient): Female Sexual Orientation (if Verbalized by the Patient): Straight or Heterosexual Spiritual care concerns: No Agree to blood products: Yes Exam 2 Narrative: APPEARANCE: No apparent distress. Head: atraumatic. EYES: EOMI, NOSE: Atraumatic NECK: Trachea midline RESPIRATORY: No increased rate of breathing CTAB CARDIOVASCULAR: RRR, no peripheral edema ABDOMINAL: Non-distended soft nontender MUSCULOSKELETAl right leg is shortened laterally rotated, PT and DP pulses intact. Sensation and motor function intact. NEURO: Alert. Moving 4/4 extremities SKIN:: Warm, dry. Normal color PSYCHIATRIC: Normal affect Course Vital Signs Vital signs: Vital Signs Temperature 97.5 F L 11/07/24 12:41 Pulse Rate 59 L 11/07/24 12:41 Respiratory Rate 15 11/07/24 12:41 Blood Pressure 200/86 H 11/07/24 12:41 Pulse Oximetry 89 L 11/07/24 12:41 Oxygen Delivery Room Air 11/07/24 12:41 Temperature 97.5 F L 11/07/24 12:41 Pulse Rate 59 L 11/07/24 14:56 Respiratory Rate 15 11/07/24 14:56 Blood Pressure 217/87 H 11/07/24 14:56 Pulse Oximetry 95 11/07/24 14:56 Oxygen Delivery Nasal Cannula 11/07/24 13:16 Oxygen Flow Rate 2 11/07/24 13:16 Medical Decision Making MDM Narrative Medical decision making narrative: -Course: 83-year-old female presenting after ground level fall. Found to have a right hip fracture. patient given pain control. Preoperative lab work obtained. Patient be admitted hospital for further management -DDX includes but is not limited to: Hip fracture, dislocation Vital Signs Vital Signs: Vital Signs Temperature 97.5 F L 11/07/24 12:41 Pulse Rate 59 L 11/07/24 12:41 Respiratory Rate 15 11/07/24 12:41 Blood Pressure 200/86 H 11/07/24 12:41 Pulse Oximetry 89 L 11/07/24 12:41 Oxygen Delivery Room Air 11/07/24 12:41 Temperature 97.5 F L 11/07/24 12:41 Pulse Rate 59 L 11/07/24 14:56 Respiratory Rate 15 11/07/24 14:56 Blood Pressure 217/87 H 11/07/24 14:56 Pulse Oximetry 95 11/07/24 14:56 Oxygen Delivery Nasal Cannula 11/07/24 13:16 Oxygen Flow Rate 2 11/07/24 13:16 Lab Data 11/07/24 14:30 11/07/24 14:30 Labs: Lab Results 11/07/24 11/07/24 Range/Units 14:15 14:30 WBC 8.0 (4.5-10.0) K/mm3 RBC 4.19 L (4.2-5.4) M/mm3 Hgb 13.1 (12.0-15.0) g/dL Hct 41.0 (37.0-47.0) % MCV 97.9 (80-100) fl MCH 31.3 (26-34) pg MCHC 32.0 (32-36) g/dl RDW 15.2 H (11.5-14.5) % Plt Count 195 (150-375) k/mm3 MPV 10.0 (7.4-10.4) fl Immature Gran % (Auto) 0.5 (0-0.5) % Neut % (Auto) 80.2 H (45.5-73.1) % Lymph % (Auto) 11.6 L (18.3-44.2) % [place] % (Auto) 6.5 (2.6-8.5) % Eos % (Auto) 0.8 (0-4.4) % Baso % (Auto) 0.4 (0.2-1.2) % Lymph # (Auto) 0.92 (0.9-3.2) K/mm3 [place] # (Auto) 0.5 (0.1-0.6) K/mm3 Eos # (Auto) 0.1 (0-0.3) K/mm3 Baso # (Auto) 0.0 (0.0-0.1) K/mm3 Abs Immat Gran (auto) 0.04 H (0.00-0.031) K/mm3 Absolute Neuts (auto) 6.4 (1.3-6.7) K/mm3 Absolute Nucleated RBC 0.000 (0.0-0.012) K/mm3 Nucleated RBC % 0.0 (0.0-0.2) % PT 16.0 H (11.1-14.7) Seconds INR 1.2 APTT 29.8 (22.3-36.8) Seconds Sodium 136 L (137-145) mmol/L Potassium 3.7 (3.4-5.0) mmol/L Chloride 100 (98-107) mmol/L Carbon Dioxide 30 (22-30) mmol/L Anion Gap 6 (4-12) mmol/L BUN 15 (7-17) mg/dL Creatinine 0.76 (0.7-1.0) mg/dL Estim Creat Clear Calc 47 ml/min Estimated GFR > 60 (59 - ) Glucose 113 H (65-110) mg/dL Calcium 9.7 (8.4-10.2) mg/dL Total Bilirubin 1.4 H (0.2-1.3) mg/dL AST 22 (14-36) U/L ALT 20 (6-35) U/L Alkaline Phosphatase 89 (38-126) U/L Total Protein 7.0 (6.3-8.2) g/dL Albumin 4.1 (3.5-5.1) g/dL Urine Color Yellow (Yellow) Urine Appearance Clear (Clear) Urine pH 7.0 (5.0-9.0) Ur Specific [place] 1.006 (1.001-1.035) Urine Protein Negative (Negative) mg/dL Urine Glucose (UA) Negative (Negative) mg/dL Urine Ketones Negative (Negative) mg/dL Ur Blood (Man) Negative (Negative) Urine Nitrate Negative (Negative) Urine Bilirubin Negative (Negative) Urine Urobilinogen 0.2 (<2.0) mg/dL Leukocyte Esterase Rfl Negative (Negative) JOSE MANUEL/UL Discharge Plan Discharge Clinical Impression: Hip fracture Patient Disposition: Still a Patient Condition: Stable Patient Language: Syriac Prescriptions: No Action naproxen sodium [Aleve] 220 mg tablet 220 mg PO BIDWMEAL calcium carbonate-vitamin D3 600 mg-20 mcg (800 unit) tablet,chewable 1 tablet PO HS cholecalciferol (vitamin D3) 50 mcg (2,000 unit) tablet 50 mcg PO DAILY hydralazine 25 mg Tablet 25 mg PO TID Qty: 90 0RF furosemide 40 mg tablet 40 mg PO QMWF Qty: 12 0RF amlodipine [Norvasc] 10 mg tablet 10 mg PO DAILY Qty: 30 0RF propranolol 20 mg tablet 20 mg PO BID Qty: 60 0RF escitalopram oxalate 10 mg tablet 10 mg PO DAILY Qty: 30 0RF Follow-up/Referrals: Mk,MD Milvia [Primary Care Provider] -
[2024-11-07] MEDS: FUROSEMIDE INJ 40 MG/4 ML VIAL IV PUSH (17:10)
--- NOTE | 2024-11-07 17:12 | PM.IMHP ---
H&P: HPI History of Present Illness Date/Time: 11/07/24 17:12 Chief Complaint: Fall Narrative: 83 y/o F with PMH of SDH r/t fall with residual memory issues, resting tremor, diastolic dysfunction, HTN, orthostatic hypotension, and polyneuropathy presents here with a ground level fall. The patient presents here from home via EMS on 11/07 for further evaluation of right groin/hip pain s/p ground level fall. She reports this morning she tripped walking on the carpet and fell onto her right side. She denies head strike or loss of consciousness. Post fall she reports pain to her in her right groin/hip region. She was unable to bear weight on the affected extremity. She denies neck pain, back pain, dizziness, chest pain, nausea, vomiting, diarrhea, fever, chills, or shortness of breath. She is on Eliquis. She currently lives at home alone. She does not have home health or family that helps with her care. Ambulates with a cane at baseline. Initial VS at presentation: 97.5? F, HR 59, RR 15, 200/86, and 89% on room air. Now 95% on 2L NC. ED workup showed: No leukocytosis, no anemia, INR 1.2, sodium 136, creatinine 0.76 and normal GFR, glucose 113, UA unremarkable. Hip/pelvic XR showed acute fracture in the subcapital region of the right femoral neck. CXR is highly suggestive of cardiomegaly with cardiac decompensation and pulmonary edema, pneumonitis cannot be excluded. Initial EKG showed sinus or ectopic atrial bradycardia, rate 57, LVH and ST-T change, baseline artifact. When compared to previous, heart rate has now decreased. Review of Systems Review of Systems: All systems reviewed & are unremarkable except as noted in HPI and below [facility] Past Medical History Medical History History of subdural hematoma Diastolic dysfunction Memory deficit Depressed Recurrent UTI Recurrent falls Impairment of balance Bilateral primary osteoarthritis of knee Essential tremor Obesity Osteoarthritis Ankle fracture, right (2007) Intertrochanteric fracture of left hip (11/2022) SP cephalomedullary nailing dr ramirez Hypertension Surgical History Surgical History History of orthopedic surgery Repair of ankle fracture in 2007 and left hip fracture in November 2022. History of cholecystectomy History of appendectomy Family History Family History Father Cerebrovascular accident Essential tremor Mother AAA (abdominal aortic aneurysm) Social History Social History Social History: Patient lives at home independently. 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 She designates her son, Lionel, as her surrogate decision maker. Smoking packs per day: 1 Smoking cigarettes per day: 20.0 Years smoked: 10 Smoking pack-years: 10.00 Smoking status: Former smoker Tobacco type: cigarettes Second hand tobacco smoke exposure: No Smoking end date: 03/30/79 Alcohol intake: current Drinks per week: 1 Alcohol use details: One 4-6 oz glass of wine nightly Substance use: never Substance use type: does not use Other substance usage details: 4 oz glass of wine sometimes Do You Feel Safe in your Home?: Yes Lack of Transportation: No Lack of Food: Never True Current Housing: I Have Housing Concerned About Future Housing: No Difficulty Paying Gas/Electric Bills: No Difficulty Paying for Meds: No Currently Unemployed: No Education: Master's Degree or Higher Difficulty w/ Childcare or Family Care: No Gender identity (if verbalized by the patient): Female Sexual Orientation (if Verbalized by the Patient): Straight or Heterosexual Spiritual care concerns: No Agree to blood products: Yes Meds Home Medications and Allergies Home Medications ?Medication ?Instructions ?Recorded ?Confirmed ?Type escitalopram oxalate 10 mg tablet 10 mg PO DAILY #30 tabs 09/02/24 11/07/24 Rx furosemide 40 mg tablet 40 mg PO QMWF #12 tabs 09/02/24 11/07/24 Rx propranolol 20 mg tablet 20 mg PO BID #60 tabs 09/02/24 11/07/24 Rx apixaban 5 mg tablet (Eliquis) 5 mg PO Q12H 11/07/24 11/07/24 History hydralazine 25 mg tablet 25 mg PO BID 11/07/24 11/07/24 History Allergies Allergy/AdvReac Type Severity Reaction Status Date / Time Sulfa (Sulfonamide AdvReac Intermediate Nausea Verified 11/07/24 13:15 Antibiotics) lisinopril AdvReac Cough Verified 11/07/24 13:15 Vital Signs Vital Signs - 24 hr 11/07/24 12:41 11/07/24 13:16 11/07/24 14:01 Temperature 97.5 F L Pulse Rate 59 L 58 L Respiratory Rate 15 17 Blood Pressure 200/86 H 201/91 H Pulse Oximetry 89 L 95 95 Oxygen Delivery Room Air Nasal Cannula Oxygen Flow Rate 2 11/07/24 14:56 11/07/24 14:56 11/07/24 16:01 Temperature Pulse Rate 59 L 59 L 65 Respiratory Rate 15 12 Blood Pressure 217/87 H 199/83 H Pulse Oximetry 95 97 Oxygen Delivery Oxygen Flow Rate Exam Const: General: comfortable and no acute distress Other: , female, elderly, nontoxic appearance. HENMT: Face/Nose/Sinus: Normal nares present Mouth: Yes moist mucous membranes Eyes: General: appearance normal, both eyes and all related structures Sclera: sclerae normal Pupils: Equal, round and reactive pupils present EOM: EOMs intact bilaterally Resp: Effort & Inspection: normal respiratory effort Auscultation: clear to auscultation bilaterally Cardio: Rate: regular rate Rhythm: regular rhythm Other: S1-S2 present without murmur, rub, ectopy GI: Other: Abdomen soft, nondistended, nontender. Normoactive bowel sounds in all quadrants. Skin: General skin exam: normal color and no rashes or lesions noted Wounds: no wounds Neuro: Speech: normal speech Motor exam (neuro): 5/5 motor strength present throughout (Somewhat reduced in the right lower extremity secondary to pain.) Sensory Exam: normal sensation Other: A&O x4. Mild somnolence. Extrem: Other: Pain with palpation over right hip. DP pulses intact bilaterally. 1+ pitting edema to bilateral lower extremities, symmetric. Psych: Mental Status: mental status grossly normal Affect: normal affect Other: Good insight and judgment, pleasant. H&P: Results Labs Labs: Short CBC 11/07/24 Range/Units 14:30 WBC 8.0 (4.5-10.0) K/mm3 Hgb 13.1 (12.0-15.0) g/dL Hct 41.0 (37.0-47.0) % Plt Count 195 (150-375) k/mm3 BMP 11/07/24 14:30 Sodium 136 L Potassium 3.7 Chloride 100 Carbon Dioxide 30 BUN 15 Creatinine 0.76 Glucose 113 H Calcium 9.7 Liver Function 11/07/24 Range/Units 14:30 Total Bilirubin 1.4 H (0.2-1.3) mg/dL AST 22 (14-36) U/L ALT 20 (6-35) U/L Alkaline Phosphatase 89 (38-126) U/L Albumin 4.1 (3.5-5.1) g/dL Urine 11/07/24 Range/Units 14:15 Urine Color Yellow (Yellow) Urine Appearance Clear (Clear) Urine pH 7.0 (5.0-9.0) Ur Specific [place] 1.006 (1.001-1.035) Urine Protein Negative (Negative) mg/dL Urine Glucose (UA) Negative (Negative) mg/dL Assessment and Plan Assessment and plan (1) Fracture of femoral neck, right, closed: Qualifiers: Encounter type: initial encounter Qualified Code(s): S72.001A - Fracture of unspecified part of neck of right femur, initial encounter for closed fracture Code(s): S72.001A - Fracture of unspecified part of neck of right femur, initial encounter for closed fracture Status: Acute Assessment and Plan: Hip/pelvic XR showed an acute fracture in the subcapital region of the right femoral neck (displaced), prior ORIF of the proximal left femur noted. Orthopedics consulted. Analgesics p.r.n.. PT/OT evaluation and treatment postop. Care coordination consulted for acute rehab services. On esther Gomez. NPO after midnight on 11/09. (2) Diastolic dysfunction: Code(s): I51.89 - Other ill-defined heart diseases Status: Acute Assessment and Plan: Reported history of diastolic dysfunction. No echo on file. BNP 1680. Check echo. CXR showing findings highly suggestive of cardiomegaly with cardiac decompensation and pulmonary edema, pneumonitis cannot be excluded. Given Lasix 40 mg IV in the ED, tolerated well. 1+ lower extremity peripheral edema bilaterally on exam, otherwise appears euvolemic. Continue home Lasix: 40 mg QMWF. Monitor I&Os daily weights. (3) Recurrent falls: Code(s): R29.6 - Repeated falls Status: Acute Assessment and Plan: History of recurrent falls. Per chart review, patient had 3 falls in July of 2024 and a fall in April of 2024 leading to a subdural hematoma. Fall in 2022 leading to a left displaced intratrochanteric fracture. Recent admission to [facility] from 08/28/2024 to 09/08/2024 for debility in the setting of SDH, UTI, memory impairments. Care coordination consulted for DC planning, suspect patient will need rehab postop. Fall precautions. (4) Hypertension: Qualifiers: Hypertension type: primary hypertension Qualified Code(s): I10 - Essential (primary) hypertension Code(s): I10 - Essential (primary) hypertension Status: Chronic Assessment and Plan: Chronic, currently hypertensive at 216/90. Brief response to hydralazine IV. Reportedly took her morning dose of antihypertensive medications. Given Lasix for possible cardiac decompensation and volume overload. Will assess response to Lasix, if no response will repeat hydralazine and give evening dose of medications. -> 169/69. Continue home medications: Plan Diet: Heart healthy, NPO at midnight on 11/08 GI Prophylaxis: Not currently indicated DVT Prophylaxis: SCDs Lines: Peripheral Code Status: DNR Quality VTE Prophylaxis VTE prophylaxis: mechanical ordered Hospitalist MIPS Advance Care Plan I have confirmed that the patient's Advanced Care Plan is present, code status is documented, or surrogate decision maker is listed in patient medical record.: Yes Medication Reconciliation I have utilized all available resources to obtain, update and review the patients current medications (includes all prescriptions, OTC, herbals, cannabis, and nutritional supplements).: Yes
--- NOTE | 2024-11-07 18:29 | ADMGEN ---
This patient, Marisel Ambrocio, was admitted to 2 Medical Room 242-. Patient/family oriented to hospital policies and general routines including ID bracelet, bed and alarms, visiting hours, pain management, procedures, bathroom and other care routines, personal items, smoking policy, room service/diet, and visiting hours. Information on how to activate the Rapid Response Team has been discussed. Patient/Family are encouraged to report perceived risks to care and to ask questions if they do not understand what they are told or what they should do.
[2024-11-07] MEDS: HYDROcodone/acetaminophen (*CRX) 5-325 MG TABLET 1 TAB PO (18:54)
[2024-11-07 19:14] LABS: NT Pro B Type Natriuretic Pept 1680 pg/mL (19.9-100)
[2024-11-08] VITALS (12 sets, daily range): BP systolic 102–154; BP diastolic 47–76; PULSE 91–120; RESP 16–18; TEMP 36.8–36.9; O2SAT 92–97
--- NOTE | 2024-11-08 | ECHO_ITS ---
Patient Info Name: Marisel Ambrocio Age: 83 years : 1940 Gender: Female Ht: 67 in Wt: 175 lbs BSA: 1.95 m2 HR: 115 bpm BP: 114 / 69 mmHg Heart Rhythm: Atrial Fibrillation Technical Quality: Fair Exam Date: 11/08/2024 10:00 AM Exam Location: Echo Lab Patient Status: Inpatient Admit Date: 11/07/2024 Staff Ordering Physician: Savita Hitchcock APRN Hydraulic Modeling Engineer: Nicci Augustine RDCS Attending Provider: Kellie Paula APRN Referring Physician: Naldo BELLE; Exam Type: CA echo doppler color flow Study Info Indications - Cardiac decompensation/ pulmonary edema Complete two-dimensional, color flow and Doppler transthoracic echocardiogram is performed. Summary 1. Complete two-dimensional, color flow and Doppler transthoracic echocardiogram is performed. 2. The left ventricle is normal in size with hyperdynamic systolic function. There is severe concentric left ventricular hypertrophy. Left ventricular ejection fraction is visually estimated to be >70%. 3. The aortic root is dilated measuring 4.3 cm in diameter at the level of the sinus of Valsalva. Left Ventricle The left ventricle is normal in size with hyperdynamic systolic function. There is severe concentric left ventricular hypertrophy. Left ventricular ejection fraction is visually estimated to be >70%. Right Ventricle The right ventricle is normal in size and systolic function. Left Atria The left atrium is moderately dilated. Right Atria The right atrium is dilated. Atrial Septum The atrial septum appears intact. Aortic Valve The aortic valve is probably trileaflet and opens well. There is no aortic regurgitation. Pulmonic Valve The pulmonic valve is not well visualized. There is no color Doppler evidence of pulmonic valve regurgitation. Mitral Valve The mitral valve is opening well. There is no mitral regurgitation. Tricuspid Valve The tricuspid valve is normal. There is trace tricuspid regurgitation. Pericardium/Pleural There is trivial pericardial effusion. Inferior Vena Cava Dilated inferior vena cava with <50% collapse upon inspiration consistent with significantly elevated right atrial pressure, 15 mmHg. Aorta The aortic root is dilated measuring 4.3 cm in diameter at the level of the sinus of Valsalva. Left Ventricular Outflow Tract Name Value Normal LVOT 2D LVOT Diameter 2.0 cm LVOT Doppler LVOT Peak Gradient 7 mmHg LVOT Mean Gradient 4 mmHg LVOT VTI 21 cm LVOT VTI/AV VTI Ratio 0.8 LVOT Stroke Volume 61 ml LVOT CO 5.3 l/min LVOT CI 2.7 l/min/m2 Pulmonic Valve Name Value Normal RVOT Doppler RVOT Peak Gradient 2 mmHg PV Doppler PV Peak Gradient 6 mmHg Mitral Valve Name Value Normal MV Doppler MV Decel Rolette 653 cm/s2 MV PHT 44 ms MV Area (PHT) 5.0 cm2 4.0-5.0 MV Diastolic Function MV E Peak Velocity 98 cm/s MV A Peak Velocity 2 cm/s MV E/A 62.3 MV Decel Time 151 ms MV Annular TDI MV E/e' (Septal) 12.0 <=8.0 Tricuspid Valve Name Value Normal TV Regurgitation Doppler TR Peak Velocity 275 cm/s TR Peak Gradient 23 mmHg Estimated PAP/RSVP RA Pressure 15 mmHg <=5 PA Systolic Pressure 45 mmHg <36 RV Systolic Pressure 45 mmHg <36 Aortic Valve Name Value Normal AV Doppler AV Peak Velocity 176 cm/s AV Peak Gradient 0 mmHg AV Mean Gradient 0 mmHg AV VTI 27 cm AV Area (Cont Eq VTI) 2.3 cm2 >=3.0 AV Area (Cont Eq Giovanni) 2.5 cm2 AV Regurgitation 2D LVOT Area 3.0 cm2 Ventricles Name Value Normal LV Dimensions 2D/MM IVS Diastolic Thickness (2D) 1.6 cm 0.6-1.0 LVID Diastole (2D) 4.6 cm 3.8-5.2 LVIW Diastolic Thickness (2D) 1.6 cm 0.6-0.9 LVID Systole (2D) 3.1 cm 2.2-3.5 LVOT Diameter 2.0 cm LV Mass (2D Cubed) 314.16 g 67.00-162.00 LV Mass Index (2D Cubed) 161 g/m2 43-95 Relative Wall Thickness (2D) 0.68 LV Fractional Shortening/Ejection Fraction 2D/MM LV Fractional Shortening (2D) 32 % 27-45 LV EF (2D Teicholz) 61 % 54-74 LV Diastolic Volume (4C MOD) 94 ml LV EF (4C MOD) 76 % LV Diastolic Volume (2C MOD) 70 ml LV EF (2C MOD) 62 % LV Diastolic Volume (BP MOD) 87 ml 46-106 LV Diastolic Volume Index (BP MOD) 44 ml/m2 29-61 LV Systolic Volume (BP MOD) 25 ml 14-42 LV Systolic Volume Index (BP MOD) 13 ml/m2 8-24 LV EF (BP MOD) 71 % 54-74 LV Diastolic Length (4C) 8.7 cm LV Systolic Length (4C) 6.4 cm LV Stroke Volume (4C MOD) 72 ml Atria Name Value Normal LA Dimensions LA Volume (4C A-L) 100 ml LA Volume (BP A-L) 89 ml RA Dimensions RA Area (4C) 20.9 cm2 <=18.0 Report Signatures
[2024-11-08] MEDS: HYDROcodone/acetaminophen (*CRX) 5-325 MG TABLET 1 TAB PO ×3 (05:36→22:54)
[2024-11-08 05:52] LABS: Basophils Percent Auto 0.4 % (0.2-1.2); Eosinophils Absolute Auto 0.3 K/mm3 (0-0.3); Eosinophils Percent Auto 3.8 % (0-4.4); Hematocrit 38.4 % (37.0-47.0); Hemoglobin 12.6 g/dL (12.0-15.0); Immature Granulocyte Absolute 0.02 K/mm3 (0.00-0.031); Immature Granulocyte Percent A 0.3 % (0-0.5); Lymphocytes Absolute Auto 1.48 K/mm3 (0.9-3.2); Lymphocytes Percent Auto 20.2 % (18.3-44.2); Mean Corpuscular HGB Conc 32.8 g/dl (32-36); Mean Corpuscular Hemoglobin 31.4 pg (26-34); Mean Corpuscular Volume 95.8 fl (80-100); Mean Platelet Volume 10.4 fl (7.4-10.4); Monocytes Absolute Auto 0.6 K/mm3 (0.1-0.6); Monocytes Percent Auto 7.9 % (2.6-8.5); Neutrophils Absolute Auto 4.9 K/mm3 (1.3-6.7); Neutrophils Percent Auto 67.4 % (45.5-73.1); Platelet Count Result 179 k/mm3 (150-375); Red Blood Count 4.01 M/mm3 (4.2-5.4); Red Cell Distribution Width 15.1 % (11.5-14.5); White Blood Count 7.3 K/mm3 (4.5-10.0)
[2024-11-08 06:05] LABS: Alanine Aminotransferase 23 U/L (6-35); Albumin Level 3.7 g/dL (3.5-5.1); Alkaline Phosphatase 85 U/L (38-126); Anion Gap 7 mmol/L (4-12); Aspartate Amino Transferase 19 U/L (14-36); Bilirubin,Total 1.7 mg/dL (0.2-1.3); Blood Urea Nitrogen 15 mg/dL (7-17); Calcium 9.6 mg/dL (8.4-10.2); Carbon Dioxide 28 mmol/L (22-30); Chloride 98 mmol/L (98-107); Estimated CRCL calculation 53 ml/min; Estimated Glomerular Filt Rate > 60; Glucose 114 mg/dL (65-110); Potassium 3.4 mmol/L (3.4-5.0); Sodium 133 mmol/L (137-145)
[2024-11-08] MEDS: HYDROmorphone HCL INJ (*CRX) 1 MG/ML SYR 0.5 MG IV PUSH ×3 (06:47→17:51)
--- NOTE | 2024-11-08 07:14 | P.PNIM_ITS ---
Progress Note: A&P Assessment and Plan (1) Fracture of femoral neck, right, closed: Qualifiers: Encounter type: initial encounter Qualified Code(s): S72.001A - Fracture of unspecified part of neck of right femur, initial encounter for c losed fracture Code(s): S72.001A - Fracture of unspecified part of neck of right femur, initial encounter for closed fracture Status: Acute Assessment and Plan: * Hip and pelvis x-ray shown acute fracture in the subcapital region of the right femoral neck * Orthopedic surgery consulted * Hold Eliquis, SCD's for now * Continue NPO status * Continue pain control * Case management consulted for outpatient rehab needs (2) CHF (congestive heart failure): Code(s): I50.9 - Heart failure, unspecified Status: Acute Assessment and Plan: * Likely diastolic dysfunction * CXR shown cardiomegaly with cardiac decompensation and pulmonary edema * Patient given a dose of IV push Lasix while in the ER * EKG shown sinus or ectopic atrial bradycardia with a rat of 57, QTc 430, left ventricular hypertrophy * ProBNP 1680 on admission * Echo results pending * Continue to monitor I and O * Obtain daily weight * Continue home dose of Lasix 40 mg -, for now * Continue to hold Eliquis, INR 1.2 (3) Diastolic dysfunction: Code(s): I51.89 - Other ill-defined heart diseases Status: Acute Assessment and Plan: see above plan of care (4) Recurrent falls: Code(s): R29.6 - Repeated falls Status: Acute Assessment and Plan: * History of recurrent falls. Sustained a subdural hematoma and left displaced intratrochanteric fracture leading to ORIF in the past. * Case coordination following for potential rehab needs * PT and OT when appropriate * Continue fall precautions (5) Elevated bilirubin: Code(s): R17 - Unspecified jaundice Status: Acute Assessment and Plan: * Total bilirubin initially 1.4>1.7 * Will obtain Hepatitis panel * US of liver ordered * S/P cholecystectomy (6) Hypertension: Qualifiers: Hypertension type: primary hypertension Qualified Code(s): I10 - Essential (primary) hypertension Code(s): I10 - Essential (primary) hypertension Status: Chronic Assessment and Plan: * blood pressure ranging 114/68-205/91 * continue hydralazine (7) Atrial fibrillation: Code(s): I48.91 - Unspecified atrial fibrillation Status: Acute Assessment and Plan: * Hold eliquis * Continue Propranolol (8) Depressed: Code(s): F32.A - Depression, unspecified Status: Acute Assessment and Plan: * Continue Lexapro Time Spent With Patient Time with patient: 25 - 35 minutes Subjective Date/time seen: 11/08/24 07:14 Interval history: Interval summary: This is an 83 year old female with significant past medical history of Memory deficit, essential tremor, osteoarthritis, hypertension, depression, frequent falls, former smoker who presented to the hospital for evaluation after sustaining a ground level fall. Work up in the hospital included a hip/pelvis x- ray which shown an acute fracture in the subcapital region of the right femoral neck. Chest x-ray shown cardiomegaly with cardiac decompensation and pulmonary edema. Initial labs shown a normal WBC count 8.0, Na+ 136, total bili 1.4, BG ranging 113-114, proBNP 1680. UA was obtained and was negative.EKG shown sinus bradycardia with left ventricular hypertrophy with rate of 57, QTc 430. Patient was given 40 mg IV push Lasix and pain medication while in the ER. Orthopedic surgery has been consulted. Echo ordered. Subjective: Patient reporting 6/10 pain in right hip. She denies any other complaints today. Labs reviewed. Review of Systems Review of Systems: All systems reviewed & are unremarkable except as noted in HPI and below Exam Narrative: General: In no acute distress, well nourished Head: atraumatic, no encephalopathy Eyes: PERRLA, sclera clear ENT: moist mucous membranes, nasal passages clear Neck: supple, no JVD, no adenopathy, trachea midline Cardiac: Normal S1 and S2. RRR, No murmur, gallops or friction rubs, peripheral pulses intact. Respiratory: Lungs clear to auscultation, no adventitious lung sounds, currently on 2L NC Gastrointestinal: soft, non-distended, non-tender, normoactive bowel sounds. : rodriguez catheter in place draining clear yellow urine Extremities:Limited ROM of right leg, moves all other extremities without difficulty Skin: clean, dry, intact. No wounds or lesions. Neuro: Alert and oriented x4, cranial nerves intact, no neuro deficits. Psych: normal mood, normal affect, interactive Objective Data Vital Signs Vital Signs: Vital Signs - 24 hr 11/07/24 12:41 11/07/24 13:16 11/07/24 14:01 Temperature 97.5 F L Pulse Rate 59 L 58 L Respiratory Rate 15 17 Blood Pressure 200/86 H 201/91 H Pulse Oximetry 89 L 95 95 Oxygen Delivery Room Air Nasal Cannula Oxygen Flow Rate 2 11/07/24 14:56 11/07/24 14:56 11/07/24 16:01 Temperature Pulse Rate 59 L 59 L 65 Respiratory Rate 15 12 Blood Pressure 217/87 H 199/83 H Pulse Oximetry 95 97 Oxygen Delivery Oxygen Flow Rate 11/07/24 16:01 11/07/24 17:11 11/07/24 17:49 Temperature Pulse Rate 65 65 68 Respiratory Rate 13 15 Blood Pressure 216/90 H 197/87 H Pulse Oximetry 95 95 Oxygen Delivery Oxygen Flow Rate 11/07/24 18:18 11/07/24 18:57 11/07/24 20:00 Temperature 98.1 F Pulse Rate 68 65 105 H Respiratory Rate 20 18 Blood Pressure 205/91 H 169/69 H Pulse Oximetry 95 95 Oxygen Delivery Oxygen Flow Rate 11/07/24 20:05 11/07/24 22:02 11/08/24 00:00 Temperature 97.6 F Pulse Rate 112 H 104 H Respiratory Rate 16 Blood Pressure 114/68 Pulse Oximetry 95 95 Oxygen Delivery Nasal Cannula Oxygen Flow Rate 2 11/08/24 04:00 Temperature Pulse Rate 103 H Respiratory Rate Blood Pressure Pulse Oximetry Oxygen Delivery Oxygen Flow Rate Intake/Output Intake/Output: Intake & Output 11/05/24 11/06/24 11/07/24 11/08/24 23:59 23:59 23:59 23:59 Output Total 1360 Balance -1360 Meds/Results Medications: Active Medications Generic Name Dose Route Start Last Admin Trade Name Freq PRN Reason Stop Dose Admin Acetaminophen 650 mg 11/07/24 17:37 Acetaminophen 325 Mg Tablet PO Q6H PRN Mild Pain (1-3) or Fever Hydrocodone Bitart/Acetaminophen 1 tab 11/07/24 17:37 11/08/24 05:36 Hydrocodone/Acetaminophen (*Crx) 5-325 Mg Tablet PO 1 tab Q6H PRN Administration Pain Rated 4-6 Escitalopram Oxalate 10 mg 11/08/24 09:00 Escitalopram Oxalate 10 Mg Tablet PO DAILY LULY Furosemide 40 mg 11/10/24 09:00 Furosemide 40 Mg Tablet PO MoWeFr LULY Hydralazine HCl 25 mg 11/08/24 09:00 Hydralazine Hcl 25 Mg Tablet PO BID LULY Hydromorphone HCl 0.5 mg 11/07/24 16:58 11/08/24 06:47 Hydromorphone Hcl Inj (*Crx) 1 Mg/Ml Syr IV PUSH 0.5 mg Q4H PRN Administration Pain Rated 7-10 Naloxone HCl 0.1 mg 11/07/24 17:37 Naloxone Hcl 0.4 Mg/Ml Vial IV PUSH Q5MIN PRN Sedation Perflutren Lipid Microsphere 0 ml 11/07/24 17:35 Perflutren Lipid Microspheres 1.5 Ml Vial Diluted To 10 Ml Total Volume IV PUSH 11/10/24 17:35 ONCE PRN adequate visualization Protocol Propranolol HCl 20 mg 11/08/24 09:00 Propranolol Hcl 20 Mg Tablet PO Q12HR LULY Senna/Docusate Sodium 1 tab 11/07/24 17:37 Senna/Docusate Sodium Tablet PO HS PRN Constipation Radiology Results: ITS Impressions Hip/Pelvis X-Ray 11/07/24 14:00 Impression: Acute fracture in the subcapital region of the right femoral neck, as detailed above. Chest X-Ray 11/07/24 16:37 IMPRESSION: Highly suggestive cardiomegaly with cardiac decompensation and pulmonary edema. Pneumonitis cannot be excluded. Clinical correlation advised. Labs Labs: Laboratory Results - last 24 hr 11/07/24 11/07/24 11/07/24 14:15 14:29 14:30 WBC 8.0 RBC 4.19 L Hgb 13.1 Hct 41.0 MCV 97.9 MCH 31.3 MCHC 32.0 RDW 15.2 H Plt Count 195 MPV 10.0 Immature Gran % (Auto) 0.5 Neut % (Auto) 80.2 H Lymph % (Auto) 11.6 L [place] % (Auto) 6.5 Eos % (Auto) 0.8 Baso % (Auto) 0.4 Lymph # (Auto) 0.92 [place] # (Auto) 0.5 Eos # (Auto) 0.1 Baso # (Auto) 0.0 Abs Immat Gran (auto) 0.04 H Absolute Neuts (auto) 6.4 Absolute Nucleated RBC 0.000 Nucleated RBC % 0.0 PT 16.0 H INR 1.2 APTT 29.8 Sodium 136 L Potassium 3.7 Chloride 100 Carbon Dioxide 30 Anion Gap 6 BUN 15 Creatinine 0.76 Estim Creat Clear Calc 47 Estimated GFR > 60 Glucose 113 H Calcium 9.7 Total Bilirubin 1.4 H AST 22 ALT 20 Alkaline Phosphatase 89 NT-Pro-B Natriuret Pep 1680 H Total Protein 7.0 Albumin 4.1 Urine Color Yellow Urine Appearance Clear Urine pH 7.0 Ur Specific [place] 1.006 Urine Protein Negative Urine Glucose (UA) Negative Urine Ketones Negative Ur Blood (Man) Negative Urine Nitrate Negative Urine Bilirubin Negative Urine Urobilinogen 0.2 Leukocyte Esterase Rfl Negative 11/08/24 05:29 WBC 7.3 RBC 4.01 L Hgb 12.6 Hct 38.4 MCV 95.8 MCH 31.4 MCHC 32.8 RDW 15.1 H Plt Count 179 MPV 10.4 Immature Gran % (Auto) 0.3 Neut % (Auto) 67.4 Lymph % (Auto) 20.2 [place] % (Auto) 7.9 Eos % (Auto) 3.8 Baso % (Auto) 0.4 Lymph # (Auto) 1.48 [place] # (Auto) 0.6 Eos # (Auto) 0.3 Baso # (Auto) 0.0 Abs Immat Gran (auto) 0.02 Absolute Neuts (auto) 4.9 Absolute Nucleated RBC 0.000 Nucleated RBC % 0.0 PT INR APTT Sodium 133 L Potassium 3.4 Chloride 98 Carbon Dioxide 28 Anion Gap 7 BUN 15 Creatinine 0.79 Estim Creat Clear Calc 53 Estimated GFR > 60 Glucose 114 H Calcium 9.6 Total Bilirubin 1.7 H AST 19 ALT 23 Alkaline Phosphatase 85 NT-Pro-B Natriuret Pep Total Protein 7.0 Albumin 3.7 Urine Color Urine Appearance Urine pH Ur Specific [place] Urine Protein Urine Glucose (UA) Urine Ketones Ur Blood (Man) Urine Nitrate Urine Bilirubin Urine Urobilinogen Leukocyte Esterase Rfl Quality VTE Prophylaxis VTE prophylaxis: mechanical ordered
[2024-11-08 07:57] LABS: Magnesium 1.8 mg/dL (1.6-2.3)
[2024-11-08 08:13] LABS: Hemoglobin A1C 5.5 % (<5.7)
[2024-11-08 08:42] LABS: Hepatitis B Surface Antigen Negative (Negative)
[2024-11-08 08:48] LABS: HAV RESULT Negative (Negative); Hepatitis B Core IgM Result Negative (Negative)
[2024-11-08 08:59] LABS: Hepatitis C Virus Antibody Negative (Negative)
--- NOTE | 2024-11-08 10:57 | PCPTNOTE ---
Patient has not had her orthopedic consult yet. Will check again in PM.
[2024-11-08] MEDS: hydrALAZINE HCL 25 MG TABLET PO (17:09)
[2024-11-08] MEDS: PROPRANOLOL HCL 20 MG TABLET PO (21:23)
[2024-11-09] VITALS (11 sets, daily range): BP systolic 131–160; BP diastolic 64–83; PULSE 65–111; RESP 15–18; TEMP 36.2–36.8; O2SAT 91–94
[2024-11-09] MEDS: HYDROcodone/acetaminophen (*CRX) 5-325 MG TABLET 1 TAB PO ×3 (04:26→21:29)
[2024-11-09 07:49] LABS: Hematocrit 37.6 % (37.0-47.0); Hemoglobin 12.4 g/dL (12.0-15.0); Mean Corpuscular Hemoglobin 31.6 pg (26-34); Mean Corpuscular Volume 95.7 fl (80-100); Mean Platelet Volume 9.9 fl (7.4-10.4); Platelet Count Result 159 k/mm3 (150-375); Red Blood Count 3.93 M/mm3 (4.2-5.4); Red Cell Distribution Width 14.9 % (11.5-14.5); White Blood Count 7.3 K/mm3 (4.5-10.0)
[2024-11-09 07:56] LABS: Alanine Aminotransferase 19 U/L (6-35); Albumin Level 3.5 g/dL (3.5-5.1); Alkaline Phosphatase 77 U/L (38-126); Anion Gap 6 mmol/L (4-12); Aspartate Amino Transferase 16 U/L (14-36); Bilirubin,Total 1.7 mg/dL (0.2-1.3); Blood Urea Nitrogen 15 mg/dL (7-17); Calcium 9.4 mg/dL (8.4-10.2); Carbon Dioxide 29 mmol/L (22-30); Chloride 98 mmol/L (98-107); Estimated CRCL calculation 62 ml/min; Estimated Glomerular Filt Rate > 60; Glucose 116 mg/dL (65-110); Potassium 3.4 mmol/L (3.4-5.0); Sodium 133 mmol/L (137-145)
[2024-11-09] MEDS: PROPRANOLOL HCL 20 MG TABLET PO ×2 (08:07→21:29)
[2024-11-09] MEDS: hydrALAZINE HCL 25 MG TABLET PO ×2 (08:07→16:09)
[2024-11-09] MEDS: ESCITALOPRAM OXALATE 10 MG TABLET PO (08:07)
[2024-11-09] MEDS: LORATADINE 10 MG TABLET PO ×2 (10:19→10:31)
--- NOTE | 2024-11-09 11:49 | P.PNIM_ITS ---
Progress Note: A&P Assessment and Plan (1) Fracture of femoral neck, right, closed: Qualifiers: Encounter type: initial encounter Qualified Code(s): S72.001A - Fracture of unspecified part of neck of right femur, initial encounter for c losed fracture Code(s): S72.001A - Fracture of unspecified part of neck of right femur, initial encounter for closed fracture Status: Acute Assessment and Plan: Hip/pelvic XR showed an acute fracture in the subcapital region of the right femoral neck (displaced), prior ORIF of the proximal left femur noted. Orthopedics was consulted and plan for surgery on 11/10/2024. * Hold Patricia, ALEXA's for now * Continue NPO status * Continue pain control * PT/OT post-op * Case management consulted for outpatient rehab needs (2) Recurrent falls: Code(s): R29.6 - Repeated falls Status: Acute Assessment and Plan: History of recurrent falls. Per chart review, patient had 3 falls in July of 2024 and a fall in April of 2024 leading to a subdural hematoma. Fall in 2022 leading to a left displaced intratrochanteric fracture. Recent admission to [facility] [place] from 08/28/2024 to 09/08/2024 for debility in the setting of SDH, UTI, memory impairments. Care coordination consulted for DC planning, suspect patient will need rehab postop. * PT and OT when appropriate * Continue fall precautions (3) Hypertension: Qualifiers: Hypertension type: primary hypertension Qualified Code(s): I10 - Essential (primary) hypertension Code(s): I10 - Essential (primary) hypertension Status: Chronic Assessment and Plan: * blood pressure ranging 114/68-205/91 * continue hydralazine * monitor BP per unit protocol (4) Atrial fibrillation: Code(s): I48.91 - Unspecified atrial fibrillation Status: Acute Assessment and Plan: EKG on admission showing sinus atrial bradycardia * Hold eliquis * Continue Propranolol (5) Depressed: Code(s): F32.A - Depression, unspecified Status: Acute Assessment and Plan: * Continue Lexapro (6) Acute on chronic diastolic heart failure: Code(s): I50.33 - Acute on chronic diastolic (congestive) heart failure Status: Acute Assessment and Plan: Diastolic dysfunction. No echo on file. BNP 1680. Check echo. CXR showing findings highly suggestive of cardiomegaly with cardiac decompensation and pulmonary edema, pneumonitis cannot be excluded. Patient given Lasix 40 mg IV in the ED, tolerated well transitioned back to home Lasix: 40 mg QMWF. EKG shown sinus or ectopic atrial bradycardia with a rat of 57, QTc 430, left ventricular hypertrophy. follow-up echocardiogram this admission shows left ventricle is normal size with hyperdynamic systolic function there is severe concentric left ventricular hypertrophy LVEF greater than 70% * Continue to monitor I and O * Obtain daily weight * Continue to hold Eliquis, INR 1.2 Plan Code status: Full code per patient DVT prophylaxis: SCD's/ Eliquis post-op Stress ulcer prophylaxis: Protonix 40 daily PT/OT notes: PT/OT postop Disposition: patient continues admission to the medical unit for right closed femoral fracture plan for surgery 11/10/2024 PT/ OT postop will likely need rehab services for discharge care coordination consulted. Time Spent With Patient Time with patient: 15 - 25 minutes Subjective Date/time seen: 11/09/24 11:49 Interval history: Interval summary: This is an 83 year old female hip/pelvis x-ray which shown an acute fracture in the subcapital region of the right femoral neck. Chest x-ray shown cardiomegaly with cardiac decompensation and pulmonary edema. Plan for surgery 11/10/2024. Subjective: Patient reporting mild pain but controlled. Patient denied CP, SOB, N/V but did have some nasal congestion. Review of Systems Review of Systems: All systems reviewed & are unremarkable except as noted in HPI and below Exam Const: General: comfortable and no acute distress Other: Pleasant female pain controlled HENMT: Face/Nose/Sinus: Normal nares present Mouth: Yes moist mucous membranes Eyes: General: appearance normal, both eyes and all related structures Pupils: Equal, round and reactive pupils present Neck: Neck: supple Resp: Effort & Inspection: normal respiratory effort Auscultation: clear to auscultation bilaterally Cardio: Rate: regular rate Rhythm: regular rhythm Other: S1-S2 present without murmur, rub, ectopy GI: GI Palp: Yes Soft to palpation Auscultation: normal bowel sounds Skin: General skin exam: normal color and no rashes or lesions noted Wounds: no wounds Neuro: Cranial nerves: Yes Equal, round and reactive pupils present Speech: normal speech Sensory Exam: normal sensation Other: A&O x4. Extrem: Other: Pain with palpation over right hip. DP pulses intact bilaterally. 1+ pitting edema to bilateral lower extremities, symmetric. Psych: Mental Status: mental status grossly normal Affect: normal affect Objective Data Vital Signs Vital Signs: Vital Signs - 24 hr 11/08/24 12:00 11/08/24 14:20 11/08/24 16:00 Temperature 98.2 F Pulse Rate 105 H 106 H 107 H Respiratory Rate 16 Blood Pressure 106/47 L Pulse Oximetry 95 Oxygen Delivery Fraction of Inspired Oxygen 11/08/24 17:06 11/08/24 20:00 11/08/24 20:00 Temperature Pulse Rate 120 H 97 97 Respiratory Rate 18 16 Blood Pressure 154/60 H Pulse Oximetry 92 Oxygen Delivery Room Air Fraction of Inspired Oxygen 28 11/08/24 21:33 11/09/24 00:00 11/09/24 04:55 Temperature 98.2 F 97.6 F Pulse Rate 97 111 H 85 Respiratory Rate 16 16 Blood Pressure 133/76 156/76 H Pulse Oximetry 92 91 Oxygen Delivery Fraction of Inspired Oxygen 11/09/24 08:00 11/09/24 08:05 11/09/24 08:07 Temperature 97.2 F L Pulse Rate 103 H 88 90 Respiratory Rate 16 Blood Pressure 131/83 Pulse Oximetry 93 Oxygen Delivery Fraction of Inspired Oxygen 11/09/24 08:07 Temperature Pulse Rate Respiratory Rate Blood Pressure Pulse Oximetry 93 Oxygen Delivery Room Air Fraction of Inspired Oxygen Intake/Output Intake/Output: Intake & Output 11/06/24 11/07/24 11/08/24 11/09/24 23:59 23:59 23:59 23:59 Intake Total 540 787 Output Total 1360 300 650 Balance -1360 240 137 Meds/Results Medications: Active Medications Generic Name Dose Route Start Last Admin Trade Name Freq PRN Reason Stop Dose Admin Acetaminophen 650 mg 11/07/24 17:37 Acetaminophen 325 Mg Tablet PO Q6H PRN Mild Pain (1-3) or Fever Hydrocodone Bitart/Acetaminophen 1 tab 11/07/24 17:37 11/09/24 04:26 Hydrocodone/Acetaminophen (*Crx) 5-325 Mg Tablet PO 1 tab Q6H PRN Administration Pain Rated 4-6 Escitalopram Oxalate 10 mg 11/08/24 09:00 11/09/24 08:07 Escitalopram Oxalate 10 Mg Tablet PO 10 mg DAILY LULY Administration Furosemide 40 mg 11/10/24 09:00 Furosemide 40 Mg Tablet PO MoWeFr [facility] Hydralazine HCl 25 mg 11/08/24 09:00 11/09/24 08:07 Hydralazine Hcl 25 Mg Tablet PO 25 mg BID LULY Administration Hydromorphone HCl 0.5 mg 11/07/24 16:58 11/08/24 17:51 Hydromorphone Hcl Inj (*Crx) 1 Mg/Ml Syr IV PUSH 0.5 mg Q4H PRN Administration Pain Rated 7-10 Loratadine 10 mg 11/09/24 08:40 11/09/24 10:31 Loratadine 10 Mg Tablet PO 10 mg QAM LULY Administration Naloxone HCl 0.1 mg 11/07/24 17:37 Naloxone Hcl 0.4 Mg/Ml Vial IV PUSH Q5MIN PRN Sedation Perflutren Lipid Microsphere 0 ml 11/07/24 17:35 Perflutren Lipid Microspheres 1.5 Ml Vial Diluted To 10 Ml Total Volume IV PUSH 11/10/24 17:35 ONCE PRN adequate visualization Protocol Perflutren Lipid Microsphere 0 ml 11/08/24 07:21 Perflutren Lipid Microspheres 1.5 Ml Vial Diluted To 10 Ml Total Volume IV PUSH 11/11/24 07:21 ONCE PRN adequate visualization Protocol Propranolol HCl 20 mg 11/08/24 09:00 11/09/24 08:07 Propranolol Hcl 20 Mg Tablet PO 20 mg Q12HR LULY Administration Senna/Docusate Sodium 1 tab 11/07/24 17:37 Senna/Docusate Sodium Tablet PO HS PRN Constipation Radiology Results: ITS Impressions Hip/Pelvis X-Ray 11/07/24 14:00 Impression: Acute fracture in the subcapital region of the right femoral neck, as detailed above. Chest X-Ray 11/07/24 16:37 IMPRESSION: Highly suggestive cardiomegaly with cardiac decompensation and pulmonary edema. Pneumonitis cannot be excluded. Clinical correlation advised. Abdomen Ultrasound 11/08/24 12:13 IMPRESSION: Hepatic steatosis. Cholecystectomy. Labs Labs: Laboratory Results - last 24 hr 11/09/24 07:40 WBC 7.3 RBC 3.93 L Hgb 12.4 Hct 37.6 MCV 95.7 MCH 31.6 MCHC 33.0 RDW 14.9 H Plt Count 159 MPV 9.9 Sodium 133 L Potassium 3.4 Chloride 98 Carbon Dioxide 29 Anion Gap 6 BUN 15 Creatinine 0.66 L Estim Creat Clear Calc 62 Estimated GFR > 60 Glucose 116 H Calcium 9.4 Total Bilirubin 1.7 H AST 16 ALT 19 Alkaline Phosphatase 77 Total Protein 7.0 Albumin 3.5 Quality VTE Prophylaxis VTE prophylaxis: mechanical ordered -Patient's previous records reviewed on admission -ER notes reviewed in detail on admission -discussed all findings and current treatment plan with patient/Family/POA -Consultations reviewed for recommendations -Patient's disposition for safe discharge discussed with director of casework department Dictation performed by [employer] direct speech recognition software, therefore technical information specialist variants and typographical errors may occur. Hospitalist MIPS Advance Care Plan I have confirmed that the patient's Advanced Care Plan is present, code status is documented, or surrogate decision maker is listed in patient medical record.: Yes Medication Reconciliation I have utilized all available resources to obtain, update and review the patients current medications (includes all prescriptions, OTC, herbals, cannabis, and nutritional supplements).: Yes The patient is not eligible for med reconciliation; the patient is in a emergent medical situation where delaying treatment would jeopardize the patients health.: No
[2024-11-09] MEDS: PANTOPRAZOLE 40 MG TABLET PO (12:30)
[2024-11-10] VITALS (12 sets, daily range): BP systolic 140–174; BP diastolic 53–85; PULSE 63–75; RESP 16–18; TEMP 36.2–36.6; O2SAT 90–94
[2024-11-10] MEDS: HYDROmorphone HCL INJ (*CRX) 1 MG/ML SYR 0.5 MG IV PUSH (01:07)
[2024-11-10 05:30] LABS: Hematocrit 35.2 % (37.0-47.0); Hemoglobin 11.5 g/dL (12.0-15.0); Mean Corpuscular HGB Conc 32.7 g/dl (32-36); Mean Corpuscular Hemoglobin 31.9 pg (26-34); Mean Corpuscular Volume 97.5 fl (80-100); Mean Platelet Volume 10.3 fl (7.4-10.4); Platelet Count Result 145 k/mm3 (150-375); Red Blood Count 3.61 M/mm3 (4.2-5.4); White Blood Count 7.2 K/mm3 (4.5-10.0)
[2024-11-10 05:51] LABS: Alanine Aminotransferase 15 U/L (6-35); Albumin Level 3.3 g/dL (3.5-5.1); Alkaline Phosphatase 71 U/L (38-126); Anion Gap 8 mmol/L (4-12); Aspartate Amino Transferase 13 U/L (14-36); Bilirubin,Total 1.4 mg/dL (0.2-1.3); Blood Urea Nitrogen 14 mg/dL (7-17); Calcium 9.2 mg/dL (8.4-10.2); Carbon Dioxide 27 mmol/L (22-30); Chloride 96 mmol/L (98-107); Estimated CRCL calculation 64 ml/min; Estimated Glomerular Filt Rate > 60; Glucose 105 mg/dL (65-110); Potassium 3.5 mmol/L (3.4-5.0); Sodium 131 mmol/L (137-145)
--- NOTE | 2024-11-10 09:11 | P.PNIM_ITS ---
Progress Note: A&P Assessment and Plan (1) Fracture of femoral neck, right, closed: Qualifiers: Encounter type: initial encounter Qualified Code(s): S72.001A - Fracture of unspecified part of neck of right femur, initial encounter for c losed fracture Code(s): S72.001A - Fracture of unspecified part of neck of right femur, initial encounter for closed fracture Status: Acute Assessment and Plan: Hip/pelvic XR showed an acute fracture in the subcapital region of the right femoral neck (displaced), prior ORIF of the proximal left femur noted. Orthopedics was consulted and plan for surgery on 11/11/2024. * rodriguez catheter remove per protocol post-op * Hold Patricia, ALEXA's for now will resume post-op * Continue NPO status * Continue pain control * PT/OT post-op * Case management consulted for outpatient rehab needs (2) Recurrent falls: Code(s): R29.6 - Repeated falls Status: Acute Assessment and Plan: History of recurrent falls. Per chart review, patient had 3 falls in July of 2024 and a fall in April of 2024 leading to a subdural hematoma. Fall in 2022 leading to a left displaced intratrochanteric fracture. Recent admission to [facility] from 08/28/2024 to 09/08/2024 for debility in the setting of SDH, UTI, memory impairments. Care coordination consulted for DC planning, suspect patient will need rehab postop. * PT and OT when appropriate * Continue fall precautions (3) Hypertension: Qualifiers: Hypertension type: primary hypertension Qualified Code(s): I10 - Essential (primary) hypertension Code(s): I10 - Essential (primary) hypertension Status: Chronic Assessment and Plan: * blood pressure ranging 114/68-205/91 * continue hydralazine * monitor BP per unit protocol (4) Atrial fibrillation: Code(s): I48.91 - Unspecified atrial fibrillation Status: Acute Assessment and Plan: EKG on admission showing sinus atrial bradycardia * Marianne law * Continue Propranolol (5) Depressed: Code(s): F32.A - Depression, unspecified Status: Acute Assessment and Plan: * Continue Lexapro (6) Acute on chronic diastolic heart failure: Code(s): I50.33 - Acute on chronic diastolic (congestive) heart failure Status: Acute Assessment and Plan: Diastolic dysfunction. No echo on file. BNP 1680. Check echo. CXR showing findings highly suggestive of cardiomegaly with cardiac decompensation and pulmonary edema, pneumonitis cannot be excluded. Patient given Lasix 40 mg IV in the ED, tolerated well transitioned back to home Lasix: 40 mg QMWF. EKG shown sinus or ectopic atrial bradycardia with a rat of 57, QTc 430, left ventricular hypertrophy. follow-up echocardiogram this admission shows left ventricle is normal size with hyperdynamic systolic function there is severe concentric left ventricular hypertrophy LVEF greater than 70% * Continue to monitor I and O * Obtain daily weight * Continue to hold Eliquis, INR 1.2 Plan Code status: Full code per patient DVT prophylaxis: SCD's/ Eliquis post-op Stress ulcer prophylaxis: Protonix 40 daily PT/OT notes: PT/OT postop Disposition: patient continues admission to the medical unit for right closed femoral fracture plan for surgery 11/10/2024 PT/ OT postop will likely need rehab services for discharge care coordination consulted. Time Spent With Patient Time with patient: 15 - 25 minutes Subjective Date/time seen: 11/10/24 09:11 Interval history: Interval summary: This is an 83 year old female hip/pelvis x-ray which shown an acute fracture in the subcapital region of the right femoral neck. Chest x-ray shown cardiomegaly with cardiac decompensation and pulmonary edema. Plan for surgery 11/10/2024. Subjective: 11/10/2024 Patient with no complaints, pain controlled surgery moved to tomorrow 11/11/2024. Review of Systems Review of Systems: All systems reviewed & are unremarkable except as noted in HPI and below Exam Const: General: comfortable and no acute distress Other: Pleasant female pain controlled HENMT: Face/Nose/Sinus: Normal nares present Mouth: Yes moist mucous membranes Eyes: General: appearance normal, both eyes and all related structures Sclera: sclerae normal Pupils: Equal, round and reactive pupils present EOM: EOMs intact bilaterally Neck: Neck: supple Resp: Effort & Inspection: normal respiratory effort Auscultation: clear to auscultation bilaterally Cardio: Rate: regular rate Rhythm: regular rhythm Other: S1-S2 present without murmur, rub, ectopy GI: Auscultation: normal bowel sounds Other: Abdomen soft, nondistended, nontender. Normoactive bowel sounds in all quadrants. Skin: General skin exam: normal color and no rashes or lesions noted Wounds: no wounds Neuro: Cranial nerves: Yes Equal, round and reactive pupils present Speech: normal speech Motor exam (neuro): 5/5 motor strength present throughout (Somewhat reduced in the right lower extremity secondary to pain.) Sensory Exam: normal sensation Other: A&O x4. Extrem: Other: Pain with palpation over right hip. DP pulses intact bilaterally. 1+ pitting edema to bilateral lower extremities, symmetric. Psych: Mental Status: mental status grossly normal Affect: normal affect Other: Good insight and judgment, pleasant. Objective Data Vital Signs Vital Signs: Vital Signs - 24 hr 11/09/24 12:00 11/09/24 15:55 11/09/24 16:00 Temperature 98.2 F Pulse Rate 71 66 65 Respiratory Rate 15 Blood Pressure 141/64 H Pulse Oximetry 94 Oxygen Delivery 11/09/24 20:00 11/09/24 20:00 11/09/24 21:29 Temperature Pulse Rate 71 75 Respiratory Rate Blood Pressure Pulse Oximetry Oxygen Delivery Room Air 11/09/24 22:00 11/10/24 00:00 11/10/24 04:00 Temperature 98.2 F Pulse Rate 75 75 64 Respiratory Rate 18 Blood Pressure 160/70 H Pulse Oximetry 93 Oxygen Delivery 11/10/24 05:18 Temperature 97.9 F Pulse Rate 63 Respiratory Rate 18 Blood Pressure 140/54 L Pulse Oximetry 90 Oxygen Delivery Intake/Output Intake/Output: Intake & Output 11/07/24 11/08/24 11/09/24 11/10/24 23:59 23:59 23:59 23:59 Intake Total 540 1504 300 Output Total 2245 750 0214 350 Balance -1360 240 204 -50 Meds/Results Medications: Active Medications Generic Name Dose Route Start Last Admin Trade Name Freq PRN Reason Stop Dose Admin Acetaminophen 650 mg 11/07/24 17:37 Acetaminophen 325 Mg Tablet PO Q6H PRN Mild Pain (1-3) or Fever Hydrocodone Bitart/Acetaminophen 1 tab 11/07/24 17:37 11/09/24 21:29 Hydrocodone/Acetaminophen (*Crx) 5-325 Mg Tablet PO 1 tab Q6H PRN Administration Pain Rated 4-6 Escitalopram Oxalate 10 mg 11/08/24 09:00 11/09/24 08:07 Escitalopram Oxalate 10 Mg Tablet PO 10 mg DAILY LULY Administration Furosemide 40 mg 11/10/24 09:00 Furosemide 40 Mg Tablet PO MoWeFr LULY Hydralazine HCl 25 mg 11/08/24 09:00 11/09/24 16:09 Hydralazine Hcl 25 Mg Tablet PO 25 mg BID LULY Administration Hydromorphone HCl 0.5 mg 11/07/24 16:58 11/10/24 01:07 Hydromorphone Hcl Inj (*Crx) 1 Mg/Ml Syr IV PUSH 0.5 mg Q4H PRN Administration Pain Rated 7-10 Loratadine 10 mg 11/09/24 08:40 11/09/24 10:31 Loratadine 10 Mg Tablet PO 10 mg QAM LULY Administration Naloxone HCl 0.1 mg 11/07/24 17:37 Naloxone Hcl 0.4 Mg/Ml Vial IV PUSH Q5MIN PRN Sedation Pantoprazole Sodium 40 mg 11/09/24 12:10 11/09/24 12:30 Pantoprazole 40 Mg Tablet PO 40 mg QAM LULY Administration Perflutren Lipid Microsphere 0 ml 11/07/24 17:35 Perflutren Lipid Microspheres 1.5 Ml Vial Diluted To 10 Ml Total Volume IV PUSH 11/10/24 17:35 ONCE PRN adequate visualization Protocol Perflutren Lipid Microsphere 0 ml 11/08/24 07:21 Perflutren Lipid Microspheres 1.5 Ml Vial Diluted To 10 Ml Total Volume IV PUSH 11/11/24 07:21 ONCE PRN adequate visualization Protocol Propranolol HCl 20 mg 11/08/24 09:00 11/09/24 21:29 Propranolol Hcl 20 Mg Tablet PO 20 mg Q12HR LULY Administration Senna/Docusate Sodium 1 tab 11/07/24 17:37 Senna/Docusate Sodium Tablet PO HS PRN Constipation Radiology Results: ITS Impressions Hip/Pelvis X-Ray 11/07/24 14:00 Impression: Acute fracture in the subcapital region of the right femoral neck, as detailed above. Chest X-Ray 11/07/24 16:37 IMPRESSION: Highly suggestive cardiomegaly with cardiac decompensation and pulmonary edema. Pneumonitis cannot be excluded. Clinical correlation advised. Abdomen Ultrasound 11/08/24 12:13 IMPRESSION: Hepatic steatosis. Cholecystectomy. Labs Labs: Laboratory Results - last 24 hr 11/10/24 04:28 WBC 7.2 RBC 3.61 L Hgb 11.5 L Hct 35.2 L MCV 97.5 MCH 31.9 MCHC 32.7 RDW 15.0 H Plt Count 145 L MPV 10.3 Sodium 131 L Potassium 3.5 Chloride 96 L Carbon Dioxide 27 Anion Gap 8 BUN 14 Creatinine 0.62 L Estim Creat Clear Calc 64 Estimated GFR > 60 Glucose 105 Calcium 9.2 Total Bilirubin 1.4 H AST 13 L ALT 15 Alkaline Phosphatase 71 Total Protein 6.0 L Albumin 3.3 L Quality VTE Prophylaxis VTE prophylaxis: mechanical ordered -Patient's previous records reviewed on admission -ER notes reviewed in detail on admission -discussed all findings and current treatment plan with patient/Family/POA -Consultations reviewed for recommendations -Patient's disposition for safe discharge discussed with rn case mgr Dictation performed by [employer] direct speech recognition software, therefore msw variants and typographical errors may occur. Hospitalist MIPS Advance Care Plan I have confirmed that the patient's Advanced Care Plan is present, code status is documented, or surrogate decision maker is listed in patient medical record.: Yes Medication Reconciliation I have utilized all available resources to obtain, update and review the patients current medications (includes all prescriptions, OTC, herbals, cannabis, and nutritional supplements).: Yes The patient is not eligible for med reconciliation; the patient is in a emergent medical situation where delaying treatment would jeopardize the patients health.: No
[2024-11-10] MEDS: HYDROcodone/acetaminophen (*CRX) 5-325 MG TABLET 1 TAB PO ×3 (11:23→23:30)
[2024-11-10] MEDS: PROPRANOLOL HCL 20 MG TABLET PO ×2 (11:25→21:04)
[2024-11-10] MEDS: ESCITALOPRAM OXALATE 10 MG TABLET PO (11:25)
[2024-11-10] MEDS: PANTOPRAZOLE 40 MG TABLET PO (11:25)
[2024-11-10] MEDS: hydrALAZINE HCL 25 MG TABLET PO ×2 (11:25→17:22)
[2024-11-10] MEDS: LORATADINE 10 MG TABLET PO (11:25)
[2024-11-10] MEDS: FUROSEMIDE 40 MG TABLET PO (11:28)
--- NOTE | 2024-11-10 14:15 | P.CONOP_ITS ---
Assessment and Plan Assessment and plan (1) Fracture of femoral neck, right, closed: Qualifiers: Encounter type: initial encounter Qualified Code(s): S72.001A - Fracture of unspecified part of neck of right femur, initial encounter for closed fracture Code(s): S72.001A - Fracture of unspecified part of neck of right femur, initial encounter for closed fracture Status: Acute Plan Displaced right femoral neck fracture. Will benefit from bipolar hemiarthroplasty. Risks benefits and alternatives discussed. Anticipate 2-4 weeks rehab. Proceed with right hip bipolar hemiarthroplasty. History of Present Illness HPI Consult date: 11/10/24 Chief complaint: hip fracture Narrative: Patient complains of acute right hip pain. Fell from standing height while making her bed. She lives at home alone. Typically uses a cane. Admitted through the emergency room for definitive management. No previous hip pain. Comfortable at rest. No numbness, tingling, or other associated symptoms. I fixed the contralateral hip with an intramedullary nail last year. Review of Systems 2 Review of Systems: Denies loss of consciousness. All systems reviewed & are unremarkable except as noted in HPI and below PMFSH Past Medical History Medical History (Updated 11/09/24 @ 12:03 by Argenis Avila APRN) Atrial fibrillation History of subdural hematoma Diastolic dysfunction Memory deficit Depressed Recurrent UTI Recurrent falls Impairment of balance Bilateral primary osteoarthritis of knee Essential tremor Obesity Osteoarthritis Ankle fracture, right (2007) Intertrochanteric fracture of left hip (11/2022) SP cephalomedullary nailing dr ramirez Hypertension Surgical History Surgical History History of orthopedic surgery Repair of ankle fracture in 2007 and left hip fracture in November 2022. History of cholecystectomy History of appendectomy Family History Family History Father Cerebrovascular accident Essential tremor Mother AAA (abdominal aortic aneurysm) Social History Social History Social History: Patient lives at home independently. 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 She designates her son, Lionel, as her surrogate decision maker. Smoking packs per day: 1 Smoking cigarettes per day: 20.0 Years smoked: 10 Smoking pack-years: 10.00 Smoking status: Former smoker Tobacco type: cigarettes Second hand tobacco smoke exposure: No Smoking end date: 03/30/79 Alcohol intake: current Drinks per week: 1 Alcohol use details: One 4-6 oz glass of wine nightly Substance use: never Substance use type: does not use Other substance usage details: 4 oz glass of wine sometimes Do You Feel Safe in your Home?: Yes Lack of Transportation: No Lack of Food: Never True Current Housing: I Have Housing Concerned About Future Housing: No Difficulty Paying Gas/Electric Bills: No Difficulty Paying for Meds: No Currently Unemployed: No Education: Master's Degree or Higher Difficulty w/ Childcare or Family Care: No Gender identity (if verbalized by the patient): Female Sexual Orientation (if Verbalized by the Patient): Straight or Heterosexual Spiritual care concerns: No Agree to blood products: Yes Meds Home Medications and Allergies Home Medications ?Medication ?Instructions ?Recorded ?Confirmed ?Type escitalopram oxalate 10 mg tablet 10 mg PO DAILY #30 tabs 09/02/24 11/07/24 Rx furosemide 40 mg tablet 40 mg PO QMWF #12 tabs 09/02/24 11/07/24 Rx propranolol 20 mg tablet 20 mg PO BID #60 tabs 09/02/24 11/07/24 Rx apixaban 5 mg tablet (Eliquis) 5 mg PO Q12H 11/07/24 11/07/24 History hydralazine 25 mg tablet 25 mg PO BID 11/07/24 11/07/24 History Allergies Allergy/AdvReac Type Severity Reaction Status Date / Time Sulfa (Sulfonamide AdvReac Intermediate Nausea Verified 11/07/24 13:15 Antibiotics) lisinopril AdvReac Cough Verified 11/07/24 13:15 Vital Signs Vital Signs - 24 hr 11/09/24 15:55 11/09/24 16:00 11/09/24 20:00 Temperature 36.8 C Pulse Rate 66 65 Respiratory Rate 15 Blood Pressure 141/64 H Pulse Oximetry 94 Oxygen Delivery Room Air Fraction of Inspired Oxygen 11/09/24 20:00 11/09/24 21:29 11/09/24 22:00 Temperature 36.8 C Pulse Rate 71 75 75 Respiratory Rate 18 Blood Pressure 160/70 H Pulse Oximetry 93 Oxygen Delivery Fraction of Inspired Oxygen 11/10/24 00:00 11/10/24 04:00 11/10/24 05:18 Temperature 36.6 C Pulse Rate 75 64 63 Respiratory Rate 18 Blood Pressure 140/54 L Pulse Oximetry 90 Oxygen Delivery Fraction of Inspired Oxygen 11/10/24 11:23 11/10/24 11:23 11/10/24 11:25 Temperature Pulse Rate 67 65 69 Respiratory Rate 16 Blood Pressure Pulse Oximetry 93 Oxygen Delivery Room Air Fraction of Inspired Oxygen 11/10/24 11:30 11/10/24 12:00 Temperature 36.2 C L Pulse Rate 67 65 Respiratory Rate 16 Blood Pressure 172/85 H Pulse Oximetry 93 Oxygen Delivery Fraction of Inspired Oxygen Exam 2 Narrative: Lower extremity shortened and externally rotated. Const: General: no acute distress Eyes: General: appearance normal, both eyes and all related structures Resp: Effort & Inspection: normal respiratory effort Urinary Catheter: Urinary Catheter: patent and draining and urine clear Skin: General skin exam: no rashes or lesions noted Neuro: Speech: normal speech Other: Wiggles toes well. Capillary refill brisk. Distal light touch sensation intact. Dorsalis pedis pulse palpable. Extrem: Other: No edema. Psych: Mental Status: mental status grossly normal Results Labs 11/10/24 04:28 11/10/24 04:28 Labs: Abnormal lab results 11/10/24 Range/Units 04: RBC 3.61 L (4.2-5.4) M/mm3 Hgb 11.5 L (12.0-15.0) g/dL Hct 35.2 L (37.0-47.0) % RDW 15.0 H (11.5-14.5) % Plt Count 145 L (150-375) k/mm3 Sodium 131 L (137-145) mmol/L Chloride 96 L (98-107) mmol/L Creatinine 0.62 L (0.7-1.0) mg/dL Total Bilirubin 1.4 H (0.2-1.3) mg/dL AST 13 L (14-36) U/L Total Protein 6.0 L (6.3-8.2) g/dL Albumin 3.3 L (3.5-5.1) g/dL H & H 11/07/24 11/08/24 11/09/24 Range/Units 14:30 05:29 07:40 Hgb 13.1 12.6 12.4 (12.0-15.0) g/dL Hct 41.0 38.4 37.6 (37.0-47.0) % 11/10/24 Range/Units 04:28 Hgb 11.5 L (12.0-15.0) g/dL Hct 35.2 L (37.0-47.0) % Coagulation 11/07/24 Range/Units 14:30 INR 1.2 All other labs normal. Quality VTE Prophylaxis VTE prophylaxis: mechanical ordered
[2024-11-10] MEDS: AZELASTINE HCL NASAL 0.1% 137 MCG/SPR 30 ML BTL 1 SPRAY NASAL ×2 (18:28→21:04)
[2024-11-11] VITALS (19 sets, daily range): BP systolic 122–158; BP diastolic 61–89; PULSE 61–99; RESP 16–20; TEMP 36.2–36.9; O2SAT 91–100
[2024-11-11] MEDS: HYDROmorphone HCL INJ (*CRX) 1 MG/ML SYR 0.5 MG IV PUSH (03:35)
[2024-11-11 05:18] LABS: Hematocrit 36.3 % (37.0-47.0); Hemoglobin 12.1 g/dL (12.0-15.0); Mean Corpuscular HGB Conc 33.3 g/dl (32-36); Mean Corpuscular Hemoglobin 31.3 pg (26-34); Mean Platelet Volume 10.2 fl (7.4-10.4); Platelet Count Result 178 k/mm3 (150-375); Red Blood Count 3.86 M/mm3 (4.2-5.4); White Blood Count 6.6 K/mm3 (4.5-10.0)
[2024-11-11 05:37] LABS: Alanine Aminotransferase 15 U/L (6-35); Albumin Level 3.4 g/dL (3.5-5.1); Alkaline Phosphatase 76 U/L (38-126); Anion Gap 6 mmol/L (4-12); Aspartate Amino Transferase 13 U/L (14-36); Bilirubin,Total 1.4 mg/dL (0.2-1.3); Blood Urea Nitrogen 16 mg/dL (7-17); Calcium 9.6 mg/dL (8.4-10.2); Carbon Dioxide 29 mmol/L (22-30); Chloride 98 mmol/L (98-107); Estimated CRCL calculation 58 ml/min; Estimated Glomerular Filt Rate > 60; Glucose 108 mg/dL (65-110); Potassium 3.6 mmol/L (3.4-5.0); Sodium 133 mmol/L (137-145)
--- NOTE | 2024-11-11 07:21 | WPDHPUPDATE1 ---
History and Physical Update Update Date/Time: 11/11/24 07:21 History and Physical has been reviewed, including an updated exam of the patient. There are NO changes in the patient's condition. Risks, benefits, and alternatives have been discussed and questions answered. Patient agrees to proceed with procedure.
[2024-11-11] MEDS: HYDROcodone/acetaminophen (*CRX) 5-325 MG TABLET 1 TAB PO (07:27)
[2024-11-11] MEDS: AZELASTINE HCL NASAL 0.1% 137 MCG/SPR 30 ML BTL 1 SPRAY NASAL ×2 (09:07→20:35)
[2024-11-11] MEDS: hydrALAZINE HCL 25 MG TABLET PO (09:08)
[2024-11-11] MEDS: ESCITALOPRAM OXALATE 10 MG TABLET PO (09:08)
[2024-11-11] MEDS: PROPRANOLOL HCL 20 MG TABLET PO ×2 (09:08→20:36)
--- NOTE | 2024-11-11 10:11 | P.PNIM_ITS ---
Progress Note: A&P Assessment and Plan (1) Fracture of femoral neck, right, closed: Qualifiers: Encounter type: initial encounter Qualified Code(s): S72.001A - Fracture of unspecified part of neck of right femur, initial encounter for c losed fracture Code(s): S72.001A - Fracture of unspecified part of neck of right femur, initial encounter for closed fracture Status: Acute Assessment and Plan: Hip/pelvic XR showed an acute fracture in the subcapital region of the right femoral neck (displaced), prior ORIF of the proximal left femur noted. Orthopedics was consulted and plan for surgery on 11/11/2024. * rodriguez catheter remove per protocol post-op * Hold Patricia, ALEXA's for now will resume post-op * Continue NPO status * Continue pain control * PT/OT post-op * Case management consulted for outpatient rehab needs (2) Recurrent falls: Code(s): R29.6 - Repeated falls Status: Acute Assessment and Plan: History of recurrent falls. Per chart review, patient had 3 falls in July of 2024 and a fall in April of 2024 leading to a subdural hematoma. Fall in 2022 leading to a left displaced intratrochanteric fracture. Recent admission to [facility] from 08/28/2024 to 09/08/2024 for debility in the setting of SDH, UTI, memory impairments. Care coordination consulted for DC planning, suspect patient will need rehab postop. * PT and OT when appropriate * Continue fall precautions (3) Hypertension: Qualifiers: Hypertension type: primary hypertension Qualified Code(s): I10 - Essential (primary) hypertension Code(s): I10 - Essential (primary) hypertension Status: Chronic Assessment and Plan: * blood pressure ranging 114/68-205/91 * continue hydralazine * monitor BP per unit protocol (4) Atrial fibrillation: Code(s): I48.91 - Unspecified atrial fibrillation Status: Acute Assessment and Plan: EKG on admission showing sinus atrial bradycardia * Marianne law * Continue Propranolol (5) Depressed: Code(s): F32.A - Depression, unspecified Status: Acute Assessment and Plan: * Continue Lexapro (6) Acute on chronic diastolic heart failure: Code(s): I50.33 - Acute on chronic diastolic (congestive) heart failure Status: Acute Assessment and Plan: Diastolic dysfunction. No echo on file. BNP 1680. Check echo. CXR showing findings highly suggestive of cardiomegaly with cardiac decompensation and pulmonary edema, pneumonitis cannot be excluded. Patient given Lasix 40 mg IV in the ED, tolerated well transitioned back to home Lasix: 40 mg QMWF. EKG shown sinus or ectopic atrial bradycardia with a rat of 57, QTc 430, left ventricular hypertrophy. follow-up echocardiogram this admission shows left ventricle is normal size with hyperdynamic systolic function there is severe concentric left ventricular hypertrophy LVEF greater than 70% * Continue to monitor I and O * Obtain daily weight * Continue to hold Eliquis, INR 1.2 Plan Code status: Full code per patient DVT prophylaxis: SCD's/ Eliquis post-op Stress ulcer prophylaxis: Protonix 40 daily PT/OT notes: PT/OT postop Disposition: patient continues admission to the medical unit for right closed femoral fracture plan for surgery 11/10/2024 PT/ OT postop will likely need rehab services for discharge care coordination consulted. Time Spent With Patient Time with patient: 15 - 25 minutes Subjective Date/time seen: 11/11/24 10:11 Interval history: Interval summary: This is an 83 year old female hip/pelvis x-ray which shown an acute fracture in the subcapital region of the right femoral neck. Chest x-ray shown cardiomegaly with cardiac decompensation and pulmonary edema. Plan for surgery 11/10/2024. Subjective: 11/10/2024 Patient in no acute distress no complaints and pain controlled. Surgery at 3 today Review of Systems Review of Systems: All systems reviewed & are unremarkable except as noted in HPI and below Exam Const: General: comfortable and no acute distress Other: Pleasant female pain controlled HENMT: Face/Nose/Sinus: Normal nares present Mouth: Yes moist mucous membranes Eyes: General: appearance normal, both eyes and all related structures Sclera: sclerae normal Pupils: Equal, round and reactive pupils present EOM: EOMs intact bilaterally Neck: Neck: supple Resp: Effort & Inspection: normal respiratory effort Auscultation: clear to auscultation bilaterally Cardio: Rate: regular rate Rhythm: regular rhythm Other: S1-S2 present without murmur, rub, ectopy GI: Auscultation: normal bowel sounds Other: Abdomen soft, nondistended, nontender. Normoactive bowel sounds in all quadrants. Skin: General skin exam: normal color and no rashes or lesions noted Wounds: no wounds Neuro: Cranial nerves: Yes Equal, round and reactive pupils present Speech: normal speech Motor exam (neuro): 5/5 motor strength present throughout (Somewhat reduced in the right lower extremity secondary to pain.) Sensory Exam: normal sensation Other: A&O x4. Extrem: Other: Pain with palpation over right hip. DP pulses intact bilaterally. 1+ pitting edema to bilateral lower extremities, symmetric. Psych: Mental Status: mental status grossly normal Affect: normal affect Other: Good insight and judgment, pleasant. Objective Data Vital Signs Vital Signs: Vital Signs - 24 hr 11/10/24 11:23 11/10/24 11:23 11/10/24 11:25 Temperature Pulse Rate 67 65 69 Respiratory Rate 16 Blood Pressure Pulse Oximetry 93 Oxygen Delivery Room Air Fraction of Inspired Oxygen 28 11/10/24 11:30 11/10/24 12:00 11/10/24 16:00 Temperature 97.2 F L Pulse Rate 67 65 65 Respiratory Rate 16 Blood Pressure 172/85 H Pulse Oximetry 93 Oxygen Delivery Fraction of Inspired Oxygen 11/10/24 17:15 11/10/24 20:00 11/10/24 20:00 Temperature 97.4 F L Pulse Rate 70 65 Respiratory Rate 16 Blood Pressure 174/53 H Pulse Oximetry 94 Oxygen Delivery Room Air Fraction of Inspired Oxygen 11/10/24 21:04 11/10/24 21:22 11/11/24 00:00 Temperature 98 F Pulse Rate 70 70 64 Respiratory Rate 18 Blood Pressure 155/58 H Pulse Oximetry 94 Oxygen Delivery Fraction of Inspired Oxygen 11/11/24 04:00 11/11/24 06:33 11/11/24 09:06 Temperature 97.4 F L 97.1 F L Pulse Rate 61 62 91 Respiratory Rate 18 16 Blood Pressure 145/61 H 140/80 Pulse Oximetry 94 92 Oxygen Delivery Fraction of Inspired Oxygen 11/11/24 09:08 Temperature Pulse Rate 91 Respiratory Rate Blood Pressure Pulse Oximetry Oxygen Delivery Fraction of Inspired Oxygen Intake/Output Intake/Output: Intake & Output 11/08/24 11/09/24 11/10/24 11/11/24 23:59 23:59 23:59 23:59 Intake Total 540 1504 1130 250 Output Total 300 1300 1450 750 Balance 240 204 320 -500 Meds/Results Medications: Active Medications Generic Name Dose Route Start Last Admin Trade Name Freq PRN Reason Stop Dose Admin Acetaminophen 650 mg 11/07/24 17:37 Acetaminophen 325 Mg Tablet PO Q6H PRN Mild Pain (1-3) or Fever Hydrocodone Bitart/Acetaminophen 1 tab 11/07/24 17:37 11/11/24 07:27 Hydrocodone/Acetaminophen (*Crx) 5-325 Mg Tablet PO 1 tab Q6H PRN Administration Pain Rated 4-6 Azelastine HCl 1 spray 11/10/24 17:30 11/11/24 09:07 Azelastine Hcl Nasal 0.1% 137 Mcg/Spr 30 Ml Btl NASAL 1 spray Q12HR LULY Administration Sodium Chloride 38 ml/ 0 ml 11/11/24 12:00 Morphine Sulfate 2 mg/ INFILTRATE 11/11/24 12:01 Ropivacaine 200 mg/ Ketorolac ONCE ONE Tromethamine 15 mg Escitalopram Oxalate 10 mg 11/08/24 09:00 11/11/24 09:08 Escitalopram Oxalate 10 Mg Tablet PO 10 mg DAILY LULY Administration Furosemide 40 mg 11/10/24 09:00 11/10/24 11:28 Furosemide 40 Mg Tablet PO 40 mg MoWeFr LULY Administration Hydralazine HCl 25 mg 11/08/24 09:00 11/11/24 09:08 Hydralazine Hcl 25 Mg Tablet PO 25 mg BID LULY Administration Hydromorphone HCl 0.5 mg 11/07/24 16:58 11/11/24 03:35 Hydromorphone Hcl Inj (*Crx) 1 Mg/Ml Syr IV PUSH 0.5 mg Q4H PRN Administration Pain Rated 7-10 Loratadine 10 mg 11/09/24 08:40 11/11/24 09:09 Loratadine 10 Mg Tablet PO Not Given QAM LULY Naloxone HCl 0.1 mg 11/07/24 17:37 Naloxone Hcl 0.4 Mg/Ml Vial IV PUSH Q5MIN PRN Sedation Pantoprazole Sodium 40 mg 11/09/24 12:10 11/11/24 09:09 Pantoprazole 40 Mg Tablet PO Not Given QAM LULY Propranolol HCl 20 mg 11/08/24 09:00 11/11/24 09:08 Propranolol Hcl 20 Mg Tablet PO 20 mg Q12HR LULY Administration Senna/Docusate Sodium 1 tab 11/07/24 17:37 Senna/Docusate Sodium Tablet PO HS PRN Constipation Radiology Results: ITS Impressions Hip/Pelvis X-Ray 11/07/24 14:00 Impression: Acute fracture in the subcapital region of the right femoral neck, as detailed above. Chest X-Ray 11/07/24 16:37 IMPRESSION: Highly suggestive cardiomegaly with cardiac decompensation and pulmonary edema. Pneumonitis cannot be excluded. Clinical correlation advised. Abdomen Ultrasound 11/08/24 12:13 IMPRESSION: Hepatic steatosis. Cholecystectomy. Labs Labs: Laboratory Results - last 24 hr 11/10/24 11/11/24 14:20 04:54 WBC 6.6 RBC 3.86 L Hgb 12.1 Hct 36.3 L MCV 94.0 MCH 31.3 MCHC 33.3 RDW 15.0 H Plt Count 178 MPV 10.2 Sodium 133 L Potassium 3.6 Chloride 98 Carbon Dioxide 29 Anion Gap 6 BUN 16 Creatinine 0.69 L Estim Creat Clear Calc 58 Estimated GFR > 60 Glucose 108 Calcium 9.6 Total Bilirubin 1.4 H AST 13 L ALT 15 Alkaline Phosphatase 76 Total Protein 7.0 Albumin 3.4 L Blood Type A Positive Antibody Screen Negative Quality VTE Prophylaxis VTE prophylaxis: mechanical ordered -Patient's previous records reviewed on admission -ER notes reviewed in detail on admission -discussed all findings and current treatment plan with patient/Family/POA -Consultations reviewed for recommendations -Patient's disposition for safe discharge discussed with pillowcase maker Dictation performed by [employer] direct speech recognition software, therefore manager channel variants and typographical errors may occur. Hospitalist MIPS Advance Care Plan I have confirmed that the patient's Advanced Care Plan is present, code status is documented, or surrogate decision maker is listed in patient medical record.: Yes Medication Reconciliation I have utilized all available resources to obtain, update and review the patients current medications (includes all prescriptions, OTC, herbals, canna bis, and nutritional supplements).: Yes The patient is not eligible for med reconciliation; the patient is in a emergent medical situation where delaying treatment would jeopardize the patients health.: No
--- NOTE | 2024-11-11 13:33 | P.PNAN_ITS ---
Anes - Initial Pre Proc Eval Procedure: Operation Date: 11/11/24 15:00 Proposed Procedures p Right Bipolar - Isaac Parikh MD Date/Time: 11/11/24 13:33 Surgeon: Kellie Paula APRN Pre Op Diagnosis: hip fracture Patient Data Age: 83 Gender: F Height: 1.7 m Weight: 80.1 kg Last Vital Signs Temp 36.2 C L 11/11/24 09:06 Pulse 91 11/11/24 09:08 Resp 16 11/11/24 09:06 BP 140/80 11/11/24 09:06 Pulse Ox 92 11/11/24 09:06 O2 Del Method Room Air 11/11/24 08:27 O2 Flow Rate 2 11/08/24 08:28 FiO2 28 11/10/24 11:23 Allergies Allergy/AdvReac Type Severity Reaction Status Date / Time Sulfa (Sulfonamide AdvReac Intermediate Nausea Verified 11/07/24 13:15 Antibiotics) lisinopril AdvReac Cough Verified 11/07/24 13:15 Home Medications ?Medication ?Instructions ?Recorded ?Confirmed ?Type escitalopram oxalate 10 mg tablet 10 mg PO DAILY #30 tabs 09/02/24 11/07/24 Rx furosemide 40 mg tablet 40 mg PO QMWF #12 tabs 09/02/24 11/07/24 Rx propranolol 20 mg tablet 20 mg PO BID #60 tabs 09/02/24 11/07/24 Rx apixaban 5 mg tablet (Eliquis) 5 mg PO Q12H 11/07/24 11/07/24 History hydralazine 25 mg tablet 25 mg PO BID 11/07/24 11/07/24 History Laboratory Tests 11/10/24 11/11/24 14:20 04:54 WBC 6.6 K/mm3 (4.5-10.0) RBC 3.86 L M/mm3 (4.2-5.4) Hgb 12.1 g/dL (12.0-15.0) Hct 36.3 L % (37.0-47.0) MCV 94.0 fl (80-100) MCH 31.3 pg (26-34) MCHC 33.3 g/dl (32-36) RDW 15.0 H % (11.5-14.5) Plt Count 178 k/mm3 (150-375) MPV 10.2 fl (7.4-10.4) Sodium 133 L mmol/L (137-145) Potassium 3.6 mmol/L (3.4-5.0) Chloride 98 mmol/L (98-107) Carbon Dioxide 29 mmol/L (22-30) Anion Gap 6 mmol/L (4-12) BUN 16 mg/dL (7-17) Creatinine 0.69 L mg/dL (0.7-1.0) Estim Creat Clear Calc 58 ml/min Estimated GFR > 60 (59 - ) Glucose 108 mg/dL (65-110) Calcium 9.6 mg/dL (8.4-10.2) Total Bilirubin 1.4 H mg/dL (0.2-1.3) AST 13 L U/L (14-36) ALT 15 U/L (6-35) Alkaline Phosphatase 76 U/L (38-126) Total Protein 7.0 g/dL (6.3-8.2) Albumin 3.4 L g/dL (3.5-5.1) Blood Type A Positive Antibody Screen Negative Patient hx anesthesia problems: none Family hx anesthesia problems: none Results Review: All pre-operative results and documents have been reviewed as part of the pre- operative evaluation. [facility] Past Medical History Medical History Atrial fibrillation History of subdural hematoma Diastolic dysfunction Memory deficit Depressed Recurrent UTI Recurrent falls Impairment of balance Bilateral primary osteoarthritis of knee Essential tremor Obesity Osteoarthritis Ankle fracture, right (2007) Intertrochanteric fracture of left hip (11/2022) SP cephalomedullary nailing dr parikh Hypertension Surgical History Surgical History History of orthopedic surgery Repair of ankle fracture in 2007 and left hip fracture in November 2022. History of cholecystectomy History of appendectomy Family History Family History Father Cerebrovascular accident Essential tremor Mother AAA (abdominal aortic aneurysm) Social History Social History Social History: Patient lives at home independently. 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 She designates her son, Lionel, as her surrogate decision maker. Smoking packs per day: 1 Smoking cigarettes per day: 20.0 Years smoked: 10 Smoking pack-years: 10.00 Smoking status: Former smoker Tobacco type: cigarettes Second hand tobacco smoke exposure: No Smoking end date: 03/30/79 Alcohol intake: current Drinks per week: 1 Alcohol use details: One 4-6 oz glass of wine nightly Substance use: never Substance use type: does not use Other substance usage details: 4 oz glass of wine sometimes Do You Feel Safe in your Home?: Yes Lack of Transportation: No Lack of Food: Never True Current Housing: I Have Housing Concerned About Future Housing: No Difficulty Paying Gas/Electric Bills: No Difficulty Paying for Meds: No Currently Unemployed: No Education: Master's Degree or Higher Difficulty w/ Childcare or Family Care: No Gender identity (if verbalized by the patient): Female Sexual Orientation (if Verbalized by the Patient): Straight or Heterosexual Spiritual care concerns: No Agree to blood products: Yes Anes - Eval Final PreProcedure Day of Procedure 11/11/24 13:33 Patient weight: overweight Heart: regular rate and rhythm Lungs: clear to auscultation Airway: Mallampati scale class II Neurological: alert and oriented Last oral intake: >/= 8 hours ASA classification: III Emergent: no Anesthetic plan: proceed Anesthesia type and monitoring: general ETT and standard monitoring Results Review: All pre-operative results and documents have been reviewed as part of the pre- operative evaluation. Informed Consent: The patient's anesthetic plan and its attendant risks and benefits were discussed with the patient/family/POA. Questions were solicited and answers provided to the satisfaction of the patient/family/POA.
[2024-11-11] MEDS: LACTATED RINGERS 1,000 ML 30 ML IV CONT (14:02)
[2024-11-11] MEDS: TRANEXAMIC ACID 1,000MG/ISO100 1,000 MG/100 ML BAG 200 MG IVPB (14:39)
[2024-11-11] MEDS: ceFAZolin 2 GM/D5W 50 ML 2 GM/50 ML BAG IVPB ×2 (14:49→23:31)
[2024-11-11] MEDS: MORPHINE SULFATE INFILTRATE (15:18)
[2024-11-11] MEDS: [UNRECOGNIZED DRUG - OTHER] INFILTRATE (15:18)
[2024-11-11] MEDS: SODIUM CHLORIDE INFILTRATE (15:18)
[2024-11-11] MEDS: TRANEXAMIC ACID 1,000 MG/10 ML AMPUL 1000 MG IV PUSH (15:51)
--- NOTE | 2024-11-11 16:37 | P.OP_ITS ---
Procedure Note - Detailed Date of Procedure 11/11/24 Pre-op Diagnosis Displaced right hip femoral neck fracture. Post-op Diagnosis Same Procedure Performed Right hip bipolar hemiarthroplasty. Surgeon Isaac Parikh MD Anesthesia General Findings Satisfactory bone quality. Uncemented hemiarthroplasty. Description of Procedure A general anesthetic was administered. The patient was carefully placed in the lateral decubitus position on the peg board positioner. An axillary roll was placed. The hip was prepped and draped in the usual sterile fashion. A minimally invasive optimized posterior approach to the hip was performed. An L shaped capsulotomy was created along the upper border of the piriformis. The short external rotators were tagged with number 2 high strength suture for later repair. The labrum was preserved. The femoral neck cut was performed. The femoral head was removed and sized. The acetabular floor was cleared of debris and loose tissue. The femur was sequentially reamed and broached. Trial was assessed for leg length and stability. The real component was impacted into position, trialed again, and the final head and bipolar component were assembled. The hip was reduced after copious irrigation. The short external rotators and capsule were repaired through drill holes in the posterior trochanter. The wound was closed in layers with 1 vicryl, 2,0, and 2-0 running barbed suture. Adhesive tapes were placed on the skin, followed by a sterile gauze dressing. The patient was extubated and brought to the recovery room. Implants [place] Accolate 2 hip stem size 4 high offset. +0, 28 mm diameter metal head. 48 mm diameter bipolar component. Estimated Blood Loss 300 Urine Output 800 Drains No Packing No Pathology None sent Complications No immediate complications Condition Stable Disposition PACU [facility] Billing Surgery - Charge Forward: Surgery Billing
[2024-11-11] MEDS: SENNA/DOCUSATE SODIUM TABLET 2 TAB PO (17:48)
[2024-11-11] MEDS: ASPIRIN 325 MG ENTERIC TABLET PO (20:36)
[2024-11-12] VITALS (14 sets, daily range): BP systolic 101–122; BP diastolic 43–67; PULSE 73–96; RESP 15–20; TEMP 36.4–37.1; O2SAT 93–96
[2024-11-12 05:30] LABS: Basophils Percent Auto 0.2 % (0.2-1.2); Hemoglobin 11.6 g/dL (12.0-15.0); Immature Granulocyte Absolute 0.06 K/mm3 (0.00-0.031); Immature Granulocyte Percent A 0.6 % (0-0.5); Lymphocytes Absolute Auto 0.84 K/mm3 (0.9-3.2); Lymphocytes Percent Auto 8.3 % (18.3-44.2); Mean Corpuscular HGB Conc 32.2 g/dl (32-36); Mean Corpuscular Hemoglobin 31.3 pg (26-34); Mean Platelet Volume 10.2 fl (7.4-10.4); Monocytes Absolute Auto 1.1 K/mm3 (0.1-0.6); Monocytes Percent Auto 10.6 % (2.6-8.5); Neutrophils Absolute Auto 8.2 K/mm3 (1.3-6.7); Neutrophils Percent Auto 80.3 % (45.5-73.1); Platelet Count Result 192 k/mm3 (150-375); Red Blood Count 3.71 M/mm3 (4.2-5.4); Red Cell Distribution Width 14.6 % (11.5-14.5); White Blood Count 10.1 K/mm3 (4.5-10.0)
[2024-11-12] MEDS: ceFAZolin 2 GM/D5W 50 ML 2 GM/50 ML BAG IVPB ×2 (06:07→15:13)
[2024-11-12 06:51] LABS: Alanine Aminotransferase 18 U/L (6-35); Albumin Level 3.2 g/dL (3.5-5.1); Alkaline Phosphatase 94 U/L (38-126); Anion Gap 6 mmol/L (4-12); Aspartate Amino Transferase 19 U/L (14-36); Bilirubin,Total 0.9 mg/dL (0.2-1.3); Blood Urea Nitrogen 24 mg/dL (7-17); Calcium 9.6 mg/dL (8.4-10.2); Carbon Dioxide 28 mmol/L (22-30); Chloride 98 mmol/L (98-107); Estimated CRCL calculation 49 ml/min; Estimated Glomerular Filt Rate > 60; Glucose 124 mg/dL (65-110); Potassium 4.2 mmol/L (3.4-5.0); Sodium 132 mmol/L (137-145)
[2024-11-12] MEDS: SENNA/DOCUSATE SODIUM TABLET 2 TAB PO ×2 (08:51→16:12)
[2024-11-12] MEDS: PROPRANOLOL HCL 20 MG TABLET PO ×2 (08:52→20:43)
[2024-11-12] MEDS: ASPIRIN 325 MG ENTERIC TABLET PO ×2 (08:52→20:43)
[2024-11-12] MEDS: ESCITALOPRAM OXALATE 10 MG TABLET PO (08:53)
[2024-11-12] MEDS: PANTOPRAZOLE 40 MG TABLET PO (08:53)
[2024-11-12] MEDS: AZELASTINE HCL NASAL 0.1% 137 MCG/SPR 30 ML BTL 1 SPRAY NASAL ×2 (08:57→20:43)
[2024-11-12] MEDS: FUROSEMIDE 40 MG TABLET PO (10:31)
[2024-11-12] MEDS: LORATADINE 10 MG TABLET PO (10:31)
[2024-11-12] MEDS: ACETAMINOPHEN 325 MG TABLET 650 MG PO ×2 (11:09→21:39)
--- NOTE | 2024-11-12 15:03 | PC.NURSE ---
On 11/12/24, the student, [Gregg Ortiz ], provided care and completed [facility] documentation on this patient. I have reviewed the student's documentation and agree with the findings.
--- NOTE | 2024-11-12 15:37 | PM.PNORT ---
Progress Note: A&P Assessment and Plan (1) Fracture of femoral neck, right, closed: Qualifiers: Encounter type: initial encounter Qualified Code(s): S72.001A - Fracture of unspecified part of neck of right femur, initial encounter for closed fracture Code(s): S72.001A - Fracture of unspecified part of neck of right femur, initial encounter for closed fracture Status: Acute Assessment and Plan: Postop day 1: Bipolar hemiarthroplasty on the right. Patient tolerated procedure well. No complications. Pain manageable with pain medication. No numbness or tingling. She does have quite a bit of weakness in the right leg. She did fall on Sunday and surgery was not done until Sunday due to the patient requesting Dr. Parikh. I recommend she work with PT/OT. She will need rehab at discharge. We had a lengthy discussion regarding postoperative wound care, limitations, expectations, and exercises. Patient shows good understanding. Okay for discharge once patient is cleared medically. Ortho instructions: D/C to SNF/rehab Follow up in office with xrays in 4-6 weeks. Please call [facility] to schedule appointment . Wound Care: Remove Aquacel dressing at 7 days post op. Remove steristrips at 14 days post op. May shower. No soaking. PT: Weight bearing as tolerated with a walker. DVT prophylaxis: continue aspirin. Pain medication: Tylenol. Subjective Subjective Date/Time Seen: 11/12/24 15:37 Interval history: Patient seen this AM. Patient notes she has a lot of weakness in the operative leg. She cannot lift her leg. She has not gotten up to walk. Mild pain. Pain with motion. No numbness or tingling. Review of Systems Review of Systems: All systems reviewed & are unremarkable except as noted in HPI and below Exam Narrative: Patient is alert and oriented. 83 y/o overweight female. Resting comfortably in bed. No acute distress. Dressing dry and intact without drainage. Warm, normal appearing skin. Tenderness at right hip. Wiggles toes. Fires quad. Lower leg weakness globally. Light touch sensation intact. Pedal pulse palpable. Calf nontender. Thigh non tender. Normal capillary refill. Objective Data Vital Signs Vital Signs: Vital Signs - 24 hr 11/11/24 16:25 11/11/24 16:40 11/11/24 16:55 Temperature 97.7 F Pulse Rate 86 89 93 Respiratory Rate 20 20 20 Blood Pressure 154/89 H 153/61 H 142/85 H Pulse Oximetry 100 100 94 Oxygen Delivery Simple Face Mask Simple Face Mask Room Air Oxygen Flow Rate 8 8 11/11/24 17:10 11/11/24 17:12 11/11/24 17:27 Temperature 97.6 F 97.7 F Pulse Rate 94 97 82 Respiratory Rate 16 16 18 Blood Pressure 139/72 135/68 122/66 Pulse Oximetry 96 96 97 Oxygen Delivery Room Air Oxygen Flow Rate 11/11/24 17:57 11/11/24 20:00 11/11/24 20:00 Temperature 97.4 F L Pulse Rate 90 99 Respiratory Rate 16 Blood Pressure 134/68 Pulse Oximetry 95 Oxygen Delivery Room Air Oxygen Flow Rate 11/11/24 20:08 11/11/24 20:36 11/11/24 22:57 Temperature 98.4 F 98.5 F Pulse Rate 97 98 85 Respiratory Rate 17 16 Blood Pressure 126/69 128/66 Pulse Oximetry 91 91 Oxygen Delivery Oxygen Flow Rate 11/12/24 00:00 11/12/24 02:51 11/12/24 04:00 Temperature 98.7 F Pulse Rate 89 96 95 Respiratory Rate 18 Blood Pressure 122/59 L Pulse Oximetry 93 Oxygen Delivery Oxygen Flow Rate 11/12/24 07:34 11/12/24 08:00 11/12/24 08:52 Temperature 97.9 F Pulse Rate 82 82 Respiratory Rate 20 Blood Pressure 122/67 Pulse Oximetry 94 Oxygen Delivery Room Air Oxygen Flow Rate 11/12/24 11:55 11/12/24 14:57 11/12/24 15:20 Temperature 97.6 F Pulse Rate 73 Respiratory Rate 15 Blood Pressure 104/43 L 101/54 L Pulse Oximetry 96 Oxygen Delivery Room Air Oxygen Flow Rate Intake/Output Intake/Output: Intake & Output 11/09/24 11/10/24 11/11/24 11/12/24 23:59 23:59 23:59 23:59 Intake Total 1504 5532 416 7209 Output Total 1300 1450 2450 650 Balance 204 320 -1700 670 Meds/Results Medications: Active Medications Generic Name Dose Route Start Last Admin Trade Name Freq PRN Reason Stop Dose Admin Acetaminophen 650 mg 11/07/24 17:37 11/12/24 11:09 Acetaminophen 325 Mg Tablet PO 650 mg Q6H PRN Administration Mild Pain (1-3) or Fever Acetaminophen 500 mg 11/11/24 17:12 Acetaminophen 500 Mg Tablet PO Q6H PRN Pain Rated 1-3 Aspirin 325 mg 11/11/24 21:00 11/12/24 08:52 Aspirin 325 Mg Enteric Tablet PO 325 mg Q12HR LULY Administration Azelastine HCl 1 spray 11/10/24 17:30 11/12/24 08:57 Azelastine Hcl Nasal 0.1% 137 Mcg/Spr 30 Ml Btl NASAL 1 spray Q12HR LULY Administration Escitalopram Oxalate 10 mg 11/08/24 09:00 11/12/24 08:53 Escitalopram Oxalate 10 Mg Tablet PO 10 mg DAILY LULY Administration Furosemide 40 mg 11/10/24 09:00 11/12/24 10:31 Furosemide 40 Mg Tablet PO 40 mg MoWeFr LULY Administration Hydralazine HCl 25 mg 11/08/24 09:00 11/12/24 09:00 Hydralazine Hcl 25 Mg Tablet PO Not Given BID LULY Hydromorphone HCl 1 mg 11/11/24 17:12 Hydromorphone Hcl Inj (*Crx) 1 Mg/Ml Syr IV PUSH Q2H PRN Breakthrough Pain Rated 7-10 or NPO Hydromorphone HCl 0.5 mg 11/11/24 17:12 Hydromorphone Hcl Inj (*Crx) 1 Mg/Ml Syr IV PUSH Q2H PRN Breakthrough Pain Rated 4-6 or NPO Hydroxyzine Pamoate 50 mg 11/11/24 17:12 Hydroxyzine Pamoate 25 Mg Capsule PO Q4H PRN Itching Cefazolin Sodium 2 gm in 50 mls @ 100 mls/hr 11/11/24 23:00 11/12/24 15:13 Ancef 2 Gm/D5w 50 Ml IVPB 11/12/24 15:29 100 mls/hr Q8H LULY Administration Ibuprofen 800 mg in 200 mls @ 400 mls/hr 11/11/24 17:12 Caldolor 800 Mg/200 Ml IVPB Q6H PRN Breakthrough Pain Rated 1-3 or NPO Loratadine 10 mg 11/09/24 08:40 11/12/24 10:31 Loratadine 10 Mg Tablet PO 10 mg QAM LULY Administration Naloxone HCl 0.1 mg 11/07/24 17:37 Naloxone Hcl 0.4 Mg/Ml Vial IV PUSH Q5MIN PRN Sedation Naloxone HCl 0.1 mg 11/11/24 17:12 Naloxone Hcl 0.4 Mg/Ml Vial IV PUSH Q2M PRN Opiate Reversal Ondansetron HCl 4 mg 11/11/24 13:34 Ondansetron Inj 4 Mg/2 Ml Vial IV PUSH ONCE PRN Nausea Ondansetron HCl 4 mg 11/11/24 17:12 Ondansetron Inj 4 Mg/2 Ml Vial IV PUSH Q4H PRN Nausea And Vomiting Oxycodone/Acetaminophen 1 tablet 11/11/24 17:12 Oxycodone/Acetaminophen (*Crx) 5-325 Mg Tablet PO Q4H PRN Pain Rated 4-6 Oxycodone/Acetaminophen 1 tab 11/11/24 17:12 Oxycodone/Acetaminophen (*Crx) 10-325 Mg Tablet PO Q6H PRN Pain Rated 7-10 Pantoprazole Sodium 40 mg 11/09/24 12:10 11/12/24 08:53 Pantoprazole 40 Mg Tablet PO 40 mg QAM LULY Administration Polyethylene Glycol 17 gm 11/12/24 09:00 11/12/24 09:00 Polyethylene Glycol 3350 17 Gm Powd.Pack PO Not Given QAM LULY Propranolol HCl 20 mg 11/08/24 09:00 11/12/24 08:52 Propranolol Hcl 20 Mg Tablet PO 20 mg Q12HR LULY Administration Senna/Docusate Sodium 1 tab 11/07/24 17:37 Senna/Docusate Sodium Tablet PO HS PRN Constipation Senna/Docusate Sodium 2 tab 11/11/24 17:12 11/12/24 08:51 Senna/Docusate Sodium Tablet PO 2 tab BID LULY Administration Radiology Results: ITS Impressions Hip/Pelvis X-Ray 11/07/24 14:00 Impression: Acute fracture in the subcapital region of the right femoral neck, as detailed above. Chest X-Ray 11/07/24 16:37 IMPRESSION: Highly suggestive cardiomegaly with cardiac decompensation and pulmonary edema. Pneumonitis cannot be excluded. Clinical correlation advised. Abdomen Ultrasound 11/08/24 12:13 IMPRESSION: Hepatic steatosis. Cholecystectomy. Hip X-Ray 11/11/24 16:45 IMPRESSION: No acute osseous abnormality pelvis and right hip. Right hip arthroplasty. Labs Labs: Laboratory Results - last 24 hr 11/12/24 04:51 WBC 10.1 H RBC 3.71 L Hgb 11.6 L Hct 36.0 L MCV 97.0 MCH 31.3 MCHC 32.2 RDW 14.6 H Plt Count 192 MPV 10.2 Immature Gran % (Auto) 0.6 H Neut % (Auto) 80.3 H Lymph % (Auto) 8.3 L [place] % (Auto) 10.6 H Eos % (Auto) 0.0 Baso % (Auto) 0.2 Lymph # (Auto) 0.84 L [place] # (Auto) 1.1 H Eos # (Auto) 0.0 Baso # (Auto) 0.0 Abs Immat Gran (auto) 0.06 H Absolute Neuts (auto) 8.2 H Absolute Nucleated RBC 0.000 Nucleated RBC % 0.0 Sodium 132 L Potassium 4.2 Chloride 98 Carbon Dioxide 28 Anion Gap 6 BUN 24 H Creatinine 0.82 Estim Creat Clear Calc 49 Estimated GFR > 60 Glucose 124 H Calcium 9.6 Total Bilirubin 0.9 AST 19 ALT 18 Alkaline Phosphatase 94 Total Protein 6.0 L Albumin 3.2 L
[2024-11-12] MEDS: ONDANSETRON INJ 4 MG/2 ML VIAL IV PUSH (15:47)
--- NOTE | 2024-11-12 17:16 | P.PNIM_ITS ---
Progress Note: A&P Assessment and Plan (1) Fracture of femoral neck, right, closed: Qualifiers: Encounter type: initial encounter Qualified Code(s): S72.001A - Fracture of unspecified part of neck of right femur, initial encounter for c losed fracture Code(s): S72.001A - Fracture of unspecified part of neck of right femur, initial encounter for closed fracture Status: Acute Assessment and Plan: * Hip and pelvis x-ray shown acute fracture in the subcapital region of the right femoral neck * Orthopedic surgery consulted * Hold Eliquis, SCD's for now * Continue NPO status * Continue pain control * Case management consulted for outpatient rehab needs 11/12 * Patient is postop day 1 from a right total hip arthroplasty with Dr. Parikh * Continue pain control * Advanced diet as tolerated * Continue PT and OT * DVT prophylaxis per surgical team * Case management working on SNF placement (2) CHF (congestive heart failure): Code(s): I50.9 - Heart failure, unspecified Status: Acute Assessment and Plan: * Likely diastolic dysfunction * CXR shown cardiomegaly with cardiac decompensation and pulmonary edema * Patient given a dose of IV push Lasix while in the ER * EKG shown sinus or ectopic atrial bradycardia with a rat of 57, QTc 430, left ventricular hypertrophy * ProBNP 1680 on admission * Echo results pending * Continue to monitor I and O * Obtain daily weight * Continue home dose of Lasix 40 mg , for now * Continue to hold Eliquis, INR 1.2 11/12 * Echocardiogram showing normal LV systolic function with an estimated EF of greater than 70%, aortic root is dilated measuring 4.3 cm, otherwise unremarkable * Continue to monitor daily weights and I&O (3) Diastolic dysfunction: Code(s): I51.89 - Other ill-defined heart diseases Status: Acute Assessment and Plan: see above plan of care (4) Recurrent falls: Code(s): R29.6 - Repeated falls Status: Acute Assessment and Plan: * History of recurrent falls. Sustained a subdural hematoma and left displaced intratrochanteric fracture leading to ORIF in the past. * Case coordination following for potential rehab needs * PT and OT when appropriate * Continue fall precautions 11/12 * Continue fall precautions * Continue PT and OT (5) Elevated bilirubin: Code(s): R17 - Unspecified jaundice Status: Acute Assessment and Plan: * Total bilirubin initially 1.4>1.7 * Will obtain Hepatitis panel * US of liver ordered * S/P cholecystectomy 11/12 * Total bili 0.9 * Resolved (6) Hypertension: Qualifiers: Hypertension type: primary hypertension Qualified Code(s): I10 - Essential (primary) hypertension Code(s): I10 - Essential (primary) hypertension Status: Chronic Assessment and Plan: * blood pressure ranging 114/68-205/91 * continue hydralazine 11/12 * No change to current treatment plan (7) Atrial fibrillation: Code(s): I48.91 - Unspecified atrial fibrillation Status: Acute Assessment and Plan: * Hold eliquis * Continue Propranolol 11/12 * Eliquis still on hold, will defer to surgical team on when to restart * Continue propranolol (8) Depressed: Code(s): F32.A - Depression, unspecified Status: Acute Assessment and Plan: * Continue Lexapro 11/12 * No change to current treatment plan Time Spent With Patient Time with patient: 25 - 35 minutes Subjective Date/time seen: 11/12/24 17:16 Interval history: Interval summary: This is an 83 year old female with significant past medical history of Memory deficit, essential tremor, osteoarthritis, hypertension, depression, frequent falls, former smoker who presented to the hospital for evaluation after sustaining a ground level fall. Work up in the hospital included a hip/pelvis x- ray which shown an acute fracture in the subcapital region of the right femoral neck. Chest x-ray shown cardiomegaly with cardiac decompensation and pulmonary edema. Initial labs shown a normal WBC count 8.0, Na+ 136, total bili 1.4, BG ranging 113-114, proBNP 1680. UA was obtained and was negative.EKG shown sinus bradycardia with left ventricular hypertrophy with rate of 57, QTc 430. Patient was given 40 mg IV push Lasix and pain medication while in the ER. Echocardiogram showing hyperdynamic LV systolic function with an estimated EF of greater than 70%, 4.3 cm aortic root dilatation. 11/11/2024 patient had a right total hip replacement with Dr. Parikh. Subjective: Patient denies any new complaints today. She states her pain is well controlled. She worked with PT and OT today and Case coordination is working on getting her to [facility]. Labs and imaging reviewed. Review of Systems Review of Systems: All systems reviewed & are unremarkable except as noted in HPI and below Exam Narrative: General: In no acute distress, well nourished Cardiac: Normal S1 and S2. RRR, No murmur, gallops or friction rubs, peripheral pulses intact. Respiratory: Lungs clear to auscultation, no adventitious lung sounds, currently on room air Gastrointestinal: soft, non-distended, non-tender, normoactive bowel sounds. : Voiding without difficulty Extremities:Limited ROM of right leg, moves all other extremities without difficulty Skin: Right hip OR dressing in place Neuro: Alert and oriented x4 Objective Data Vital Signs Vital Signs: Vital Signs - 24 hr 11/11/24 17:27 11/11/24 17:57 11/11/24 20:00 Temperature 97.7 F 97.4 F L Pulse Rate 82 90 Respiratory Rate 18 16 Blood Pressure 122/66 134/68 Pulse Oximetry 97 95 Oxygen Delivery Room Air 11/11/24 20:00 11/11/24 20:08 11/11/24 20:36 Temperature 98.4 F Pulse Rate 99 97 98 Respiratory Rate 17 Blood Pressure 126/69 Pulse Oximetry 91 Oxygen Delivery 11/11/24 22:57 11/12/24 00:00 11/12/24 02:51 Temperature 98.5 F 98.7 F Pulse Rate 85 89 96 Respiratory Rate 16 18 Blood Pressure 128/66 122/59 L Pulse Oximetry 91 93 Oxygen Delivery 11/12/24 04:00 11/12/24 07:34 11/12/24 08:00 Temperature 97.9 F Pulse Rate 95 82 Respiratory Rate 20 Blood Pressure 122/67 Pulse Oximetry 94 Oxygen Delivery Room Air 11/12/24 08:52 11/12/24 11:55 11/12/24 14:57 Temperature 97.6 F Pulse Rate 82 73 Respiratory Rate 15 Blood Pressure 104/43 L Pulse Oximetry 96 Oxygen Delivery Room Air 11/12/24 15:20 Temperature Pulse Rate Respiratory Rate Blood Pressure 101/54 L Pulse Oximetry Oxygen Delivery Intake/Output Intake/Output: Intake & Output 11/09/24 11/10/24 11/11/24 11/12/24 23:59 23:59 23:59 23:59 Intake Total 1504 0262 177 6295 Output Total 1300 1450 2450 650 Balance 204 320 -1700 670 Meds/Results Medications: Active Medications Generic Name Dose Route Start Last Admin Trade Name Freq PRN Reason Stop Dose Admin Acetaminophen 650 mg 11/07/24 17:37 11/12/24 11:09 Acetaminophen 325 Mg Tablet PO 650 mg Q6H PRN Administration Mild Pain (1-3) or Fever Acetaminophen 500 mg 11/11/24 17:12 Acetaminophen 500 Mg Tablet PO Q6H PRN Pain Rated 1-3 Aspirin 325 mg 11/11/24 21:00 11/12/24 08:52 Aspirin 325 Mg Enteric Tablet PO 325 mg Q12HR LULY Administration Azelastine HCl 1 spray 11/10/24 17:30 11/12/24 08:57 Azelastine Hcl Nasal 0.1% 137 Mcg/Spr 30 Ml Btl NASAL 1 spray Q12HR LULY Administration Escitalopram Oxalate 10 mg 11/08/24 09:00 11/12/24 08:53 Escitalopram Oxalate 10 Mg Tablet PO 10 mg DAILY LULY Administration Furosemide 40 mg 11/10/24 09:00 11/12/24 10:31 Furosemide 40 Mg Tablet PO 40 mg MoWeFr LULY Administration Hydralazine HCl 25 mg 11/08/24 09:00 11/12/24 16:15 Hydralazine Hcl 25 Mg Tablet PO Not Given BID LULY Hydromorphone HCl 1 mg 11/11/24 17:12 Hydromorphone Hcl Inj (*Crx) 1 Mg/Ml Syr IV PUSH Q2H PRN Breakthrough Pain Rated 7-10 or NPO Hydromorphone HCl 0.5 mg 11/11/24 17:12 Hydromorphone Hcl Inj (*Crx) 1 Mg/Ml Syr IV PUSH Q2H PRN Breakthrough Pain Rated 4-6 or NPO Hydroxyzine Pamoate 50 mg 11/11/24 17:12 Hydroxyzine Pamoate 25 Mg Capsule PO Q4H PRN Itching Ibuprofen 800 mg in 200 mls @ 400 mls/hr 11/11/24 17:12 Caldolor 800 Mg/200 Ml IVPB Q6H PRN Breakthrough Pain Rated 1-3 or NPO Loratadine 10 mg 11/09/24 08:40 11/12/24 10:31 Loratadine 10 Mg Tablet PO 10 mg QAM LULY Administration Naloxone HCl 0.1 mg 11/07/24 17:37 Naloxone Hcl 0.4 Mg/Ml Vial IV PUSH Q5MIN PRN Sedation Naloxone HCl 0.1 mg 11/11/24 17:12 Naloxone Hcl 0.4 Mg/Ml Vial IV PUSH Q2M PRN Opiate Reversal Ondansetron HCl 4 mg 11/11/24 13:34 Ondansetron Inj 4 Mg/2 Ml Vial IV PUSH ONCE PRN Nausea Ondansetron HCl 4 mg 11/11/24 17:12 11/12/24 15:47 Ondansetron Inj 4 Mg/2 Ml Vial IV PUSH 4 mg Q4H PRN Administration Nausea And Vomiting Oxycodone/Acetaminophen 1 tablet 11/11/24 17:12 Oxycodone/Acetaminophen (*Crx) 5-325 Mg Tablet PO Q4H PRN Pain Rated 4-6 Oxycodone/Acetaminophen 1 tab 11/11/24 17:12 Oxycodone/Acetaminophen (*Crx) 10-325 Mg Tablet PO Q6H PRN Pain Rated 7-10 Pantoprazole Sodium 40 mg 11/09/24 12:10 11/12/24 08:53 Pantoprazole 40 Mg Tablet PO 40 mg QAM LULY Administration Polyethylene Glycol 17 gm 11/12/24 09:00 11/12/24 09:00 Polyethylene Glycol 3350 17 Gm Powd.Pack PO Not Given QAM LULY Propranolol HCl 20 mg 11/08/24 09:00 11/12/24 08:52 Propranolol Hcl 20 Mg Tablet PO 20 mg Q12HR LULY Administration Senna/Docusate Sodium 1 tab 11/07/24 17:37 Senna/Docusate Sodium Tablet PO HS PRN Constipation Senna/Docusate Sodium 2 tab 11/11/24 17:12 11/12/24 16:12 Senna/Docusate Sodium Tablet PO 2 tab BID LULY Administration Radiology Results: ITS Impressions Hip/Pelvis X-Ray 11/07/24 14:00 Impression: Acute fracture in the subcapital region of the right femoral neck, as detailed above. Chest X-Ray 11/07/24 16:37 IMPRESSION: Highly suggestive cardiomegaly with cardiac decompensation and pulmonary edema. Pneumonitis cannot be excluded. Clinical correlation advised. Abdomen Ultrasound 11/08/24 12:13 IMPRESSION: Hepatic steatosis. Cholecystectomy. Hip X-Ray 11/11/24 16:45 IMPRESSION: No acute osseous abnormality pelvis and right hip. Right hip arthroplasty. Labs Labs: Laboratory Results - last 24 hr 11/12/24 04:51 WBC 10.1 H RBC 3.71 L Hgb 11.6 L Hct 36.0 L MCV 97.0 MCH 31.3 MCHC 32.2 RDW 14.6 H Plt Count 192 MPV 10.2 Immature Gran % (Auto) 0.6 H Neut % (Auto) 80.3 H Lymph % (Auto) 8.3 L [place] % (Auto) 10.6 H Eos % (Auto) 0.0 Baso % (Auto) 0.2 Lymph # (Auto) 0.84 L [place] # (Auto) 1.1 H Eos # (Auto) 0.0 Baso # (Auto) 0.0 Abs Immat Gran (auto) 0.06 H Absolute Neuts (auto) 8.2 H Absolute Nucleated RBC 0.000 Nucleated RBC % 0.0 Sodium 132 L Potassium 4.2 Chloride 98 Carbon Dioxide 28 Anion Gap 6 BUN 24 H Creatinine 0.82 Estim Creat Clear Calc 49 Estimated GFR > 60 Glucose 124 H Calcium 9.6 Total Bilirubin 0.9 AST 19 ALT 18 Alkaline Phosphatase 94 Total Protein 6.0 L Albumin 3.2 L Quality VTE Prophylaxis VTE prophylaxis: mechanical ordered
[2024-11-13] VITALS (11 sets, daily range): BP systolic 106–122; BP diastolic 43–60; PULSE 80–114; RESP 12–18; TEMP 36.5–36.9; O2SAT 92–95
[2024-11-13 05:21] LABS: Hematocrit 34.2 % (37.0-47.0); Hemoglobin 10.9 g/dL (12.0-15.0); Mean Corpuscular HGB Conc 31.9 g/dl (32-36); Mean Corpuscular Hemoglobin 31.1 pg (26-34); Mean Corpuscular Volume 97.7 fl (80-100); Mean Platelet Volume 11.1 fl (7.4-10.4); Platelet Count Result 176 k/mm3 (150-375); Red Cell Distribution Width 14.7 % (11.5-14.5); White Blood Count 8.9 K/mm3 (4.5-10.0)
[2024-11-13 05:32] LABS: Alanine Aminotransferase 15 U/L (6-35); Albumin Level 3.3 g/dL (3.5-5.1); Alkaline Phosphatase 90 U/L (38-126); Anion Gap 6 mmol/L (4-12); Aspartate Amino Transferase 20 U/L (14-36); Bilirubin,Total 0.9 mg/dL (0.2-1.3); Blood Urea Nitrogen 29 mg/dL (7-17); Calcium 9.6 mg/dL (8.4-10.2); Carbon Dioxide 28 mmol/L (22-30); Chloride 98 mmol/L (98-107); Estimated CRCL calculation 48 ml/min; Estimated Glomerular Filt Rate > 60; Glucose 109 mg/dL (65-110); Potassium 3.8 mmol/L (3.4-5.0); Sodium 132 mmol/L (137-145)
--- NOTE | 2024-11-13 08:11 | PCPTNOTE ---
Attempted to see patient for PT, however patient was working with OT.
[2024-11-13] MEDS: PROPRANOLOL HCL 20 MG TABLET PO ×2 (08:39→20:19)
[2024-11-13] MEDS: ASPIRIN 325 MG ENTERIC TABLET PO (08:39)
[2024-11-13] MEDS: ESCITALOPRAM OXALATE 10 MG TABLET PO (08:40)
[2024-11-13] MEDS: AZELASTINE HCL NASAL 0.1% 137 MCG/SPR 30 ML BTL 1 SPRAY NASAL ×2 (08:42→20:20)
--- NOTE | 2024-11-13 10:14 | PM.PNORT ---
Progress Note: A&P Assessment and Plan (1) Fracture of femoral neck, right, closed: Qualifiers: Encounter type: initial encounter Qualified Code(s): S72.001A - Fracture of unspecified part of neck of right femur, initial encounter for closed fracture Code(s): S72.001A - Fracture of unspecified part of neck of right femur, initial encounter for closed fracture Status: Acute Assessment and Plan: Postop day 2: Bipolar hemiarthroplasty on the right. Patient tolerated procedure well. No complications. Pain manageable with pain medication. No numbness or tingling. Patient doing much better with PT/OT today. No numbness or tingling. Strength improved today. She will need rehab at discharge. We had a lengthy discussion regarding postoperative wound care, limitations, expectations, and exercises. Patient shows good understanding. Okay for discharge once patient is cleared medically. Ortho instructions: D/C to SNF/rehab Follow up in office with xrays in 4-6 weeks. Please call [facility] to schedule appointment . Wound Care: Remove Aquacel dressing at 7 days post op. Remove steristrips at 14 days post op. May shower. No soaking. PT: Weight bearing as tolerated with a walker. DVT prophylaxis: continue aspirin. Pain medication: Tylenol. Subjective Subjective Date/Time Seen: 11/13/24 10:14 Interval history: Patient progressing well. Working with therapy at the time of my visit. No longer having numbness or tingling. She is pleased with her progress. No other complaints. Pain controlled. Review of Systems Review of Systems: All systems reviewed & are unremarkable except as noted in HPI and below Exam Narrative: Patient is alert and oriented. 83 y/o overweight female. Resting comfortably in bed. No acute distress. Dressing dry and intact without drainage. Warm, normal appearing skin. Tenderness at right hip. Wiggles toes. Fires quad. Good dorsi flexion and plantar flexion. Able to perform heal slides. Light touch sensation intact. Pedal pulse palpable. Calf nontender. Thigh non tender. Normal capillary refill. Objective Data Vital Signs Vital Signs: Vital Signs - 24 hr 11/12/24 11:55 11/12/24 12:00 11/12/24 14:57 Temperature 97.6 F Pulse Rate 86 73 Respiratory Rate 15 Blood Pressure 104/43 L Pulse Oximetry 96 Oxygen Delivery Room Air 11/12/24 15:20 11/12/24 16:00 11/12/24 18:57 Temperature 98.3 F Pulse Rate 84 76 Respiratory Rate 17 Blood Pressure 101/54 L 101/50 L Pulse Oximetry 96 Oxygen Delivery 11/12/24 20:00 11/12/24 20:00 11/12/24 20:43 Temperature Pulse Rate 92 78 Respiratory Rate Blood Pressure Pulse Oximetry Oxygen Delivery Room Air 11/12/24 21:03 11/13/24 00:00 11/13/24 04:00 Temperature Pulse Rate 96 87 Respiratory Rate Blood Pressure Pulse Oximetry 96 Oxygen Delivery Room Air 11/13/24 04:48 11/13/24 08:39 Temperature 98.5 F Pulse Rate 87 80 Respiratory Rate 18 Blood Pressure 110/58 L Pulse Oximetry 93 Oxygen Delivery Intake/Output Intake/Output: Intake & Output 11/10/24 11/11/24 11/12/24 11/13/24 23:59 23:59 23:59 23:59 Intake Total 0630 244 3832 830 Output Total 1450 2450 1450 Balance -320 -1700 1200 830 Meds/Results Medications: Active Medications Generic Name Dose Route Start Last Admin Trade Name Freq PRN Reason Stop Dose Admin Acetaminophen 650 mg 11/07/24 17:37 11/12/24 21:39 Acetaminophen 325 Mg Tablet PO 650 mg Q6H PRN Administration Mild Pain (1-3) or Fever Acetaminophen 500 mg 11/11/24 17:12 Acetaminophen 500 Mg Tablet PO Q6H PRN Pain Rated 1-3 Aspirin 325 mg 11/11/24 21:00 11/13/24 08:39 Aspirin 325 Mg Enteric Tablet PO 325 mg Q12HR LULY Administration Azelastine HCl 1 spray 11/10/24 17:30 11/13/24 08:42 Azelastine Hcl Nasal 0.1% 137 Mcg/Spr 30 Ml Btl NASAL 1 spray Q12HR LULY Administration Escitalopram Oxalate 10 mg 11/08/24 09:00 11/13/24 08:40 Escitalopram Oxalate 10 Mg Tablet PO 10 mg DAILY LULY Administration Furosemide 40 mg 11/10/24 09:00 11/12/24 10:31 Furosemide 40 Mg Tablet PO 40 mg MoWeFr LULY Administration Hydralazine HCl 25 mg 11/08/24 09:00 11/13/24 08:41 Hydralazine Hcl 25 Mg Tablet PO Not Given BID LULY Hydromorphone HCl 1 mg 11/13/24 10:08 Hydromorphone Hcl Inj (*Crx) 2 Mg/Ml Vial IV PUSH Q2H PRN Breakthrough Pain Rated 7-10 or NPO Hydromorphone HCl 0.5 mg 11/13/24 10:08 Hydromorphone Hcl Inj (*Crx) 2 Mg/Ml Vial IV PUSH Q2H PRN Breakthrough Pain Rated 4-6 or NPO Hydroxyzine Pamoate 50 mg 11/11/24 17:12 Hydroxyzine Pamoate 25 Mg Capsule PO Q4H PRN Itching Ibuprofen 800 mg in 200 mls @ 400 mls/hr 11/11/24 17:12 Caldolor 800 Mg/200 Ml IVPB Q6H PRN Breakthrough Pain Rated 1-3 or NPO Loratadine 10 mg 11/09/24 08:40 11/13/24 08:40 Loratadine 10 Mg Tablet PO Not Given QAM [facility] Naloxone HCl 0.1 mg 11/07/24 17:37 Naloxone Hcl 0.4 Mg/Ml Vial IV PUSH Q5MIN PRN Sedation Naloxone HCl 0.1 mg 11/11/24 17:12 Naloxone Hcl 0.4 Mg/Ml Vial IV PUSH Q2M PRN Opiate Reversal Ondansetron HCl 4 mg 11/11/24 13:34 Ondansetron Inj 4 Mg/2 Ml Vial IV PUSH ONCE PRN Nausea Ondansetron HCl 4 mg 11/11/24 17:12 11/12/24 15:47 Ondansetron Inj 4 Mg/2 Ml Vial IV PUSH 4 mg Q4H PRN Administration Nausea And Vomiting Oxycodone/Acetaminophen 1 tablet 11/11/24 17:12 Oxycodone/Acetaminophen (*Crx) 5-325 Mg Tablet PO Q4H PRN Pain Rated 4-6 Oxycodone/Acetaminophen 1 tab 11/11/24 17:12 Oxycodone/Acetaminophen (*Crx) 10-325 Mg Tablet PO Q6H PRN Pain Rated 7-10 Pantoprazole Sodium 40 mg 11/09/24 12:10 11/13/24 08:40 Pantoprazole 40 Mg Tablet PO Not Given QAM [facility] Polyethylene Glycol 17 gm 11/12/24 09:00 11/13/24 08:37 Polyethylene Glycol 3350 17 Gm Powd.Pack PO Not Given QAM [facility] Propranolol HCl 20 mg 11/08/24 09:00 11/13/24 08:39 Propranolol Hcl 20 Mg Tablet PO 20 mg Q12HR [facility]ULY Administration Senna/Docusate Sodium 1 tab 11/07/24 17:37 Senna/Docusate Sodium Tablet PO HS PRN Constipation Senna/Docusate Sodium 2 tab 11/11/24 17:12 11/13/24 08:38 Senna/Docusate Sodium Tablet PO Not Given BID [facility] Radiology Results: ITS Impressions Hip/Pelvis X-Ray 11/07/24 14:00 Impression: Acute fracture in the subcapital region of the right femoral neck, as detailed above. Chest X-Ray 11/07/24 16:37 IMPRESSION: Highly suggestive cardiomegaly with cardiac decompensation and pulmonary edema. Pneumonitis cannot be excluded. Clinical correlation advised. Abdomen Ultrasound 11/08/24 12:13 IMPRESSION: Hepatic steatosis. Cholecystectomy. Hip X-Ray 11/11/24 16:45 IMPRESSION: No acute osseous abnormality pelvis and right hip. Right hip arthroplasty. Labs Labs: Laboratory Results - last 24 hr 11/13/24 04:25 WBC 8.9 RBC 3.50 L Hgb 10.9 L Hct 34.2 L MCV 97.7 MCH 31.1 MCHC 31.9 L RDW 14.7 H Plt Count 176 MPV 11.1 H Sodium 132 L Potassium 3.8 Chloride 98 Carbon Dioxide 28 Anion Gap 6 BUN 29 H Creatinine 0.85 Estim Creat Clear Calc 48 Estimated GFR > 60 Glucose 109 Calcium 9.6 Total Bilirubin 0.9 AST 20 ALT 15 Alkaline Phosphatase 90 Total Protein 6.0 L Albumin 3.3 L
--- NOTE | 2024-11-13 11:42 | P.PNIM_ITS ---
Progress Note: A&P Assessment and Plan (1) Fracture of femoral neck, right, closed: Qualifiers: Encounter type: initial encounter Qualified Code(s): S72.001A - Fracture of unspecified part of neck of right femur, initial encounter for c losed fracture Code(s): S72.001A - Fracture of unspecified part of neck of right femur, initial encounter for closed fracture Status: Acute Assessment and Plan: * Hip and pelvis x-ray shown acute fracture in the subcapital region of the right femoral neck * Orthopedic surgery consulted * Hold Eliquis, SCD's for now * Continue NPO status * Continue pain control * Case management consulted for outpatient rehab needs 11/12 * Patient is postop day 1 from a right total hip arthroplasty with Dr. Parikh * Continue pain control * Advanced diet as tolerated * Continue PT and OT * DVT prophylaxis per surgical team * Case management working on SNF placement 11/13 * Postop day 2 from right total hip arthroplasty * Continue pain control * Continue PT and OT * [facility] [facility] once a bed [facility] available * Will start Eliquis per orthopedic recommendation (2) CHF (congestive heart failure): Code(s): I50.9 - Heart failure, unspecified Status: Acute Assessment and Plan: * Likely diastolic dysfunction * CXR shown cardiomegaly with cardiac decompensation and pulmonary edema * Patient given a dose of IV push Lasix while in the ER * EKG shown sinus or ectopic atrial bradycardia with a rat of 57, QTc 430, left ventricular hypertrophy * ProBNP 1680 on admission * Echo results pending * Continue to monitor I and O * Obtain daily weight * Continue home dose of Lasix 40 mg , for now * Continue to hold Eliquis, INR 1.2 11/12 * Echocardiogram showing normal LV systolic function with an estimated EF of greater than 70%, aortic root is dilated measuring 4.3 cm, otherwise unremarkable * Continue to monitor daily weights and I&O 11/13 * No change to current treatment plan (3) Diastolic dysfunction: Code(s): I51.89 - Other ill-defined heart diseases Status: Acute Assessment and Plan: see above plan of care (4) Recurrent falls: Code(s): R29.6 - Repeated falls Status: Acute Assessment and Plan: * History of recurrent falls. Sustained a subdural hematoma and left displaced intratrochanteric fracture leading to ORIF in the past. * Case coordination following for potential rehab needs * PT and OT when appropriate * Continue fall precautions 11/12 * Continue fall precautions * Continue PT and OT 11/13 * No change to current treatment plan (5) Elevated bilirubin: Code(s): R17 - Unspecified jaundice Status: Acute Assessment and Plan: * Total bilirubin initially 1.4>1.7 * Will obtain Hepatitis panel * US of liver ordered * S/P cholecystectomy 11/12 * Total bili 0.9 * Resolved (6) Hypertension: Qualifiers: Hypertension type: primary hypertension Qualified Code(s): I10 - Essential (primary) hypertension Code(s): I10 - Essential (primary) hypertension Status: Chronic Assessment and Plan: * blood pressure ranging 114/68-205/91 * continue hydralazine 11/12 * No change to current treatment plan (7) Atrial fibrillation: Code(s): I48.91 - Unspecified atrial fibrillation Status: Acute Assessment and Plan: * Hold eliquis * Continue Propranolol 11/12 * Eliquis still on hold, will defer to surgical team on when to restart * Continue propranolol 11/13 * Will restart Eliquis per Orthopedic surgery recommendation * Continue propranolol (8) Depressed: Code(s): F32.A - Depression, unspecified Status: Acute Assessment and Plan: * Continue Lexapro 11/12 * No change to current treatment plan Time Spent With Patient Time with patient: 25 - 35 minutes Subjective Date/time seen: 11/13/24 11:42 Interval history: Interval summary: This is an 83 year old female with significant past medical history of Memory deficit, essential tremor, osteoarthritis, hypertension, depression, frequent falls, former smoker who presented to the hospital for evaluation after sustaining a ground level fall. Work up in the hospital included a hip/pelvis x- ray which shown an acute fracture in the subcapital region of the right femoral neck. Chest x-ray shown cardiomegaly with cardiac decompensation and pulmonary edema. Initial labs shown a normal WBC count 8.0, Na+ 136, total bili 1.4, BG ranging 113-114, proBNP 1680. UA was obtained and was negative.EKG shown sinus bradycardia with left ventricular hypertrophy with rate of 57, QTc 430. Patient was given 40 mg IV push Lasix and pain medication while in the ER. Echocardiogram showing hyperdynamic LV systolic function with an estimated EF of greater than 70%, 4.3 cm aortic root dilatation. 11/11/2024 patient had a right total hip replacement with Dr. Parikh. Subjective: Patient denies any new complaints today. She states she did better with PT and OT today. She was able to ambulate around her bed. Labs reviewed. Review of Systems Review of Systems: All systems reviewed & are unremarkable except as noted in HPI and below Exam Narrative: General: In no acute distress, well nourished Cardiac: Normal S1 and S2. RRR, No murmur, gallops or friction rubs, peripheral pulses intact. Respiratory: Lungs clear to auscultation, no adventitious lung sounds, currently on room air Gastrointestinal: soft, non-distended, non-tender, normoactive bowel sounds. Had BM today : Voiding without difficulty Extremities:Limited ROM of right leg, moves all other extremities without difficulty Skin: Right hip OR dressing in place Neuro: Alert and oriented x4 Objective Data Vital Signs Vital Signs: Vital Signs - 24 hr 11/12/24 11:55 11/12/24 12:00 11/12/24 14:57 Temperature 97.6 F Pulse Rate 86 73 Respiratory Rate 15 Blood Pressure 104/43 L Pulse Oximetry 96 Oxygen Delivery Room Air 11/12/24 15:20 11/12/24 16:00 11/12/24 18:57 Temperature 98.3 F Pulse Rate 84 76 Respiratory Rate 17 Blood Pressure 101/54 L 101/50 L Pulse Oximetry 96 Oxygen Delivery 11/12/24 20:00 11/12/24 20:00 11/12/24 20:43 Temperature Pulse Rate 92 78 Respiratory Rate Blood Pressure Pulse Oximetry Oxygen Delivery Room Air 11/12/24 21:03 11/13/24 00:00 11/13/24 04:00 Temperature Pulse Rate 96 87 Respiratory Rate Blood Pressure Pulse Oximetry 96 Oxygen Delivery Room Air 11/13/24 04:48 11/13/24 08:39 Temperature 98.5 F Pulse Rate 87 80 Respiratory Rate 18 Blood Pressure 110/58 L Pulse Oximetry 93 Oxygen Delivery Intake/Output Intake/Output: Intake & Output 11/10/24 11/11/24 11/12/24 11/13/24 23:59 23:59 23:59 23:59 Intake Total 1631 331 6009 830 Output Total 1450 5730 1450 Balance -320 -1700 1200 830 Meds/Results Medications: Active Medications Generic Name Dose Route Start Last Admin Trade Name Freq PRN Reason Stop Dose Admin Acetaminophen 650 mg 11/07/24 17:37 11/12/24 21:39 Acetaminophen 325 Mg Tablet PO 650 mg Q6H PRN Administration Mild Pain (1-3) or Fever Acetaminophen 500 mg 11/11/24 17:12 Acetaminophen 500 Mg Tablet PO Q6H PRN Pain Rated 1-3 Aspirin 325 mg 11/11/24 21:00 11/13/24 08:39 Aspirin 325 Mg Enteric Tablet PO 325 mg Q12HR [facility] Administration Azelastine HCl 1 spray 11/10/24 17:30 11/13/24 08:42 Azelastine Hcl Nasal 0.1% 137 Mcg/Spr 30 Ml Btl NASAL 1 spray Q12HR [facility] Administration Escitalopram Oxalate 10 mg 11/08/24 09:00 11/13/24 08:40 Escitalopram Oxalate 10 Mg Tablet PO 10 mg DAILY [facility] Administration Furosemide 40 mg 11/10/24 09:00 11/12/24 10:31 Furosemide 40 Mg Tablet PO 40 mg MoWeFr [facility] Administration Hydralazine HCl 25 mg 11/08/24 09:00 11/13/24 08:41 Hydralazine Hcl 25 Mg Tablet PO Not Given BID [facility] Hydromorphone HCl 1 mg 11/13/24 10:08 Hydromorphone Hcl Inj (*Crx) 2 Mg/Ml Vial IV PUSH Q2H PRN Breakthrough Pain Rated 7-10 or NPO Hydromorphone HCl 0.5 mg 11/13/24 10:08 Hydromorphone Hcl Inj (*Crx) 2 Mg/Ml Vial IV PUSH Q2H PRN Breakthrough Pain Rated 4-6 or NPO Hydroxyzine Pamoate 50 mg 11/11/24 17:12 Hydroxyzine Pamoate 25 Mg Capsule PO Q4H PRN Itching Ibuprofen 800 mg in 200 mls @ 400 mls/hr 11/11/24 17:12 Caldolor 800 Mg/200 Ml IVPB Q6H PRN Breakthrough Pain Rated 1-3 or NPO Loratadine 10 mg 11/09/24 08:40 11/13/24 08:40 Loratadine 10 Mg Tablet PO Not Given QAM [facility] Naloxone HCl 0.1 mg 11/07/24 17:37 Naloxone Hcl 0.4 Mg/Ml Vial IV PUSH Q5MIN PRN Sedation Naloxone HCl 0.1 mg 11/11/24 17:12 Naloxone Hcl 0.4 Mg/Ml Vial IV PUSH Q2M PRN Opiate Reversal Ondansetron HCl 4 mg 11/11/24 13:34 Ondansetron Inj 4 Mg/2 Ml Vial IV PUSH ONCE PRN Nausea Ondansetron HCl 4 mg 11/11/24 17:12 11/12/24 15:47 Ondansetron Inj 4 Mg/2 Ml Vial IV PUSH 4 mg Q4H PRN Administration Nausea And Vomiting Oxycodone/Acetaminophen 1 tablet 11/11/24 17:12 Oxycodone/Acetaminophen (*Crx) 5-325 Mg Tablet PO Q4H PRN Pain Rated 4-6 Oxycodone/Acetaminophen 1 tab 11/11/24 17:12 Oxycodone/Acetaminophen (*Crx) 10-325 Mg Tablet PO Q6H PRN Pain Rated 7-10 Pantoprazole Sodium 40 mg 11/09/24 12:10 11/13/24 08:40 Pantoprazole 40 Mg Tablet PO Not Given QAM [facility] Polyethylene Glycol 17 gm 11/12/24 09:00 11/13/24 08:37 Polyethylene Glycol 3350 17 Gm Powd.Pack PO Not Given QAM [facility] Propranolol HCl 20 mg 11/08/24 09:00 11/13/24 08:39 Propranolol Hcl 20 Mg Tablet PO 20 mg Q12HR LULY Administration Senna/Docusate Sodium 1 tab 11/07/24 17:37 Senna/Docusate Sodium Tablet PO HS PRN Constipation Senna/Docusate Sodium 2 tab 11/11/24 17:12 11/13/24 08:38 Senna/Docusate Sodium Tablet PO Not Given BID [facility] Radiology Results: ITS Impressions Hip/Pelvis X-Ray 11/07/24 14:00 Impression: Acute fracture in the subcapital region of the right femoral neck, as detailed above. Chest X-Ray 11/07/24 16:37 IMPRESSION: Highly suggestive cardiomegaly with cardiac decompensation and pulmonary edema. Pneumonitis cannot be excluded. Clinical correlation advised. Abdomen Ultrasound 11/08/24 12:13 IMPRESSION: Hepatic steatosis. Cholecystectomy. Hip X-Ray 11/11/24 16:45 IMPRESSION: No acute osseous abnormality pelvis and right hip. Right hip arthroplasty. Labs Labs: Laboratory Results - last 24 hr 11/13/24 04:25 WBC 8.9 RBC 3.50 L Hgb 10.9 L Hct 34.2 L MCV 97.7 MCH 31.1 MCHC 31.9 L RDW 14.7 H Plt Count 176 MPV 11.1 H Sodium 132 L Potassium 3.8 Chloride 98 Carbon Dioxide 28 Anion Gap 6 BUN 29 H Creatinine 0.85 Estim Creat Clear Calc 48 Estimated GFR > 60 Glucose 109 Calcium 9.6 Total Bilirubin 0.9 AST 20 ALT 15 Alkaline Phosphatase 90 Total Protein 6.0 L Albumin 3.3 L Quality VTE Prophylaxis VTE prophylaxis: mechanical ordered
--- NOTE | 2024-11-13 13:33 | PCNWS ---
Weekly nutritional screen. Patient is tolerating current regular diet with adequate intake, 75-100%. No weight loss reported. No nutritional needs at this time.
--- NOTE | 2024-11-13 16:26 | PM.PNORT ---
Progress Note: A&P Assessment and Plan (1) Fracture of femoral neck, right, closed: Qualifiers: Encounter type: initial encounter Qualified Code(s): S72.001A - Fracture of unspecified part of neck of right femur, initial encounter for closed fracture Code(s): S72.001A - Fracture of unspecified part of neck of right femur, initial encounter for closed fracture Status: Acute Plan Patient comfort is much improved. She was able to take a few steps with therapy. She will be an excellent rehab candidate. Her wound is healing nicely. Her neurovascular status is intact after initial numbness and heavy feelings postoperatively. Questions are answered and expectations reviewed with the patient and family. Routine follow-up in the clinic. Subjective Subjective Date/Time Seen: 11/13/24 16:26 Objective Data Vital Signs Vital Signs: Vital Signs - 24 hr 11/12/24 18:57 11/12/24 20:00 11/12/24 20:00 Temperature 36.8 C Pulse Rate 76 92 Respiratory Rate 17 Blood Pressure 101/50 L Pulse Oximetry 96 Oxygen Delivery Room Air 11/12/24 20:43 11/12/24 21:03 11/13/24 00:00 Temperature Pulse Rate 78 96 Respiratory Rate Blood Pressure Pulse Oximetry 96 Oxygen Delivery Room Air 11/13/24 04:00 11/13/24 04:48 11/13/24 08:39 Temperature 36.9 C Pulse Rate 87 87 80 Respiratory Rate 18 Blood Pressure 110/58 L Pulse Oximetry 93 Oxygen Delivery 11/13/24 14:00 Temperature 36.8 C Pulse Rate 100 Respiratory Rate 12 Blood Pressure 106/43 L Pulse Oximetry 92 Oxygen Delivery Intake/Output Intake/Output: Intake & Output 11/10/24 11/11/24 11/12/24 11/13/24 23:59 23:59 23:59 23:59 Intake Total 9676 933 6062 950 Output Total 1450 2450 1450 Balance -320 -1700 1200 950 Meds/Results Medications: Active Medications Generic Name Dose Route Start Last Admin Trade Name Freq PRN Reason Stop Dose Admin Acetaminophen 650 mg 11/07/24 17:37 11/12/24 21:39 Acetaminophen 325 Mg Tablet PO 650 mg Q6H PRN Administration Mild Pain (1-3) or Fever Acetaminophen 500 mg 11/11/24 17:12 Acetaminophen 500 Mg Tablet PO Q6H PRN Pain Rated 1-3 Apixaban 5 mg 11/13/24 21:00 Apixaban 5 Mg Tablet PO Q12H [facility] Azelastine HCl 1 spray 11/10/24 17:30 11/13/24 08:42 Azelastine Hcl Nasal 0.1% 137 Mcg/Spr 30 Ml Btl NASAL 1 spray Q12HR [facility]UL[facility] Administration Escitalopram Oxalate 10 mg 11/08/24 09:00 11/13/24 08:40 Escitalopram Oxalate 10 Mg Tablet PO 10 mg DAILY LULY Administration Furosemide 40 mg 11/10/24 09:00 11/12/24 10:31 Furosemide 40 Mg Tablet PO 40 mg MoWeFr [facility] Administration Hydralazine HCl 25 mg 11/08/24 09:00 11/13/24 16:23 Hydralazine Hcl 25 Mg Tablet PO Not Given BID LUL[facility] Hydromorphone HCl 1 mg 11/13/24 10:08 Hydromorphone Hcl Inj (*Crx) 2 Mg/Ml Vial IV PUSH Q2H PRN Breakthrough Pain Rated 7-10 or NPO Hydromorphone HCl 0.5 mg 11/13/24 10:08 Hydromorphone Hcl Inj (*Crx) 2 Mg/Ml Vial IV PUSH Q2H PRN Breakthrough Pain Rated 4-6 or NPO Hydroxyzine Pamoate 50 mg 11/11/24 17:12 Hydroxyzine Pamoate 25 Mg Capsule PO Q4H PRN Itching Loratadine 10 mg 11/09/24 08:40 11/13/24 08:40 Loratadine 10 Mg Tablet PO Not Given QAM [facility] Naloxone HCl 0.1 mg 11/07/24 17:37 Naloxone Hcl 0.4 Mg/Ml Vial IV PUSH Q5MIN PRN Sedation Naloxone HCl 0.1 mg 11/11/24 17:12 Naloxone Hcl 0.4 Mg/Ml Vial IV PUSH Q2M PRN Opiate Reversal Ondansetron HCl 4 mg 11/11/24 13:34 Ondansetron Inj 4 Mg/2 Ml Vial IV PUSH ONCE PRN Nausea Ondansetron HCl 4 mg 11/11/24 17:12 11/12/24 15:47 Ondansetron Inj 4 Mg/2 Ml Vial IV PUSH 4 mg Q4H PRN Administration Nausea And Vomiting Oxycodone/Acetaminophen 1 tablet 11/11/24 17:12 Oxycodone/Acetaminophen (*Crx) 5-325 Mg Tablet PO Q4H PRN Pain Rated 4-6 Oxycodone/Acetaminophen 1 tab 11/11/24 17:12 Oxycodone/Acetaminophen (*Crx) 10-325 Mg Tablet PO Q6H PRN Pain Rated 7-10 Pantoprazole Sodium 40 mg 11/09/24 12:10 11/13/24 08:40 Pantoprazole 40 Mg Tablet PO Not Given QAM [facility] Polyethylene Glycol 17 gm 11/12/24 09:00 11/13/24 08:37 Polyethylene Glycol 3350 17 Gm Powd.Pack PO Not Given QAM [facility] Propranolol HCl 20 mg 11/08/24 09:00 11/13/24 08:39 Propranolol Hcl 20 Mg Tablet PO 20 mg Q12HR [facility] Administration Senna/Docusate Sodium 1 tab 11/07/24 17:37 Senna/Docusate Sodium Tablet PO HS PRN Constipation Senna/Docusate Sodium 2 tab 11/11/24 17:12 11/13/24 16:23 Senna/Docusate Sodium Tablet PO Not Given BID [facility] Radiology Results: ITS Impressions Hip/Pelvis X-Ray 11/07/24 14:00 Impression: Acute fracture in the subcapital region of the right femoral neck, as detailed above. Chest X-Ray 11/07/24 16:37 IMPRESSION: Highly suggestive cardiomegaly with cardiac decompensation and pulmonary edema. Pneumonitis cannot be excluded. Clinical correlation advised. Abdomen Ultrasound 11/08/24 12:13 IMPRESSION: Hepatic steatosis. Cholecystectomy. Hip X-Ray 11/11/24 16:45 IMPRESSION: No acute osseous abnormality pelvis and right hip. Right hip arthroplasty. Labs Labs: Laboratory Results - last 24 hr 11/13/24 04:25 WBC 8.9 RBC 3.50 L Hgb 10.9 L Hct 34.2 L MCV 97.7 MCH 31.1 MCHC 31.9 L RDW 14.7 H Plt Count 176 MPV 11.1 H Sodium 132 L Potassium 3.8 Chloride 98 Carbon Dioxide 28 Anion Gap 6 BUN 29 H Creatinine 0.85 Estim Creat Clear Calc 48 Estimated GFR > 60 Glucose 109 Calcium 9.6 Total Bilirubin 0.9 AST 20 ALT 15 Alkaline Phosphatase 90 Total Protein 6.0 L Albumin 3.3 L
[2024-11-13] MEDS: ACETAMINOPHEN 325 MG TABLET 650 MG PO (20:18)
[2024-11-13] MEDS: APIXABAN 5 MG TABLET PO (20:19)
[2024-11-14] VITALS: PULSE 105
[2024-11-14 04:00] VITALS: PULSE 93
[2024-11-14 05:30] VITALS: BP 122/71; PULSE 89; RESP 17; TEMP 36.7; O2SAT 92
[2024-11-14 05:46] LABS: Hematocrit 33.1 % (37.0-47.0); Hemoglobin 10.6 g/dL (12.0-15.0); Mean Corpuscular Hemoglobin 31.6 pg (26-34); Mean Corpuscular Volume 98.8 fl (80-100); Mean Platelet Volume 10.1 fl (7.4-10.4); Platelet Count Result 201 k/mm3 (150-375); Red Blood Count 3.35 M/mm3 (4.2-5.4); Red Cell Distribution Width 14.6 % (11.5-14.5); White Blood Count 7.8 K/mm3 (4.5-10.0)
[2024-11-14 05:59] LABS: Alanine Aminotransferase 22 U/L (6-35); Albumin Level 3.1 g/dL (3.5-5.1); Alkaline Phosphatase 115 U/L (38-126); Anion Gap 4 mmol/L (4-12); Aspartate Amino Transferase 21 U/L (14-36); Bilirubin,Total 0.7 mg/dL (0.2-1.3); Blood Urea Nitrogen 22 mg/dL (7-17); Calcium 9.5 mg/dL (8.4-10.2); Carbon Dioxide 30 mmol/L (22-30); Chloride 99 mmol/L (98-107); Estimated CRCL calculation 57 ml/min; Estimated Glomerular Filt Rate > 60; Glucose 116 mg/dL (65-110); Potassium 3.8 mmol/L (3.4-5.0); Sodium 133 mmol/L (137-145)
[2024-11-14 08:00] VITALS: BP 126/74; PULSE 84; PULSE 92; RESP 18; TEMP 36.9; O2SAT 96
[2024-11-14 08:24] VITALS: PULSE 93
[2024-11-14] MEDS: PROPRANOLOL HCL 20 MG TABLET PO (08:24)
[2024-11-14] MEDS: APIXABAN 5 MG TABLET PO (08:24)
[2024-11-14] MEDS: ESCITALOPRAM OXALATE 10 MG TABLET PO (08:25)
[2024-11-14] MEDS: FUROSEMIDE 40 MG TABLET PO (08:28)
--- NOTE | 2024-11-14 09:11 | PM.DS ---
DS: Admitting Diagnosis Discharge Date 11/14/24 DS: Discharge Diagnosis Discharge Diagnosis (1) Fracture of femoral neck, right, closed: Qualifiers: Encounter type: initial encounter Qualified Code(s): S72.001A - Fracture of unspecified part of neck of right femur, initial encounter for closed fracture Code(s): S72.001A - Fracture of unspecified part of neck of right femur, initial encounter for closed fracture Status: Acute (2) CHF (congestive heart failure): Code(s): I50.9 - Heart failure, unspecified Status: Acute (3) Diastolic dysfunction: Code(s): I51.89 - Other ill-defined heart diseases Status: Acute (4) Recurrent falls: Code(s): R29.6 - Repeated falls Status: Acute (5) Elevated bilirubin: Code(s): R17 - Unspecified jaundice Status: Acute (6) Hypertension: Qualifiers: Hypertension type: primary hypertension Qualified Code(s): I10 - Essential (primary) hypertension Code(s): I10 - Essential (primary) hypertension Status: Chronic (7) Atrial fibrillation: Code(s): I48.91 - Unspecified atrial fibrillation Status: Acute (8) Depressed: Code(s): F32.A - Depression, unspecified Status: Acute DS: Summary Time Spent with Patient Time attestation: Total time spent providing and/or coordinating discharge services: Exam Narrative: General: In no acute distress, well nourished Cardiac: Normal S1 and S2. RRR, No murmur, gallops or friction rubs, peripheral pulses intact. Respiratory: Lungs clear to auscultation, no adventitious lung sounds, currently on room air Gastrointestinal: soft, non-distended, non-tender, normoactive bowel sounds. Had BM today : Voiding without difficulty Extremities:Limited ROM of right leg, moves all other extremities without difficulty Skin: Right hip OR dressing in place Neuro: Alert and oriented x4 DS: Data Data Completed and Pending Labs on day of discharge: Labs from last 24 hours 11/14/24 05:32 WBC 7.8 RBC 3.35 L Hgb 10.6 L Hct 33.1 L MCV 98.8 MCH 31.6 MCHC 32.0 RDW 14.6 H Plt Count 201 MPV 10.1 Sodium 133 L Potassium 3.8 Chloride 99 Carbon Dioxide 30 Anion Gap 4 BUN 22 H Creatinine 0.71 Estim Creat Clear Calc 57 Estimated GFR > 60 Glucose 116 H Calcium 9.5 Total Bilirubin 0.7 AST 21 ALT 22 Alkaline Phosphatase 115 Total Protein 6.0 L Albumin 3.1 L Discharge Plan Discharge Attending physician on discharge: Gui Langley Consulting providers: Argenis Avila; Isaac Parikh; Kellie Paula Discharging Clinician: Kellie Paula Anticipated Discharge Date/Time: 11/14/24 08:58 Patient Dis[facility]: [facility] Activity: may shower and as tolerated Diet: as tolerated and regular Wound Care Instructions: follow printed instructions Discharge Instructions: Ortho instructions: D/C to SNF/rehab Follow up in office with xrays in 4-6 weeks. Please call [facility] to schedule appointment . Wound Care: Remove Aquacel dressing at 7 days post op. Remove steristrips at 14 days post op. May shower. No soaking. PT: Weight bearing as tolerated with a walker. DVT prophylaxis: resume Eliquis. Pain medication: Tylenol. Patient Instructions: Hip Fracture (GEN) Patient Language: Qatari Follow-up/Referrals: Isaac Parikh MD [Physician] - 4 Weeks Discharge Medications: New sennosides-docusate sodium [Senokot-S] 8.6-50 mg Tablet 1 tab PO HS PRN (Reason: Constipation) Qty: 30 0RF oxycodone-acetaminophen 5-325 mg Tablet 1 tablet PO Q4H PRN (Reason: Pain Rated 4-6) Qty: 10 0RF Continued Eliquis 5 mg tablet 5 mg PO Q12H hydralazine 25 mg Tablet 25 mg PO BID furosemide 40 mg tablet 40 mg PO QMWF Qty: 12 0RF propranolol 20 mg tablet 20 mg PO BID Qty: 60 0RF escitalopram oxalate 10 mg tablet 10 mg PO DAILY Qty: 30 0RF Date of admission: 11/07/24 16:58 Primary Care Provider: Mk,Milvia Admitting Provider: Michoacano Solano Attending physician on admission: Kellie Paula Condition: Improved Quality VTE Prophylaxis VTE prophylaxis: mechanical ordered
== END 2024-11-14 14:20 | DRG 521 ==
LOC: ANHED 16:24 → ANH2MED 17:16
PROVIDERS: Nurse Practitioner Family; Orthopaedic Surgery; Student in an Organized Health Care Education/Training Program; Admitting Provider General Practice; Emergency Provider Emergency Medicine; PCP Family Medicine; Visit Provider Nurse Practitioner Acute Care
PROC: 0SRR01A Replacement of Right Hip Joint, Femoral Surface with Metal Synthetic Substitute, Uncemented, Open Approach (ICD-10-PCS; CPT 27125; principal; 2024-11-11 15:00)
DX: S72.011A Unspecified intracapsular fracture of right femur, initial encounter for closed fracture (principal); I50.33 Acute on chronic diastolic (congestive) heart failure; R17 Unspecified jaundice; I11.0 Hypertensive heart disease with heart failure; M17.0 Bilateral primary osteoarthritis of knee; R26.89 Other abnormalities of gait and mobility; R41.3 Other amnesia; R29.6 Repeated falls; G25.0 Essential tremor; F32.A Depression, unspecified; W18.09XA Striking against other object with subsequent fall, initial encounter; Z87.891 Personal history of nicotine dependence; Z79.01 Long term (current) use of anticoagulants
CPT/HCPCS: 36415; 71045; 73502; 76705; 80053; 80074; 81003; 83036; 83735; 83880; 84443; 85025; 85027; 85610; 85730; 86850; 86900; 86901; 93005; 93306; 96374; 96375; 96376; 97110; 97116; 97161; 97165; 97530; 97535; 99285; A9270; C1776; J0360; J0690; J1100; J1171; J1885; J1938; J2270; J2405; J2704; J2795; J3010; J7120

== ENCOUNTER 2024-12-17 12:06 | Outpatient (CLI) | payer MEDICARE, SELFPAY ==
--- NOTE | ~2024-12-17 | XR_ITS ---
XR hip RT 2V w AP pelvis 12/17/2024 12:38 Indication: Hip fracture. Procedure: AP pelvis and 2 views right hip Comparison: Comparison to multiple prior studies sequentially, with oldest reviewed study dated 11/07. Findings: There is a right bipolar hemiarthroplasty. No acute fracture or traumatic malalignment. The re is lower lumbar spondylosis. There is a dynamic compression screw transfixing the left femoral nec k. Impression: 1: No acute fracture. Reviewed, dictated and finalized at location B. Impression: 1: No acute fracture.
--- OUTSIDE RECORDS SUMMARY | 2024-12-17 12:11 | XMS_ITS | Referral Summary ---
Author Organization [facility] Address [address] [place] [address] Care Team Providers Care Manager Fashion Name Role Phone Milvia Terrazas MD Primary Care Provider [phone] Encounters Date Type Department Care Team Description 10/17/2024 Orders Only [facility] [address] [place] [address] Kyle Paredes MD PhD Polyneuropathy 10/16/2024 2:50 PM CDT Lab [facility] Advanced Medicine (CAM) [address] [place] [address] 10/16/2024 1:00 PM CDT Office Visit [facility] Neuro Muscle [address] [facility] 6th [place] [address] [place] [address] Lisa Diaz PA Polyneuropathy (Primary Dx) from [...] 06/09/2024 Assessment & Plan (06/12/2024 7:52 AM PATIENT ACCESS REPRESENTATIVE): Patient reports increased frequency of falls since [...] outpatient follow up with neuromusculular clinic at [facility] 06/10 Medicine called for consult or tx [...] 06/09/2024 Assessment & Plan (06/09/2024 12:58 PM PATIENT ACCESS REPRESENTATIVE): 06/09 medication report reviewed and updated in ADMISSIONS tab Fall 06/09/2024 Assessment & Plan (06/10/2024 11:56 AM PATIENT ACCESS REPRESENTATIVE): Suspect repeat mechanical fall iso L sided [...] 06/09/2024 Assessment & Plan (06/09/2024 1:07 PM PATIENT ACCESS REPRESENTATIVE): 06/09 PVR 450cc, rodriguez inserted, re-attempt when mobility improves and after bowel function Abnormal finding of diagnostic imaging Assessment & Plan (06/10/2024 11:37 AM PATIENT ACCESS REPRESENTATIVE): Thyroid and pulmonary nodules noted on CT [...] 05/30/2024 Assessment & Plan (06/10/2024 11:57 AM PATIENT ACCESS REPRESENTATIVE): 06/09 will require placement iso frequent falls, [...] 05/29/2024 Assessment & Plan (06/11/2024 11:27 AM PATIENT ACCESS REPRESENTATIVE): Multiple frequent falls, recent h/o SLMF with [...] 05/29/2024 Assessment & Plan (06/11/2024 6:31 AM PATIENT ACCESS REPRESENTATIVE): 05/29 UA+, no culture sent, discharged with [...] 05/29/2024 Assessment & Plan (06/12/2024 7:52 AM PATIENT ACCESS REPRESENTATIVE): Home regimen: triamterene/hctz resumed 06/10, propranolol iso tremors (continued) 06/11 Allowing permissive hypertension. When ready to start an agent, I would start lisinopril 10mg qdaily. Follow up with PCP Assessment & Plan (05/29/2024 8:32 AM CDT): Home med: triamterene/HCTZ 37.5/25mg per dispense report - Restart as able Tremor 05/29/2024 Assessment & Plan (06/09/2024 1:00 PM PATIENT ACCESS REPRESENTATIVE): Home regimen: propranolol (continued) Assessment & Plan (05/29/2024 8:34 AM CDT): Home med: propranolol 10mg BID - restarted with hold parameters Immunizations Immunization Administration Dates Next Due COVID-19 mRNA ([employer]) 0.3 m L (30 mcg) vaccine (12 years and up) 05/19/2024 Influenza, Unspecified 05/19/2024 Social History Tobacco Use Types Packs/Day Years Used Date Smoking Tobacco: Former Cigarettes 0.2 40 1 960 - 2000 Smokeless Tobacco: Never Tobacco Cessation:Counseling Given: Not Answered [facility] Utilities Answer Date Recorded In the past 12 months has [facility] [employer], oil, or water [employer] threatened to shut off services in your [...] often do you attend chur ch or latter day services? Never 06/09/2024 Do you belong to any clubs o r organizations such as baptist groups, unions, fraternal or athletic groups, or [...] Date Recorded PHQ-2 Total Score 0 06/09/2024 [facility] Answer Date [...] any time in the past 12 m [facility], were you homeless or living in a care home (including now)? No 06/09/2024 Personal Safety Answer [...] 36.9 C (98.4 F) 06/12/2024 5:00 AM PATIENT ACCESS REPRESENTATIVE Respiratory Rate 18 07/01/2024 11:2 5 AM PATIENT ACCESS REPRESENTATIVE Oxygen Saturation 97% 07/01/2024 11: 25 AM PATIENT ACCESS REPRESENTATIVE Inhaled Oxygen Concentration - - Weight 82.1 [...] AM CDT Narrative NEUROMUSCULAR CLINICAL LABORATORY - 11/10/2024 2:07 PM CDT Please click on the PDF link to view the report containing this result us Kyle Paredes MD PhD LAB PATHOLOGY ORDERABLES Agatha leone Result NEUROMUSCULAR CLINICAL LABORATORY Room [address] [place] [address] from Last 3 Months Insurance MEDICARE MEDICARE [facility] MEDICARE SUPPLEMENT Advance Directives For more information, please contact: [phone] * Full Code (Latest Code Status on File) Date Activated Date Inactivated Comments 06/08/2024 11:09 PM 06/12/2024 3:49 PM * Full Code Date Activated Date Inactivated Comments 05/29/2024 5:33 AM 05/31/2024 10:16 PM Care Teams Manager Fashion Relationship Specialty [place] [address] [facility] [address] [place] [address] PCP - General Family Medicine 05/29/24
--- OUTSIDE RECORDS SUMMARY | 2024-12-17 12:11 | XMS_ITS | Clinical Summary ---
Author Organization [facility] Address [address] [place] [address] Care Team Providers Care Grassroots Organizer Name Role Phone Milvia Terrazas MD Primary Care Provider [phone] Allergies Active Allergy Reactions Criticality Noted Date [...] 06/09/2024 Assessment & Plan (06/12/2024 7:52 AM SHOE REPAIRER APPRENTICE): Patient reports increased frequency of falls since [...] outpatient follow up with neuromusculular clinic at [facility] 06/10 Medicine called for consult or tx [...] 06/09/2024 Assessment & Plan (06/09/2024 12:58 PM SHOE REPAIRER APPRENTICE): 06/09 medication report reviewed and updated in ADMISSIONS tab Fall 06/09/2024 Assessment & Plan (06/10/2024 11:56 AM SHOE REPAIRER APPRENTICE): Suspect repeat mechanical fall iso L sided [...] 06/09/2024 Assessment & Plan (06/09/2024 1:07 PM SHOE REPAIRER APPRENTICE): 06/09 PVR 450cc, rodriguez inserted, re-attempt when mobility improves and after bowel function Abnormal finding of diagnostic imaging Assessment & Plan (06/10/2024 11:37 AM SHOE REPAIRER APPRENTICE): Thyroid and pulmonary nodules noted on CT [...] 05/30/2024 Assessment & Plan (06/10/2024 11:57 AM SHOE REPAIRER APPRENTICE): 06/09 will require placement iso frequent falls, [...] 05/29/2024 Assessment & Plan (06/11/2024 11:27 AM SHOE REPAIRER APPRENTICE): Multiple frequent falls, recent h/o SLMF with [...] 05/29/2024 Assessment & Plan (06/11/2024 6:31 AM SHOE REPAIRER APPRENTICE): 05/29 UA+, no culture sent, discharged with [...] 05/29/2024 Assessment & Plan (06/12/2024 7:52 AM SHOE REPAIRER APPRENTICE): Home regimen: triamterene/hctz resumed 06/10, propranolol iso tremors (continued) 06/11 Allowing permissive hypertension. When ready to start an agent, I would start lisinopril 10mg qdaily. Follow up with PCP Assessment & Plan (05/29/2024 8:32 AM CDT): Home med: triamterene/HCTZ 37.5/25mg per dispense report - Restart as able Tremor 05/29/2024 Assessment & Plan (06/09/2024 1:00 PM SHOE REPAIRER APPRENTICE): Home regimen: propranolol (continued) Assessment & Plan (05/29/2024 8:34 AM CDT): Home med: propranolol 10mg BID - restarted with hold parameters Encounters Date Type Department Care Team Description 10/17/2024 Orders Only [facility] [address] [place] [address] Kyle Paredes MD PhD Polyneuropathy 10/16/2024 2:50 PM CDT Lab [facility] Advanced Medicine (CAM) [address] [place] [address] 10/16/2024 1:00 PM CDT Office Visit [facility] Neuro Muscle [address] [facility] 6th [place] [address] [place] [address] Lisa Diaz PA Polyneuropathy (Primary Dx) from Last 3 Months Immunizations Immunization Administration Dates Next Due COVID-19 mRNA ([employer]) 0.3 m L (30 mcg) vaccine (12 years and up) 05/19/2024 Influenza, Unspecified 05/19/2024 Social History Tobacco Use Types Packs/Day Years Used Date Smoking Tobacco: Former Cigarettes 0.2 40 1 960 - 2000 Smokeless Tobacco: Never Tobacco Cessation:Counseling Given: Not Answered [facility] Utilities Answer Date Recorded In the past 12 months has [facility] [employer], gas, oil, or water [employer] threatened to shut off services in your [...] often do you attend chur ch or jehovah's witness services? Never 06/09/2024 Do you belong to any clubs o r organizations such as religious groups, unions, fraternal or athletic groups, or [...] Date Recorded PHQ-2 Total Score 0 06/09/2024 [facility] Questionnaire Answer Date [...] any time in the past 12 m [facility], were you homeless or living in a custodial (including now)? No 06/09/2024 Personal Safety Answer [...] 36.9 C (98.4 F) 06/12/2024 5:00 AM SHOE REPAIRER APPRENTICE Respiratory Rate 18 07/01/2024 11:2 5 AM SHOE REPAIRER APPRENTICE Oxygen Saturation 97% 07/01/2024 11: 25 AM SHOE REPAIRER APPRENTICE Inhaled Oxygen Concentration - - Weight 82.1 [...] Agatha leone Result NEUROMUSCULAR CLINICAL LABORATORY Room [address] [place] [address] from Last 3 Months Insurance MEDICARE MEDICARE [employer] MEDICARE SUPPLEMENT Advance Directives For more information, please contact: [phone] * Full Code (Latest Code Status on File) Date Activated Date Inactivated Comments 06/08/2024 11:09 PM 06/12/2024 3:49 PM * Full Code Date Activated Date Inactivated Comments 05/29/2024 5:33 AM 05/31/2024 10:16 PM Care Teams Grassroots Organizer Relationship Specialty Start [place] [address] [address] [place] [address] PCP - General Family Medicine 05/29/24
--- OUTSIDE RECORDS SUMMARY | 2024-12-17 12:11 | XMS_ITS | Clinical Summary ---
Author Organization [facility] Care Team Providers Care Tmh Teacher Name Role Phone Unavailable Primary Care Provider [...]
--- OUTSIDE RECORDS SUMMARY | 2024-12-17 12:11 | XMS_ITS | Data Portability ---
Author Organization [place] [facility], Main Office Address [address] [place] [address] Assessment Encounter Date Assessment Date Assessment LastModified [...] bit. She has a trip planned for [facility] in November and she was concerned [...] motion is from 5-140 degrees. She has gyio-kv-tqzkobwp tenderness over the lateral joint line to [...] be a week before her trip to [facility] for injection in the knee. If [...] with more than half of this in usns-fp-quvy conversation. [email or web address] Not available 09/29/2022 11:57:49 Plan of Treatment Reminders Order Date Submit Date Provider Last Modified By Organization Details Last Modified Time Details Appointments None recorded. Lab None recorded. Referral None recorded. Procedures injection/a spiration joint/bursa (PROC) - in office procedure, administere d by provider 2022 023 Not available 10:49:07 Surgeries None recorded. Imaging XR, knee [email or web address] [place], [facility] [facility] [address], [place], [address], 3 16:32:10 Medication Orders Kenalog 10 mg/mL suspension for injection [id number], [address] [place], [address], 3 16:32:10 ropivacaine (PF) 5 mg/mL (0.5 %) injection solution [id number], [address] [place], [address], 3 16:32:10 Patient TargetsNo targets recorded. Patient InstructionsNo instructions recorded. Reason for Referral None Reported. Results Created Date Observation Date Name Description Value Unit Range Abnormal Flag Note LastModifiedBy Organization Detail LastModifiedTime 09/30/19 23 XR, knee No observ ation record ed. [email or web address] [facility] [place] [address], [place], [address], 09/29/2022 11:10:50 Result Notes None recorded. Problems Name Problem SNOMED Code Status Onset Date Resolution Date Notes Provider Name and Address Organization Details Recorded Time Pain of right knee joint [id number] Active 2022 ABBEY Natarajan [place] - [facility] [email or web address] [facility] 10:07:35 Problem Notes None recorded. Procedures Surgical History Date Name Laterality Status Provider Name and Address Organization Details Recorded Time Ankle completed ABBEY Natarajan [place] [email or web address] [facility] 09/29/2022 10:06:49 Cholecystectomy completed Ailyn saez Alfie [facility] [email or web address] [facility] 09/29/2022 10:06:56 Appendectomy completed Ailyn Dick Alfie [place] - [facility] [email or web address] [facility] 09/29/2022 10:07:02 Imaging Results Imaging Date Name Status LastModified by Organiz ation Details LastModified Time 09/29/2022 XR, knee completed [email or web address] [facility] [place] [address], [place], [address], 09/29/2022 11:10:50 Procedure Notes None recorded. Medical [...] administe red by the provider 2022 active [facility]: 0003- [phone] Not Available Not Available [...] administe red by the provider 2022 active [facility] [phone] -[phone] Not Available Not Available Not Available ID NOW COVID-19 Test Kit TEST DIRECTED TODAY 09/29 completed Not Available Not Available Not Available Vitals Date Recorded Body height Body mass index (BMI) Body weight Provider Name and Address Organization Details Last Updated DateTime 09/29/2022 167.64 cm 31 kg/m2 05215.74 g ABBEY Natarajan [facility] [email or web address] [facility] 09/29/2022 10:13:45 Social History None recorded. Functional Status Question Answer Note LastModified by Organization D etails LastModified Time What is your level of alcohol consumption? None [email or web address] Information not available 09/29/2022 Mental Status None recorded. Family History Relationship Description Onset Age of this Age Resolved Age Notes LastModified by Organization Details LastModified Time Mother Heart disease [email or web address] Not available 2022 10:05:11 Mother Hypertensive disorder [email or web address] Not available 2022 10:06:17 Father Family history of stroke [email or web address] Not available 2022 10:06:06 Father Hypertensive disorder [email or web address] Not available 2022 10:06:17 Medical History Condition Response ARTHRITIS Y HYPERTENSION Y Gynecological HistoryNo gynecological history recorded. Obstetrics History GPAL:G 0 P 0 0 0 0 Past Encounters Encounter ID Performer Location Encounter Start Date Encounter Closed Date Diagnosis/Indication Diagnosis SNOMED-CT Code Diagnosis ICD10 Code Diagnosis Note [id number] Regis Ramon MD [facility] [place] [address] [place] [address] 09/29/2022 09:32:08 09/29/2022 12:05:02 Pain of right knee joint [id number] 22347 M25.561 Health Concerns Section Related Observation LastModified by Organization Detai ls LastModified Time None Recorded Concern Status LastModified by Organization Details LastModified Time None Recorded Advance Directives Directive None Recorded Payers Encounter Date Sequence Insurance Name Policy Number Policy Godwin Covered Member ID Godwin Member ID Guarantor Name 09/29/2022 1 [facility] (MEDICARE REPLACEMENT/A DVANTAGE - PPO) [id number] Marisel Ambrocio [id number] Marisel Ambrocio OBGyn Episode No OBEpisode recorded.
--- OUTSIDE RECORDS SUMMARY | 2024-12-17 12:11 | XMS_ITS | Patient Health Record ---
Author Organization [facility] Address [address] [place], [place] [address] Care Team Providers Care Autoclave Operator Name Role Phone Murray Granger Unavailable Unavailable Reason For Referral No Information Plan Of Treatment No Information Insurance Providers Payer Name Payer Address Payer Phone Subscriber Number Group Number Insured Name Patient Relationship to Insured Coverage Start Date Coverage End Date [employer] [address] [place] [address] [id number] FELX BLACKWOOD Self - patient is the insured
--- OUTSIDE RECORDS SUMMARY | 2024-12-17 12:11 | XMS_ITS | Clinical Summary ---
Author Organization [facility] Address [address] [place] [address] Phone Care Team Providers Care Key Operator Name Role Phone Murray Granger MD Primary Care Provider [phone] Allergies Active Allergy Reactions Criticality Noted Date [...] Medium Risk (1 of 4 - PCV) 1990 Influenza Vaccine (Season Ended) [address] [place] [address] Care Teams Key Operator Relationship Specialty Start Date End Date Murray Granger MD [address] [place] [address] PCP - General 01/09/19
== END 2024-12-17 12:07 | disposition home or self-care (01) ==
PROVIDERS: PCP Family Medicine; Visit Provider Orthopaedic Surgery
DX: S72.001A Fracture of unspecified part of neck of right femur, initial encounter for closed fracture (principal); X58.XXXA Exposure to other specified factors, initial encounter
CPT/HCPCS: 73502